=== PATIENT | female | born 1950 | race Two or more races ===

== ENCOUNTER 2023-09-26 08:43 | Outpatient (OUT) | payer MEDICARE, SELFPAY ==
--- NOTE | 2023-09-26 08:52 | MM_ITS ---
Patient Name: JEFERSON-------- KARLA MR#: [id number] : 1950 Exam Date: 09/26/2023 Ordering Doctor: DR JYOTSNA ABARCA RADIOLOGY REPORT PROCEDURE: MM TOMOSYNTHESIS SCREENING BI COMPARISON: MG MAMM SCREEN 3D CELINE CAD, 09/14/2021. MG MAMM SCREEN 3D ECLINE CAD, 09/25/2022. INDICATIONS: Screening Calculator Name NCI Breast Cancer Risk Assessment Tool 5 Year Breast Cancer Risk 1.30% Lifetime Breast Cancer Risk 3.20% Personal Breast Cancer No Personal Ovarian Cancer No Treatments None Family Cancers Mother with uterine/thyroid cancer at age 45; Grandfather-paternal with bone cancer at age ~90. LOCATION: [facility] BREAST COMPOSITION: Heterogeneously dense,which may obscure small masses. FINDINGS: DIAGNOSTIC CATEGORY 2--BENIGN FINDING. NO CHANGE FROM COMPARISON. RIGHT BREAST: No significant suspicious finding. Microclip markers, stable LEFT BREAST: No significant suspicious finding. RECOMMENDATIONS: ROUTINE MAMMOGRAM AND CLINICAL EVALUATION IN 12 MONTHS. PLEASE NOTE: A NORMAL MAMMOGRAM DOES NOT EXCLUDE THE POSSIBILITY OF BREAST CANCER. A CLINICALLY SUSPICIOUS PALPABLE LUMP SHOULD BE BIOPSIED. Dictated by: Jyotsna Chilel MD on 09/26/2023 at 10:09 Approved by: Jyotsna Chilel MD on 09/26/2023 at 10:13
== END 2023-09-26 08:44 | disposition home or self-care (01) ==
LOC: MAMMO 08:44
PROVIDERS: PCP Family Medicine; Visit Provider Family Medicine
DX: Z12.31 Encounter for screening mammogram for malignant neoplasm of breast (principal); Z80.8 Family history of malignant neoplasm of other organs or systems; Z80.9 Family history of malignant neoplasm, unspecified
CPT/HCPCS: 77063; 77067

== ENCOUNTER 2024-07-28 13:05 | Outpatient (OUT) | payer MEDICARE, SELFPAY | END 2024-07-28 13:06 | disposition home or self-care (01) | LOC: PST 13:05 | PROVIDERS: PCP Family Medicine; Visit Provider Surgery | DX: Z01.818 Encounter for other preprocedural examination (principal); Z86.010 Personal history of colon polyps ==

== ENCOUNTER 2024-08-06 08:50 | Day surgery (SDC) | payer MEDICARE, SELFPAY ==
--- NOTE | 2024-08-06 | OP_ITS ---
OPERATION DATE: 08/06/2024 PREOPERATIVE DIAGNOSIS: Personal history of colon polyps. POSTOPERATIVE DIAGNOSIS: Mild sigmoid diverticulosis. PROCEDURE: Colonoscopy to cecum. SURGEON: Shiv Loza M.D. ANESTHESIA: Monitored anesthesia care. ESTIMATED BLOOD LOSS: Zero. INDICATIONS AND CONSENT: Patient is a 74-year-old female with a remote history of colon polyps. Last colonoscopy in 2019 was normal. Indications, risks, benefits, alternatives of proceeding with surveillance colonoscopy were explained extensively to the patient, including the risks of bleeding, colon perforation or anesthetic complications. All of her questions were answered. Informed consent was obtained. PROCEDURE: Patient brought to the operating room, placed in the left lateral decubitus position. Monitored anesthesia care was provided. Rectal exam was performed which showed no masses or blood. The scope was inserted into the anal canal. Under direct visualization was advanced. It was advanced to the cecum where cecal markings were clearly identified. There was noted to be a good prep. Upon withdrawal of the scope, mucosal surfaces were carefully examined. There were no mass lesions or polyps. No inflammatory changes or ulcerations. There was mild sigmoid diverticulosis without inflammatory changes or scarring. The scope was retroflexed in the anal canal. There was no significant hemorrhoidal disease. Scope was then withdrawn. Patient tolerated procedure well, was sent to recovery room in good condition. CC: Lauri El D.O. FATOU
--- OUTSIDE RECORDS SUMMARY | 2024-08-06 09:07 | XMS_ITS | CCD ---
Author Organization [facility] [place] [facility] Team Providers Care Home Health Cna Name Role Phone Jyotsna Abarca Unavailable Unavailable Unavailable Unavailable Jyotsna Abarca Unavailable DO Jyotsna Abarca Primary Care Provider DO Jyotsna Abarca Attending Provider [phone] Jyotsna Abarca Unavailable TEVIN, DR GOYAL Primary Care Unavailable SAMSA ., JAMES Attending Unavailable SAMSA ., JAMES Consulting Unavailable SAMSA ., JAMES Admitting Unavailable GIRJUSTEN, DR GOYAL Primary Care Unavailable SAMSA ., JAMES Attending Unavailable SAMSA ., JAMES Consulting Unavailable SAMSA ., JAMES Admitting Unavailable GIRJUSTEN, DR GOYAL Primary Care Unavailable SAMSA ., JAMES Attending Unavailable SAMSA ., JAMES Consulting Unavailable SAMSA ., JAMES Admitting Unavailable ALON BETH Consulting Unavailable JESE RUSSELL Consulting Unavailable GIRJUSTEN, DR GOYAL Admitting Unavailable GIRVIN, DR GOYAL Attending Unavailable GIRVIN, DR GOYAL Consulting Unavailable GIRJUSTEN, DR GOYAL Primary Care Unavailable SAM, DR JYOTSNA Vidal Consulting Unavailable GIRJUSTEN, DR GOYAL Admitting Unavailable GIRJUSTEN, DR GOYAL Attending Unavailable GIRJUSTEN, DR GOYAL Consulting Unavailable GIRJUSTEN, DR GOYAL Primary Care Unavailable WEST, DR JYOTSNA Vidal Consulting Unavailable SAMSA ., JAMES Admitting Unavailable ZIJACKIE, DR SHAE Carreon Consulting Unavailable SAMSA ., JAMES Attending Unavailable TEVIN, DR GOYAL Primary Care Unavailable SAMSA ., JAMES Consulting Unavailable TEVIN, DR GOYAL Primary Care Unavailable TEVIN, DR GOYAL Admitting Unavailable GIRJUSTEN, DR GOYAL Attending Unavailable GIRJUSTEN, DR GOYAL Consulting Unavailable HOWIE CHAVEZ Consulting Unavailable DO Jyotsna Abarca Primary Care Provider DO Jyotsna Abarca Attending Provider Jyotsna Abarca DO Primary Care Provider DO Jyotsna Abarca Primary Care Provider DO Jyotsna Abarca Attending Provider [phone] DIANA BOTELLO Attending Unavailable MITA LUCIANO Attending Unavailable JYOTSNA ABARCA Primary Care Unavailable MITA LUCIANO Attending Unavailable MITA LUCIANO Referring Unavailable JYOTSNA ABARCA Primary Care Unavailable DO Jyotsna Abarca Primary Care Provider DO Jyotsna Abarca Attending Provider Jytosna Abarca Attending Unavailable Tevin, Jyotsna Admitting Unavailable Jyotsna Abarca Primary Care Unavailable Jyotsna Abarca Attending Unavailable Tevin, Jyotsna Admitting Unavailable Tevin, Jyotsna Primary Care Unavailable Jyotsna Abarca Attending Unavailable Tevin, Jyotsna Admitting Unavailable Tevin, Jyotsna Primary Care Unavailable Tevin, Jyotsna Attending Unavailable Tevin, Jyotsna Admitting Unavailable Tevin, Jyotsna Primary Care Unavailable Jyotsna Abarca Attending Unavailable Tevin, Jyotsna Admitting Unavailable Jyotsna Abarca Primary Care Unavailable Jyotsna Abarca Primary Care Physician [phone] Jyotsna Abarca Referring Unavailable Shiv LEAL Attending Unavailable Allergies Allergy Classification Reported Allergen(s) Allergy Type Date of Onset Reaction(s) Facility (4 sources) Acetaminophen / HYDROcodone; Translations: [Vicodin TABS] Drug Allergy 07-05-20 23 Other [facility] [place] DO Work Phone: (20 sources) Alendronate; Translations: [Fosamax] Drug Allergy rash, Eruption of skin (disorder) [facility] (2 sources) Ascorbic Acid / Ferrous fumarate; Translations: [Vitron-C] Drug Allergy Drowsiness, Exercise Intolerance, Unknown, Other [facility] 250 DO Work Phone: (4 sources) Atenolol; Translations: [atenolol] Drug Allergy 07-05-20 23 Shortness of breath, Other [facility] (5 sources) Cephalexin; Translations: [Keflex CAPS] Drug Allergy 07-05-20 23 Rash, Palpitations (finding) [facility] Other (20 sources) clopidogrel; Translations: [Plavix] Drug Allergy 07-05-20 23 shortness of breath, Rash, Palpitations (finding) [facility] Other (20 sources) desloratadine; Translations: [Clarinex] Drug Allergy 07-05-20 23 GI bleeding [employer] [facility] Other (20 sources) Naproxen; Translations: [naproxen] Drug Allergy 12-04-19 19 Shortness of breath, Nausea Only, Other [facility] (11 sources) Penicillins; Translations: [Penicillins] Allergy to drug (finding) 12-04-19 19 Shortness of breath, Difficulty Breathing [facility] (3 sources) rofecoxib; Translations: [Vioxx] Drug Allergy Shortness of breath, Chest Pain [facility] Repository (3 sources) Sulfamethoxazole; Translations: [sulfa] Drug Allergy 07-05-20 23 Rash [facility] 250 DO Work Phone: (19 sources) Acetaminophen / HYDROcodone; Translations: [Vicodin] Drug Allergy 09-29-20 13 Unknown [facility] Repository (20 sources) Amoxicillin Drug Allergy 11-27-19 24 shortness of breath [facility] (20 sources) atorvastatin; Translations: [atorvastatin] Drug Allergy 11-27-19 24 Muscle pain (finding) [facility] (18 sources) Cephalexin; Translations: [Keflex] Drug Allergy 10-06-20 13 Unknown [facility] Rep[facility] (20 sources) Clarithromycin; Translations: [clarithromycin] Drug Allergy 12-04-19 19 Unknown, Difficulty Breathing, SOB [facility] (20 sources) denosumab; Translations: [denosumab] Drug Allergy 11-27-19 24 rash, Eruption of skin (disorder) [facility] (17 sources) Erythromycin Drug Allergy Unknown [facility] Other (20 sources) fexofenadine; Translations: [fexofenadine] Drug Allergy Palpitations (finding) [facility] (12 sources) Loratadine Drug Allergy 11-27-19 24 Unknown, Unknown Reaction [facility] (20 sources) Penicillin G Drug Allergy 11-27-19 24 Unknown, Unknown Reaction [facility] (17 sources) Pseudoephedrine Drug Allergy Unknown [facility] Other (20 sources) PCE Drug allergy 11-27-19 24 Unknown, Unknown Reaction [facility] (17 sources) Sulf-10 Drug allergy Unknown [employer] [facility] Other (9 sources) Loratadine; Translations: [Claritin] Drug Allergy 10-06-20 13 Unknown [facility] Rep[facility] (8 sources) Acetaminophen Drug Allergy 12-04-19 19 Difficulty Breathing [facility] (8 sources) Alendronate Drug Allergy 12-04-19 19 Rash [facility] (9 sources) Cephalexin; Translations: [CEPHALEXIN] Drug Allergy 12-04-19 19 Palpitations [facility] (9 sources) clopidogrel; Translations: [CLOPIDOGREL] Drug Allergy 12-04-19 19 Palpitations, Palpitations, shortness of breath [facility] (9 sources) desloratadine; Translations: [DESLORATADINE] Drug Allergy 12-04-19 19 Unknown Reaction [facility] (8 sources) fexofenadine Drug Allergy 12-04-19 19 Palpitations [facility] (8 sources) HYDROcodone Drug Allergy 12-04-19 19 Difficulty Breathing [facility] (8 sources) Pseudoephedrine Drug Allergy 12-04-19 19 Palpitations [facility] (11 sources) rofecoxib; Translations: [ROFECOXIB] Drug Allergy 12-04-19 19 Shortness of breath, Dyspnea (finding) [facility] (8 sources) Sulfonamides (Antibiotic) Propensity to adverse reactions 12-04-19 19 Rash [facility] (8 sources) vitrum Allergy to substance 12-04-19 19 Unresponsive [facility] (1 source) Alendronate Drug Allergy 10-06-20 13 [facility] Rep[facility] (1 source) Atenolol Drug Allergy [facility] Rep[facility] (2 sources) Clarithromycin; Translations: [Biaxin] Drug Allergy 10-06-20 13 [facility] Rep[facility] (1 source) clopidogrel Drug Allergy [facility] Rep[facility] (1 source) desloratadine Drug Allergy 10-06-20 13 [facility] Rep[facility] (1 source) Latex Drug allergy (disorder) 10-06-20 13 [facility] Rep[facility] (1 source) Naproxen Drug Allergy 10-06-20 13 [facility] (1 source) Penicillins Drug allergy (disorder) 09-29-20 13 [facility] (1 source) rofecoxib Drug Allergy 10-06-20 13 [facility] (1 source) Sulfonamides (Antibiotic) Drug allergy (disorder) 10-06-20 13 [facility] Rep[facility] (2 sources) Alendronate; Translations: [ALENDRONATE] Drug Allergy 07-05-[address] [facility] (2 sources) Ascorbic Acid / Iron Carbonyl; Translations: [IRON,CARBONYL-VIT SHAY C] Drug Allergy 07-05-20 Unknown, Drowsiness [facility] Work Phone: (1 source) Penicillins Drug Intolerance 07-05-20 Shortness of breath [facility] Work Phone: (1 source) Acetaminophen / HYDROcodone; Translations: [HYDROCODONE-ACETA MINOPHEN] Drug Allergy 07-05-20 [facility] 3 Repository (1 source) Sulfamethoxazole; Translations: [SULFAMETHOXAZOLE] Drug Allergy 07-05-20 [facility] 3 Repository (1 source) SOY ISOFLA-BLK COHOSH-MAG BARK; Translations: [SOY ISOFLA-BLK COHOSH-MAG BARK] Propensity to adverse reactions to drug (disorder) 05-21-20 [facility] 3 Repository (3 sources) erythromycin base Allergy to substance 11-27-19 Unknown Reaction [facility] (2 sources) Black Cohosh Extract Drug Allergy 06-11-20 [facility] (2 sources) Soybean preparation Drug Allergy 06-11-20 [facility] (2 sources) magnolia bark Allergy to substance 06-11-20 [facility] (2 sources) Penicillin; Translations: [penicillin] Drug Allergy SOB [facility] (2 sources) Sulfonamides (Antibiotic); Translations: [sulfa drugs] Drug allergy Eruption of skin (disorder) [facility] (1 source) denosumab; Translations: [Prolia] Drug Allergy [facility] Repository Medications Current Medications Medication Drug Class(es) Dates Sig (Normalized) Sig (Original) ascorbic acid 1000 mg extended release oral tablet (2 sources) Vitamin C Start: 06-11-2024 take 1000 mg by mouth every twelve hours Ascorbic Acid (Vitamin C) Active 1000 MG PO Every 12 hours June 11, 2024 12:00am aspirin 81 mg chewable tablet (20 sources) Platelet Aggregation Inhibitor, Nonsteroidal Anti-inflammatory Drug Start: 06-11-2024 take 81 mg by mouth once daily Aspirin Active 81 MG PO Daily June 11, 2024 12:00am Start: 03-03-2021 take 1 tablet by rose marie th once daily aspirin 81 mg EC tablet Take 1 tablet (81 mg) by mouth once daily. As directed 0 03/03/2021 Active Start: 03-16-2020 take 1 tablet by rose marie th once daily aspirin 81 mg oral tablet 81 mg = 1 tab(s), Oral, Daily, Refills(s) 0, Blood Thinner Start Date: 03/16/20 Status: Ordered take 1 tablet by rose marie th every twenty-four hours Aspirin 81 MG 1 tablet Orally Once a day Not-Taking/PRN atenolol 25 mg oral tablet (20 sources) beta-Adrenergic Iker Start: 06-11-2024 take 25 mg by mouth twice daily Atenolol Active 25 MG PO Twice daily June 11, 2024 12:00am Start: 03-16-2020 take 1 tablet by rose marie th twice daily atenolol (Tenormin) 25 mg tablet Take 1 tablet (25 mg) by mouth 2 times a day. 0 08/15/2021 Active Biotin (4 sources) Start: 06-11-2024 take 1 ug by mouth o nce daily Biotin Active MCG PO Daily June 11, 2024 12:00am Biotin Active Black Cohosh Root Extract (9 sources) Start: 06-11-2024 take 40 mg by mouth once daily Black Cohosh Root Extract Active 40 MG PO Daily June 11, 2024 12:00am Black Cohosh 40 MG as directed Orally Not-Taking/PRN take 1 capsule by mouth once yoko ly BLACK COHOSH ORAL Take 1 capsule by mouth once daily. 40mg 0 Active Black Cohosh 40 MG as directed Orally Active take 1 capsule by mouth once yoko ly Black Cohosh 40 MG Oral Capsule TAKE 1 CAPSULE Daily Quantity: 0 Refills: 0 Ordered: 16-Nov-2022 DO Active calcitonin Nasal [place] (1 source) Start: 03-19-2020 calcitonin Diony al [place] = 1 spray(s), Nasal, Daily, Other (see comment) Start Date: 03/19/20 Status: Ordered Calcium Citrate (19 sources) Start: 03-19-2020 take 1 capsule by mouth twice daily Citracal + D 1 cap, Oral, BID, Prophylaxis Start Date: 03/19/20 Status: [facility] as needed Citracal + D 400 mg tab orally TID Not-Taking/PRN Citracal + D TAB S TAKE 2 TABLET Daily Quantity: 0 Refills: 0 Ordered: 16-Nov-2022 DO Active calcium citrate 1500 mg / cholecalciferol 250 unt oral tablet (2 sources) Vitamin D Start: 06-11-2024 take 1 tablet by mouth twice daily Calcium Citrate-Vitamin D3 (Citracal + D Maximum) 315 mg-6.25 mcg (250 unit) tablet Active 1 TAB PO Twice daily June 11, 2024 12:00am calcium phosphate trib/vit D3 (CITRACAL-D3 GUMMIES ORAL) (1 source) take 2 tablets by mouth once daily calcium phosphate trib/vit D3 (CITRACAL-D3 GUMMIES ORAL) Take 2 tablets by mouth once daily. 0 Active cholecalciferol 0.025 mg oral capsule (2 sources) Vitamin D cholecalciferol (Vitamin D3) 25 MCG (1000 UT) capsule Take by mouth. Take as directed 0 Active cyanocobalamin, vitamin B-12, (VITAMIN B-12 ORAL) (1 source) take 1 tablet by mouth once daily cyanocobalamin, vitamin B-12, (VITAMIN B-12 ORAL) Take 1 tablet by mouth once daily. 0 Active doxycycline hyclate 100 mg oral capsule (8 sources) Tetracycline- class Drug Start: 11-16-2022 take 1 capsule by mouth every twelve hours Doxycycline Hyclate 100 MG 1 capsule Orally Twice a day for 10 day(s) Nov, Active Start: 05-02-2022 take 1 capsule by mo [facility] every twelve hours Doxycycline Hyclate 100 MG 1 capsule Orally Twice a day for 7 days Apr, Active Fish Oils (18 sources) Start: 03-19-2020 take 1 capsule by mo uth once daily Fish Oil 1000 mg oral capsule 1,000 mg = 1 cap(s), Oral, Daily, Prophylaxis Start Date: 03/19/20 Status: Ordered take 1 capsule by [facility] twice daily as needed Fish Oil 600 MG 1 capsule Orally Twice a day Not-Taking/PRN take 1 capsule by mouth twice da buddy Fish Oil 600 MG 1 capsule Orally Twice a day Active Hair Skin and Nails (1 source) Start: 07-23-2024 take 1 tablet by mouth once daily Hair Skin and Nails 1 tab(s), Oral, Daily, Refill(s) 0 Start Date: 07/23/24 Status: Ordered 24 hr isosorbide mononitrate 30 mg extended release oral tablet (20 sources) Nitrate Vasodilator Start: 03-10-2014 take 30 mg by mouth once daily Isosorbide Mononitrate Active 30 MG PO Daily June 11, 2024 12:00am Miacalcin 200 UNIT/ACT (1 source) take 1 spray(s) nasal route once daily Miacalcin 200 UNIT/ACT INSTILL 1 SPRAY INTO ALTERNATING NOSTRILS ONCE A DAY Active nitroglycerin 0.4 mg sublingual tablet (20 sources) Nitrate Vasodilator Start: 03-16-2020 NitroStat 0.4 mg Tab 0.4 mg = 1 tab(s), SubLingual, q5min, PRN for chest pain, # 100 tab(s), Refills(s) 0 Start Date: 03/16/20 Status: Ordered Start: 12-22-2013 Nitrostat 0.4 MG 1 tablet under the tongue and allow to dissolve as needed Sublingual at onset of chest pain and q5 min x3 10 Dec, 2013 Active omega 3-gmb-yar-fish oil (Fish OiL) 1,000 mg (120 mg-180 mg) capsule (1 source) take 1 capsule by mouth twice daily omega 5-eox-uqo-fish oil (Fish OiL) 1,000 mg (120 mg-180 mg) capsule Take 1 capsule (1,000 mg) by mouth 2 times a day. 0 Active [place] 5-Vug-Pti-Fish Oil (Fish Oil) 360-1,200 mg capsule,delayed release(DR/EC) (2 sources) Start: 06-11-20 24 take 360-1200 mg by mouth once daily [place] 8-Rui-Cuq-Fish Oil (Fish Oil) 360-1,200 mg capsule,delayed release(DR/EC) Active 1 CAP PO Daily June 11, 2024 12:00am rosuvastatin calcium 20 mg oral tablet (20 sources) HMG-CoA Reductase Inhibitor Start: 06-11-20 take 20 mg by mouth once daily Rosuvastatin Active 20 MG PO Daily June 11, 2024 12:00am Start: 03-19-2020 take 1 tablet by rose marie th once daily rosuvastatin (Crestor) 20 mg tablet Take 1 tablet (20 mg) by mouth once daily. 0 09/05/2021 Active salmon calcitonin 200 unt/actuat nasal spray (20 sources) Calcitonin Start: 05-19-2024 End: 05-19-2024 take 1 spray(s) nasal route once daily Calcitonin (Pickerel) Active 1 SPRAY intranasal (ALT) Daily 3.7 30 May 19, 2024 9:10am USE 1 SPRAY IN ALTERNATING NOSTRILS ONCE A DAY Start: 09-08-2021 take 1 spray(s) nasa l route once daily calcitonin, salmon, (Miacalcin) 200 unit/actuation nasal spray Administer 1 spray into affected nostril(s) once daily. ALTERNATING NOSTRILS 0 09/08/2021 Active take 1 spray(s) nasa l route once daily Calcitonin (Pickerel) 200 UNIT/ACT USE 1 SPRAY IN ALTERNATING NOSTRILS ONCE A DAY Active Pickerel Oil-[place]-3 Fatty Acids (2 sources) Start: 06-11-2024 take 1 capsule by mouth once daily Pickerel Oil-[place]-3 Fatty Acids Active CAP PO Daily June 11, 2024 12:00am Vitamin B 12 250 MCG (15 sources) Start: 04-28-2014 Vitamin B 12 2 50 MCG 1 tablet Orally 5 days a week Apr, Active Start: 04-28-2014 take 1 tablet by mouth every w elem Vitamin B 12 250 MCG 1 tablet Orally 4 days per week Apr, Active vitamin b12 0.25 mg oral lozenge (6 sources) Vitamin B12 Start: 06-11-2024 End: 06-11-2024 Cyanocobalamin (Vitamin B-12 ) Active 500 MCG PO .COMPLEX June 11, 2024 3:18pm 500 mcg orally Sun, Sun and Sunday; Start: 04-28-2014 Vitamin B 12 2 50 MCG 1 tablet Orally 5 days a week Apr, Not-Taking/PRN Vitamin D-3 1000 UNIT (17 sources) Start: 04-28-2014 take 2 capsules by mouth once daily Vitamin D-3 1000 UNIT 2 capsules (2000 units) Orally qd Apr, Active Vitamin D3 2000 intl units (1 source) Start: 03-16-2020 Vitamin D3 200 0 intl units 2,000 International_Unit, Oral, Daily, Refills(s) 0, Prophylaxis Start Date: 03/16/20 Status: Ordered Completed/Discontinued Medications Medication Drug Class(es) Dates Sig (Normalized) Sig (Original) Fish Oil 1000 MG Oral Capsule Delayed Release (1 source) take 1 capsule by mouth twice daily Fish Oil 1000 MG Oral Capsule Delayed Release Take 1 capsule twice daily Quantity: 180 Refills: 0 Ordered: 16-Nov-2022 DO Active fluticasone propionate 0.05 mg/actuat metered dose nasal spray (9 sources) Corticosteroid Start: 05-02-2022 take 2 spray(s) nasal route once daily Fluticasone Propionate 50 MCG/ACT 2 sprays each nostril Nasally Once a day Apr, Not-Taking take 2 spray(s) nasal route once daily Flonase 50 MCG/ACT 2 sprays each nostril Nasally Once a day Not-Taking salmon oil (17 sources) take 1 capsule by mo [facility] twice daily as needed Pickerel Oil 200 MG 1 capsule Orally bid Not-Taking/PRN take 1 capsule by mouth twice da buddy Pickerel Oil 200 MG 1 capsule Orally bid Active Vitamin B-12 TABS (1 source) Vitamin B-12 TAB S TAKE 1 TABLET DAILY. Quantity: 0 Refills: 0 Ordered: 16-Nov-2022 DO Active Vitamin B12 500 mcg oral tablet (1 source) Start: 03-16-2020 take 1 tablet by mouth once daily Vitamin B12 500 mcg oral tablet 500 microgram = 1 tab(s), Oral, Daily, Refills(s) 0, Prophylaxis Start Date: 03/16/20 Status: Ordered Problems Active Problems Problem Classification Problem Date Documented Date Episodic/Chronic Administrative/socia l admission (1 source) Other specified counseling Episodic Cardiac dysrhythmias (1 source) Atrial fibrillation 03-23-2020 Chronic Chronic obstructive pulmonary disease and bronchiectasis (5 sources) Bronchiectasis, uncomplicated; Translations: [BRONCHIECTASIS UNCOMPLICATED] Onset: 3 Chronic Coronary atherosclerosis and other heart disease (20 sources) Disorder of coronary artery; Translations: [Coronary atherosclerosis of unspecified type of vessel, [place] or graft] Onset: 1 Resolved: 2 Chronic Deficiency and other anemia (2 sources) Anemia, unspecified; Translations: [ANEMIA UNSPECIFIED] Onset: 3 Episodic Diabetes mellitus without complication (9 sources) Hyperglycemia, unspecified; Translations: [Hyperglycemia] Onset: 1 Resolved: 2 Episodic Disorders of lipid metabolism (20 sources) Hyperlipidemia; Translations: [Other and unspecified hyperlipidemia] Onset: 1 Resolved: 2 Chronic Essential hypertension (20 sources) Hypertensive disorder; Translations: [Unspecified essential hypertension] Onset: 1 Resolved: 2 Chronic Fluid and electrolyte disorders (5 sources) Hypokalemia; Translations: [Hypokalemia] Onset: 4 06-11-2024 Episodic Nutritional deficiencies (20 sources) Vitamin D deficiency; Translations: [Vitamin D deficiency, unspecified] Onset: 1 Resolved: 4 Chronic Nutritional deficiencies (10 sources) Deficiency of other specified B group vitamins; Translations: [Cobalamin deficiency] Onset: 1 Resolved: 2 Episodic Osteoporosis (20 sources) Osteoporosis; Translations: [Age-related osteoporosis without current pathological fracture] Onset: 1 Resolved: 4 Chronic Other aftercare (5 sources) Other retirement (current) drug therapy; Translations: [OTH COPYHOLDER CURRENT DRUG THERAPY] Onset: 2 Resolved: 2 Episodic Other aftercare (1 source) 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 treater (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) use of aspirin; Translations: [COPYHOLDER CURRENT USE OF ASPIRIN] Onset: 3 Episodic Other and unspecified benign neoplasm (3 sources) History of polyp of colon; Translations: [Personal history of colonic polyps] Onset: 4 Episodic Other circulatory disease (3 sources) Other specified symptoms and signs involving the circulatory and respiratory systems; Translations: [Abnormal chest sounds] Episodic Other circulatory disease (1 source) Personal history of transient ischemic attack (TIA), and cerebral infarction without residual deficits; Translations: [PERS HX TIA AND CI NO RESID DEFICIT] Onset: 3 Episodic Other circulatory disease (2 sources) Abnormal chest sounds; Translations: [Other specified symptoms and signs involving the circulatory and respiratory systems] 06-11-2024 Episodic Other circulatory disease (1 source) H/O: atrial fibrillation 03-19-2020 Episodi c Other lower respiratory disease (18 sources) Solitary nodule of lung; Translations: [Solitary pulmonary nodule] 06-30-2024 Episodic Other lower respiratory disease (7 sources) Solitary pulmonary nodule; Translations: [Solitary pulmonary nodule] Onset: 2 Resolved: 2 Episodic Other lower respiratory disease (1 source) Other nonspecific abnormal finding of lung field; Translations: [OTH NONSPECIFIC ABN FIND LNG FIELD] Onset: 3 Episodic Other lower respiratory disease (1 source) Personal history of pneumonia (recurrent); Translations: [PERSONAL HX OF PNEUMONIA RECURRENT] Onset: 3 Episodic Other lower respiratory disease (1 source) Lung mass 03-19-2020 Episodic Other nutritional; endocrine; and metabolic disorders (3 sources) Abnormal weight loss Onset: 1 Resolved: 2 Episodic Other nutritional; endocrine; and metabolic disorders (2 sources) Abnormal weight gain Episodic Other nutritional; endocrine; and metabolic disorders (1 source) History of hypercholesterolemia 03-19-2020 Episodic Other screening for suspected conditions (not mental disorders or infectious disease) (13 sources) Standard chest X-ray abnormal; Translations: [Abnormal findings on diagnostic imaging of other specified body structures] Chronic Other upper respiratory disease (20 sources) Allergic rhinitis; Translations: [Allergic rhinitis, unspecified] 06-11-2024 Chronic Other upper respiratory disease (1 source) Allergic rhinitis, unspecified Onset: 1 Resolved: 1 Chronic Pneumonia (except that caused by tuberculosis or sexually transmitted disease) (10 sources) Pneumonia, unspecified organism; Translations: [Pneumonia due to Pseudomonas] Onset: 3 Episodic Pulmonary heart disease (10 sources) Secondary pulmonary hypertension; Translations: [Other chronic pulmonary heart diseases] Onset: 3 08-14-2023 Chronic Residual codes; unclassified (4 sources) Body mass index 20-24 - normal; Translations: [Body Mass Index between 19-24, adult] Onset: 3 08-14-2023 Episodic Residual codes; unclassified (2 sources) Never smoked any substance; Translations: [Other specified health status] Onset: 3 08-14-2023 Episodic Transient cerebral ischemia (20 sources) Transient cerebral ischemia; Translations: [Unspecified transient cerebral ischemia] Onset: 3 08-14-2023 Chronic Unclassified (1 source) CONTACT W/AND (SUSP) EXPOS COVID-19; Translations: [CONTACT W/AND (SUSP) EXPOS COVID-19] Onset: 3 Unclassified (3 sources) COUGH, UNSPECIFIED; Translations: [COUGH, UNSPECIFIED] Onset: 3 Past or Other Problems Problem Classification Problem Date Documented Da te Episodic/Chronic Genitourinary symptoms and ill-defined conditions (11 sources) Hematuria, unspecified; Translations: [Unspecified abnormal findings in urine] Onset: 10-25-2021 Resolved: 05-02-2022 Episodic Immunizations and screening for infectious disease (2 sources) Patient encounter status; Translations: [Other specified vaccination] Resolved: 03-02-2022 Episodic Other lower respiratory disease (4 sources) Dyspnea; Translations: [Shortness of breath] Onset: 07-05-2023 08-14-2023 Episodic Other lower respiratory disease (1 source) Shortness of breath; Translations: [Shortness of breath] Onset: 07-05-2023 Episodic Other lower respiratory disease (3 sources) Nodule of lung; Translations: [Solitary pulmonary nodule] Onset: 05-02-2022 Resolved: 06-30-2024 06-11-2024 Episodic Other screening for suspected conditions (not mental disorders or infectious disease) (5 sources) Encounter for screening mammogram for malignant neoplasm of breast; Translations: [ENC SCR MAMMO MALIG NEOPLASM BREAST] Onset: 09-25-2022 Episodic Otitis media and related conditions (1 source) Other specified disorders of Eustachian tube, left ear Onset: 05-02-2022 Resolved: 05-02-2022 Episodic Residual codes; unclassified (1 source) Family history of malignant neoplasm of other genital organs; Translations: [FAM HX MALIG NEOPLSM OTH GENIT ORGN] Onset: 09-28-2022 Episodic Residual codes; unclassified (1 source) Family history of malignant neoplasm of other organs or systems; Translations: [JIM RIOS NEOPLASM OT ORGN/SYS] Onset: 09-28-2022 Episodic Residual codes; unclassified (2 sources) Body mass index (BMI) 22.0-22.9, adult; Translations: [Body mass index (BMI) 22.0-22.9, adult] Onset: 07-05-2023 Episodic Residual codes; unclassified (2 sources) Other specified health status; Translations: [Other specified health status] Onset: 07-05-2023 Episodic Unclassified (2 sources) Never smoked tobacco; Translations: [Never a smoker] Unclassified (3 sources) Cough R05.9 Onset: 10-25-2021 Resolved: 10-25-2021 Unclassified (1 source) COUGH, UNSPECIFIED; Translations: [COUGH, UNSPECIFIED] Onset: 11-16-2022 Unclassified (1 source) Onset: 08-14-2023 08-14-2023 Results Test Name Value Interpretation Reference Range Facility Ambulatory Visit Summaryon 0 07-23-2024 Ambulatory Visit Summary Ambulatory Visit Summary MESERET ACOSTA :1950 Visit Date:07/23/2024 Ambulatory Visit Instructions Your Diagnosis Personal history of colonic polyps Your Care Team Attending Physician - Shiv LEAL MD Primary Care Physician - Jyotsna Abarca DO Referring Physician - Jyotsna Abarca DO This Is Your Medications List Contact prescribing physician if questions or concerns aspirin (aspirin 81 mg oral tablet) atenolol (atenolol 25 mg Tab) calcitonin (calcitonin Nasal [place]) calcium-vitamin D (Citracal + D) cholecalciferol (Vitamin D3 2000 intl units) cyanocobalamin (Vitamin B12 500 mcg oral tablet) isosorbide mononitrate (isosorbide mononitrate 30 mg ER Tab) multivitamin with minerals (Hair Skin and Nails) nitroglycerin (NitroStat 0.4 mg Tab) omega-3 polyunsaturated fatty acids (Fish Oil 1000 mg oral capsule) rosuvastatin (rosuvastatin 20 mg Tab) Procedures Performed Bronchoscopy (03/23/2020), Colonoscopy (04/23/2019), Bilateral tubal ligation, Biopsy of breast, Biopsy of lung, Cataract surgery, Colonoscopy. Discharge Vitals Heart Rate (Peripheral) 72 Respiratory Rate 16 Blood Pressure 138/76 Height 148.5 cm Height 58 in Weight 46 kg Weight 101.2 lb BMI 20.86 Medications What How Much When Instructions Unchanged aspirin (aspirin 81 mg oral tablet) 1 Tablets By Mouth Every day Contact prescribing physician if questions or concerns Unchanged atenolol (atenolol 25 mg Tab) 1 Tablets By Mouth 2 times a day Contact prescribing physician if questions or concerns Unchanged calcitonin (calcitonin Nasal [place]) 1 Sprays Nasal Inhalation Every day Contact prescribing physician if questions or concerns Unchanged calcium-vitamin D (Citracal + D) 1 cap By Mouth 2 times a day Contact prescribing physician if questions or concerns Unchanged cholecalciferol (Vitamin D3 2000 intl units) 2,000 International unit By Mouth Every day Contact prescribing physician if questions or concerns Unchanged cyanocobalamin (Vitamin B12 500 mcg oral tablet) 1 Tablets By Mouth Every day Contact prescribing physician if questions or concerns Unchanged isosorbide mononitrate (isosorbide mononitrate 30 mg ER Tab) 1 Tablets By Mouth Once a day (in the morning) Contact prescribing physician if questions or concerns Unchanged multivitamin with minerals (Hair Skin and Nails) 1 Tablets By Mouth Every day Contact prescribing physician if questions or concerns Unchanged nitroglycerin (NitroStat 0.4 mg Tab) 1 Tablets Sublingual Every 5 minutes as needed for for chest pain Contact prescribing physician if questions or concerns Unchanged omega-3 polyunsaturated fatty acids (Fish Oil 1000 mg oral capsule) 1 Capsules By Mouth Every day Contact prescribing physician if questions or concerns Unchanged rosuvastatin (rosuvastatin 20 mg Tab) 1 Tablets By Mouth Once a day (at bedtime) Contact prescribing physician if questions or concerns Allergies Radha (Palpitations) Biaxin (SOB) Fosamax (Rash) Keflex (Palpitations) Plavix (Palpitations) Prolia (Rash) Vicodin (chest pain, SOB) Vioxx (SOB - Shortness of breath) atorvastatin (Myalgia) naproxen (sob) penicillin (SOB) sulfa drugs (Rash) Problems Ongoing - Any problem that you are currently receiving treatment for. Allergic rhinitis Coronary arteriosclerosis History of colon polyps Hyperlipidemia Hypertensive disorder Osteoporosis Personal history of colonic polyps Secondary pulmonary hypertension Solitary nodule of lung Transient cerebral ischemia Vitamin B 12 deficiency Vitamin D deficiency Historical - Any problem that you are no longer receiving treatment for. Nodule of lung Osteoporosis Vitamin D deficiency Patient Survey You may receive a survey via text or e-mail asking about your office visit. Please share your experience with us by completing your survey. We appreciate your feedback and thank you for choosing us for your care. Normal [facility] Basic Metabolic Panelon 08 GFR/1.73 sq M.predicted MDRD (S/P/Bld) [Vol rate/Area] mL/min/{1.73_m2} Normal [facility] Comment on above: Performed By: #### B MP #### [place] [address] [place] Calcium [Mass/volume] in Ser um or PlasmaOrdered By: Jyotsna Abarca on 06-12-2024 Calcium [Mass/Vol] 9.5 mg/dL Normal 8.6-10.3 [facility] Comment on above: Result Comment: PERF ORMED BY: [place] [id number] PATHOLOGIST PNEUMATIC TESTER MARYANN NUNEZ M.D. Performed By: #### B MP #### [place] [address] [place] Carbon dioxide, total [Moles /volume] in Serum or PlasmaOrdered By: Jyotsna Abarca on 06-12-2024 CO2 [Moles/Vol] 26.3 mmol/L Normal 21.0-31.0 [facility] Comment on above: Performed By: #### B MP #### [place] [address] [place] Chloride [Moles/volume] in S augustus or PlasmaOrdered By: Jyotsna Abarca on 06-12-2024 Chloride [Moles/Vol] 106 mmol/L Normal 98-107 [facility] Comment on above: Performed By: #### B MP #### [place] [address] [place] Creatinine [Mass/volume] in Serum or PlasmaOrdered By: Jyotsna Abarca on 06-12-2024 Creatinine [Mass/Vol] 0.90 mg/dL Normal 0.60-1.20 [facility] Comment on above: Performed By: #### B MP #### [address] Glucose [Mass/volume] in Ser um or PlasmaOrdered By: Jyotsna Abarca on 06-12-2024 Glucose [Mass/Vol] 103 mg/dL High 70-100 [facility] Comment on above: ADA recommended refe rence rangeRandom Glucose Reference Range is dependent on time and content of last meal. Glucose of more than 200 mg/dL in a nonstressed, ambulatory subject supports the diagnosis of Diabetes Mellitus. Result Comment: [place] Glucose Reference Range is dependent on time and content of last meal. Glucose of more than 200 mg/dL in a nonstressed, ambulatory subject supports the diagnosis of Diabetes Mellitus. ADA recommended reference range Performed By: #### B MP #### [address] No Panel InformationOrdered By: Jyotsna Abarca on 06-12-2024 Estimated GFR (CKD-EPI) > 60.0 mL/Min [facility] Creatinine Clearance (Chem N/A [facility] Potassium [Moles/volume] in Serum or PlasmaOrdered By: Jyotsna Abarca on 06-12-2024 Potassium [Moles/Vol] 4.1 mmol/L Normal 3.5-5.1 [facility] Comment on above: Performed By: #### B MP #### [address] Serum or plasma anion gap de terminationOrdered By: Jyotsna Abarca on 06-12-2024 Anion gap [Moles/Vol] 10.8 mmol/L Normal 6.0-15.[address] [facility] Comment on above: Performed By: #### B MP #### [address] Sodium [Moles/volume] in Ser um or PlasmaOrdered By: Jyotsna Abarca on 06-12-2024 Sodium [Moles/Vol] 139 mmol/L Normal 136-145 [facility] Comment on above: Performed By: #### B MP #### [facility] [address] [place] [address] Urea nitrogen [Mass/volume] in Serum or PlasmaOrdered By: Jyotsna Abarca on 06-12-2024 Urea nitrogen [Mass/Vol] 16 mg/dL Normal 7-25 [facility] Comment on above: Performed By: #### B MP #### [place] [address] [place] A1C with Estimated Average G luon 05-23-2024 Glucose [Mass/Vol] 128 mg/dL Normal [facility] Comment on above: Result Comment: PERF ORMED BY: [place] [id number] PATHOLOGIST PNEUMATIC TESTER MARYANN NUNEZ M.D. Performed By: #### C UU, CBC, ADDONUAPLUS #### [address] Alanine aminotransferase [En zymatic activity/volume] in Serum or PlasmaOrdered By: Jyotsna Abarca on 05-23-2024 ALT [Catalytic activity/Vol] 14 U/L Normal 7-52 [facility] Comment on above: Performed By: #### C UU, CBC, ADDONUAPLUS #### [facility] [address] [place] [address] Albumin [Mass/volume] in Ser um or Plasma by Bromocresol green (BCG) dye binding methoOrdered By: Jyotsna Abarca on 05-23-2024 Albumin BCG dye [Mass/Vol] 4.3 g/dL 3.5-5.7 [facility] Alkaline phosphatase [Enzyma tic activity/volume] in Serum or PlasmaOrdered By: Jyotsna Abarca on 05-23-2024 ALP [Catalytic activity/Vol] 62 U/L Normal 34-104 [facility] Comment on above: Performed By: #### C UU, CBC, ADDONUAPLUS #### [facility] [address] [place] [address] [place] Aspartate aminotransferase [ Enzymatic activity/volume] in Serum or PlasmaOrdered By: Jyotsna Abarca on 05-23-2024 AST [Catalytic activity/Vol] 28 U/L Normal 13-39 [facility] Comment on above: Performed By: #### C UU, CBC, ADDONUAPLUS #### [address] Automated basophil %Ordered By: Jyotsna Abarca on 05-23-2024 Basophils/100 WBC (Bld) 2.8 % Normal . [facility] Comment on above: Performed By: #### C UU, CBC, ADDONUAPLUS #### [address] Automated basophil countOrde red By: Jyotsna Abarca on 05-23-2024 Basophils (Bld) [#/Vol] 0.2 10*3/uL Normal 0.0-0.2 [facility] Comment on above: Result Comment: PERF ORMED BY: [place] [id number] PATHOLOGIST PNEUMATIC TESTER MARYANN NUNEZ M.D. Performed By: #### C UU, CBC, ADDONUAPLUS #### [address] Automated blood monocyte cou ntOrdered By: Jyotsna Abarca on 05-23-2024 Monocytes (Bld) [#/Vol] 0.6 10*3/uL Normal 0.0-0.8 [facility] Comment on above: Performed By: #### C UU, CBC, ADDONUAPLUS #### [address] Automated eosinophil %Ordere d By: Jyotsna Abarca on 05-23-2024 Eosinophils/100 WBC (Bld) 4.0 % Normal . [facility] Comment on above: Performed By: #### C UU, CBC, ADDONUAPLUS #### [address] Automated eosinophil countOr dered By: Jyotsna Abarca on 05-23-2024 Eosinophils (Bld) [#/Vol] 0.3 10*3/uL Normal 0.0-0.45 [facility] Comment on above: Performed By: #### C UU, CBC, ADDONUAPLUS #### [facility] [address] Automated monocyte %Ordered By: Jyotsna Abarca on 05-23-2024 Monocytes/100 WBC (Bld) 9.3 % Normal . [facility] Comment on above: Performed By: #### C UU, CBC, ADDONUAPLUS #### [facility] [address] [place] [address] Automated neutrophil %Ordere d By: Jyotsna Abarca on 05-23-2024 Neutrophils/100 WBC (Bld) 52.1 % Normal . [facility] Comment on above: Performed By: #### C UU, CBC, ADDONUAPLUS #### [address] Bacteria [Presence] in Urine by AutomatedOrdered By: Jyotsna Abarca on 05-23-2024 Bacteria Auto Ql (U) None seen [HPF] None Seen [facility] Bilirubin Test strip Ql (U)O rdered By: Jyotsna Abarca on 05-23-2024 Bilirubin Ql (U) Negative Negative [facility] Bilirubin.total [Mass/volume ] in Serum or PlasmaOrdered By: Jyotsna Abarca on 05-23-2024 Bilirubin [Mass/Vol] 0.5 mg/dL Normal 0.3-1.0 [facility] Comment on above: Performed By: #### C UU, CBC, ADDONUAPLUS #### [facility] [address] [place] [address] [place] Calcium [Mass/volume] in Ser um or PlasmaOrdered By: Jyotsna Abarca on 05-23-2024 Calcium [Mass/Vol] 9.2 mg/dL Normal 8.6-10.3 [facility] Comment on above: Performed By: #### C UU, CBC, ADDONUAPLUS #### [address] Carbon dioxide, total [Moles /volume] in Serum or PlasmaOrdered By: Jyotsna Abarca on 05-23-2024 CO2 [Moles/Vol] 28.8 mmol/L Normal 21.0-31.0 [facility] Comment on above: Performed By: #### C UU, CBC, ADDONUAPLUS #### [facility] [address] [place] [address] [place] Chloride [Moles/volume] in S augustus or PlasmaOrdered By: Jyotsna Abarca on 05-23-2024 Chloride [Moles/Vol] 106 mmol/L Normal 98-107 [facility] Comment on above: Performed By: #### C UU, CBC, ADDONUAPLUS #### [facility] [address] [place] [address] [place] Cholesterol [Mass/volume] in Serum or PlasmaOrdered By: Jyotsna Abarca on 05-23-2024 Cholesterol [Mass/Vol] 148 mg/dL Normal 140-[address] [facility] Comment on above: Chol less than 200 m g/dl low riskChol 201-239 mg/dl borderline riskChol 240 mg/dl and greater high risk Result Comment: Chol less than 200 mg/dl low risk Chol 201-239 mg/dl borderline risk Chol 240 mg/dl and greater high risk Performed By: #### C UU, CBC, ADDONUAPLUS #### [facility] [address] Cholesterol in LDL Calc [Mas s/Vol]Ordered By: Jyotsna Abarca on 05-23-2024 Cholesterol in LDL [Mass/Vol] 79 mg/dL 0-100 [facility] Comment on above: LDL ATP III CLASSIFI CATIONLDL less than 100 mg/dL OptimalLDL 100-129 mg/dL Near or above optimalLDL 130-159 mg/dL Borderline highLDL 160-189 mg/dL HighLDL greater than 189 mg/dL Very high Cholesterol in VLDL Calc [Ma ss/Vol]Ordered By: Jyotsna Abarca on 05-23-2024 Cholesterol in VLDL [Mass/Vol] 9 mg/dL [facility] Color of Urine by AutoOrdere d By: Jyotsna Abarca on 05-23-2024 Color (U) Yellow Normal Yellow [facility] Comment on above: Order Comment: Name Collection Type:: Clean-Voided Midstream Performed By: #### C UU, CBC, ADDONUAPLUS #### [facility] [address] Complete Blood Count Auto Di ffon 05-23-2024 Mean Corpuscular HGB Conc 33.6 g/dL Normal 32.0-35.0 [facility] Comment on above: Performed By: #### C UU, CBC, ADDONUAPLUS #### [address] NRBC% 0.1 /100{WBC} Normal 0-0.5 [facility] Comment on above: Performed By: #### C UU, CBC, ADDONUAPLUS #### [address] Comprehensive Metabolic Pane enmanuel 05-23-2024 Albumin [Mass/Vol] 4.3 g/dL Normal 3.5-5.7 [facility] Comment on above: Performed By: #### C UU, CBC, ADDONUAPLUS #### [place] [address] [place] GFR/1.73 sq M.predicted MDRD (S/P/Bld) [Vol rate/Area] mL/min/{1.73_m2} Normal [facility] Comment on above: Performed By: #### C UU, CBC, ADDONUAPLUS #### [address] Creatinine [Mass/volume] in Serum or PlasmaOrdered By: Jyotsna Abarca on 05-23-2024 Creatinine [Mass/Vol] 0.80 mg/dL Normal 0.60-1.20 [facility] Comment on above: Performed By: #### C UU, CBC, ADDONUAPLUS #### [place] [address] [place] Dipstick and Microscopicon 0 05-23-2024 Bacteria,Urine None Seen Normal None Seen [facility] Comment on above: Order Comment: Name Collection Type:: Clean-Voided Midstream Performed By: #### C UU, CBC, ADDONUAPLUS #### [place] [address] [place] Bilirubin,Urine Negative Normal Negative [facility] Comment on above: Order Comment: Name Collection Type:: Clean-Voided Midstream Performed By: #### C UU, CBC, ADDONUAPLUS #### [address] Glucose Ql (U) Normal Normal Normal [facility] Comment on above: Order Comment: Name Collection Type:: Clean-Voided Midstream Performed By: #### C UU, CBC, ADDONUAPLUS #### [place] [address] [place] Hyaline Casts,Urine 0-8 Normal 0-8 [facility] Comment on above: Order Comment: Name Collection Type:: Clean-Voided Midstream Performed By: #### C UU, CBC, ADDONUAPLUS #### [address] Mucus,Urine 1+ Critically abnormal [facility] Comment on above: Order Comment: Name Collection Type:: Clean-Voided Midstream Result Comment: PERF ORMED BY: [place] [id number] PATHOLOGIST PNEUMATIC TESTER MARYANN NUNEZ M.D. Performed By: #### C UU, CBC, ADDONUAPLUS #### [address] Nitrite,Urine Negative Normal Negative [facility] Comment on above: Order Comment: Name Collection Type:: Clean-Voided Midstream Performed By: #### C UU, CBC, ADDONUAPLUS #### [place] [address] [place] Occult Blood,Urine Negative Normal Negative [facility] Comment on above: Order Comment: Name Collection Type:: Clean-Voided Midstream Performed By: #### C UU, CBC, ADDONUAPLUS #### [address] Protein,Urine Negative Normal Negative [facility] Comment on above: Order Comment: Name Collection Type:: Clean-Voided Midstream Performed By: #### C UU, CBC, ADDONUAPLUS #### [address] RBC,Urine 1-2 Normal 0-4 [facility] Comment on above: Order Comment: Name Collection Type:: Clean-Voided Midstream Performed By: #### C UU, CBC, ADDONUAPLUS #### [address] Specificy [place],Urine 1.024 Normal 1.001-1.030 [facility] Comment on above: Order Comment: Name Collection Type:: Clean-Voided Midstream Performed By: #### C UU, CBC, ADDONUAPLUS #### [address] Squamous Epithelial Cell,Urine 1-2 Normal 0-2 [facility] Comment on above: Order Comment: Name Collection Type:: Clean-Voided Midstream Performed By: #### C UU, CBC, ADDONUAPLUS #### [address] Urobilinogen,Urine Normal Normal Normal [facility] Comment on above: Order Comment: Name Collection Type:: Clean-Voided Midstream Performed By: #### C UU, CBC, ADDONUAPLUS #### [address] WBC,Urine 1-2 Normal 0-4 [facility] Comment on above: Order Comment: Name Collection Type:: Clean-Voided Midstream Performed By: #### C UU, CBC, ADDONUAPLUS #### [address] Epithelial cells.squamous [# /area] in Urine sediment by Automated countOrdered By: Jyotsna Abarca on 05-23-2024 Epithelial cells.squamous Auto (Urine sed) [#/Area] 1-2 [HPF] 0-2 [facility] Erythrocyte distribution wid th [Ratio] by Automated countOrdered By: Jyotsna Abacra on 05-23-2024 Erythrocyte distribution width (RBC) [Ratio] 13.2 % Normal 11.9-15.3 [facility] Comment on above: Performed By: #### C UU, CBC, ADDONUAPLUS #### [facility] [address] Erythrocytes [#/area] in Uri ne sediment by Automated countOrdered By: Jyotsna Abarca on 05-23-2024 RBC Auto (Urine sed) [#/Area] 1-2 [HPF] 0-4 [facility] Erythrocytes [#/volume] in B lood by Automated countOrdered By: Jyotsna Abarca on 05-23-2024 RBC (Bld) [#/Vol] 4.23 10*6/uL Normal 3.60-5.00 [facility] Comment on above: Performed By: #### C UU, CBC, ADDONUAPLUS #### [facility] [address] Folate [Mass/volume] in Seru m or PlasmaOrdered By: Jyotsna Abarca on 05-23-2024 Folate [Mass/Vol] 32.0 ng/mL >5.9 [facility] Comment on above: Folate reference ran ge: >5.9 ng/mlThe WHO technical consultation on folate and vitamin [id number] has determined that folate concentrations lessthan 4 ng/ml are considered deficient. Glucose [Mass/volume] in Ser um or PlasmaOrdered By: Jyotsna Abarca on 05-23-2024 Glucose [Mass/Vol] 91 mg/dL Normal 70-100 [facility] Comment on above: ADA recommended refe rence rangeRandom Glucose Reference Range is dependent on time and content of last meal. Glucose of more than 200 mg/dL in a nonstressed, ambulatory subject supports the diagnosis of Diabetes Mellitus. Result Comment: [place] Glucose Reference Range is dependent on time and content of last meal. Glucose of more than 200 mg/dL in a nonstressed, ambulatory subject supports the diagnosis of Diabetes Mellitus. ADA recommended reference range Performed By: #### C UU, CBC, ADDONUAPLUS #### [facility] [address] Glucose [Mass/volume] in Uri ne by Test stripOrdered By: Jyotsna Abarca on 05-23-2024 Glucose Test strip (U) [Mass/Vol] Normal mg/dL Normal [facility] Glucose mean value [Mass/vol ume] in Blood Estimated from glycated hemoglobinOrdered By: Jyotsna Abarca on 05-23-2024 Average glucose Estimated from glycated hemoglobin (Bld) [Mass/Vol] 128 mg/dL [facility] Hematocrit [Volume Fraction] of Blood by Automated countOrdered By: Jyotsna Abarca on 05-23-2024 Hematocrit (Bld) [Volume fraction] 37.0 % Normal 34.0-46.4 [facility] Comment on above: Performed By: #### C UU, CBC, ADDONUAPLUS #### [facility] [address] [place] [address] Hemoglobin A1c percentageOrd ered By: Jyotsna Abarca on 05-23-2024 HbA1c (Bld) [Mass fraction] 6.1 % High 4.3-5.6 [facility] Comment on above: Increased risk for d iabetes: 5.7 - 6.4diabetes: >6.4glycemic control for adults with diabetes: <7.0 Result Comment: Incr eased risk for diabetes: 5.7 - 6.4 diabetes: >6.4 glycemic control for adults with diabetes: <7.0 Performed By: #### C UU, CBC, ADDONUAPLUS #### [facility] [address] [place] [address] Hemoglobin Test strip Ql (U) Ordered By: Jyotsna Abarca on 05-23-2024 Hemoglobin Ql (U) Negative Negative [facility] Hemoglobin [Mass/volume] in BloodOrdered By: Jyotsna Abarca on 05-23-2024 Hemoglobin (Bld) [Mass/Vol] 12.4 g/dL Normal 11.8-15.4 [facility] Comment on above: Performed By: #### C UU, CBC, ADDONUAPLUS #### [facility] [address] [place] [address] [place] Hyaline casts [#/area] in Ur ine sediment by Automated countOrdered By: Jyotsna Abarca on 05-23-2024 Hyaline casts Auto (Urine sed) [#/Area] 0-8 [LPF] 0-8 [facility] Ketones [Presence] in Urine by Test stripOrdered By: Jyotsna Abarca on 05-23-2024 Ketones Ql (U) Negative Normal Negative [facility] Comment on above: Order Comment: Name Collection Type:: Clean-Voided Midstream Performed By: #### C UU, CBC, ADDONUAPLUS #### [facility] [address] Leukocyte esterase [Presence ] in Urine by Test stripOrdered By: Jyotsna Abarca on 05-23-2024 Leukocyte esterase Test strip Ql (U) 2+ High Negative [facility] Comment on above: Order Comment: Name Collection Type:: Clean-Voided Midstream Performed By: #### C UU, CBC, ADDONUAPLUS #### [facility] [address] Leukocytes [#/area] in Urine sediment by Automated countOrdered By: Jyotsna Abarca on 05-23-2024 WBC Auto (Urine sed) [#/Area] 1-2 [HPF] 0-4 [facility] Leukocytes [#/volume] correc michael for nucleated erythrocytes in Blood by Automated counOrdered By: Jyotsna Abarca on 05-23-2024 WBC corrected for nucl RBC Auto (Bld) [#/Vol] 6.6 10*3/uL 3.8-11.6 [facility] Leukocytes [#/volume] in Blo od by Automated countOrdered By: Jyotsna Abarca on 05-23-2024 WBC (Bld) [#/Vol] 6.6 10*3/uL Normal 3.8-11.6 [facility] Comment on above: Performed By: #### C UU, CBC, ADDONUAPLUS #### [facility] [address] [place] [address] [place] Lipid Panelon 05-23-2024 LDL Cholesterol,Calculated 79 mg/dL Normal 0-100 [facility] Comment on above: Result Comment: LDL ATP III CLASSIFICATION LDL less than 100 mg/dL Optimal LDL 100-129 mg/dL Near or above optimal LDL 130-159 mg/dL Borderline high LDL 160-189 mg/dL High LDL greater than 189 mg/dL Very high Performed By: #### C UU, CBC, ADDONUAPLUS #### [address] Triglyceride w/Reflex 49 mg/dL Normal 0-149 [facility] Comment on above: Result Comment: TRIG ATP III CLASSIFICATION TRIG less than 150 mg/dL Normal TRIG 150-199 mg/dL Borderline high TRIG 200-500 mg/dL High TRIG greater than 500 mg/dL Very high Standard traceable to the Center for Disease Conrtrol and Prevention (CDC) test method. Performed By: #### C UU, CBC, ADDONUAPLUS #### [address] VLDL CHOLESTEROL 9 mg/dL Normal [facility] Comment on above: Performed By: #### C UU, CBC, ADDONUAPLUS #### [address] Lymphocytes [#/volume] in Bl ood by Automated countOrdered By: Jyotsna Abarca on 05-23-2024 Lymphocytes (Bld) [#/Vol] 2.1 10*3/uL Normal 1.00-4.8 [facility] Comment on above: Performed By: #### C UU, CBC, ADDONUAPLUS #### [address] Lymphocytes/100 leukocytes i n Blood by Automated countOrdered By: Jyotsna Abarca on 05-23-2024 Lymphocytes/100 WBC (Bld) 31.8 % Normal . [facility] Comment on above: Performed By: #### C UU, CBC, ADDONUAPLUS #### [address] MCH [Entitic mass] by Automa michael countOrdered By: Jyotsna Abarca on 05-23-2024 MCH (RBC) [Entitic mass] 29.4 pg Normal 24.7-34.3 [facility] Comment on above: Performed By: #### C UU, CBC, ADDONUAPLUS #### [address] MCHC Auto (RBC) [Mass/Vol]Or dered By: Jyotsna Abarca on 05-23-2024 MCHC (RBC) [Mass/Vol] 33.6 g/dL 32.0-35.0 [facility] MCV [Entitic volume] by Auto mated countOrdered By: Jyotsna Abarca on 05-23-2024 MCV (RBC) [Entitic vol] 87.5 fL Normal 80-100 [facility] Comment on above: Performed By: #### C UU, CBC, ADDONUAPLUS #### [facility] [address] [place] [address] Mucus [Presence] in Urine by AutomatedOrdered By: Jyotsna Abarca on 05-23-2024 Mucus Auto Ql (U) 1+ [LPF] Abnormal [facility] Neutrophils [#/volume] in Bl ood by Automated countOrdered By: Jyotsna Abarca on 05-23-2024 Neutrophils (Bld) [#/Vol] 3.4 10*3/uL Normal 1.8-7.7 [facility] Comment on above: Performed By: #### C UU, CBC, ADDONUAPLUS #### [facility] [address] [place] [address] Nitrite Test strip Ql (U)Ord ered By: Jyotsna Abarca on 05-23-2024 Nitrite Ql (U) Negative Negative [facility] No Panel InformationOrdered By: Jyotsna Abarca on 05-23-2024 Estimated GFR (CKD-EPI) > 60.0 mL/Min [facility] Creatinine Clearance (Chem N/A [facility] Nucleated erythrocytes [Pres ence] in Blood by Automated countOrdered By: Jyotsna Abarca on 05-23-2024 Nucleated RBC Auto Ql (Bld) 0.1 /100{WBC} 0-0.5 [facility] Platelet mean volume [Entiti c volume] in Blood by Automated countOrdered By: Jyotsna Abarca on 05-23-2024 Platelet mean volume (Bld) [Entitic vol] 8.2 fL Normal 6.3-10.7 [facility] Comment on above: Performed By: #### C UU, CBC, ADDONUAPLUS #### [facility] [address] [place] [address] Platelets [#/volume] in Bloo d by Automated countOrdered By: Jyotsna Abarca on 05-23-2024 Platelets (Bld) [#/Vol] 208 10*3/uL Normal 150-450 [facility] Comment on above: Performed By: #### C UU, CBC, ADDONUAPLUS #### [address] Potassium [Moles/volume] in Serum or PlasmaOrdered By: Jyotsna Abarca on 05-23-2024 Potassium [Moles/Vol] 3.4 mmol/L Low 3.5-5.1 [facility] Comment on above: Performed By: #### C UU, CBC, ADDONUAPLUS #### [address] Protein Test strip (U) [Mass /Vol]Ordered By: Jyotsna Abarca on 05-23-2024 Protein (U) [Mass/Vol] Negative Negative [facility] Protein [Mass/volume] in Ser um or PlasmaOrdered By: Jyotsna Abarca on 05-23-2024 Protein [Mass/Vol] 6.9 g/dL Normal 6.4-8.9 [facility] Comment on above: Performed By: #### C UU, CBC, ADDONUAPLUS #### [address] Serum globulin measurement b y calculation (mass/volume)Ordered By: Jyotsna Abarca on 05-23-2024 Globulin (S) [Mass/Vol] 2.6 g/dL Normal [facility] Comment on above: Performed By: #### C UU, CBC, ADDONUAPLUS #### [address] Serum or plasma albumin/glob ulin mass ratioOrdered By: Jyotsna Abarca on 05-23-2024 Albumin/Globulin [Mass ratio] 1.7 {ratio} Normal [facility] Comment on above: Performed By: #### C UU, CBC, ADDONUAPLUS #### [address] Serum or plasma anion gap de terminationOrdered By: Jyotsna Abarca on 05-23-2024 Anion gap [Moles/Vol] 9.6 mmol/L Normal 6.0-15.0 [facility] Comment on above: Performed By: #### C UU, CBC, ADDONUAPLUS #### [address] Serum or plasma high density lipoprotein (HDL) cholesterol measurementOrdered By: Jyotsna Abarca on 05-23-2024 Cholesterol in HDL [Mass/Vol] 59 mg/dL Normal 23-92 [facility] Comment on above: HDL CHOL ATP-III CLA SSIFICATION Cardiovascular RiskHDL > or equal to 60 mg/dL LOWHDL < 40 mg/dL HIGH Result Comment: HDL CHOL ATP-III CLASSIFICATION Cardiovascular Risk HDL > or equal to 60 mg/dL LOW HDL < 40 mg/dL HIGH Performed By: #### C UU, CBC, ADDONUAPLUS #### [address] Serum or plasma total choles terol/high density lipoprotein (HDL) cholesterol mass ratOrdered By: Jyotsna Abarca on 05-23-2024 Cholesterol.total/Jessica sterol in HDL [Mass ratio] 2.5 {ratio} Normal <5.0 [facility] Comment on above: Performed By: #### C UU, CBC, ADDONUAPLUS #### [address] Sodium [Moles/volume] in Ser um or PlasmaOrdered By: Jyotsna Abarca on 05-23-2024 Sodium [Moles/Vol] 141 mmol/L Normal 136-145 [facility] Comment on above: Performed By: #### C UU, CBC, ADDONUAPLUS #### [address] Specific gravity Test strip (U) [Rel density]Ordered By: Jyotsna Abarca on 05-23-2024 Specific gravity (U) [Rel density] 1.024 1.001-1.030 [facility] Triglyceride [Mass/volume] i n Serum or PlasmaOrdered By: Jyotsna Abarca on 05-23-2024 Triglyceride [Mass/Vol] 49 mg/dL 0-149 [facility] Comment on above: TRIG ATP III CLASSIF ICATIONTRIG less than 150 mg/dL NormalTRIG 150-199 mg/dL Borderline highTRIG 200-500 mg/dL High TRIG greater than 500 mg/dL Very highStandard traceable to the Center for Disease Conrtrol and Prevention (CDC) test method. Urea nitrogen [Mass/volume] in Serum or PlasmaOrdered By: Jyotsna Abarca on 05-23-2024 Urea nitrogen [Mass/Vol] 16 mg/dL Normal 7-25 [facility] Comment on above: Performed By: #### C UU, CBC, ADDONUAPLUS #### [facility] [address] Urine Cultureon 05-23-2024 Bacteria identified Cx Nom (U) Urine Culture Results 100,000 colonies/ml Mixed Bacterial Skin Contaminants 2 Days PERFORMED BY: [place] [id number] PATHOLOGIST PNEUMATIC TESTER MARYANN NUNEZ M.D. Normal [facility] Comment on above: Performed By: #### C UU, CBC, ADDONUAPLUS #### [facility] [address] [place] [address] Urine appearanceOrdered By: Jyotsna Abarca on 05-23-2024 Appearance (U) Clear Normal Clear [facility] Comment on above: Order Comment: Name Collection Type:: Clean-Voided Midstream Performed By: #### C UU, CBC, ADDONUAPLUS #### [facility] [address] [place] [address] Urine culture routineOrdered By: Jyotsna Abarca on 05-23-2024 Bacteria identified Cx Nom (U) [facility] Urobilinogen Test strip (U) [Mass/Vol]Ordered By: Jyotsna Abarca on 05-23-2024 Urobilinogen (U) [Mass/Vol] Normal mg/dL Normal [facility] Vit. B12/Folate Profileon Folate 32.0 ng/mL Normal >5.9 [facility] Comment on above: Result Comment: Christina te reference range: >5.9 ng/ml The WHO technical consultation on folate and vitamin b12 deficiencies has determined that folate concentrations less than 4 ng/ml are considered deficient. Performed By: #### C UU, CBC, ADDONUAPLUS #### [address] Vitamin B12 ser/plasOrdered By: Jyotsna Abarca on 05-23-2024 Cobalamin (Vitamin B12) [Mass/Vol] 1229 pg/mL High 180-914 [facility] Comment on above: Performed By: #### C UU, CBC, ADDONUAPLUS #### [address] Vitamin D 25 Hydroxy Totalon 05-23-2024 Vitamin D 25 Hydroxy Total 66.7 ng/mL Normal 30-100 [facility] Comment on above: Result Comment: CHICO MIN D STATUS 25(OH)VITAMIN D RANGE (ng/mL) Deficient <20 Insufficient 20 to <30 Sufficient 30 to 100 Reference: Blaze Clements, Ragini ALEXIS, et al. Evaluation,treatment, and prevention of vitamin D deficiency; an Endocrine Society clinical practice guideline. JCEM. 2010; 96(7):1911-30. PERFORMED BY: [place] [id number] PATHOLOGIST PNEUMATIC TESTER MARYANN NUNEZ M.D. Performed By: #### C UU, CBC, ADDONUAPLUS #### [address] Vitamin D+Metabolites [Mass/ volume] in Serum or PlasmaOrdered By: Jyotsna Abarca on 05-23-2024 Vitamin D+Metabolites [Mass/Vol] 66.7 ng/mL 30-100 [facility] Comment on above: VITAMIN D STATUS 25( OH)VITAMIN D RANGE (ng/mL) Deficient <20 Insufficient 20 to <30Sufficient 30 to 100Reference: Blaze Clements, Ragini ALEXIS, et al. Evaluation,treatment, and prevention of vitamin D deficiency; an Endocrine Society clinical practice guideline. JCEM. 2010; 96(7):1911-30. pH of Urine by Test stripOrd ered By: Jyotsna Abarca on 05-23-2024 pH (U) 5.5 [pH] Normal 5.0-9.0 [facility] Comment on above: Order Comment: Name Collection Type:: Clean-Voided Midstream Performed By: #### C UU, CBC, ADDONUAPLUS #### [facility] [address] [place] [address] [place] Automated erythrocytes count in urine sediment (number/area)Ordered By: Jyotsna Abarca on 12-03-2023 RBC Auto (Urine sed) [#/Area] 3-4 [HPF] 0-4 [facility] Automated leukocytes count i n urine sediment (number/area)Ordered By: Jyotsna Abarca on 12-03-2023 WBC Auto (Urine sed) [#/Area] None seen [HPF] 0-4 [facility] Automated urine color determ inationOrdered By: Jyotsna Abarca on 12-03-2023 Color (U) Yellow Normal Yellow [facility] Comment on above: Order Comment: Reaso n for Exam Hematuria Name Collection Type:: Clean-Voided Midstream Performed By: #### C UU, CBC, ADDONUAPLUS #### [facility] [address] Bilirubin Test strip Ql (U)O rdered By: Jyotsna Abarca on 12-03-2023 Bilirubin Ql (U) Negative Negative [facility] Dipstick and Microscopicon 0 12-03-2023 Appearance (U) Clear Normal Clear [facility] Comment on above: Order Comment: Reaso n for Exam Hematuria Name Collection Type:: Clean-Voided Midstream Performed By: #### C UU, CBC, ADDONUAPLUS #### [facility] [address] [place] [id number] [place] Bacteria,Urine None Seen Normal None Seen [facility] Comment on above: Order Comment: Reaso n for Exam Hematuria Name Collection Type:: Clean-Voided Midstream Performed By: #### C UU, CBC, ADDONUAPLUS #### [facility] [address] [place] [address] [place] Bilirubin,Urine Negative Normal Negative [facility] Comment on above: Order Comment: Reaso n for Exam Hematuria Name Collection Type:: Clean-Voided Midstream Performed By: #### C UU, CBC, ADDONUAPLUS #### [address] Glucose Ql (U) Normal Normal Normal [facility] Comment on above: Order Comment: Reaso n for Exam Hematuria Name Collection Type:: Clean-Voided Midstream Performed By: #### C UU, CBC, ADDONUAPLUS #### [place] [address] [place] Hyaline Casts,Urine 0-8 Normal 0-8 [facility] Comment on above: Order Comment: Reaso n for Exam Hematuria Name Collection Type:: Clean-Voided Midstream Result Comment: PERF ORMED BY: [place] [id number] PATHOLOGIST PNEUMATIC TESTER MARYANN NUNEZ M.D. Performed By: #### C UU, CBC, ADDONUAPLUS #### [address] Ketones Ql (U) Negative Normal Negative [facility] Comment on above: Order Comment: Reaso n for Exam Hematuria Name Collection Type:: Clean-Voided Midstream Performed By: #### C UU, CBC, ADDONUAPLUS #### [place] [address] [place] Leukocyte esterase Test strip Ql (U) 1+ High Negative [facility] Comment on above: Order Comment: Reaso n for Exam Hematuria Name Collection Type:: Clean-Voided Midstream Performed By: #### C UU, CBC, ADDONUAPLUS #### [place] [address] [place] Nitrite,Urine Negative Normal Negative [facility] Comment on above: Order Comment: Reaso n for Exam Hematuria Name Collection Type:: Clean-Voided Midstream Performed By: #### C UU, CBC, ADDONUAPLUS #### [place] [address] [place] Occult Blood,Urine Negative Normal Negative [facility] Comment on above: Order Comment: Reaso n for Exam Hematuria Name Collection Type:: Clean-Voided Midstream Performed By: #### C UU, CBC, ADDONUAPLUS #### [facility] [address] [place] [address] Protein,Urine Negative Normal Negative [facility] Comment on above: Order Comment: Reaso n for Exam Hematuria Name Collection Type:: Clean-Voided Midstream Performed By: #### C UU, CBC, ADDONUAPLUS #### [place] [address] [place] RBC,Urine 3-4 Normal 0-4 [facility] Comment on above: Order Comment: Reaso n for Exam Hematuria Name Collection Type:: Clean-Voided Midstream Performed By: #### C UU, CBC, ADDONUAPLUS #### [address] Specificy [place],Urine 1.020 Normal 1.001-1.030 [facility] Comment on above: Order Comment: Reaso n for Exam Hematuria Name Collection Type:: Clean-Voided Midstream Performed By: #### C UU, CBC, ADDONUAPLUS #### [facility] [address] [place] [address] Squamous Epithelial Cell,Urine 0-1 Normal 0-2 [facility] Comment on above: Order Comment: Reaso n for Exam Hematuria Name Collection Type:: Clean-Voided Midstream Performed By: #### C UU, CBC, ADDONUAPLUS #### [address] Urobilinogen,Urine Normal Normal Normal [facility] Comment on above: Order Comment: Reaso n for Exam Hematuria Name Collection Type:: Clean-Voided Midstream Performed By: #### C UU, CBC, ADDONUAPLUS #### [place] [address] [place] WBC,Urine None Seen Normal 0-4 [facility] Comment on above: Order Comment: Reaso n for Exam Hematuria Name Collection Type:: Clean-Voided Midstream Performed By: #### C UU, CBC, ADDONUAPLUS #### [facility] [address] [place] [address] [place] Ketones Auto test strip (U) [Mass/Vol]Ordered By: Jyotsna Abarca on 12-03-2023 Ketones (U) [Mass/Vol] Negative Negative [facility] - UrinalysisOrder ed By: Jyotsna Abarca on 12-03-2023 Hyaline casts LM Ql (Urine sed) 0-8 [LPF] 0-8 [facility] Nitrite Test strip Ql (U)Ord ered By: Jyotsna Abarca on 12-03-2023 Nitrite Ql (U) Negative Negative [facility] Protein Auto test strip (U) [Mass/Vol]Ordered By: Jyotsna Abarca on 12-03-2023 Protein (U) [Mass/Vol] Negative Negative [facility] Specific gravity Auto test s trip (U) [Rel density]Ordered By: Jyotsna Abarca on 12-03-2023 Specific gravity (U) [Rel density] 1.020 1.001-1.030 [facility] Squamous epithelial cells de tection in urine sediment by light microscopyOrdered By: Jyotsna Abarca on 12-03-2023 Epithelial cells.squamous LM Ql (Urine sed) 0-1 [HPF] 0-2 [facility] Urine Cultureon 12-03-2023 Bacteria identified Cx Nom (U) Reason for Exam Hematuria Urine Reason for Exam: Hematuria : Urine ORGANISM: Strep agalactiae - (group b) (O:STRAGA) [place] Count 40,000 PERFORMED BY: [place] [id number] PATHOLOGIST PNEUMATIC TESTER MARYANN NUNEZ M.D. Normal [facility] Comment on above: Performed By: #### C UU, CBC, ADDONUAPLUS #### [facility] [address] [place] [address] Urine bacteria detection by automated methodOrdered By: Jyotsna Abarca on 12-03-2023 Bacteria Auto Ql (U) None seen None Seen [facility] Urine clarity by refractomet ry automatedOrdered By: Jyotsna Abarca on 12-03-2023 Clarity Refractometry automated (U) Clear Clear [facility] Urine glucose measurement by automated test strip (mass/volume)Ordered By: Jyotsna Abarca on 12-03-2023 Glucose Auto test strip (U) [Mass/Vol] Normal mg/dL Normal [facility] Urine hemoglobin detection b y automated test stripOrdered By: Jyotsna Abarca on 12-03-2023 Hemoglobin Auto test strip Ql (U) Negative Negative [facility] Urine leukocyte esterase det ection by automated test stripOrdered By: Jyotsna Abarca on 12-03-2023 Leukocyte esterase Auto test strip Ql (U) 1+ Negative [facility] Urine pH measurement by auto mated test stripOrdered By: Jyotsna Abarca on 12-03-2023 pH (U) 6.0 [pH] Normal 5.0-9.0 [facility] Comment on above: Order Comment: Reaso n for Exam Hematuria Name Collection Type:: Clean-Voided Midstream Performed By: #### C UU, CBC, ADDONUAPLUS #### [facility] [address] Urobilinogen Auto test strip (U) [Mass/Vol]Ordered By: Jyotsna Abarca on 12-03-2023 Urobilinogen (U) [Mass/Vol] Normal mg/dL Normal [facility] A1C with Estimated Average G luon 11-15-2023 Glucose [Mass/Vol] 123 mg/dL Normal [facility] Comment on above: Order Comment: FASTI NG. JKW Result Comment: PERF ORMED BY: [place] [id number] PATHOLOGIST PNEUMATIC TESTER MARYANN NUNEZ M.D. Performed By: #### C UU, CBC, ADDONUAPLUS #### [facility] [address] Alanine aminotransferase [En zymatic activity/volume] in Serum or PlasmaOrdered By: Jyotsna Abarca on 11-15-2023 ALT [Catalytic activity/Vol] 14 U/L Normal 7-52 [facility] Comment on above: Order Comment: FASTI NG. JKW Performed By: #### T SH3, ADDONUAPLUS, A1C WTH eA, LIPID, [id number], CBC, CMP, [id number], CUU #### [facility] [address] [place] [address] [place] Albumin [Mass/volume] in Ser um or Plasma by Bromocresol green (BCG) dye binding methoOrdered By: Jyotsna Abarca on 11-15-2023 Albumin BCG dye [Mass/Vol] 4.4 g/dL 3.5-5.7 [facility] Alkaline phosphatase [Enzyma tic activity/volume] in Serum or PlasmaOrdered By: Jyotsna Abarca on 11-15-2023 ALP [Catalytic activity/Vol] 60 U/L Normal 34-104 [facility] Comment on above: Order Comment: SONY ConcepcionKW Performed By: #### T SH3, ADDONUAPLUS, A1C WTH eA, LIPID, [id number], CBC, CMP, [id number], CUU #### [facility] [address] [place] [address] [place] Aspartate aminotransferase [ Enzymatic activity/volume] in Serum or PlasmaOrdered By: Jyotsna Abarca on 11-15-2023 AST [Catalytic activity/Vol] 26 U/L Normal 13-39 [facility] Comment on above: Order Comment: SONY ConcepcionKW Performed By: #### T SH3, ADDONUAPLUS, A1C WTH eA, LIPID, [id number], CBC, CMP, [id number], CUU #### [facility] [address] Automated basophil %Ordered By: Jyotsna Abarca on 11-15-2023 Basophils/100 WBC (Bld) 1.3 % Normal . [facility] Comment on above: Order Comment: FASTJefry [place]. JKW Performed By: #### T SH3, ADDONUAPLUS, A1C WTH eA, LIPID, [id number], CBC, CMP, [id number], CUU #### [facility] [address] [place] [address] [place] Automated basophil countOrde red By: Jyotsna Abarca on 11-15-2023 Basophils (Bld) [#/Vol] 0.1 10*3/uL Normal 0.0-0.2 [facility] Comment on above: Order Comment: FASTI NG. JKW Result Comment: PERF ORMED BY: [place] [id number] PATHOLOGIST PNEUMATIC TESTER MARYANN NUNEZ M.D. Performed By: #### T SH3, ADDONUAPLUS, A1C WTH eA, LIPID, [id number], CBC, CMP, [id number], CUU #### [address] Automated blood monocyte cou ntOrdered By: Jyotsna Abarca on 11-15-2023 Monocytes (Bld) [#/Vol] 0.6 10*3/uL Normal 0.0-0.8 [facility] Comment on above: Order Comment: FASTI NG. JKW Performed By: #### T SH3, ADDONUAPLUS, A1C WTH eA, LIPID, [id number], CBC, CMP, [id number], CUU #### [facility] [address] [place] [address] Automated eosinophil %Ordere d By: Jyotsna Abarca on 11-15-2023 Eosinophils/100 WBC (Bld) 3.5 % Normal . [facility] Comment on above: Order Comment: FASTI NG. JKW Performed By: #### T SH3, ADDONUAPLUS, A1C WTH eA, LIPID, [id number], CBC, CMP, [id number], CUU #### [facility] [address] [place] [address] Automated eosinophil countOr dered By: Jyotsna Abarca on 11-15-2023 Eosinophils (Bld) [#/Vol] 0.2 10*3/uL Normal 0.0-0.45 [facility] Comment on above: Order Comment: FASTI NG. JKW Performed By: #### T SH3, ADDONUAPLUS, A1C WTH eA, LIPID, [id number], CBC, CMP, [id number], CUU #### [address] Automated erythrocytes count in urine sediment (number/area)Ordered By: Jyotsna Abarca on 11-15-2023 RBC Auto (Urine sed) [#/Area] 5-9 [HPF] 0-4 [facility] Automated leukocytes count i n urine sediment (number/area)Ordered By: Jyotsna Abarca on 11-15-2023 WBC Auto (Urine sed) [#/Area] 0-1 [HPF] 0-4 [facility] Automated monocyte %Ordered By: Jyotsna Abarca on 11-15-2023 Monocytes/100 WBC (Bld) 8.6 % Normal . [facility] Comment on above: Order Comment: FASTI NG. JKW Performed By: #### T SH3, ADDONUAPLUS, A1C WTH eA, LIPID, [id number], CBC, CMP, [id number], CUU #### [facility] [address] Automated neutrophil %Ordere d By: Jyotsna Abarca on 11-15-2023 Neutrophils/100 WBC (Bld) 54.2 % Normal . [facility] Comment on above: Order Comment: FASTI NG. JKW Performed By: #### T SH3, ADDONUAPLUS, A1C WTH eA, LIPID, [id number], CBC, CMP, [id number], CUU #### [facility] [address] Automated urine color determ inationOrdered By: Jyotsna Abarca on 11-15-2023 Color (U) Yellow Normal Yellow [facility] Comment on above: Order Comment: FASTJefry HOLLING[place]ORTH. JKW Name Collection Type:: Clean-Voided Midstream Performed By: #### T SH3, ADDONUAPLUS, A1C WTH eA, LIPID, [id number], CBC, CMP, [id number], CUU #### [facility] [address] Bilirubin Test strip Ql (U)O rdered By: Jyotsna Abarca on 11-15-2023 Bilirubin Ql (U) Negative Negative [facility] Bilirubin.total [Mass/volume ] in Serum or PlasmaOrdered By: Jyotsna Abarca on 11-15-2023 Bilirubin [Mass/Vol] 0.5 mg/dL Normal 0.3-1.0 [facility] Comment on above: Order Comment: FASTI NG. JKW Performed By: #### T SH3, ADDONUAPLUS, A1C WTH eA, LIPID, [id number], CBC, CMP, [id number], CUU #### [facility] [address] [place] [address] [place] Calcium [Mass/volume] in Ser um or PlasmaOrdered By: Jyotsna Abarca on 11-15-2023 Calcium [Mass/Vol] 9.5 mg/dL Normal 8.6-10.3 [facility] Comment on above: Order Comment: FASTI NG. JKW Performed By: #### T SH3, ADDONUAPLUS, A1C WTH eA, LIPID, [id number], CBC, CMP, [id number], CUU #### [facility] [address] [place] [id number] [place] Carbon dioxide, total [Moles /volume] in Serum or PlasmaOrdered By: Jyotsna Abarca on 11-15-2023 CO2 [Moles/Vol] 27.5 mmol/L Normal 21.0-31.0 [facility] Comment on above: Order Comment: FASTI NG. JKW Performed By: #### T SH3, ADDONUAPLUS, A1C WTH eA, LIPID, [id number], CBC, CMP, [id number], CUU #### [facility] [address] [place] [address] [place] Chloride [Moles/volume] in S augustus or PlasmaOrdered By: Jyotsna Abarca on 11-15-2023 Chloride [Moles/Vol] 106 mmol/L Normal 98-107 [facility] Comment on above: Order Comment: FASTI NG. JKW Performed By: #### T SH3, ADDONUAPLUS, A1C WTH eA, LIPID, [id number], CBC, CMP, [id number], CUU #### [facility] [address] [place] [address] [place] Cholesterol [Mass/volume] in Serum or PlasmaOrdered By: Jyotsna Abarca on 11-15-2023 Cholesterol [Mass/Vol] 148 mg/dL Normal 140-[address] [facility] Comment on above: Chol less than 200 m g/dl low riskChol 201-239 mg/dl borderline riskChol 240 mg/dl and greater high risk Order Comment: SONY ConcepcionKW Result Comment: Chol less than 200 mg/dl low risk Chol 201-239 mg/dl borderline risk Chol 240 mg/dl and greater high risk Performed By: #### T SH3, ADDONUAPLUS, A1C WTH eA, LIPID, [id number], CBC, CMP, [id number], CUU #### [facility] [address] Cholesterol in LDL Calc [Mas s/Vol]Ordered By: Jyotsna Abarca on 11-15-2023 Cholesterol in LDL [Mass/Vol] 73 mg/dL 0-100 [facility] Comment on above: LDL ATP III CLASSIFI CATIONLDL less than 100 mg/dL OptimalLDL 100-129 mg/dL Near or above optimalLDL 130-159 mg/dL Borderline highLDL 160-189 mg/dL HighLDL greater than 189 mg/dL Very high Cholesterol in VLDL Calc [Ma ss/Vol]Ordered By: Jyotsna Abarca on 11-15-2023 Cholesterol in VLDL [Mass/Vol] 12 mg/dL [facility] Complete Blood Count Auto Di ffon 11-15-2023 Mean Corpuscular HGB Conc 33.8 g/dL Normal 32.0-35.0 [facility] Comment on above: Order Comment: SONY HOLLINGSWORTH. JKW Performed By: #### T SH3, ADDONUAPLUS, A1C WTH eA, LIPID, [id number], CBC, CMP, [id number], CUU #### [facility] [address] NRBC% 0.1 /100{WBC} Normal 0-0.5 [facility] Comment on above: Order Comment: SONY HOLLINGSWORTH. JKW Performed By: #### T SH3, ADDONUAPLUS, A1C WTH eA, LIPID, [id number], CBC, CMP, [id number], CUU #### [facility] [address] [place] [id number] [facility] Comprehensive Metabolic Pane enmanuel 11-15-2023 Albumin [Mass/Vol] 4.4 g/dL Normal 3.5-5.7 [facility] Comment on above: Order Comment: FASTI NG. JKW Performed By: #### T SH3, ADDONUAPLUS, A1C WTH eA, LIPID, [id number], CBC, CMP, [id number], CUU #### [facility] [address] GFR/1.73 sq M.predicted MDRD (S/P/Bld) [Vol rate/Area] mL/min/{1.73_m2} Normal [facility] Comment on above: Order Comment: FASTI NG. JKW Performed By: #### T SH3, ADDONUAPLUS, A1C WTH eA, LIPID, [id number], CBC, CMP, [id number], CUU #### [address] Creatinine [Mass/volume] in Serum or PlasmaOrdered By: Jyotsna Abarca on 11-15-2023 Creatinine [Mass/Vol] 0.82 mg/dL Normal 0.60-1.20 [facility] Comment on above: Order Comment: FASTI NG. JKW Performed By: #### T SH3, ADDONUAPLUS, A1C WTH eA, LIPID, [id number], CBC, CMP, [id number], CUU #### [place] [address] [place] Dipstick and Microscopicon 0 11-15-2023 Appearance (U) Clear Normal Clear [facility] Comment on above: Order Comment: FASTI NG. JKW Name Collection Type:: Clean-Voided Midstream Performed By: #### T SH3, ADDONUAPLUS, A1C WTH eA, LIPID, [id number], CBC, CMP, [id number], CUU #### [place] [address] [place] Bacteria,Urine None Seen Normal None Seen [facility] Comment on above: Order Comment: FASTI NG. JKW Name Collection Type:: Clean-Voided Midstream Performed By: #### T SH3, ADDONUAPLUS, A1C WTH eA, LIPID, [id number], CBC, CMP, [id number], CUU #### [address] Bilirubin,Urine Negative Normal Negative [facility] Comment on above: Order Comment: FASTJefry [place]TH. JKW Name Collection Type:: Clean-Voided Midstream Performed By: #### T SH3, ADDONUAPLUS, A1C WTH eA, LIPID, [id number], CBC, CMP, [id number], CUU #### [address] Glucose Ql (U) Normal Normal Normal [facility] Comment on above: Order Comment: FASTI EDEL. JKW Name Collection Type:: Clean-Voided Midstream Performed By: #### T SH3, ADDONUAPLUS, A1C WTH eA, LIPID, [id number], CBC, CMP, [id number], CUU #### [address] Hyaline Casts,Urine 0-8 Normal 0-8 [facility] Comment on above: Order Comment: FASTI EDEL. JKW Name Collection Type:: Clean-Voided Midstream Result Comment: PERF ORMED BY: [place] [id number] PATHOLOGIST PNEUMATIC TESTER MARYANN NUNEZ M.D. Performed By: #### T SH3, ADDONUAPLUS, A1C WTH eA, LIPID, [id number], CBC, CMP, [id number], CUU #### [address] Ketones Ql (U) Trace High Negative [facility] Comment on above: Order Comment: FASTI EDEL. JKW Name Collection Type:: Clean-Voided Midstream Performed By: #### T SH3, ADDONUAPLUS, A1C WTH eA, LIPID, [id number], CBC, CMP, [id number], CUU #### [address] Leukocyte esterase Test strip Ql (U) 1+ High Negative [facility] Comment on above: Order Comment: FASTI NG. JKW Name Collection Type:: Clean-Voided Midstream Performed By: #### T SH3, ADDONUAPLUS, A1C WTH eA, LIPID, [id number], CBC, CMP, [id number], CUU #### [address] Nitrite,Urine Negative Normal Negative [facility] Comment on above: Order Comment: FASTI NG. JKW Name Collection Type:: Clean-Voided Midstream Performed By: #### T SH3, ADDONUAPLUS, A1C WTH eA, LIPID, [id number], CBC, CMP, [id number], CUU #### [address] Occult Blood,Urine Negative Normal Negative [facility] Comment on above: Order Comment: FASTI NG. JKW Name Collection Type:: Clean-Voided Midstream Result Comment: PERF ORMED BY: [place] [id number] PATHOLOGIST PNEUMATIC TESTER MARYANN NUNEZ M.D. Performed By: #### T SH3, ADDONUAPLUS, A1C WTH eA, LIPID, [id number], CBC, CMP, [id number], CUU #### [address] Protein,Urine Negative Normal Negative [facility] Comment on above: Order Comment: FASTI NG. JKW Name Collection Type:: Clean-Voided Midstream Performed By: #### T SH3, ADDONUAPLUS, A1C WTH eA, LIPID, [id number], CBC, CMP, [id number], CUU #### [place] [address] [place] RBC,Urine 5-9 High 0-4 [facility] Comment on above: Order Comment: FASTI NG. JKW Name Collection Type:: Clean-Voided Midstream Performed By: #### T SH3, ADDONUAPLUS, A1C WTH eA, LIPID, [id number], CBC, CMP, [id number], CUU #### [address] Specificy [place],Urine 1.022 Normal 1.001-1.030 [facility] Comment on above: Order Comment: FASTI NG. JKW Name Collection Type:: Clean-Voided Midstream Performed By: #### T SH3, ADDONUAPLUS, A1C WTH eA, LIPID, [id number], CBC, CMP, [id number], CUU #### [address] Squamous Epithelial Cell,Urine None Seen Normal 0-2 [facility] Comment on above: Order Comment: FASTI NG. JKW Name Collection Type:: Clean-Voided Midstream Performed By: #### T SH3, ADDONUAPLUS, A1C WTH eA, LIPID, [id number], CBC, CMP, [id number], CUU #### [address] Urobilinogen,Urine Normal Normal Normal [facility] Comment on above: Order Comment: FASTI NG. JKW Name Collection Type:: Clean-Voided Midstream Performed By: #### T SH3, ADDONUAPLUS, A1C WTH eA, LIPID, [id number], CBC, CMP, [id number], CUU #### [address] WBC LM.HPF (Urine sed) [#/Area] 0 /[HPF] Normal 0-4 [facility] Comment on above: Order Comment: FASTI NG. JKW Name Collection Type:: Clean-Voided Midstream Performed By: #### T SH3, ADDONUAPLUS, A1C WTH eA, LIPID, [id number], CBC, CMP, [id number], CUU #### [address] Erythrocyte distribution wid th [Ratio] by Automated countOrdered By: Jyotsna Abarca on 11-15-2023 Erythrocyte distribution width (RBC) [Ratio] 12.8 % Normal 11.9-15.3 [facility] Comment on above: Order Comment: FASTI NG. JKW Performed By: #### T SH3, ADDONUAPLUS, A1C WTH eA, LIPID, [id number], CBC, CMP, [id number], CUU #### [facility] [address] Erythrocytes [#/volume] in B lood by Automated countOrdered By: Jyotsna Abarca on 11-15-2023 RBC (Bld) [#/Vol] 4.35 10*6/uL Normal 3.60-5.00 [facility] Comment on above: Order Comment: FASTI NG. JKW Performed By: #### T SH3, ADDONUAPLUS, A1C WTH eA, LIPID, [id number], CBC, CMP, [id number], CUU #### [address] Folate [Mass/volume] in Seru m or PlasmaOrdered By: Jyotsna Abarca on 11-15-2023 Folate [Mass/Vol] 30.0 ng/mL >5.9 [facility] Comment on above: Folate reference ran ge: >5.9 ng/mlThe WHO technical consultation on folate and vitamin [id number] has determined that folate concentrations lessthan 4 ng/ml are considered deficient. Glucose [Mass/volume] in Ser um or PlasmaOrdered By: Jyotsna Abarca on 11-15-2023 Glucose [Mass/Vol] 95 mg/dL Normal 70-100 [facility] Comment on above: ADA recommended refe rence rangeRandom Glucose Reference Range is dependent on time and content of last meal. Glucose of more than 200 mg/dL in a nonstressed, ambulatory subject supports the diagnosis of Diabetes Mellitus. Order Comment: FASTI NG. JKW Result Comment: [place] om Glucose Reference Range is dependent on time and content of last meal. Glucose of more than 200 mg/dL in a nonstressed, ambulatory subject supports the diagnosis of Diabetes Mellitus. ADA recommended reference range Performed By: #### T SH3, ADDONUAPLUS, A1C WTH eA, LIPID, [id number], CBC, CMP, [id number], CUU #### [facility] [address] Glucose mean value [Mass/vol ume] in Blood Estimated from glycated hemoglobinOrdered By: Jyotsna Abarca on 11-15-2023 Average glucose Estimated from glycated hemoglobin (Bld) [Mass/Vol] 123 mg/dL [facility] Hematocrit [Volume Fraction] of Blood by Automated countOrdered By: Jyotsna Abarca on 11-15-2023 Hematocrit (Bld) [Volume fraction] 38.3 % Normal 34.0-46.4 [facility] Comment on above: Order Comment: SONY LEWISW Performed By: #### T SH3, ADDONUAPLUS, A1C WTH eA, LIPID, [id number], CBC, CMP, [id number], CUU #### [address] Hemoglobin A1c percentageOrd ered By: Jyotsna Abarca on 11-15-2023 HbA1c (Bld) [Mass fraction] 5.9 % High 4.3-5.6 [facility] Comment on above: Increased risk for d iabetes: 5.7 - 6.4diabetes: >6.4glycemic control for adults with diabetes: <7.0 Order Comment: SONY LEWISW Result Comment: Incr eased risk for diabetes: 5.7 - 6.4 diabetes: >6.4 glycemic control for adults with diabetes: <7.0 Performed By: #### C UU, CBC, ADDONUAPLUS #### [facility] [address] [place] [address] Hemoglobin [Mass/volume] in BloodOrdered By: Jyotsna Abarca on 11-15-2023 Hemoglobin (Bld) [Mass/Vol] 12.9 g/dL Normal 11.8-15.4 [facility] Comment on above: Order Comment: SONY ConcepcionKW Performed By: #### T SH3, ADDONUAPLUS, A1C WTH eA, LIPID, [id number], CBC, CMP, [id number], CUU #### [address] Ketones Auto test strip (U) [Mass/Vol]Ordered By: Jyotsna Abarca on 11-15-2023 Ketones (U) [Mass/Vol] Trace Negative [facility] - UrinalysisOrder ed By: Jyotsna Abarca on 11-15-2023 Hyaline casts LM Ql (Urine sed) 0-8 [LPF] 0-8 [facility] Leukocytes [#/volume] correc michael for nucleated erythrocytes in Blood by Automated counOrdered By: Jyotsna Abarca on 11-15-2023 WBC corrected for nucl RBC Auto (Bld) [#/Vol] 7.0 10*3/uL 3.8-11.6 [facility] Leukocytes [#/volume] in Blo od by Automated countOrdered By: Jyotsna Abarca on 11-15-2023 WBC (Bld) [#/Vol] 7.0 10*3/uL Normal 3.8-11.6 [facility] Comment on above: Order Comment: SONY LEWISW Performed By: #### T SH3, ADDONUAPLUS, A1C WTH eA, LIPID, [id number], CBC, CMP, [id number], CUU #### [facility] [address] [place] [address] [place] Lipid Panelon 11-15-2023 LDL Cholesterol,Calculated 73 mg/dL Normal 0-100 [facility] Comment on above: Order Comment: SONY MASSEY Result Comment: LDL ATP III CLASSIFICATION LDL less than 100 mg/dL Optimal LDL 100-129 mg/dL Near or above optimal LDL 130-159 mg/dL Borderline high LDL 160-189 mg/dL High LDL greater than 189 mg/dL Very high Performed By: #### T SH3, ADDONUAPLUS, A1C WTH eA, LIPID, [id number], CBC, CMP, [id number], CUU #### [facility] [address] [place] [id number] [place] Triglyceride w/Reflex 62 mg/dL Normal 0-149 [facility] Comment on above: Order Comment: SONY MASSEY Result Comment: TRIG ATP III CLASSIFICATION TRIG less than 150 mg/dL Normal TRIG 150-199 mg/dL Borderline high TRIG 200-500 mg/dL High TRIG greater than 500 mg/dL Very high Standard traceable to the Center for Disease Conrtrol and Prevention (CDC) test method. Performed By: #### T SH3, ADDONUAPLUS, A1C WTH eA, LIPID, [id number], CBC, CMP, [id number], CUU #### [facility] [address] VLDL CHOLESTEROL 12 mg/dL Normal [facility] Comment on above: Order Comment: FASTI NG. JKW Performed By: #### T SH3, ADDONUAPLUS, A1C WTH eA, LIPID, [id number], CBC, CMP, [id number], CUU #### [facility] [address] Lymphocytes [#/volume] in Bl ood by Automated countOrdered By: Jyotsna Abarca on 11-15-2023 Lymphocytes (Bld) [#/Vol] 2.3 10*3/uL Normal 1.00-4.8 [facility] Comment on above: Order Comment: FASTI NG. JKW Performed By: #### T SH3, ADDONUAPLUS, A1C WTH eA, LIPID, [id number], CBC, CMP, [id number], CUU #### [facility] [address] [place] [address] [place] Lymphocytes/100 leukocytes i n Blood by Automated countOrdered By: Jyotsna Abarca on 11-15-2023 Lymphocytes/100 WBC (Bld) 32.4 % Normal . [facility] Comment on above: Order Comment: FASTI NG. JKW Performed By: #### T SH3, ADDONUAPLUS, A1C WTH eA, LIPID, [id number], CBC, CMP, [id number], CUU #### [facility] [address] [place] [id number] [place] MCH [Entitic mass] by Automa michael countOrdered By: Jyotsna Abarca on 11-15-2023 MCH (RBC) [Entitic mass] 29.7 pg Normal 24.7-34.3 [facility] Comment on above: Order Comment: FASTI NG. JKW Performed By: #### T SH3, ADDONUAPLUS, A1C WTH eA, LIPID, [id number], CBC, CMP, [id number], CUU #### [facility] [address] MCHC Auto (RBC) [Mass/Vol]Or dered By: Jyotsna Abarca on 11-15-2023 MCHC (RBC) [Mass/Vol] 33.8 g/dL 32.0-35.0 [facility] MCV [Entitic volume] by Auto mated countOrdered By: Jyotsna Abarca on 11-15-2023 MCV (RBC) [Entitic vol] 87.9 fL Normal 80-100 [facility] Comment on above: Order Comment: FASTI NG. JKW Performed By: #### T SH3, ADDONUAPLUS, A1C WTH eA, LIPID, [id number], CBC, CMP, [id number], CUU #### [facility] [address] [place] [address] Neutrophils [#/volume] in Bl ood by Automated countOrdered By: Jyotsna Abarca on 11-15-2023 Neutrophils (Bld) [#/Vol] 3.8 10*3/uL Normal 1.8-7.7 [facility] Comment on above: Order Comment: FASTI NG. JKW Performed By: #### T SH3, ADDONUAPLUS, A1C WTH eA, LIPID, [id number], CBC, CMP, [id number], CUU #### [facility] [address] [place] [address] Nitrite Test strip Ql (U)Ord ered By: Jyotsna Abarca on 11-15-2023 Nitrite Ql (U) Negative Negative [facility] No Panel InformationOrdered By: Jyotsna Abarca on 11-15-2023 Estimated GFR (CKD-EPI) > 60.0 mL/Min [facility] Creatinine Clearance (Chem N/A [facility] Nucleated erythrocytes [Pres ence] in Blood by Automated countOrdered By: Jyotsna Abarca on 11-15-2023 Nucleated RBC Auto Ql (Bld) 0.1 /100{WBC} 0-0.5 [facility] Platelet mean volume [Entiti c volume] in Blood by Automated countOrdered By: Jyotsna Abarca on 11-15-2023 Platelet mean volume (Bld) [Entitic vol] 8.8 fL Normal 6.3-10.7 [facility] Comment on above: Order Comment: SONY HOLLINGSWORTH. JKW Performed By: #### T SH3, ADDONUAPLUS, A1C WTH eA, LIPID, [id number], CBC, CMP, [id number], CUU #### [facility] [address] Platelets [#/volume] in Bloo d by Automated countOrdered By: Jyotsna Abarca on 11-15-2023 Platelets (Bld) [#/Vol] 205 10*3/uL Normal 150-450 [facility] Comment on above: Order Comment: FASTJefry [place]TH. JKW Performed By: #### T SH3, ADDONUAPLUS, A1C WTH eA, LIPID, [id number], CBC, CMP, [id number], CUU #### [facility] [address] [place] [id number] [facility] Potassium [Moles/volume] in Serum or PlasmaOrdered By: Jyotsna Abarca on 11-15-2023 Potassium [Moles/Vol] 3.9 mmol/L Normal 3.5-5.1 [facility] Comment on above: Order Comment: FASTJefry [place]TH. JKW Performed By: #### T SH3, ADDONUAPLUS, A1C WTH eA, LIPID, [id number], CBC, CMP, [id number], CUU #### [place] [id number] [facility] Protein Auto test strip (U) [Mass/Vol]Ordered By: Jyotsna Abarca on 11-15-2023 Protein (U) [Mass/Vol] Negative Negative [facility] Protein [Mass/volume] in Ser um or PlasmaOrdered By: Jyotsna Abarca on 11-15-2023 Protein [Mass/Vol] 6.9 g/dL Normal 6.4-8.9 [facility] Comment on above: Order Comment: FASTI EDEL. JKW Performed By: #### T SH3, ADDONUAPLUS, A1C WTH eA, LIPID, [id number], CBC, CMP, [id number], CUU #### [facility] [address] [place] [id number] [facility] Serum globulin measurement b y calculation (mass/volume)Ordered By: Jyotsna Abarca on 11-15-2023 Globulin (S) [Mass/Vol] 2.5 g/dL Normal [facility] Comment on above: Order Comment: SONY ConcepcionKW Performed By: #### T SH3, ADDONUAPLUS, A1C WTH eA, LIPID, [id number], CBC, CMP, [id number], CUU #### [facility] [address] [place] [id number] [facility] Serum or plasma albumin/glob ulin mass ratioOrdered By: Jyotsna Abarca on 11-15-2023 Albumin/Globulin [Mass ratio] 1.8 {ratio} Normal [facility] Comment on above: Order Comment: SONY ConcepcionKW Performed By: #### T SH3, ADDONUAPLUS, A1C WTH eA, LIPID, [id number], CBC, CMP, [id number], CUU #### [facility] [address] [place] [id number] [facility] Serum or plasma anion gap de terminationOrdered By: Jyotsna Abarca on 11-15-2023 Anion gap [Moles/Vol] 11.4 mmol/L Normal 6.0-15.[address] [facility] Comment on above: Order Comment: SONY LEWISW Performed By: #### T SH3, ADDONUAPLUS, A1C WTH eA, LIPID, [id number], CBC, CMP, [id number], CUU #### [facility] [address] [place] [id number] [facility] Serum or plasma high density lipoprotein (HDL) cholesterol measurementOrdered By: Jyotsna Abarca on 11-15-2023 Cholesterol in HDL [Mass/Vol] 63 mg/dL Normal 23-92 [facility] Comment on above: HDL CHOL ATP-III CLA SSIFICATION Cardiovascular RiskHDL > or equal to 60 mg/dL LOWHDL < 40 mg/dL HIGH Order Comment: SONY ConcepcionKW Result Comment: HDL CHOL ATP-III CLASSIFICATION Cardiovascular Risk HDL > or equal to 60 mg/dL LOW HDL < 40 mg/dL HIGH Performed By: #### T SH3, ADDONUAPLUS, A1C WTH eA, LIPID, [id number], CBC, CMP, [id number], CUU #### [facility] [address] Serum or plasma total choles terol/high density lipoprotein (HDL) cholesterol mass ratOrdered By: Jyotsna Abarca on 11-15-2023 Cholesterol.total/Jessica sterol in HDL [Mass ratio] 2.3 {ratio} Normal <5.0 [facility] Comment on above: Order Comment: FASTI EDEL. JKW Performed By: #### T SH3, ADDONUAPLUS, A1C WTH eA, LIPID, [id number], CBC, CMP, [id number], CUU #### [facility] [address] [place] [address] Sodium [Moles/volume] in Ser um or PlasmaOrdered By: Jyotsna Abarca on 11-15-2023 Sodium [Moles/Vol] 141 mmol/L Normal 136-145 [facility] Comment on above: Order Comment: FASTI NG. JKW Performed By: #### T SH3, ADDONUAPLUS, A1C WTH eA, LIPID, [id number], CBC, CMP, [id number], CUU #### [facility] [address] [place] [address] Specific gravity Auto test s trip (U) [Rel density]Ordered By: Jyotsna Abarca on 11-15-2023 Specific gravity (U) [Rel density] 1.022 1.001-1.030 [facility] Squamous epithelial cells de tection in urine sediment by light microscopyOrdered By: Jyotsna Abarca on 11-15-2023 Epithelial cells.squamous LM Ql (Urine sed) None seen [HPF] 0-2 [facility] Thyrotropin [Units/volume] i n Serum or PlasmaOrdered By: Jyotsna Abarca on 11-15-2023 TSH Qn 1.91 m[IU]/L Normal 0.45-5.33 [facility] Comment on above: Order Comment: FASTI EDEL. JKW Performed By: #### T SH3, ADDONUAPLUS, A1C WTH eA, LIPID, [id number], CBC, CMP, [id number], [id number] #### [facility] [address] Triglyceride [Mass/volume] i n Serum or PlasmaOrdered By: Jyotsna Abarca on 11-15-2023 Triglyceride [Mass/Vol] 62 mg/dL 0-149 [facility] Comment on above: TRIG ATP III CLASSIF ICATIONTRIG less than 150 mg/dL NormalTRIG 150-199 mg/dL Borderline highTRIG 200-500 mg/dL High TRIG greater than 500 mg/dL Very highStandard traceable to the Center for Disease Conrtrol and Prevention (CDC) test method. Urea nitrogen [Mass/volume] in Serum or PlasmaOrdered By: Jyotsna Abarca on 11-15-2023 Urea nitrogen [Mass/Vol] 14 mg/dL Normal 7-25 [facility] Comment on above: Order Comment: FASTI NG. JKW Performed By: #### T SH3, ADDONUAPLUS, A1C WTH eA, LIPID, [id number], CBC, CMP, [id number], CUU #### [facility] [address] [place] [address] Urine Cultureon 11-15-2023 Bacteria identified Cx Nom (U) FASTING. JKW ORGANISM: Strep agalactiae - (group b) (O:STRAGA) [place] Count 50,000 PERFORMED BY: [place] [id number] PATHOLOGIST PNEUMATIC TESTER MARYANN NUNEZ M.D. Normal [facility] Comment on above: Performed By: #### C UU, CBC, ADDONUAPLUS #### [address] Urine bacteria detection by automated methodOrdered By: Jyotsna Abarca on 11-15-2023 Bacteria Auto Ql (U) None seen None Seen [facility] Urine clarity by refractomet ry automatedOrdered By: Jyotsna Abarca on 11-15-2023 Clarity Refractometry automated (U) Clear Clear [facility] Urine culture routineOrdered By: Jyotsna Abarca on 11-15-2023 Bacteria identified Cx Nom (U) Strep agalactiae - (group b) [facility] Urine glucose measurement by automated test strip (mass/volume)Ordered By: Jyotsna Abarca on 11-15-2023 Glucose Auto test strip (U) [Mass/Vol] Normal mg/dL Normal [facility] Urine hemoglobin detection b y automated test stripOrdered By: Jyotsna Abarca on 11-15-2023 Hemoglobin Auto test strip Ql (U) Negative Negative [facility] Urine leukocyte esterase det ection by automated test stripOrdered By: Jyotsna Abarca on 11-15-2023 Leukocyte esterase Auto test strip Ql (U) 1+ Negative [facility] Urine pH measurement by auto mated test stripOrdered By: Jyotsna Abarca on 11-15-2023 pH (U) 5.5 [pH] Normal 5.0-9.0 [facility] Comment on above: Order Comment: SONY MASSEY Name Collection Type:: Clean-Voided Midstream Performed By: #### T SH3, ADDONUAPLUS, A1C WTH eA, LIPID, [id number], CBC, CMP, [id number], CUU #### [facility] [address] [place] [address] [place] Urobilinogen Auto test strip (U) [Mass/Vol]Ordered By: Jyotsna Abarca on 11-15-2023 Urobilinogen (U) [Mass/Vol] Normal mg/dL Normal [facility] Vit. B12/Folate Profileon Folate 30.0 ng/mL Normal >5.9 [facility] Comment on above: Order Comment: SONY MASSEY Result Comment: Christina te reference range: >5.9 ng/ml The WHO technical consultation on folate and vitamin b12 deficiencies has determined that folate concentrations less than 4 ng/ml are considered deficient. Performed By: #### T SH3, ADDONUAPLUS, A1C WTH eA, LIPID, [id number], CBC, CMP, [id number], CUU #### [facility] [address] Vitamin B12 ser/plasOrdered By: Jyotsna Abarca on 11-15-2023 Cobalamin (Vitamin B12) [Mass/Vol] 884 pg/mL Normal 180-914 [facility] Comment on above: Order Comment: SONY HOLLING[place]ORTH. JKW Performed By: #### T SH3, ADDONUAPLUS, A1C WTH eA, LIPID, [id number], CBC, CMP, [id number], CUU #### [facility] [address] Vitamin D 25 Hydroxy Totalon 11-15-2023 Vitamin D 25 Hydroxy Total 70.4 ng/mL Normal 30-100 [facility] Comment on above: Order Comment: SONY HOLLINGSWORTH. JKW Result Comment: CHICO MIN D STATUS 25(OH)VITAMIN D RANGE (ng/mL) Deficient <20 Insufficient 20 to <30 Sufficient 30 to 100 Reference: Blaze Clements, Ragini ALEXIS, et al. Evaluation,treatment, and prevention of vitamin D deficiency; an Endocrine Society clinical practice guideline. JCEM. 2010; 96(7):1911-. PERFORMED BY: [place] [id number] PATHOLOGIST PNEUMATIC TESTER MARYANN NUNEZ M.D. Performed By: #### C UU, CBC, ADDONUAPLUS #### [address] Vitamin D+Metabolites [Mass/ volume] in Serum or PlasmaOrdered By: Jyotsna Abarca on 11-15-2023 Vitamin D+Metabolites [Mass/Vol] 70.4 ng/mL 30-100 [facility] Comment on above: VITAMIN D STATUS 25( OH)VITAMIN D RANGE (ng/mL) Deficient <20 Insufficient 20 to <30Sufficient 30 to 100Reference: Blaze Clements, Ragini ALEXIS, et al. Evaluation,treatment, and prevention of vitamin D deficiency; an Endocrine Society clinical practice guideline. JCEM. 2010; 96(7):1911-30. ECG 12 Leadon 08-14-2023 Mild sinus bradycardia with sinus arrhythmia [facility] Work Phone: Automated basophil %Ordered By: Jyotsna Abarca on 06-25-2023 Basophils/100 WBC (Bld) 1.0 % Normal . [facility] Comment on above: Performed By: #### C UU, CBC, ADDONUAPLUS #### [address] Automated basophil countOrde red By: Jyotsna Abarca on 06-25-2023 Basophils (Bld) [#/Vol] 0.1 10*3/uL Normal 0.0-0.2 [facility] Comment on above: Result Comment: PERF ORMED BY: [place] [id number] PATHOLOGIST PNEUMATIC TESTER MARYANN NUNEZ M.D. Performed By: #### C UU, CBC, ADDONUAPLUS #### [address] Automated blood monocyte cou ntOrdered By: Jyotsna Abarca on 06-25-2023 Monocytes (Bld) [#/Vol] 0.6 10*3/uL Normal 0.0-0.8 [facility] Comment on above: Performed By: #### C UU, CBC, ADDONUAPLUS #### [address] Automated eosinophil %Ordere d By: Jyotsna Abarca on 06-25-2023 Eosinophils/100 WBC (Bld) 4.0 % Normal . [facility] Comment on above: Performed By: #### C UU, CBC, ADDONUAPLUS #### [address] Automated eosinophil countOr dered By: Jyotsna Abarca on 06-25-2023 Eosinophils (Bld) [#/Vol] 0.3 10*3/uL Normal 0.0-0.45 [facility] Comment on above: Performed By: #### C UU, CBC, ADDONUAPLUS #### [address] Automated erythrocytes count in urine sediment (number/area)Ordered By: Jyotsna Abarca on 06-25-2023 RBC Auto (Urine sed) [#/Area] 1-2 [HPF] 0-4 [facility] Automated leukocytes count i n urine sediment (number/area)Ordered By: Jyotsna Abarca on 06-25-2023 WBC Auto (Urine sed) [#/Area] None seen [HPF] 0-4 [facility] Automated monocyte %Ordered By: Jyotsna Abarca on 06-25-2023 Monocytes/100 WBC (Bld) 8.5 % Normal . [facility] Comment on above: Performed By: #### C UU, CBC, ADDONUAPLUS #### [facility] [address] Automated neutrophil %Ordere d By: Jyotsna Abarca on 06-25-2023 Neutrophils/100 WBC (Bld) 52.2 % Normal . [facility] Comment on above: Performed By: #### C UU, CBC, ADDONUAPLUS #### [address] Automated urine color determ inationOrdered By: Jyotsna Abarca on 06-25-2023 Color (U) Yellow Normal Yellow [facility] Comment on above: Order Comment: Name Collection Type:: Clean-Voided Midstream Performed By: #### C UU, CBC, ADDONUAPLUS #### [address] Bilirubin Test strip Ql (U)O rdered By: Jyotsna Abarca on 06-25-2023 Bilirubin Ql (U) Negative Negative [facility] Complete Blood Count Auto Di ffon 06-25-2023 Mean Corpuscular HGB Conc 33.5 g/dL Normal 32.0-35.0 [facility] Comment on above: Performed By: #### C UU, CBC, ADDONUAPLUS #### [facility] [address] NRBC% 0.1 /100{WBC} Normal 0-0.5 [facility] Comment on above: Performed By: #### C UU, CBC, ADDONUAPLUS #### [place] [address] [place] Dipstick and Microscopicon 0 06-25-2023 Appearance (U) Clear Normal Clear [facility] Comment on above: Order Comment: Name Collection Type:: Clean-Voided Midstream Performed By: #### C UU, CBC, ADDONUAPLUS #### [address] Bacteria,Urine None Seen Normal None Seen [facility] Comment on above: Order Comment: Name Collection Type:: Clean-Voided Midstream Performed By: #### C UU, CBC, ADDONUAPLUS #### [address] Bilirubin,Urine Negative Normal Negative [facility] Comment on above: Order Comment: Name Collection Type:: Clean-Voided Midstream Performed By: #### C UU, CBC, ADDONUAPLUS #### [address] Glucose Ql (U) Normal Normal Normal [facility] Comment on above: Order Comment: Name Collection Type:: Clean-Voided Midstream Performed By: #### C UU, CBC, ADDONUAPLUS #### [address] Hyaline Casts,Urine 0-8 Normal 0-8 [facility] Comment on above: Order Comment: Name Collection Type:: Clean-Voided Midstream Result Comment: PERF ORMED BY: [place] [id number] PATHOLOGIST PNEUMATIC TESTER MARYANN NUNEZ M.D. Performed By: #### C UU, CBC, ADDONUAPLUS #### [address] Ketones Ql (U) Negative Normal Negative [facility] Comment on above: Order Comment: Name Collection Type:: Clean-Voided Midstream Performed By: #### C UU, CBC, ADDONUAPLUS #### [address] Leukocyte esterase Test strip Ql (U) 1+ High Negative [facility] Comment on above: Order Comment: Name Collection Type:: Clean-Voided Midstream Performed By: #### C UU, CBC, ADDONUAPLUS #### [place] [address] [place] Nitrite,Urine Negative Normal Negative [facility] Comment on above: Order Comment: Name Collection Type:: Clean-Voided Midstream Performed By: #### C UU, CBC, ADDONUAPLUS #### [address] Occult Blood,Urine Negative Normal Negative [facility] Comment on above: Order Comment: Name Collection Type:: Clean-Voided Midstream Result Comment: PERF ORMED BY: [place] [id number] PATHOLOGIST PNEUMATIC TESTER MARYANN NUNEZ M.D. Performed By: #### C UU, CBC, ADDONUAPLUS #### [address] Protein,Urine Negative Normal Negative [facility] Comment on above: Order Comment: Name Collection Type:: Clean-Voided Midstream Performed By: #### C UU, CBC, ADDONUAPLUS #### [address] RBC,Urine 1-2 Normal 0-4 [facility] Comment on above: Order Comment: Name Collection Type:: Clean-Voided Midstream Performed By: #### C UU, CBC, ADDONUAPLUS #### [address] Specificy [place],Urine 1.019 Normal 1.001-1.030 [facility] Comment on above: Order Comment: Name Collection Type:: Clean-Voided Midstream Performed By: #### C UU, CBC, ADDONUAPLUS #### [address] Squamous Epithelial Cell,Urine 0-1 Normal 0-2 [facility] Comment on above: Order Comment: Name Collection Type:: Clean-Voided Midstream Performed By: #### C UU, CBC, ADDONUAPLUS #### [address] Urobilinogen,Urine Normal Normal Normal [facility] Comment on above: Order Comment: Name Collection Type:: Clean-Voided Midstream Performed By: #### C UU, CBC, ADDONUAPLUS #### [address] WBC,Urine None Seen Normal 0-4 [facility] Comment on above: Order Comment: Name Collection Type:: Clean-Voided Midstream Performed By: #### C UU, CBC, ADDONUAPLUS #### [address] Erythrocyte distribution wid th [Ratio] by Automated countOrdered By: Jyotsna Abarca on 06-25-2023 Erythrocyte distribution width (RBC) [Ratio] 13.6 % Normal 11.9-15.3 [facility] Comment on above: Performed By: #### C UU, CBC, ADDONUAPLUS #### [address] Erythrocytes [#/volume] in B lood by Automated countOrdered By: Jyotsna Abarca on 06-25-2023 RBC (Bld) [#/Vol] 4.37 10*6/uL Normal 3.60-5.00 [facility] Comment on above: Performed By: #### C UU, CBC, ADDONUAPLUS #### [address] Hematocrit [Volume Fraction] of Blood by Automated countOrdered By: Jyotsna Abarca on 06-25-2023 Hematocrit (Bld) [Volume fraction] 37.7 % Normal 34.0-46.4 [facility] Comment on above: Performed By: #### C UU, CBC, ADDONUAPLUS #### [address] Hemoglobin [Mass/volume] in BloodOrdered By: Jyotsna Abarca on 06-25-2023 Hemoglobin (Bld) [Mass/Vol] 12.6 g/dL Normal 11.8-15.4 [facility] Comment on above: Performed By: #### C UU, CBC, ADDONUAPLUS #### [facility] [address] [place] [address] Ketones Auto test strip (U) [Mass/Vol]Ordered By: Jyotsna Abarca on 06-25-2023 Ketones (U) [Mass/Vol] Negative Negative [facility] - UrinalysisOrder ed By: Jyotsna Abarca on 06-25-2023 Hyaline casts LM Ql (Urine sed) 0-8 [LPF] 0-8 [facility] Leukocytes [#/volume] correc michael for nucleated erythrocytes in Blood by Automated counOrdered By: Jyotsna Abarca on 06-25-2023 WBC corrected for nucl RBC Auto (Bld) [#/Vol] 7.3 10*3/uL 3.8-11.6 [facility] Leukocytes [#/volume] in Blo od by Automated countOrdered By: Jyotsna Abarca on 06-25-2023 WBC (Bld) [#/Vol] 7.3 10*3/uL Normal 3.8-11.6 [facility] Comment on above: Performed By: #### C UU, CBC, ADDONUAPLUS #### [facility] [address] [place] [address] Lymphocytes [#/volume] in Bl ood by Automated countOrdered By: Jyotsna Abarca on 06-25-2023 Lymphocytes (Bld) [#/Vol] 2.5 10*3/uL Normal 1.00-4.8 [facility] Comment on above: Performed By: #### C UU, CBC, ADDONUAPLUS #### [facility] [address] [place] [address] [place] Lymphocytes/100 leukocytes i n Blood by Automated countOrdered By: Jyotsna Abarca on 06-25-2023 Lymphocytes/100 WBC (Bld) 34.3 % Normal . [facility] Comment on above: Performed By: #### C UU, CBC, ADDONUAPLUS #### [facility] [address] [place] [address] [place] MCH [Entitic mass] by Automa michael countOrdered By: Jyotsna Abarca on 06-25-2023 MCH (RBC) [Entitic mass] 28.9 pg Normal 24.7-34.3 [facility] Comment on above: Performed By: #### C UU, CBC, ADDONUAPLUS #### [facility] [address] [place] [address] MCHC Auto (RBC) [Mass/Vol]Or dered By: Jyotsna Abarca on 06-25-2023 MCHC (RBC) [Mass/Vol] 33.5 g/dL 32.0-35.0 [facility] MCV [Entitic volume] by Auto mated countOrdered By: Jyotsna Abarca on 06-25-2023 MCV (RBC) [Entitic vol] 86.3 fL Normal 80-100 [facility] Comment on above: Performed By: #### C UU, CBC, ADDONUAPLUS #### [facility] [address] [place] [address] Neutrophils [#/volume] in Bl ood by Automated countOrdered By: Jyotsna Abarca on 06-25-2023 Neutrophils (Bld) [#/Vol] 3.8 10*3/uL Normal 1.8-7.7 [facility] Comment on above: Performed By: #### C UU, CBC, ADDONUAPLUS #### [facility] [address] [place] [address] Nitrite Test strip Ql (U)Ord ered By: Jyotsna Abarca on 06-25-2023 Nitrite Ql (U) Negative Negative [facility] Nucleated erythrocytes [Pres ence] in Blood by Automated countOrdered By: Jyotsna Abarca on 06-25-2023 Nucleated RBC Auto Ql (Bld) 0.1 /100{WBC} 0-0.5 [facility] Platelet mean volume [Entiti c volume] in Blood by Automated countOrdered By: Jyotsna Abarca on 06-25-2023 Platelet mean volume (Bld) [Entitic vol] 8.2 fL Normal 6.3-10.7 [facility] Comment on above: Performed By: #### C UU, CBC, ADDONUAPLUS #### [facility] [address] [place] [address] Platelets [#/volume] in Bloo d by Automated countOrdered By: Jyotsna Abarca on 06-25-2023 Platelets (Bld) [#/Vol] 202 10*3/uL Normal 150-450 [facility] Comment on above: Performed By: #### C UU, CBC, ADDONUAPLUS #### [facility] [address] [place] [address] Protein Auto test strip (U) [Mass/Vol]Ordered By: Jyotsna Abarca on 06-25-2023 Protein (U) [Mass/Vol] Negative Negative [facility] Specific gravity Auto test s trip (U) [Rel density]Ordered By: Jyotsna Abarca on 06-25-2023 Specific gravity (U) [Rel density] 1.019 1.001-1.030 [facility] Squamous epithelial cells de tection in urine sediment by light microscopyOrdered By: Jyotsna Abarca on 06-25-2023 Epithelial cells.squamous LM Ql (Urine sed) 0-1 [HPF] 0-2 [facility] Urine Cultureon 06-25-2023 Bacteria identified Cx Nom (U) ORGANISM: Strep agalactiae - (group b) (O:STRAGA) [place] Count 50,000 PERFORMED BY: [place] [id number] PATHOLOGIST PNEUMATIC TESTER MARYANN NUNEZ M.D. Normal [facility] Comment on above: Performed By: #### C UU, CBC, ADDONUAPLUS #### [facility] [address] [place] [address] Urine bacteria detection by automated methodOrdered By: Jyotsna Abarca on 06-25-2023 Bacteria Auto Ql (U) None seen None Seen [facility] Urine clarity by refractomet ry automatedOrdered By: Jyotsna Abarca on 06-25-2023 Clarity Refractometry automated (U) Clear Clear [facility] Urine glucose measurement by automated test strip (mass/volume)Ordered By: Jyotsna Abarca on 06-25-2023 Glucose Auto test strip (U) [Mass/Vol] Normal mg/dL Normal [facility] Urine hemoglobin detection b y automated test stripOrdered By: Jyotsna Abarca on 06-25-2023 Hemoglobin Auto test strip Ql (U) Negative Negative [facility] Urine leukocyte esterase det ection by automated test stripOrdered By: Jyotsna Abarca on 06-25-2023 Leukocyte esterase Auto test strip Ql (U) 1+ Negative [facility] Urine pH measurement by auto mated test stripOrdered By: Jyotsna Abarca on 06-25-2023 pH (U) 5.5 [pH] Normal 5.0-9.0 [facility] Comment on above: Order Comment: Name Collection Type:: Clean-Voided Midstream Performed By: #### C UU, CBC, ADDONUAPLUS #### [facility] [address] Urobilinogen Auto test strip (U) [Mass/Vol]Ordered By: Jyotsna Abarca on 06-25-2023 Urobilinogen (U) [Mass/Vol] Normal mg/dL Normal [facility] Alanine aminotransferase [En zymatic activity/volume] in Serum or PlasmaOrdered By: Jyotsna Abarca on 05-09-2023 ALT [Catalytic activity/Vol] 12 U/L 7-52 [facility] Albumin [Mass/volume] in Ser um or Plasma by Bromocresol green (BCG) dye binding methoOrdered By: Jyotsna Abarca on 05-09-2023 Albumin BCG dye [Mass/Vol] 4.4 g/dL 3.5-5.7 [facility] Alkaline phosphatase [Enzyma tic activity/volume] in Serum or PlasmaOrdered By: Jyotsna Abarca on 05-09-2023 ALP [Catalytic activity/Vol] 70 U/L 34-104 [facility] Aspartate aminotransferase [ Enzymatic activity/volume] in Serum or PlasmaOrdered By: Jyotsna Abarca on 05-09-2023 AST [Catalytic activity/Vol] 25 U/L 13-39 [facility] Automated erythrocytes count in urine sediment (number/area)Ordered By: Jyotsna Abarca on 05-09-2023 RBC Auto (Urine sed) [#/Area] 3-4 [HPF] 0-4 [facility] Automated leukocytes count i n urine sediment (number/area)Ordered By: Jyotsna Abarca on 05-09-2023 WBC Auto (Urine sed) [#/Area] 0-1 [HPF] 0-4 [facility] Basophils Auto (Bld) [#/Vol] Ordered By: Jyotsna Abarca on 05-09-2023 Basophils (Bld) [#/Vol] 0.1 10*3/uL 0.0-0.2 [facility] Basophils/100 WBC Auto (Bld) Ordered By: Jyotsna Abarca on 05-09-2023 Basophils/100 WBC (Bld) 1.2 % . [facility] Bilirubin Test strip Ql (U)O rdered By: Jyotsna Abarca on 05-09-2023 Bilirubin Ql (U) Negative Negative [facility] Bilirubin.total [Mass/volume ] in Serum or PlasmaOrdered By: Jyotsna Abarca on 05-09-2023 Bilirubin [Mass/Vol] 0.5 mg/dL 0.3-1.0 [facility] Calcium [Mass/volume] in Ser um or PlasmaOrdered By: Jyotsna Abarca on 05-09-2023 Calcium [Mass/Vol] 9.2 mg/dL 8.6-10.3 [facility] Carbon dioxide, total [Moles /volume] in Serum or PlasmaOrdered By: Jyotsna Abarca on 05-09-2023 CO2 [Moles/Vol] 28.5 mmol/L 21.0-31.0 [facility] Chloride [Moles/volume] in S augustus or PlasmaOrdered By: Jyotsna Abarca on 05-09-2023 Chloride [Moles/Vol] 106 mmol/L 98-107 [facility] Cholesterol [Mass/volume] in Serum or PlasmaOrdered By: Jyotsna Abarca on 05-09-2023 Cholesterol [Mass/Vol] 138 mg/dL 140-[address] [facility] Comment on above: Chol less than 200 m g/dl low riskChol 201-239 mg/dl borderline riskChol 240 mg/dl and greater high risk Cholesterol in LDL Calc [Mas s/Vol]Ordered By: Jyotsna Abarca on 05-09-2023 Cholesterol in LDL [Mass/Vol] 70 mg/dL 0-100 [facility] Comment on above: LDL ATP III CLASSIFI CATIONLDL less than 100 mg/dL OptimalLDL 100-129 mg/dL Near or above optimalLDL 130-159 mg/dL Borderline highLDL 160-189 mg/dL HighLDL greater than 189 mg/dL Very high Cholesterol in VLDL Calc [Ma ss/Vol]Ordered By: Jyotsna Abarca on 05-09-2023 Cholesterol in VLDL [Mass/Vol] 14 mg/dL [facility] Color Auto (U)Ordered By: Shaw Abarca on 05-09-2023 Color (U) Yellow Yellow [facility] Creatinine [Mass/volume] in Serum or PlasmaOrdered By: Jyotsna Abarca on 05-09-2023 Creatinine [Mass/Vol] 0.87 mg/dL 0.60-1.20 [facility] Eosinophils Auto (Bld) [#/Vo l]Ordered By: Jyotsna Aabrca on 05-09-2023 Eosinophils (Bld) [#/Vol] 0.3 10*3/uL 0.0-0.45 [facility] Eosinophils/100 WBC Auto (Bl d)Ordered By: Jyotsna Abarca on 05-09-2023 Eosinophils/100 WBC (Bld) 4.8 % . [facility] Erythrocyte distribution wid th Auto (RBC) [Ratio]Ordered By: Jyotsna Abarca on 05-09-2023 Erythrocyte distribution width (RBC) [Ratio] 13.1 % 11.9-15.3 [facility] Folate [Mass/volume] in Seru m or PlasmaOrdered By: Jyotsna Abarca on 05-09-2023 Folate [Mass/Vol] 27.0 ng/mL >5.9 [facility] Comment on above: Folate reference ran ge: >5.9 ng/mlThe WHO technical consultation on folate and vitamin [id number] has determined that folate concentrations lessthan 4 ng/ml are considered deficient. Globulin Calc (S) [Mass/Vol] Ordered By: Jyotsna Abarca on 05-09-2023 Globulin (S) [Mass/Vol] 2.2 g/dL [facility] Glucose [Mass/volume] in Ser um or PlasmaOrdered By: Jyotsna Abarca on 05-09-2023 Glucose [Mass/Vol] 86 mg/dL 70-100 [facility] Comment on above: ADA recommended refe rence rangeRandom Glucose Reference Range is dependent on time and content of last meal. Glucose of more than 200 mg/dL in a nonstressed, ambulatory subject supports the diagnosis of Diabetes Mellitus. Glucose mean value [Mass/vol ume] in Blood Estimated from glycated hemoglobinOrdered By: Jyotsna Abarca on 05-09-2023 Average glucose Estimated from glycated hemoglobin (Bld) [Mass/Vol] 126 mg/dL [facility] Hematocrit Auto (Bld) [Volum e fraction]Ordered By: Jyotsna Abarca on 05-09-2023 Hematocrit (Bld) [Volume fraction] 37.2 % 34.0-46.4 [facility] Hemoglobin A1c percentageOrd ered By: Jyotsna Abarca on 05-09-2023 HbA1c (Bld) [Mass fraction] 6.0 % 4.3-5.6 [facility] Comment on above: Increased risk for d iabetes: 5.7 - 6.4diabetes: >6.4glycemic control for adults with diabetes: <7.0 Hemoglobin [Mass/volume] in BloodOrdered By: Jyotsna Abarca on 05-09-2023 Hemoglobin (Bld) [Mass/Vol] 12.6 g/dL 11.8-15.4 [facility] Ketones Auto test strip (U) [Mass/Vol]Ordered By: Jyotsna Abarca on 05-09-2023 Ketones (U) [Mass/Vol] Negative Negative [facility] Laboratory - UrinalysisOrder ed By: Jyotsna Abarca on 05-09-2023 Hyaline casts LM Ql (Urine sed) 0-8 [LPF] 0-8 [facility] Leukocytes [#/volume] correc michael for nucleated erythrocytes in Blood by Automated counOrdered By: Jyotsna Abarca on 05-09-2023 WBC corrected for nucl RBC Auto (Bld) [#/Vol] 6.3 10*3/uL 3.8-11.6 [facility] Lymphocytes Auto (Bld) [#/Vo l]Ordered By: Jyotsna Abarca on 05-09-2023 Lymphocytes (Bld) [#/Vol] 2.1 10*3/uL 1.00-4.8 [facility] Lymphocytes/100 WBC Auto (Bl d)Ordered By: Jyotsna Abarca on 05-09-2023 Lymphocytes/100 WBC (Bld) 33.6 % . [facility] MCH Auto (RBC) [Entitic mass ]Ordered By: Jyotsna Abarca on 05-09-2023 MCH (RBC) [Entitic mass] 29.2 pg 24.7-34.3 [facility] MCHC Auto (RBC) [Mass/Vol]Or dered By: Jyotsna Abarca on 05-09-2023 MCHC (RBC) [Mass/Vol] 33.9 g/dL 32.0-35.0 [facility] MCV Auto (RBC) [Entitic vol] Ordered By: Jyotsna Abarca on 05-09-2023 MCV (RBC) [Entitic vol] 86.1 fL 80-100 [facility] Monocytes Auto (Bld) [#/Vol] Ordered By: Jyotsna Abarca on 05-09-2023 Monocytes (Bld) [#/Vol] 0.6 10*3/uL 0.0-0.8 [facility] Monocytes/100 WBC Auto (Bld) Ordered By: Jyotsna Abarca on 05-09-2023 Monocytes/100 WBC (Bld) 9.4 % . [facility] Neutrophils Auto (Bld) [#/Vo l]Ordered By: Jyotsna Abarca on 05-09-2023 Neutrophils (Bld) [#/Vol] 3.2 10*3/uL 1.8-7.7 [facility] Neutrophils/100 WBC Auto (Bl d)Ordered By: Jyotsna Abarca on 05-09-2023 Neutrophils/100 WBC (Bld) 51.0 % . [facility] Nitrite Test strip Ql (U)Ord ered By: Jyotsna Abarca on 05-09-2023 Nitrite Ql (U) Negative Negative [facility] No Panel InformationOrdered By: Jyotsna Abarca on 05-09-2023 Estimated GFR (CKD-EPI) > 60.0 mL/Min [facility] Creatinine Clearance (Chem N/A [facility] Nucleated erythrocytes [Pres ence] in Blood by Automated countOrdered By: Jyotsna Abarca on 05-09-2023 Nucleated RBC Auto Ql (Bld) 0.0 /100{WBC} 0-0.5 [facility] Platelet mean volume Auto (B ld) [Entitic vol]Ordered By: Jyotsna Abarca on 05-09-2023 Platelet mean volume (Bld) [Entitic vol] 8.2 fL 6.3-10.7 [facility] Platelets Auto (Bld) [#/Vol] Ordered By: Jyotsna Abarca on 05-09-2023 Platelets (Bld) [#/Vol] 185 10*3/uL 150-450 [facility] Potassium [Moles/volume] in Serum or PlasmaOrdered By: Jyotsna Abarca on 05-09-2023 Potassium [Moles/Vol] 3.9 mmol/L 3.5-5.1 [facility] Protein Auto test strip (U) [Mass/Vol]Ordered By: Jyotsna Abarca on 05-09-2023 Protein (U) [Mass/Vol] Negative Negative [facility] Protein [Mass/volume] in Ser um or PlasmaOrdered By: Jyotsna Abarca on 05-09-2023 Protein [Mass/Vol] 6.6 g/dL 6.4-8.9 [facility] RBC Auto (Bld) [#/Vol]Ordere d By: Jyotsna Abarca on 05-09-2023 RBC (Bld) [#/Vol] 4.32 10*6/uL 3.60-5.00 [facility] Serum or plasma albumin/glob ulin mass ratioOrdered By: Jyotsna Abarca on 05-09-2023 Albumin/Globulin [Mass ratio] 2.0 {ratio} [facility] Serum or plasma anion gap de terminationOrdered By: Jyotsna Abarca on 05-09-2023 Anion gap [Moles/Vol] 11.4 mmol/L 6.0-15.[address] [facility] Serum or plasma high density lipoprotein (HDL) cholesterol measurementOrdered By: Jyotsna Abarca on 05-09-2023 Cholesterol in HDL [Mass/Vol] 54 mg/dL 23-92 [facility] Comment on above: HDL CHOL ATP-III CLA SSIFICATION Cardiovascular RiskHDL > or equal to 60 mg/dL LOWHDL < 40 mg/dL HIGH Serum or plasma total choles terol/high density lipoprotein (HDL) cholesterol mass ratOrdered By: Jyotsna Abarca on 05-09-2023 Cholesterol.total/Jessica sterol in HDL [Mass ratio] 2.6 {ratio} <5.0 [facility] Sodium [Moles/volume] in Ser um or PlasmaOrdered By: Jyotsna Abarca on 05-09-2023 Sodium [Moles/Vol] 142 mmol/L 136-145 [facility] Specific gravity Auto test s trip (U) [Rel density]Ordered By: Jyotsna Abarca on 05-09-2023 Specific gravity (U) [Rel density] 1.020 1.001-1.030 [facility] Squamous epithelial cells de tection in urine sediment by light microscopyOrdered By: Jyotsna Abarca on 05-09-2023 Epithelial cells.squamous LM Ql (Urine sed) 3-4 [HPF] 0-2 [facility] Triglyceride [Mass/volume] i n Serum or PlasmaOrdered By: Jyotsna Abarca on 05-09-2023 Triglyceride [Mass/Vol] 70 mg/dL 0-149 [facility] Comment on above: TRIG ATP III CLASSIF ICATIONTRIG less than 150 mg/dL NormalTRIG 150-199 mg/dL Borderline highTRIG 200-500 mg/dL High TRIG greater than 500 mg/dL Very highStandard traceable to the Center for Disease Conrtrol and Prevention (CDC) test method. Urea nitrogen [Mass/volume] in Serum or PlasmaOrdered By: Jyotsna Abarca on 05-09-2023 Urea nitrogen [Mass/Vol] 14 mg/dL 7-25 [facility] Urine bacteria detection by automated methodOrdered By: Jyotsna Abarca on 05-09-2023 Bacteria Auto Ql (U) None seen None Seen [facility] Urine clarity by refractomet ry automatedOrdered By: Jyotsna Abarca on 05-09-2023 Clarity Refractometry automated (U) Clear Clear [facility] Urine culture routineOrdered By: Jyotsna Abarca on 05-09-2023 Bacteria identified Cx Nom (U) Strep. agalactiae Grp B [facility] Urine glucose measurement by automated test strip (mass/volume)Ordered By: Jyotsna Abarca on 05-09-2023 Glucose Auto test strip (U) [Mass/Vol] Normal mg/dL Normal [facility] Urine hemoglobin detection b y automated test stripOrdered By: Jyotsna Abarca on 05-09-2023 Hemoglobin Auto test strip Ql (U) Negative Negative [facility] Urine leukocyte esterase det ection by automated test stripOrdered By: Jyotsna Abarca on 05-09-2023 Leukocyte esterase Auto test strip Ql (U) 2+ Negative [facility] Urobilinogen Auto test strip (U) [Mass/Vol]Ordered By: Jyotsna Abarca on 05-09-2023 Urobilinogen (U) [Mass/Vol] Normal mg/dL Normal [facility] Vitamin B12 ser/plasOrdered By: Jyotsna Abarca on 05-09-2023 Cobalamin (Vitamin B12) [Mass/Vol] 543 pg/mL 180-914 [facility] Vitamin D+Metabolites [Mass/ volume] in Serum or PlasmaOrdered By: Jyotsna Abarca on 05-09-2023 Vitamin D+Metabolites [Mass/Vol] 53.9 ng/mL 30-100 [facility] Comment on above: VITAMIN D STATUS 25( [place])VITAMIN D RANGE (ng/mL) Deficient <20 Insufficient 20 to <30Sufficient 30 to 100Reference: Delfino MF,Blaze NC, Ragini ALEXIS, et al. Evaluation,treatment, and prevention of vitamin D deficiency; an Endocrine Society clinical practice guideline. JCEM. 2010; 96(7):1911-30. WBC Auto (Bld) [#/Vol]Ordere d By: Jyotsna Abarca on 05-09-2023 WBC (Bld) [#/Vol] 6.3 10*3/uL 3.8-11.6 [facility] pH Auto test strip (U)Ordere d By: Jyotsna Abarca on 05-09-2023 pH (U) 6.5 [pH] 5.0-9.0 [facility] ACID FAST SMEAR AND CXon Acid Fast Culture Negative Normal [facility] Comment on above: Result Comment: No a grace fast bacilli isolated after 6 weeks. Performed By: #### C VDTBH #### [facility] [address] [address] [address] Kamari Bianchi Acid Fast Smear Negative Normal [facility] Comment on above: Performed By: #### C VDTBH #### [facility] [address] [address] [address] Kamari Bianchi AFB Specimen Processing Concentration Normal [facility] Comment on above: Performed By: #### C VDTBH #### [facility] [address] [address] [address] CHEST WO CONon 04-04-2023 CT CHEST WO CON EXAMINATION: CT CHES T WO CON HISTORY: Pneumonia due to Pseudomonas , follow-up COMPARISON: CT chest 12/28/2022 TECHNIQUE: Axial, Coronal, and Sagittal images were created without the administration of IV contrast material. Dose reduction techniques were achieved by using automated exposure control and/or adjustment of mA and/or kV according to patient size and/or use of iterative reconstruction technique. FINDINGS: LUNGS: Stable appearance of a few small nodules scattered within the right lung and peripheral nodular airspace disease within the posterior lateral right lung base/costophrenic angles. Grossly stable fibrotic changes and bronchiectasis within lingula and lateral left lower lobe adjacent the diaphragm. Stable appearance of a few tiny nodules scattered within the left lung, largest within left lower lobe superior segment, 6 mm. Calcified granuloma within left upper lobe. PLEURA: No mass, effusion, or pneumothorax. VASCULATURE: No abnormality. EMEKA: No mass or adenopathy. MEDIASTINUM: No mass or adenopathy. CARDIAC: Atherosclerotic coronary artery disease. AORTA: No aneurysm or dissection. CHEST WALL: No mass or axillary adenopathy. BONES: Stable, slight anterior wedging of T12 vertebral body, likely remote mild compression fracture. LIMITED ABDOMEN: No suspicious findings. Limited images of the upper abdomen. OTHER: Negative. IMPRESSION: 1. Stable chronic changes within the lungs. No acute infiltrates or appreciable change. Electronically authenticated by: SHAE CHAVEZ Date: 2023-04-04 12:22 Normal [facility] FUNGAL CULTUREon 03-22-2023 Fungus (Mycology) Culture Final report Normal [facility] Comment on above: Performed By: #### C XFUN #### [facility] [address] [address] [address] Kamari Bianchi Fungus Stain Final report Normal [facility] Comment on above: Performed By: #### C XFUN #### [facility] [address] [address] [address] Kamari Bianchi Result 1 Comment Normal [facility] Comment on above: Result Comment: SAHARA/ Calcofluor preparation: no fungus observed. Performed By: #### C XFUN #### [facility] [address] [place] [address] Dr. Kamari Bianchi Result Comment: No y east or mold isolated after 4 weeks. CULTURE OTHERon 02-22-2023 CULTURE OTHER Isolate 1 Pseudomonas aeruginosa Heavy growth of ORGANISM 1 Pseudomonas aeruginosa ANTIBIOTIC M.I.C RX STATUS Piperacillin/Tazobact am <=4 S F Ceftazidime <=1 S F Imipenem <=0.25 S F Amikacin <=2 S F Gentamicin <=1 S F Tobramycin <=1 S F Ciprofloxacin <=0.25 S F Levofloxacin <=0.12 S F Normal [facility] Comment on above: Performed By: #### O THCX #### [facility] [address] [place] [address] Dr. Kamari Bianchi CYTOLOGYon 02-20-2023 SENT TO REF LAB 02/21/23 Normal [facility] Comment on above: Performed By: #### C YTO #### [facility] [address] [place] [address] Dr. Kamari JAMIL STAINon 02-20-2023 DIPHTHEROIDS Normal [facility] Comment on above: Performed By: #### G STAIN #### [facility] [address] [place] [address] Dr. Kamari Bianchi EPITHELIALS Normal [facility] Comment on above: Performed By: #### G STAIN #### [facility] [address] [place] [address] Dr. Kamari Bianchi FUNGAL ELEMENTS Normal [facility] Comment on above: Performed By: #### G STAIN #### [facility] [address] [place] [address] Dr. Kamari JAMIL NEG BACILLI MODERATE Normal [facility] Comment on above: Performed By: #### G STAIN #### [facility] [address] [place] [address] Dr. Kamari JAMIL NEG DIPPLOCOCCI Normal [facility] Comment on above: Performed By: #### G STAIN #### [facility] [address] [place] [address] Dr. Yilan Bianchi GRAM POS BACILLI Normal [facility] Comment on above: Performed By: #### G STAIN #### [facility] [address] [place] [address] Dr. Kamari Bianchi GRAM POSITIVE COCCI FEW Normal [facility] Comment on above: Performed By: #### G STAIN #### [facility] [address] [place] [address] Dr. Kamari Bianchi GRAM STAIN SOURCE Lt Upper Lung Lavage Normal [facility] Comment on above: Performed By: #### G STAIN #### [facility] [address] [place] [address] Dr. Kamari Bianchi GS_DIPTH Normal [facility] Comment on above: Performed By: #### G STAIN #### [facility] [address] [place] [address] Dr. Kamari Bianchi WBC MANY Normal [facility] Comment on above: Performed By: #### G STAIN #### [facility] [address] [place] [address] Dr. Kamari Bianchi Cov[facility]-19 PCR ([facility]on SARS-CoV-2 (COVID-19) RNA ELIZABETH+probe Ql (Unsp spec) Not detected Normal NOT DETECTED [facility] Comment on above: Result Comment: This test is not yet approved or cleared by the [place] FDA. When there are no FDA-approved or cleared tests available, and other criteria are met, FDA can make tests available under an emergency access mechanism called an Emergency Use Authorization (EUA). The EUA for this test is supported by the [place] of Health and Human Service's (HHS's) declaration that circumstances exist to justify the emergency use of in vitro diagnostics for the detection and/or diagnosis of the virus that causes COVID-19. This EUA will remain in effect (meaning this test can be used) for the duration of the COVID-19 declaration justifying emergency of IVDs, unless it is terminated or revoked by FDA (after which the test may no longer be used). When diagnostic testing is negative, the possibility of a false negative should be considered in the context of a patient's recent exposures and the presence of clinical signs and symptoms consistent with SARS-CoV-2. Performed By: #### C VDTBH #### [facility] [address] [address] [address] Kamari Bianchi CBC AUTO DIFFon 02-08-2023 BASO # 0.1 103/ul Normal 0.0-0.1 [facility] Comment on above: Performed By: #### C BC #### [facility] [address] [address] [address] Kamari Bianchi Basophils/100 WBC (Bld) 1.2 % Normal 0.2-2.0 [facility] Comment on above: Performed By: #### C BC #### [facility] [address] [place] [address] Dr. Kamari Bianchi EO # 0.3 103/ul Normal 0.0-0.7 [facility] Comment on above: Performed By: #### C BC #### [facility] [address] [place] [address] Dr. Kamari Bianchi Eosinophils/100 WBC (Bld) 3.6 % Normal 0.9-7.0 [facility] Comment on above: Performed By: #### C BC #### [facility] [address] [place] [address] Dr. Kamari Bianchi Erythrocyte distribution width (RBC) [Ratio] 12.3 % Normal 11.0-15.0 [facility] Comment on above: Performed By: #### C BC #### [facility] [address] [place] [address] Dr. Kamari Bianchi Hematocrit (Bld) [Volume fraction] 37.6 % Normal 36.0-48.0 [facility] Comment on above: Performed By: #### C BC #### [facility] [address] [place] [address] Dr. Kamari Bianchi Hemoglobin (Bld) [Mass/Vol] 12.7 g/dL Normal 12.0-16.0 [facility] Comment on above: Performed By: #### C BC #### [facility] [address] [place] [address] Dr. Kamari Bianchi IG # 0.01 10e3/ul Normal 0.00-0.03 [facility] Comment on above: Performed By: #### C BC #### [facility] [address] [place] [address] Dr. Kamari Bianchi IG % 0.1 % Normal 0.0-0.5 [facility] Comment on above: Performed By: #### C BC #### [facility] [address] [place] [address] Dr. Kamari Bianchi LYMPH # 2.8 103/ul Normal 1.2-3.8 [facility] Comment on above: Performed By: #### C BC #### [facility] [address] [place] [address] Dr. Kamari Bianchi Lymphocytes/100 WBC (Bld) 32.8 % Normal 20.5-60.0 [facility] Comment on above: Performed By: #### C BC #### [facility] [address] [place] [address] Dr. Kamari Bianchi MANUAL DIFF REQ NO Normal [facility] Comment on above: Performed By: #### C BC #### [facility] [address] [place] [address] Dr. Kamari Bianchi MCH (RBC) [Entitic mass] 28.9 pg Normal 26.7-34.0 [facility] Comment on above: Performed By: #### C BC #### [facility] [address] [place] [address] Dr. Kamari Bianchi MCHC (RBC) [Mass/Vol] 33.8 g/dL Normal 29.9-35.2 [facility] Comment on above: Performed By: #### C BC #### [facility] [address] [place] [address] Dr. Kamari Bianchi MCV (RBC) [Entitic vol] 85.5 fL Normal 81.0-99.0 [facility] Comment on above: Performed By: #### C BC #### [facility] [address] [place] [address] Dr. Kamari Bianchi MONO # 0.7 103/ul Normal 0.3-0.8 [facility] Comment on above: Performed By: #### C BC #### [facility] [address] [place] [address] Dr. Kamari Bianchi Monocytes/100 WBC (Bld) 8.2 % Normal 1.7-12.0 [facility] Comment on above: Performed By: #### C BC #### [facility] [address] [address] [address] Kamari Bianchi NEUT # 4.6 103/ul Normal 1.4-6.5 [facility] Comment on above: Performed By: #### C BC #### [facility] [address] [place] [address] Dr. Kamari Bianchi Neutrophils/100 WBC (Bld) 54.1 % Normal 43.0-75.0 [facility] Comment on above: Performed By: #### C BC #### [facility] [address] [place] [address] Dr. Kamari Bianchi Platelet mean volume (Bld) [Entitic vol] 9.6 fL Normal 9.5-13.5 [facility] Comment on above: Performed By: #### C BC #### [facility] [address] [place] [address] Dr. Kamari Bianchi PLT 230 103/ul Normal 150-450 [facility] Comment on above: Performed By: #### C BC #### [facility] [address] [place] [address] Dr. Kamari Bianchi RBC 4.40 106/ul Normal 4.20-5.40 [facility] Comment on above: Performed By: #### C BC #### [facility] [address] [place] [address] Dr. Kamari Bianchi WBC 8.4 103/ul Normal 4.0-11.0 [facility] Comment on above: Performed By: #### C BC #### [facility] [address] [place] [address] chest wo daisha 12-28-2022 CT chest wo [facility] Other CT chest wo [facility] Other CT chest wo con [address] No rt [employer] Other CT chest [place] [address] [address] [facility] Other CT chest wo con CT Scan Report [facility] Other CT chest wo con Signed [employer] Other CT chest wo con Patient: Meseret Acosta MR#: [id number] [facility] Other CT chest wo con [address] chest wo con : 1950 Acct:[id number] [facility] Other CT chest wo con Age/Sex: 72 / F ADM Date: 12/28/[address] chest wo con Loc: [facility] Room: Type : [facility] Other CT chest wo con Attending Dr: Jyotsna Abarca DO [facility] Other CT chest wo con Copies to: Jyotsna Abarca, [facility] Other CT chest wo con Ordering Provider: Jyotsna Abarca, [facility] Other CT chest wo con Date of Service: 12/28/[address] chest wo con CT/CT chest wo con: R93.[address] chest wo con CT CHEST WITHOUT IV CONTRAST: [facility] Other CT chest wo con CLINICAL HISTORY: Follow-up pulmonary nodule [facility] Other CT chest wo con COMPARISON: CT chest 12/04/[address] chest wo con TECHNIQUE: Spiral images were obtained through the chest without IV contrast. This CT exam was [facility] Other CT chest wo con performed using one or more following dose reduction techniques: Automated exposure control, [facility] Other CT chest wo con adjustment of the mA and/or kV according to patient size, or use of iterative reconstruction [facility] Other CT chest wo con technique. [employer] Other CT chest wo con FINDINGS: [employer] [facility] [employer] Other CT chest wo con Mediastinum:Right-si d ed aortic arch is noted. No aneurysm. Summary trunk appears nondilated. No [facility] Other CT chest wo con pericardial effusion . No lymphadenopathy. The esophagus is grossly unremarkable. [facility] Other CT chest wo con Lungs:Mild lung scarring with interstitial changes involving the lung bases and bronchiectasis [employer] Other CT chest wo con tion, pneumothorax o r pleural effusion. Calcified granuloma left upper lobe. Scattered tree-in-bud [employer] Other CT chest wo con nodularity. No sinister-appearing nodule seen on today's study. [facility] Other CT chest wo con Abd:No acute findings. [facility] Other CT chest wo con Soft tissues/Bones: Visualized soft tissues demonstrate no acute findings. Osseous structures [employer] Other CT chest wo con demonstrate degenerative change. [facility] Other CT chest wo con CT/CT chest wo con [facility] Other CT chest wo con IMPRESSION: [employer] Other CT chest wo con lingula. No honeycombing is identified. No sinister-appearing nodule is seen on today's study. [facility] Other CT chest wo con Impression dictated by: Jose Rafael Kelsey Jr., D.ORaleigh12/28/2022 12:[address] [facility] [address] chest wo con Dictation Location: [address] [employer] Other CT chest wo con Transcribed By: PWS 12/28/[address] [address] chest wo con Dictated By: Jose Rafael Kelsey Jr, DO 12/28/[address] [place] [address] [address] chest wo con Signed By: [facility] [employer] Other CT chest wo con 12/28/22 4721 [employer] Other XR CHEST 2 Von 12-05-2022 XR CHEST 2 V EXAM: XR CHEST 2 V HISTORY: Pneumonia . Follow-up study. COMPARISON: 11/16/2022 TECHNIQUE: Upright PA and lateral chest x-ray FINDINGS: A significant interstitial infiltrate is again seen in the left mid to lower lung. The left upper and the right lung remain clear. There is no evidence of an effusion or pneumothorax. The heart is not enlarged and the vasculature is not distended. A right-sided aortic arch is again noted. The osseous structures are unchanged. IMPRESSION: There is an interstitial infiltrate in the left mid and lower lung. There is no evidence of an effusion or overt cardiac decompensation, and the overall appearance of the chest is unchanged. Electronically authenticated by: HOWIE CHAVEZ Date: 2022-12-05 13:05 Normal [facility] Tobacco Screening.on 023 Adult depression screening assessment No [facility] 250 DO Work Phone: Fall risk assessment a) No falls within the last year [facility] 250 DO Work Phone: Tobacco use status [facility] b) No M [facility] [employer] 250 DO Work Phone: XR CHEST 2 Von 11-16-2022 XR CHEST 2 V EXAMINATION: XR CHES T 2 V HISTORY: Cough COMPARISON: 12/17/2020 TECHNIQUE: PA and lateral FINDINGS: LUNGS: The right lung is clear. Mild to moderate infiltrate left mid to lower lung zone VASCULATURE: No increased pulmonary vasculature. PLEURA: No pneumothorax, effusion, or pleural thickening. CARDIAC: No cardiomegaly or cardiac silhouette abnormality. MEDIASTINUM: Soft tissue prominence in the right paratracheal stripe consistent with a right aortic arch on CT exam BONES: No fracture or visible bone lesion. OTHER: None. IMPRESSION: Left parenchymal infiltrates, consider pneumonia Electronically authenticated by: JYOTSNA VARGAS Date: 2022-11-16 11:58 Normal [facility] Albumin [Mass/volume] in Ser um or PlasmaOrdered By: Jyotsna Abarca on 11-07-2022 Albumin [Mass/Vol] 4.1 g/dL 3.2-5.5 [facility] Basophils Auto (Bld) [#/Vol] Ordered By: Jyotsna Abarca on 11-07-2022 Basophils (Bld) [#/Vol] 0.1 10*3/uL 0.0-0.2 [facility] Basophils/100 WBC Auto (Bld) Ordered By: Jyotsna Abarca on 11-07-2022 Basophils/100 WBC (Bld) 1.2 % . [facility] Cholesterol [Mass/volume] in Serum or PlasmaOrdered By: Jyotsna Abarca on 11-07-2022 Cholesterol [Mass/Vol] 154 mg/dL 140-[address] [facility] Comment on above: Chol less than 200 m g/dl low riskChol 201-239 mg/dl borderline riskChol 240 mg/dl and greater high risk Cholesterol in LDL Calc [Mas s/Vol]Ordered By: Jyotsna Abarca on 11-07-2022 Cholesterol in LDL [Mass/Vol] 82 mg/dL 0-100 [facility] Comment on above: LDL ATP III CLASSIFI CATIONLDL less than 100 mg/dL OptimalLDL 100-129 mg/dL Near or above optimalLDL 130-159 mg/dL Borderline highLDL 160-189 mg/dL HighLDL greater than 189 mg/dL Very high Cholesterol in VLDL Calc [Ma ss/Vol]Ordered By: Jyotsna Abarca on 11-07-2022 Cholesterol in VLDL [Mass/Vol] 11 mg/dL [facility] Creatinine and Glomerular fi ltration rate.predicted panel (S/P/Bld)Ordered By: Jyotsna Abarca on 11-07-2022 Creatinine [Mass/Vol] 0.85 mg/dL 0.44-1.03 [facility] Eosinophils Auto (Bld) [#/Vo l]Ordered By: Jyotsna Abarca on 11-07-2022 Eosinophils (Bld) [#/Vol] 0.3 10*3/uL 0.0-0.45 [facility] Eosinophils/100 WBC Auto (Bl d)Ordered By: Jyotsna Abarca on 11-07-2022 Eosinophils/100 WBC (Bld) 3.6 % . [facility] Erythrocyte distribution wid th Auto (RBC) [Ratio]Ordered By: Jyotsna Abarca on 11-07-2022 Erythrocyte distribution width (RBC) [Ratio] 12.9 % 11.9-15.3 [facility] Estimated glomerular filtrat ion rate (GFR) non- AmericanOrdered By: Jyotsna Abarca on 11-07-2022 GFR/1.73 sq M.predicted among non-blacks MDRD (S/P/Bld) [Vol rate/Area] > 60 mL/Min [facility] Folate [Mass/volume] in Seru m or PlasmaOrdered By: Jyotsna Abarca on 11-07-2022 Folate [Mass/Vol] 18.8 ng/mL >5.9 [facility] Comment on above: Folate reference ran ge: >5.9 ng/mlThe WHO technical consultation on folate and vitamin [id number] has determined that folate concentrations lessthan 4 ng/ml are considered deficient. Globulin Calc (S) [Mass/Vol] Ordered By: Jyotsna Abarca on 11-07-2022 Globulin (S) [Mass/Vol] 3.2 g/dL [facility] Glucose mean value [Mass/vol ume] in Blood Estimated from glycated hemoglobinOrdered By: Jyotsna Abarca on 11-07-2022 Average glucose Estimated from glycated hemoglobin (Bld) [Mass/Vol] 128 mg/dL [facility] Hematocrit Auto (Bld) [Volum e fraction]Ordered By: Jyotsna Abarca on 11-07-2022 Hematocrit (Bld) [Volume fraction] 40.2 % 34.0-46.4 [facility] Hemoglobin A1c percentageOrd ered By: Jyotsna Abarca on 11-07-2022 HbA1c (Bld) [Mass fraction] 6.1 % 4.3-5.6 [facility] Comment on above: Increased risk for d iabetes: 5.7 - 6.4diabetes: >6.4glycemic control for adults with diabetes: <7.0 Hemoglobin [Mass/volume] in BloodOrdered By: Jyotsna Abarca on 11-07-2022 Hemoglobin (Bld) [Mass/Vol] 13.5 g/dL 11.8-15.4 [facility] Laboratory - Chemistry and C hemistry - challengeOrdered By: Jyotsna Abarca on 11-07-2022 Cobalamin (Vitamin B12) [Mass/Vol] 865 pg/mL 180-914 [facility] Leukocytes [#/volume] correc michael for nucleated erythrocytes in Blood by Automated counOrdered By: Jyotsna Abarac on 11-07-2022 WBC corrected for nucl RBC Auto (Bld) [#/Vol] 7.6 10*3/uL 3.8-11.6 [facility] Lymphocytes Auto (Bld) [#/Vo l]Ordered By: Jyotsna Abarca on 11-07-2022 Lymphocytes (Bld) [#/Vol] 2.1 10*3/uL 1.00-4.8 [facility] Lymphocytes/100 WBC Auto (Bl d)Ordered By: Jyotsna Abarca on 11-07-2022 Lymphocytes/100 WBC (Bld) 28.2 % . [facility] MCH Auto (RBC) [Entitic mass ]Ordered By: Jyotsna Abarca on 11-07-2022 MCH (RBC) [Entitic mass] 29.3 pg 24.7-34.3 [facility] MCHC Auto (RBC) [Mass/Vol]Or dered By: Jyotsna Abarca on 11-07-2022 MCHC (RBC) [Mass/Vol] 33.5 g/dL 32.0-35.0 [facility] MCV Auto (RBC) [Entitic vol] Ordered By: Jyotsna Abarca on 11-07-2022 MCV (RBC) [Entitic vol] 87.6 fL 80-100 [facility] Monocytes Auto (Bld) [#/Vol] Ordered By: Jyotsna Abarca on 11-07-2022 Monocytes (Bld) [#/Vol] 0.7 10*3/uL 0.0-0.8 [facility] Monocytes/100 WBC Auto (Bld) Ordered By: Jyotsna Abarca on 11-07-2022 Monocytes/100 WBC (Bld) 8.8 % . [facility] Neutrophils Auto (Bld) [#/Vo l]Ordered By: Jyotsna Abarca on 11-07-2022 Neutrophils (Bld) [#/Vol] 4.4 10*3/uL 1.8-7.7 [facility] Neutrophils/100 WBC Auto (Bl d)Ordered By: Jyotsna Abarca on 11-07-2022 Neutrophils/100 WBC (Bld) 58.2 % . [facility] No Panel InformationOrdered By: Jyotsna Abarca on 11-07-2022 25-Hydroxy Vitamin D Total 72.0 ng/mL 30-100 [facility] Comment on above: VITAMIN D STATUS 25( [place])VITAMIN D RANGE (ng/mL) Deficient <20 Insufficient 20 to <30Sufficient 30 to 100Reference: Delfino MF,Blaze NC, Ragini ALEXIS, et al. Evaluation,treatment, and prevention of vitamin D deficiency; an Endocrine Society clinical practice guideline. JCEM. 2010; 96(7):1911-30. Estimated GFR () > 60 mL/Min [facility] Comment on above: GFR estimated refere nce range: According to KDOQI guidelines, <60 ml/min/1.73m2 is sufficient to diagnose a patient with chronic kidney disease. Pharmacy Creatinine Clearance (Chem N/A [facility] Nucleated erythrocytes [Pres ence] in Blood by Automated countOrdered By: Jyotsna Abarca on 11-07-2022 Nucleated RBC Auto Ql (Bld) 0.2 /100{WBC} 0-0.5 [facility] Platelet mean volume Auto (B ld) [Entitic vol]Ordered By: Jyotsna Abarca on 11-07-2022 Platelet mean volume (Bld) [Entitic vol] 8.0 fL 6.3-10.7 [facility] Platelets Auto (Bld) [#/Vol] Ordered By: Jyotsna Abarca on 11-07-2022 Platelets (Bld) [#/Vol] 243 10*3/uL 150-450 [facility] Protein [Mass/volume] in Ser um or PlasmaOrdered By: Jyotsna Abarca on 11-07-2022 Protein [Mass/Vol] 7.3 g/dL 6.1-7.9 [facility] RBC Auto (Bld) [#/Vol]Ordere d By: Jyotsna Abarca on 11-07-2022 RBC (Bld) [#/Vol] 4.60 10*6/uL 3.60-5.00 [facility] Serum or plasma alanine shya otransferase measurement without P-5'-P (enzymatic activiOrdered By: Jyotsna Abarca on 11-07-2022 ALT No additional P-5'-P [Catalytic activity/Vol] 14 U/L 10-60 [facility] Serum or plasma albumin/glob ulin mass ratioOrdered By: Jyotsna Abarca on 11-07-2022 Albumin/Globulin [Mass ratio] 1.3 {ratio} [facility] Serum or plasma alkaline fawad sphatase measurement (enzymatic activity/volume)Ordered By: Jyotsna Abarca on 11-07-2022 ALP [Catalytic activity/Vol] 74 U/L 32-92 [facility] Serum or plasma anion gap de terminationOrdered By: Jyotsna Abarca on 11-07-2022 Anion gap [Moles/Vol] 10.5 mmol/L 6.0-15.[address] [facility] Serum or plasma aspartate am inotransferase measurement (enzymatic activity/volume)Ordered By: Jyotsna Abarca on 11-07-2022 AST [Catalytic activity/Vol] 26 U/L 10-42 [facility] Serum or plasma calcium ela urement (mass/volume)Ordered By: Jyotsna Abarca on 11-07-2022 Calcium [Mass/Vol] 9.7 mg/dL 8.2-10.2 [facility] Serum or plasma chloride heidi surement (moles/volume)Ordered By: Jyotsna Abarca on 11-07-2022 Chloride [Moles/Vol] 105 mmol/L 95-114 [facility] Serum or plasma glucose ela urement (mass/volume)Ordered By: Jyotsna Abarca on 11-07-2022 Glucose [Mass/Vol] 98 mg/dL 70-100 [facility] Comment on above: ADA recommended refe rence rangeRandom Glucose Reference Range is dependent on time and content of last meal. Glucose of more than 200 mg/dL in a nonstressed, ambulatory subject supports the diagnosis of Diabetes Mellitus. Serum or plasma high density lipoprotein (HDL) cholesterol measurementOrdered By: Jyotsna Abarca on 11-07-2022 Cholesterol in HDL [Mass/Vol] 61 mg/dL 35-85 [facility] Comment on above: HDL CHOL ATP-III CLA SSIFICATION Cardiovascular RiskHDL > or equal to 60 mg/dL LOWHDL < 40 mg/dL HIGH Serum or plasma potassium me asurement (moles/volume)Ordered By: Jyotsna Abarca on 11-07-2022 Potassium [Moles/Vol] 3.6 mmol/L 3.5-5.1 [facility] Serum or plasma sodium measu rement (moles/volume)Ordered By: Jyotsna Abarca on 11-07-2022 Sodium [Moles/Vol] 140 mmol/L 136-146 [facility] Serum or plasma total biliru bin measurement (mass/volume)Ordered By: Jyotsna Abarca on 11-07-2022 Bilirubin [Mass/Vol] 0.5 mg/dL 0.3-1.2 [facility] Serum or plasma total carbon dioxide measurement (moles/volume)Ordered By: Jyotsna Abarca on 11-07-2022 CO2 [Moles/Vol] 28.1 mmol/L 22.0-30.0 [facility] Serum or plasma total choles terol/high density lipoprotein (HDL) cholesterol mass ratOrdered By: Jyotsna Abarca on 11-07-2022 Cholesterol.total/Jessica sterol in HDL [Mass ratio] 2.5 {ratio} <5.0 [facility] Serum or plasma urea nitroge n measurement (mass/volume)Ordered By: Jyotsna Abarca on 11-07-2022 Urea nitrogen [Mass/Vol] 12 mg/dL 9-23 [facility] TSH DL <= 0.005 mIU/L QnOrde red By: Jyotsna Abarca on 11-07-2022 TSH Qn 2.70 m[IU]/L 0.45-5.33 [facility] Triglyceride [Mass/volume] i n Serum or PlasmaOrdered By: Jyotsna Abarca on 11-07-2022 Triglyceride [Mass/Vol] 55 mg/dL 35-149 [facility] Comment on above: TRIG ATP III CLASSIF ICATIONTRIG less than 150 mg/dL NormalTRIG 150-199 mg/dL Borderline highTRIG 200-500 mg/dL High TRIG greater than 500 mg/dL Very highStandard traceable to the Center for Disease Conrtrol and Prevention (CDC) test method. WBC Auto (Bld) [#/Vol]Ordere d By: Jyotsna Abarca on 11-07-2022 WBC (Bld) [#/Vol] 7.6 10*3/uL 3.8-11.6 [facility] MG MAMM SCREEN 3D CELINE CADon 09-25-2022 MG MAMM SCREEN 3D CELINE CAD Patient: MESERET ACOSTA Exam Date: 09/25/2022 : 1950 Gender:F Ordering : DR JYOTSNA ABARCA Admission #: [id number] Family : Order #: [id number] CLICK HERE TO VIEW EXAM RADIOLOGY REPORT PROCEDURE: MAMMOGRAM SCREENING 3D BILATERAL CAD COMPARISON: MG MAMM SCREEN CELINE W CAD, 09/13/2020. MG MAMM SCREEN 3D CELINE CAD, 09/14/2021. INDICATIONS: Screening mammography Calculator Name NCI Breast Cancer Risk Assessment Tool 5 Year Breast Cancer Risk 1.40% Lifetime Breast Cancer Risk 3.40% Personal Breast Cancer No Personal Ovarian Cancer No Treatments None Family Cancers Mother with uterine/thyroid cancer at age 45; Grandfather-paternal with bone cancer at age 90. LOCATION: [facility] BREAST COMPOSITION: Heterogeneously dense,which may obscure small masses. FINDINGS: DIAGNOSTIC CATEGORY 1--NEGATIVE. NO CHANGE FROM COMPARISON ASSESSMENT. RIGHT BREAST: No significant suspicious finding. Two micro clip markers mid outer breast, stable LEFT BREAST: No significant suspicious finding. RECOMMENDATIONS: ROUTINE MAMMOGRAM AND CLINICAL EVALUATION IN 12 MONTHS. PLEASE NOTE: A NORMAL MAMMOGRAM DOES NOT EXCLUDE THE POSSIBILITY OF BREAST CANCER. A CLINICALLY SUSPICIOUS PALPABLE LUMP SHOULD BE BIOPSIED. Dictated by: Jyotsna Vargas MD on 09/25/2022 at 15:31 Approved by: Jyotsna Vargas MD on 09/25/2022 at 15:33 Normal [facility] Office Visit (Cardiology)on 03-02-2022 Follow-up visit Diagnoses/Problems Assessed Coronary artery disease without angina pectoris (414.00) (I25.10) HTN (hypertension) (401.9) (I10) Hyperlipidemia (272.4) (E78.5) Never a smoker Secondary pulmonary hypertension (416.8) Shortness of breath (786.05) (R06.02) TIA (transient ischemic attack) (435.9) (G45.9) Body mass index (BMI) of 22.0 to 22.9 in adult (V85.1) (Z68.22) Orders Coronary artery disease without angina pectoris Renew: Isosorbide Mononitrate ER 30 MG Oral Tablet Extended Release 24 Hour; TAKE 1 TABLET BY MOUTH EVERY DAY Renew: SM Aspirin Adult Low Strength 81 MG Oral Tablet Delayed Release; TAKE 1 TABLET BY MOUTH EVERY DAY DIRECTED HTN (hypertension), Secondary pulmonary hypertension Renew: Atenolol 25 MG Oral Tablet; TAKE 1 TABLET BY MOUTH TWO TIMES A DAY Hyperlipidemia Renew: Rosuvastatin Calcium 20 MG Oral Tablet; TAKE 1 TABLET BY MOUTH EVERY DAY SocHx: Never a smoker Tobacco Use Screening; Status:Complete; Done: 02Mar2022 Patient Instructions By signing my name below, I, Asmita Godoy LPN,Aly, attest that this documentation has been prepared under the direction and in the presence of Dr. Mita Luciano MD. Please bring all medicines, vitamins, and herbal supplements with you when you come to the office. Prescriptions will not be filled unless you are compliant with your follow up appointments or have a follow up appointment scheduled as per instruction of your physician. Refills should be requested at the time of your visit. Follow up in [ 9] months Chief Complaint MESERET ACOSTA is being seen for an annual follow-up of. History of Present Illness Patient is here for follow-up continue management for history of coronary artery disease documented on cardiac catheterization with disease of small diagonal branch treated medically, hypertension and hyperlipidemia. Since last time I saw her she reports has been feeling well. She denies complaint of chest pain, palpitation, lightheadedness, dizziness or syncope. Her recent laboratory data noted and reviewed with her. ASSESSMENT: 1. Coronary artery disease affecting small branch of the diagonal. Medical treatment was recommended based on previous evaluation. She denies any angina 2. Remote history of palpitation and premature ventricular contractions completely resolved. 3. Mild secondary pulmonary hypertension. 4. Hypertension, controlled. 5. Hyperlipidemia, controlled 6. Remote history of transient ischemic attack with no recurrence. RECOMMENDATION: 1. The patient will remain on current therapy. 2. Reviewed with her her recent lab 3. We will see her back in 9 months Surgical History Problems History of Cataract surgery History of Colonoscopy 12Nov2012 Dr Radu Beltran History of Lung biopsy left side History of Tubal ligation Past Medical History Problems History of Encounter for immunization (V03.89) (Z23) Resolved Date: 02 Mar 2022 Current Meds Medication NameInstruction Atenolol 25 MG Oral TabletTAKE 1 TABLET BY MOUTH TWO TIMES A DAY Calcitonin (Pickerel) 200 UNIT/ACT Nasal SolutionINSTILL 1 SPRAY INTO ALTERNATING NOSTRILS ONCE A DAY Isosorbide Mononitrate ER 30 MG Oral Tablet Extended Release 24 HourTAKE 1 TABLET BY MOUTH EVERY DAY Nitroglycerin 0.4 [address] Tablet SublingualPL[address] 1 TABLET UNDER THE TONGUE EVERY 5 MINUTES FOR UP TO 3 DOSES NEEDED FOR CHEST PAIN.CALL 911 IF PAIN PERSISTS. 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; Nausea; Recorded By: Rani Sage; 03/02/2022 3:17:42 PM naproxen Adverse Reaction; Shortness of breath; Fatigue; Nausea; Recorded By: Rani Sage; 03/02/2022 3:17:42 PM Penicillins Adverse Reaction; Shortness of breath;; Recorded By: Rani Sage; 03/02/2022 3:17:42 PM Vicodin TABS Adverse Reaction; Chest Pain; Shortness of breath;; Recorded By: Rani Sage; 03/02/2022 3:17:42 PM Vioxx Adverse Reaction; Chest Pain; Shortness of breath;; Recorded By: Rani Sage; 03/02/2022 3:17:42 PM Clarinex Adverse Reaction; Nose bleed; Recorded By: Rani Sage; 03/02/2022 3:17:42 PM Fosamax Allergy; Rash; Recorded By: Rani Sage; 03/02/2022 3:17:42 PM Keflex CAPS Adverse Reaction; Irregular HR; Recorded By: Rani Sage; 03/02/2022 3:17:42 PM Plavix Adverse Reaction; Fatigue; Tachycardia; Recorded By: Rani Sage; 03/02/2022 3:17:42 PM sulfa Rash; Recorded By: Rani Sage; 03/02/2022 3:17:42 PM Vitron-C Adverse Reaction; Could not wake up; Drowsiness; Exercise Intolerance; Unknown; Recorded By: Rani Sage; 03/02/2022 3:17:42 PM Social History Problems Caffeine use (V49.89) (Z78.9) 1.5 cups coffee daily, tea-occasionally Never a smoker No alcohol use No illicit drug use Review of Sy (more content not included)... Normal [employer] Tobacco Screening.on 022 Adult depression screening assessment No [facility] 250 DO Work Phone: Fall risk assessment a) No falls within the last year [facility] [employer] 250 DO Work Phone: Tobacco use status [facility] b) No [facility] [employer] 250 DO Work Phone: Vital Signs Date Time Vital Sign Value Performing Clinician Facility 07-23-2024 13:25-0400 Blood Pressure Location Shiv LE[facility] 07-23-2024 13:25-0400 Diastolic blood pressure 76 mm[Hg] Shiv LE[facility] 07-23-2024 13:25-0400 Heart rate 72 /min Shiv LE[facility] 07-23-2024 13:25-0400 Respiratory rate 16 /min Shiv LE[facility] 07-23-2024 13:25-0400 Systolic blood pressure 138 mm[Hg] Shiv LE[facility] 06-11-2024 14:28-0400 Body height 148.59 cm DO Jyotsna Abarca Work Phone: [facility] 06-11-2024 14:28-0400 Body mass index (BMI) [Ratio] 20.9 kg/m2 DO Jyotsna Abarca Work Phone: [facility] 06-11-2024 14:28-0400 Body temperature 97.1 [degF] DO Jyotsna Abarca Work Phone: [facility] 06-11-2024 14:28-0400 Body weight 46.26 kg DO Jyotsna Abarca Work Phone: [facility] 06-11-2024 14:28-0400 Diastolic blood pressure 86 mm[Hg] DO Jyotsna Abarca Work Phone: [facility] 06-11-2024 14:28-0400 Heart rate 66 /min DO Jyotsna Abarca Work Phone: [facility] 06-11-2024 14:28-0400 Respiratory rate 16 /min DO Jyotsna Abarca Work Phone: [facility] 06-11-2024 14:28-0400 SaO2% (BldA) [Mass fraction] 94 % DO Jyotsna Abarca Work Phone: [facility] 06-11-2024 14:28-0400 Systolic blood pressure 138 mm[Hg] DO Jyotsna Abarca Work Phone: [facility] 11-27-2023 09:10-0500 Body height 148.59 cm Jyotsna Mckayjusten Other [employer] [facility] Other 11-27-2023 09:10-0500 Body mass index (BMI) [Ratio] 21.88 kg/m2 Jyotsna Abarca Other [employer] [facility] Other 11-27-2023 09:10-0500 Body temperature 97.6 [degF] Jyotsna Abarca Other [employer] Other 11-27-2023 09:10-0500 Body weight 48.31 kg Jyotsna Abarca Other [employer] Other 11-27-2023 09:10-0500 Diastolic blood pressure 88 mm[Hg] Jyotsna Abarca Other [employer] Other 11-27-2023 09:10-0500 Respiratory rate 18 /min Jyotsna Abarca Other [employer] Other 11-27-2023 09:10-0500 SaO2% (BldA) [Mass fraction] 97 % Jyotsna Abarca Other [employer] Other 11-27-2023 09:10-0500 Systolic blood pressure 134 mm[Hg] Jyotsna Abarca Other [employer] Other 08-14-2023 14:19-0400 Body height 144.8 cm Mita Luciano MD Work Phone: [facility] 08-14-2023 14:19-0400 Body mass index (BMI) [Ratio] 22.42 kg/m2 Mita Luciano MD Work Phone: [facility] 08-14-2023 14:19-0400 Body weight 46.99 kg Mita Luciano MD Work Phone: [facility] 08-14-2023 14:19-0400 Diastolic blood pressure 82 mm[Hg] Mita Luciano MD Work Phone: [facility] 08-14-2023 14:19-0400 Heart rate 57 /min Mita Luciano MD Work Phone: [facility] 08-14-2023 14:19-0400 Systolic blood pressure 136 mm[Hg] Mita Luciano MD Work Phone: [facility] 05-17-2023 09:10-0400 Body height 148.59 cm Jyotsna Abarca Other [employer] Other 05-17-2023 09:10-0400 Body mass index (BMI) [Ratio] 21.16 kg/m2 Jyotsna Abarca Other [employer] Other 05-17-2023 09:10-0400 Body temperature 97.9 [degF] Jyotsna Abarca Other [employer] Other 05-17-2023 09:10-0400 Body weight 46.72 kg Jyotsna Abarca Other [employer] Other 05-17-2023 09:10-0400 Diastolic blood pressure 70 mm[Hg] Jyotsna Abarca Other [employer] Other 05-17-2023 09:10-0400 Respiratory rate 16 /min Jyotsna Abarca Other [employer] Other 05-17-2023 09:10-0400 SaO2% (BldA) [Mass fraction] 97 % Jyotsna Abarca Other [employer] Other 05-17-2023 09:10-0400 Systolic blood pressure 122 mm[Hg] Jyotsna Abarca Other [employer] Other 11-16-2022 16:01-0500 Body height 144.78 cm Jyotsna Abarca Work Phone: [employer] 250 DO Work Phone: 11-16-2022 16:01-0500 Body mass index (BMI) [Ratio] 22.07 kg/m2 Jyotsna Abarca Work Phone: [employer] 250 DO Work Phone: 11-16-2022 16:01-0500 Body surface area Derived from formula 1.35 m2 Jyotsna Abarca Work Phone: [facility] 250 DO Work Phone: 11-16-2022 16:01-0500 Body weight 46.27 kg Jyotsna Abarca Work Phone: [facility] 250 DO Work Phone: 11-16-2022 16:01-0500 Diastolic blood pressure 66 mm[Hg] Jyotsna Abarca Work Phone: [facility] 250 DO Work Phone: 11-16-2022 16:01-0500 Heart rate 60 /min Jyotsna Abarca Work Phone: [facility] [employer] 250 DO Work Phone: 11-16-2022 16:01-0500 Systolic blood pressure 136 mm[Hg] Jyotsna Abarca Work Phone: [facility] [employer] 250 DO Work Phone: 11-16-2022 10:10-0500 Body height 148.59 cm Jyotsna Abarca Other [employer] Other 11-16-2022 10:10-0500 Body mass index (BMI) [Ratio] 20.95 kg/m2 Jyotsna Abarca Other [employer] Other 11-16-2022 10:10-0500 Body temperature 97.5 [degF] Jyotsna Abarca Other [employer] Other 11-16-2022 10:10-0500 Body weight 46.27 kg Jyotsna Abarca Other [employer] Other 11-16-2022 10:10-0500 Diastolic blood pressure 80 mm[Hg] Jyotsna Abarca Other [employer] Other 11-16-2022 10:10-0500 Respiratory rate 16 /min Jyotsna Abarca Other [employer] Other 11-16-2022 10:10-0500 SaO2% (BldA) [Mass fraction] 96 % Jyotsna Abarca Other [employer] Other 11-16-2022 10:10-0500 Systolic blood pressure 138 mm[Hg] Jyotsna Abarca Other [employer] Other 05-02-2022 10:10-0400 Body height 148.59 cm Jyotsna Abarca Other [employer] Other 05-02-2022 10:10-0400 Body mass index (BMI) [Ratio] 21.9 kg/m2 Jyotsna Abarca Other [employer] Other 05-02-2022 10:10-0400 Body temperature 97.7 [degF] Jyotsna Abarca Other [employer] Other 05-02-2022 10:10-0400 Body weight 48.35 kg Jyotsna Abarca Other [employer] Other 05-02-2022 10:10-0400 Diastolic blood pressure 70 mm[Hg] Jyotsna Abarca Other [employer] Other 05-02-2022 10:10-0400 Respiratory rate 16 /min Jyotsna Abarca Other [employer] Other 05-02-2022 10:10-0400 SaO2% (BldA) [Mass fraction] 98 % Jyotsna Abarca Other [employer] Other 05-02-2022 10:10-0400 Systolic blood pressure 110 mm[Hg] Jyotsna Abarca Other [facility] Other 03-02-2022 15:33-0400 Diastolic blood pressure 77 mm[Hg] Jyotsna Abarca [facility] 250 DO Work Phone: 03-02-2022 15:33-0400 Systolic blood pressure 122 mm[Hg] Jyotsna Abarca [facility] 250 DO Work Phone: 03-02-2022 15:25-0400 Diastolic blood pressure 80 mm[Hg] Jyotsna Abarca [facility] 250 DO Work Phone: 03-02-2022 15:25-0400 Systolic blood pressure 142 mm[Hg] Jyotsna Abarca [facility] 250 DO Work Phone: 03-02-2022 15:20-0400 Body height 144.78 cm Jyotsna Abarca [facility] 250 DO Work Phone: 03-02-2022 15:20-0400 Body mass index (BMI) [Ratio] 22.72 kg/m2 Jyotsna Abarca [facility] 250 DO Work Phone: 03-02-2022 15:20-0400 Body surface area Derived from formula 1.37 m2 Jyotsna Abarca [facility] 250 DO Work Phone: 03-02-2022 15:20-0400 Body weight 47.63 kg Jyotsna Abarca [facility] [facility] 250 DO Work Phone: 03-02-2022 15:20-0400 Diastolic blood pressure 79 mm[Hg] Jyotsna Abarca [facility] 250 DO Work Phone: 03-02-2022 15:20-0400 Heart rate 58 /min Jyotsna Abarca [facility] 250 DO Work Phone: 03-02-2022 15:20-0400 Systolic blood pressure 149 mm[Hg] Jyotsna Abarca [facility] 250 DO Work Phone: 10-25-2021 10:10-0500 Body height 148.59 cm Jyotsna Abarca Other [place] [employer] Other 10-25-2021 10:10-0500 Body mass index (BMI) [Ratio] 21.98 kg/m2 Jyotsna Abarca Other [facility] Other 10-25-2021 10:10-0500 Body temperature 97.1 [degF] Jyotsna Abarca Other [employer] Other 10-25-2021 10:10-0500 Body weight 48.54 kg Jyotsna Abarca Other [employer] Other 10-25-2021 10:10-0500 Diastolic blood pressure 78 mm[Hg] Jyotsna Abarca Other [employer] Other 10-25-2021 10:10-0500 Respiratory rate 16 /min Jyotsna Abarca Other [employer] Other 10-25-2021 10:10-0500 SaO2% (BldA) [Mass fraction] 99 % Jyotsna Abarca Other [employer] Other 10-25-2021 10:10-0500 Systolic blood pressure 120 mm[Hg] Jyotsna Abarca Other [employer] Other Encounters Encounter Date Encounter Type Care Provider Facility Start: 07-23-2024 End: 07-23-2024 ambulatory Jyotsna Abarca Facility:[facility] Start: 07-23-2024 End: 07-23-2024 Patient encounter procedure Shiv LEAL [facility] [place] Start: 06-27-2024 ambulatory Jyotsna Abarca Facility:[facility] Start: 06-24-2024 ambulatory Jyotsna Abarca Facility:[facility] Start: 06-12-2024 End: 06-12-2024 Patient encounter procedure DO Jyotsna Abarca Work Phone: [facility] Start: 06-12-2024 End: 06-12-2024 ambulatory DO Jyotsna Abarca Work Phone: [facility] Work Phone: Start: 06-11-2024 End: 06-11-2024 ambulatory DO Jyotsna Abarca Work Phone: [facility] Work Phone: Start: 06-11-2024 End: 06-11-2024 Patient encounter procedure DO Jyotsna Abarca Work Phone: [facility] [place] Work Phone: Start: 05-23-2024 End: 05-23-2024 Patient encounter procedure DO Jyotsna Abarca Work Phone: [facility] Start: 05-23-2024 End: 05-23-2024 ambulatory DO Jyotsna Abarca Work Phone: [facility] Work Phone: Start: 05-21-2024 End: 05-21-2024 ambulatory [facility] Start: 05-19-2024 Non-patient / Non-visit DO Dhruv Abarca Work Phone: [facility] [place] Work Phone: Start: 02-04-2024 End: 02-04-2024 ambulatory DIANA BOTELLO Not Available Start: 12-03-2023 Telephone encounter Jyotsna Abarca [facility] Start: 12-03-2023 End: 12-03-2023 Patient encounter procedure DO Jyotsna Abarca Work Phone: [facility] Start: 12-03-2023 End: 12-03-2023 ambulatory DO Jyotsna Abarca Work Phone: [facility] Work Phone: Start: 11-27-2023 End: 11-27-2023 ambulatory Jyotsna Abarca Other [employer] Other Start: 11-27-2023 Office outpatient vi sit 25 minutes Jyotsna Abarca [facility] [place] Start: 11-27-2023 End: 11-27-2023 Patient encounter procedure DO Jyotsna Abarca Work Phone: [facility] Work Phone: Start: 11-15-2023 End: 11-15-2023 Patient encounter procedure DO Jyotsna Abarca Work Phone: [facility] Start: 11-15-2023 End: 11-15-2023 ambulatory DO Jyotsna Abarca Work Phone: [facility] Work Phone: Start: 08-14-2023 End: 08-14-2023 Office outpatient visit 15 minutes Mita Luciano MD Work Phone: [facility] Comment on above: Coronary artery dise ase involving [place] coronary artery of [place] heart without angina pectoris (Primary Dx); Primary hypertension; Hyperlipidemia, unspecified hyperlipidemia type; Other secondary pulmonary hypertension (CMS/HCC); BMI 22.0-22.9, adult; TIA (transient ischemic attack); Shortness of breath; Never smoked any substance Start: 08-14-2023 End: 08-14-2023 [facility] Start: 07-26-2023 End: 07-26-2023 ambulatory Jyotsna Abarca Other [facility] Other Start: 07-26-2023 Telephone encounter Jyotsna Abarca [facility] [place] Start: 06-28-2023 End: 06-28-2023 ambulatory Jyotsna Abarca Other [employer] Other Start: 06-28-2023 Telephone encounter Jyotsna Abarca [facility] Start: 06-25-2023 End: 06-25-2023 Patient encounter procedure DO Jyotsna Abarca Work Phone: [facility] Start: 06-25-2023 End: 06-25-2023 ambulatory DO Jyotsna Abarca Work Phone: [facility] Work Phone: Start: 05-17-2023 End: 05-17-2023 ambulatory Jyotsna Abarca Other [employer] Other Start: 05-17-2023 Office outpatient vi sit 25 minutes Jyotsna Abarca [facility] Start: 05-09-2023 End: 05-09-2023 ambulatory DO Jyotsna Abarca Work Phone: [facility] Work Phone: Start: 05-09-2023 End: 05-09-2023 Patient encounter procedure DO Jyotsna Abarca Work Phone: [facility] Start: 05-07-2023 End: 05-07-2023 ambulatory Jyotsna Abarca Other [employer] Other Start: 05-07-2023 Telephone encounter Jyotsna Tevin [facility] Start: 04-04-2023 End: 04-05-2023 ambulatory JAMESLATONIA SCHULER . Facility: Start: 02-25-2023 Encounter for preprocedural laboratory examination JAMES SCHULER . [facility] Start: 02-22-2023 End: 02-22-2023 ambulatory Jyotsna Abarca Other [employer] Other Start: 02-22-2023 Telephone encounter Jyotsna Abarca [facility] Start: 02-21-2023 End: 02-21-2023 ambulatory Jyotsna Abarca Other [employer] Other Start: 02-21-2023 Telephone encounter Jyotsna Abarca [facility] Start: 02-20-2023 End: 02-20-[address] JYOTSNA ABARCA Facility:[facility] Start: 02-17-2023 End: 02-18-[address] JYOTSNA ABARCA Facility:[facility] Start: 02-17-2023 End: 02-18-2023 Encounter for preprocedural laboratory examination DR JYOTSNA ABARCA Facility:[facility] Start: 02-16-2023 Encounter for preprocedural cardiovascular examination JAMES SCHULER . [facility] Start: 02-16-2023 Encounter for preprocedural laboratory examination JAMES SCHULER . [facility] Start: 02-08-2023 End: 02-09-[address] JYOTSNA ABARCA Facility:[facility] Start: 02-08-2023 End: 02-09-2023 Encounter for preprocedural cardiovascular examination DR JYOTSNA ABARCA Facility:[facility] Start: 12-29-2022 End: 12-29-2022 ambulatory Jyotsna Abarca Other [employer] Other Start: 12-29-2022 Telephone encounter Jyotsna Abarca [facility] Start: 12-05-2022 End: 12-06-[address] JYOTSNA ABARCA [facility] Other Start: 12-05-2022 Telephone encounter Jyotsna Abarca [facility] Start: 11-16-2022 Office outpatient vi sit 25 minutes Jyotsna Abarca [facility] Start: 11-16-2022 Telephone encounter Jyotsna Abarca [facility] Start: 11-16-2022 End: 11-17-[address] JYOTSNA ABARCA [facility] Other Start: 11-07-2022 End: 11-07-2022 ambulatory DO Jyotsna Abarca Work Phone: [facility] Work Phone: Start: 11-07-2022 End: 11-07-2022 Patient encounter procedure DO Jyotsna Abarca Work Phone: [facility] Start: 09-25-2022 End: 09-26-[address] JYOTSNA ABARCA Facility: Start: 08-31-2022 End: 08-31-2022 ambulatory Jyotsna Abarca Other [employer] Other Start: 08-31-2022 Telephone encounter Jyotsna Abarca [facility] Start: 08-22-2022 End: 08-22-2022 ambulatory Jyotsna Abarca Other [employer] Other Start: 08-22-2022 Telephone encounter Jyotsna Abarca [facility] [place] Start: 08-15-2022 End: 08-15-2022 ambulatory Jyotsna Abarca Other [employer] Other Start: 08-15-2022 Telephone encounter Jyotsna Abarca [facility] [place] Start: 05-02-2022 End: 05-02-2022 ambulatory Jyotsna Abarca Other [employer] Other Start: 05-02-2022 Office outpatient vi sit 25 minutes Jyotsna Abarca [facility] [place] Start: 03-02-2022 Office outpatient vi sit 25 minutes Jyotsna Abarca [facility] 250 DO Work Phone: Start: 10-25-2021 End: 10-25-2021 ambulatory Jyotsna Abarca Other [employer] Other Start: 10-25-2021 Office outpatient vi sit 25 minutes Jyotsna Abarca [facility] [place] Procedures Date Procedure Procedure Detail Performing Clinician Start: 05-23-2024 Urine culture DO Jyotsna Abarca Work Phone: Start: 11-15-2023 Urine culture DO Jyotsna Abarca Work Phone: Start: 08-14-2023 ECG 12-LEAD MOURHAF TR EVA Start: 08-14-2023 Ecg routine ecg w/le ast 12 lds w/i&r Mita Luciano MD Work Phone: Start: 05-09-2023 Urine culture DO Jyotsna Abarca Work Phone: Start: 03-23-2020 Bronchoscopy Shiv NI LL Start: 04-23-2019 Colonoscopy Shiv NI LL Bilateral tubal ligation Jose E hael NILL Biopsy of breast Shiv NIL L Biopsy of lung Jyotsna Coffman n Comment on above: left side; Biopsy of lung Shiv NILL Comment on above: Outside Source Comme nt: Comment on above: left side; Cataract surgery Jyotsna reynolds Cataract surgery Shiv NIL L Colonoscopy Jyotsna Abarca Comment on above: Radu moraes; Colonoscopy Shiv NILL Ligation of fallopian tube D jeremiah Abarca Plan of Treatment Date Care Activity Detail Author Start: 05-23-2024 Bacteria identified in Urine by Culture [facility] Start: 05-21-2024 End: 05-21-2024 Patient encounter procedure 05/21/2024 1:30 PM EDT Office Visit [facility] [address] [address] Mita Luciano MD [address] [facility] [address] [place] [address] [facility] Start: 12-03-2023 Bacteria identified in Urine by Culture [facility] Start: 11-15-2023 Bacteria identified in Urine by Culture Urine Culture [facility] Start: 11-15-2023 [facility] Start: 08-14-2023 FUV, Provider: Mita Luciano, Status: Pen, Time: 1:50 PM FUV, Provider: Mita Luciano, Status: Pen, Time: 1:50 PM [facility] 250 DO Work Phone: Start: 07-13-2023 Influenza vaccination Influenza Vaccine (#1) [facility] Start: 06-25-2023 Bacteria identified in Urine by Culture [facility] Start: 05-09-2023 Bacteria identified in Urine by Culture [facility] Start: 11-16-2022 FUV, Provider: Mita Luciano, Status: Pen, Time: 3:30 PM FUV, Provider: Mita Luciano, Status: Pen, Time: 3:30 PM [facility] 250 DO Work Phone: Start: 10-30-2022 COVID-19 Vaccine (5 - Moderna series) COVID-19 Vaccine (5 - Moderna series) [facility] Start: 10-11-2017 Zoster Vaccines (2 of 3) Zoster Vaccines (2 of 3) [facility] Start: 1989 Screening for malignant neoplasm of breast Mammogram [facility] Start: 1971 DTaP/Tdap/Td Vaccines (1 - Tdap) DTaP/Tdap/Td Vaccines (1 - Tdap) [facility] Start: 1967 Diabetes mellitus screening Diabetes Screening [facility] Start: 1967 Hepatitis C screening Hepatitis C Screening [facility] Start: 1955 Pneumococcal Vaccine: 65+ Years (1 - PCV) Pneumococcal Vaccine: 65+ Years (1 - PCV) [facility] Start: 1949 Lipid panel Lipid Panel [facility] Start: 1949 Medicare Annual Wellness Visit Medicare Annual Wellness Visit (AWV) [facility] Start: 1949 Screening for malignant neoplasm of colon [facility] Start: 1949 Screening for osteoporosis Bone Density Scan [facility] Bacteria identified in Urine by Culture [facility] Comprehensive metabo lic 2000 panel - Serum or Plasma [facility] Immunizations Immunization Date Immunization Notes Care Provider Elida jean baptiste 09-04-2022 Pfizer COVID-19 Vac Bivalent 30 MCG/0.3ML Intramuscular Suspension Jyotsna Abarca Work Phone: [facility] 250 DO Work Phone: 02-20-2022 Moderna COVID-19 Vaccine 100 MCG/0.5ML Intramuscular Suspension Jyotsna Abarca [facility] Comment on above: Series: 09-27-2021 COVID-19 Vaccine Moderna - Documentation Purposes Only Jyotsna Abarca Other [facility] 02-01-2021 COVID-19 Vaccine Moderna - Documentation Purposes Only Jyotsna Abarca Other [facility] 01-03-2021 COVID-19 Vaccine Moderna - Documentation Purposes Only Jyotsna Abarca Other [facility] 08-16-2017 zoster vaccine, live Jyotsna crowell Other [facility] Other Payers Date Payer Category Payer Medicare HUMANA MEDICARE HUMANA GOLD CHOICE [id number] 2022-Present [address] [address] [place] [address] [id number] 1960 Medicare [id number] 1949 Unknown [id number] 1949 Unknown [id number] 1949 Unknown [id number] 1949 Unknown [id number] 1949 Unknown [id number] 1949 Unknown [id number] 1949 Unknown [id number] 1949 Unknown [id number] 9 1949 Unknown [id number] 4 1949 Unknown [id number] 4 1949 Unknown [id number] Medicare Medicare [id number] Self-pay Self Pay [id number] Unknown Social History Date Type Detail Facility Start: 08-14-2023 No alcohol use No alcohol use [facility] Other Comment on above: 1.5 cups coffee rosalind y, tea-occasionally; Start: 08-14-2023 Sex Assigned At [facility] Other Start: 1950 Sex Assigned At Female [facility] Start: 08-14-2023 End: 07-23-2024 Tobacco smoking status NHIS Never smoked tobacco [facility] Work Phone: Start: 08-14-2023 Tobacco use and exposure Smokeless tobacco non-user [facility] Work Phone: Start: 08-14-2023 Alcohol intake Lifetime non-d barrera (finding) [facility] Work Phone: Start: 1950 [facility] Start: 08-04-2023 End: 08-14-2023 Exposure to SARS-CoV-2 (event) Not sure [facility] Tobacco smoking status Never [facility] Functional Status Date Assessment Result Facility 07-23-2024 Functional Status N/A [facility] Clinical Notes 10-25-2021 to 07-23-2024 Note Date & Type Note Facility 07-23-2024 Note General Surgery Offi ce/Clinic Note Chief Complaint consultation for colonoscopy HPI Staff 74 devin old female presents on consultation from Dr. Abarca for surveillance colonoscopy. Denies abdominal or rectal pain. No rectal bleeding or change in bowel habits. Denies nausea or vomiting. No unexplained weight loss. Last colonoscopy completed 04/2019- normal. Patient with remote history of colon polyps. No known family history of colon cancer. History of Present Illness 74 yo female with h/o CAD, htn, hyperlipidemia, TIA, pulmonary htn, osteoporosis, referred for surveillance colonoscopy due to personal h/o colon polyps; patient denies change in bms or blood in stools, no abd complaints; last colonoscopy 2018 wnl; abd operations significant for tubal ligation; on baby asa daily, no NSAID use; no tobacco use; no tobacco use; no fmhx of GI malignancy or iBD. Review of Systems PHQ Score Initial Depression Screen Score: 0 SCORE ROS - Provider Constitutional: no fever, no sweats, no weight loss. Eyes: no glasses, no blurred vision, no visual loss. ENMT: no dentures, no hoarseness, no swallowing difficulties, no hearing loss, no ear infection(s), no nose bleeds. Cardiovascular: normal blood pressure, no chest pain, regular heartbeat, no heart murmur. Respiratory: no shortness of breath, no cough, no asthma, no wheezing. Gastrointestinal: no nausea, no vomiting, no diarrhea, no constipation, no blood in stool, no change in bowel habits, no abdominal pain, no hepatitis. Genitourinary: no kidney stones, no urine infection, no dysuria. Musculoskeletal: no pain, no weakness. Skin: no changing moles, no rash, no skin lumps. Neurologic: no seizures, no epilepsy, no headache. Psychiatric: no emotional or psychiatric problem. Heme/Lymph: no bleeding problems, no anemia, no blood clots, no transfusions. Allergy/Immunologic: no swollen lymph nodes/glands, no IV drug abuse. Other: Additional ROS info: Except as noted in the above Review of Systems and in the History of Present Illness, all other systems have been reviewed and are negative or noncontributory. Physical Exam Vitals & Measurements HR: 72(Peripheral) RR: 16 BP: 138/76 HT: 58 in HT: 148.5 cm WT: 46 kg WT: 101.2 lb BMI: 20.86 HEENT: normal conjunctiva, sclera clear, no scleral icterus, EOM intact, PERRLA, oral mucosa moist without lesions. Neck: trachea midline, no mass, symmetric, no thyromegaly or nodules, no adenopathy Respiratory: lungs CTA, respirations non labored. Cardiovascular: regular rate and rhythm, no murmur, no pedal edema or varicosities. Gastrointestinal: soft, non distended, no tenderness, no masses, no palpable hernias, diastasis recti no, no hepatosplenomegaly; normal bs Lymphatic: no cervical adenopathy, no supraclavicular adenopathy. Musculoskeletal: normal gait, digits and nails without infection, nodes, cyanosis, clubbing. Skin: no rashes, no lesions, no ulcers, no subcutaneous nodules, induration. Psychiatric/Neuro: oriented to time, place, person, judgement normal, affect appropriate for age, insight intact, no focal deficits. Tests: review of old records completed , Discussed surgical options, risks, and possible complications with patient. Assessment/Plan 1. Personal history of colonic polyps (Z86.010: Personal history of colonic polyps) plan colonoscopy under anesthesia, informed consent obtained. Follow-up No qualifying data available Problem List/Past Medical History Ongoing Allergic rhinitis Coronary arteriosclerosis History of colon polyps Hyperlipidemia Hypertensive disorder Osteoporosis Personal history of colonic polyps Secondary pulmonary hypertension Solitary nodule of lung Transient cerebral ischemia Vitamin B 12 deficiency Vitamin D deficiency Historical Nodule of lung Osteoporosis Vitamin D deficiency Procedure/Surgical History Bronchoscopy (03/23/2020), Colonoscopy (04/23/2019), Bilateral tubal ligation, Biopsy of breast, Biopsy of lung, Cataract surgery, Colonoscopy. Medications aspirin 81 mg oral tablet, 81 mg= 1 tab(s), Oral, Daily atenolol 25 mg Tab, 25 mg= 1 tab(s), Oral, BID calcitonin Nasal [place], 1 spray(s), Nasal, Daily Citracal + D, 1 cap, Oral, BID Fish Oil 1000 mg oral capsule, 1000 mg= 1 cap(s), Oral, Daily Hair Skin and Nails, 1 tab(s), Oral, Daily isosorbide mononitrate 30 mg ER Tab, 30 mg= 1 tab(s), Oral, qAM NitroStat 0.4 mg Tab, 0.4 mg= 1 tab(s), SubLingual, q5min, PRN rosuvastatin 20 mg Tab, 20 mg= 1 tab(s), Oral, Once a day (at bedtime) Vitamin B12 500 mcg oral tablet, 500 mcg= 1 tab(s), Oral, Daily Vitamin D3 2000 intl units, 2000 International_Unit, Oral, Daily Allergies Radha (Palpitations) Biaxin (SOB) Fosamax (Rash) Keflex (Palpitations) Plavix (Palpitations) Prolia (Rash) Vicodin (chest pain, SOB) Vioxx (SOB - Shortness of breath) atorvastatin (Myalgia) naproxen (sob) penicillin (SOB) sulfa drugs (Rash) Social History Alc (more content not included)... [facility] Comment on above: Result Comment: Elec tronically Signed By: ELVIS HERNÁNDEZ, Shiv Valle.jered\Date and Time Signed: 07/23/24 13:50 EDT 06-11-2024 Evaluation note Authored June 11, 2024 4:00 pm The above note written by __ _Valdemar Fraser____ acting as human recorder, note dictated by _Tevin .I performed the above HPI, ROS, and Examination. I formulated and dictated the treatment plan and was present for entire encounter. Jyotsna Abarca D.O. [facility] Work Phone: [phone]) 699-116601-16-2024 Evaluation note* Encounter Date Diagnosis Assessment Notes Treatment Notes Treatment Clinical Notes Nov, Hypertension (ICD-10 - I10) Blood pressure is controlled. Continue with above medications as directed. Nov, Hyperglycemia (ICD-10 - R73.9) Discussed blood sugar results with patient today. Glucose is 95. HgA1C is 5.9. She admits she has continued to watch her intake of carbs and sugars to include cinnamon rolls. She is to continue with what she is doing as it is working well. Nov, Hyperlipidemia (ICD-10 - E78.5) Discussed cholesterol results with patient today. Total is 148. HDL is 63. LDL is 73. Triglycerides are 62. VLDL is 12. Continue with above medication daily as directed. Nov, Vitamin B 12 deficiency (ICD-10 - E53.8) Her B12 level is 884. Folate is 30.0. Will continue to monitor. Nov, Vitamin D deficiency (ICD-10 - E55.9) Her Vitamin D level is 70.4. Continue with supplementation as directed. Nov, CAD (coronary artery disease) (ICD-10 - I25.10) Nov, Nocturia (ICD-10 - R35.1) Nov, Osteoporosis (ICD-10 - M81.0) Continue with above medication as directed Nov, Other retirement (current) drug therapy (ICD-10 - Z79.899) Nov, Hematuria (ICD-10 - R31.9) She has never seen blood in her urine. We discussed that her urine did have some blood in it when checked. I did recommend that we check her urine again, if there is still blood present in the urine then we should refer her to a urologist for evaluation. She is to be well hydrated for a couple of days prior to giving the urine sample. She can call for the results. Her urine culture grew strep agalactiae group B which is something that can just be normal, she has had this before. She denies any signs or symptoms of a urine infection and is comfortable not being treated for this. I will order a urine culture to be done again in 1-2 weeks. Nov, Weight gain (ICD-10 - R63.5) She has gained 3.5 pounds since last seen. Her TSH is normal at 1.91. Nov, Lung nodule (ICD-10 - R91.1) She will return to see Dr. Schuler in January (2023). Nov, Other We discussed th at she will be due for a colonoscopy in April (2023). If she has not heard from the dust collector office by the time we see her in six months (May 2024) then we will refer her. She is comfortable with this plan. She used a battery operated water pick and when she started to floss she laid it against the skin of her mouth and noticed that her face started to itch and it turned red. The skin started to peel like paper around her nose and the corners of her mouth. She took Benadryl for two days and the itching stopped and it began to heal. She applied Neosporin to the area to help with the flaking and it helped. She has continued to use the water pick but cut a glove and applied the finger portion around the pick so that the gloved area touches her skin. She voices that her scalp has been sore and it has been so sore to touch. She voices that it is sore even when the water from the faucet touches her head. She saw a drafting supervisor in the past and would like to see one again. I will provide her with a phone number and she can call and set this up herself. [facility] Other 10-03-2023 History of Present illness Narrative* Mita Luciano MD - 08/14/2023 1:50 PM EDT Monserrat Acosta is a 73 y.o. female. Chief Complaint: Follow-up (9m w/ekg) HPI Patient is here for follow-up and management for coronary allergies affecting small branches, hypertension, hyperlipidemia and secondary pulmonary hypertension with remote history of TIA. Since last time I saw her she denies any cardiac complaint of chest pain, palpitation, lightheadedness, dizziness or syncope. She remains active. Today EKG showed normal sinus rhythm. Her recent laboratory data noted and reviewed with her. ASSESSMENT: 1. Coronary artery disease affecting small branch of the diagonal. Medical treatment was recommended based on previous evaluation. She denies any angina functional class I 2. Remote history of palpitation and premature ventricular contractions completely resolved. She denies any recurrence 3. Mild secondary pulmonary hypertension. 4. Hypertension, controlled. 5. Hyperlipidemia, controlled on recent lab 6. Remote history of transient ischemic attack with no recurrence. RECOMMENDATION: 1. The patient will remain on current therapy. 2. I reviewed with her her recent lab 3. We will see her back in 9 months Review of Systems Cardiovascular: Positive for palpitations. All other systems reviewed and are negative. Objective Constitutional: Appearance: Healthy appearance. Not in distress. Neck: Vascular: No carotid bruit or JVR. JVD normal. Pulmonary: Effort: Pulmonary effort is normal. Breath sounds: Normal breath sounds. No wheezing. No rhonchi. No rales. Chest: Chest wall: Not tender to palpatation. Cardiovascular: PMI at left midclavicular line. Normal rate. Regular rhythm. Normal S1. Normal S2. Murmurs: There is no murmur. No gallop. No click. No rub. Pulses: Intact distal pulses. Edema: Peripheral edema absent. Abdominal: General: Bowel sounds are normal. Palpations: Abdomen is soft. Tenderness: There is no abdominal tenderness. Musculoskeletal: Normal range of motion. General: No tenderness. Skin: General: Skin is warm and dry. Neurological: General: No focal deficit present. Mental Status: Alert and oriented to person, place and time. Lab Review: not applicable Assessment/Plan There were no encounter diagnoses. EKG done in office 1. Coronary artery disease involving [place] coronary artery of [place] heart without angina pectoris 2. Primary hypertension 3. Hyperlipidemia, unspecified hyperlipidemia type 4. Other secondary pulmonary hypertension (CMS/HCC) 5. BMI 22.0-22.9, adult 6. TIA (transient ischemic attack) 7. Shortness of breath 8. Never smoked any substance 1. Coronary artery disease involving [place] coronary artery of [place] heart without angina pectoris 2. Primary hypertension 3. Hyperlipidemia, unspecified hyperlipidemia type 4. Other secondary pulmonary hypertension (CMS/HCC) 5. BMI 22.0-22.9, adult 6. TIA (transient ischemic attack) 7. Shortness of breath 8. Never smoked any substance documented in this [facility] Work Phone: 1(542) 417-102810-03-2023 Instructions* Patient Instructions* Jose Antonio Hu MA - 08/14/2023 1:50 PM EDT Please bring all medicines, vitamins, and herbal supplements with you when you come to the office. Prescriptions will not be filled unless you are compliant with your follow up appointments or have a follow up appointment scheduled as per instruction of your physician. Refills should be requested at the time of your visit. [facility] Work Phone: [phone]) 257-381407-06-2023 Evaluation note* Encounter Date Diagnosis Assessment Notes Treatment Notes Treatment Clinical Notes May, Hypertension (ICD-10 - I10) Blood pressure is controlled. Continue with above medications daily as directed. May, Hyperglycemia (ICD-10 - R73.9) Discussed blood sugar results with patient today. Glucose is 86. HgA1C is 6.0. She voices that she spent one month on and off in [place] and her diet was different then it is when she is home. She did try to watch her diet where she could. She has been back home for awhile now. She is back to watching her diet again. I did recommend she continue to watch her intake of carbs and sugars. Stay active. May, Hyperlipidemia (ICD-10 - E78.5) Discussed cholesterol results with patient today. Total is 138. HDL is 54. LDL is 70. Triglycerides are 70. VLDL is 14. I would like her to continue with above medications daily as directed. May, Vitamin B 12 deficiency (ICD-10 - E53.8) Her Vitamin B12 is 543. Folate is 27.0. Increase B12 to five days a week. May, Vitamin D deficiency (ICD-10 - E55.9) Her Vitamin D is 53.9. Continue with Vitamin D as directed. May, Weight gain (ICD-10 - R63.5) May, CAD (coronary artery disease) (ICD-10 - I25.10) Continue with above medication as needed May, Nocturia (ICD-10 - R35.1) May, Osteoporosis (ICD-10 - M81.0) Continue with above medication as directed. May, Abnormal urinalysis (ICD-10 - R82.90) We discussed that her urine showed group B strep agalactiae. Her urine culture does not look infected. She denies burning with urination or symptoms of infection. She is in agreement to not treating this. In one month we will repeat a urinalysis to re-evaluate this. She did see light pink color in her urine two times since last seen. May, Lung nodule (ICD-10 - R91.1) Continue to follow with Dr. Schuler for evaluation. May, Other buttermaker (current) drug therapy (ICD-10 - Z79.899) May, Low hemoglobin (ICD-10 - D64.9) I did advise her that her hemoglobin has gone down to 12.6. In one month I would like to repeat a CBC to be sure her hemoglobin has not gone down any further. She voices that she has noticed twice that there was some light pink color in her urine. She has had that happen in the past and was given a card to ruthie down how often this happened but at the time it only happened once and never again. She does not eat much meat, she will eat cheese, fish, chicken, cottage cheese. May, Hematuria (ICD-10 - R31.9) Because she has seen some light colored pink color in her urine two times we will repeat a urinalysis in one month. She did have group B strep agalactiae in her urine but we both agreed not to treat this, she did not have symptoms of a urine infection. May, Other She voices that her hands are sore but she had been helping her with some yaniv, her hands did not hurt prior to this. If this continues she should let me know and a work up would be considered. [facility] Other 04-12-2023 Evaluation note* Encounter Date Diagnosis Assessment Notes Treatment Notes Treatment Clinical Notes Feb, DNR (do not resuscitate) discussion (ICD-10 - Z71.89) We did discuss the DNR order today, she chooses DNR [facility] which was discussed today, I did review everything that the DNR-CC covers with her today. She verbalizes that this is what she wants. I did recommend that her erisa attorney have a copy of this order and her local hospital/ER. She has discussed this with her children, I did recommend that she designate someone as a health care power of erisa attorney and provide copies of this order to them. After this discussion I did sign the order for her. Feb, Other 11:26 AM - 11:3 3 AM [facility] Other 02-16-2023 Noteinvolving the lingula which has progressed since 2019. No honeycombing is identified. No consolidaNorth [facility] Other 02-16-2023 NoteInterval progression of the patient's basilar interstitial changes with bronchiectasis involving [facility] Other 01-24-2023 Evaluation note* Encounter Date Diagnosis Assessment Notes Treatment Notes Treatment Clinical Notes Nov, Abnormal chest xray (ICD-10 - R93.89) Nov, Lung nodule (ICD-10 - R91.1) Nov, Cough (ICD-10 - R05.9) [facility] Other 01-05-2023 Evaluation note* Encounter Date Diagnosis Assessment Notes Treatment Notes Treatment Clinical Notes Nov, Pneumonia (ICD-10 - J18.9) [facility] Other 01-05-2023 Evaluation note* Encounter Date Diagnosis Assessment Notes Treatment Notes Treatment Clinical Notes Nov, Hypertension (ICD-10 - I10) Blood pressure is controlled. Continue with above medications. Nov, Cough (ICD-10 - R05.9) She voices that she has a cough at the end of the day when she settles down. She feels pressure in her chest that starts the cough. She did bring up green phlegm one time. She voices that she can hear herself rattle. I did recommend that she be treated with an antibiotic that will treat any bacterial infection she may be fighting. Her recently had pneumonia. She clears her throat during the day but otherwise has not had any problems during the day. During the holiday she had one day where she felt achy and tired so she went to her room and put her electric blanket on and took Ibuprofen and sweated it out and the next day felt better. Guidance is given on how to take the medication. Eat yogurt daily while on ATB to prevent GI upset. I do recommend that she have a chest x-ray done to rule out abnormalities, an order is provided. She can call for results. She needs to take four deep breaths while she is watching TV to help keep things open. Nov, Hyperglycemia (ICD-10 - R73.9) Discussed blood sugar results with patient today. Glucose is 98. HgA1C is 6.1. Continue to monitor intake of carbs and sugars. Stay active. She is still in the pre-diabetic zone. She admits she was not good for [place] and ate cookies. Nov, Hyperlipidemia (ICD-10 - E78.5) Discussed cholesterol results with patient today. Total is 154. HDL is 61. LDL is 82. Triglycerides are 55. VLDL is 11. Readings are at goal. Continue with above medication daily. Watch intake of carbs and sugars. Stay active. Nov, Vitamin B 12 deficiency (ICD-10 - E53.8) Her Vitamin B12 level is 865. Folate is 18.8. Nov, Vitamin D deficiency (ICD-10 - E55.9) Her Vitamin D level is excellent at 72.0. Nov, CAD (coronary artery disease) (ICD-10 - I25.10) Continue to have above medication on hand incase needed. Nov, Nocturia (ICD-10 - R35.1) Nov, Other buttermaker (current) drug therapy (ICD-10 - Z79.899) Nov, Weight loss (ICD-10 - R63.4) Her TSH is 2.70 which is normal. She has lost 4.6 pounds since last seen but she voices that she is comfortable at this weight. She does not have trouble going up the stairs and will not zaragoza and puff . She does not want to get too skinny but feels this is a good weight for her. She will continue to monitor. Nov, Chest congestion (ICD-10 - R09.89) Nov, Other We discussed th at when her colonoscopy was done in 2018 Dr. Beltran said that it could be considered to be redone in 5 years (2023). We can discuss this next year. [facility] Other 10-20-2022 Evaluation note* Encounter Date Diagnosis Assessment Notes Treatment Notes Treatment Clinical Notes Aug, Hyperlipidemia (ICD-10 - E78.5) [facility] Other 10-11-2022 Evaluation note* Encounter Date Diagnosis Assessment Notes Treatment Notes Treatment Clinical Notes Aug, Encounter for screening mammogram for breast cancer (ICD-10 - Z12.31) [facility] Other 06-21-2022 Evaluation note* Encounter Date Diagnosis Assessment Notes Treatment Notes Treatment Clinical Notes Apr, Hypertension (ICD-10 - I10) Blood pressure is controlled. Continue with above medication as directed. Apr, Hyperglycemia (ICD-10 - R73.9) Discussed blood sugar results with patient today. Glucose is 97. HgA1C is 6.1 which is at the higher end of normal. I did recommend that she continue with her walking and watch her intake of carbs and sugars. Apr, Hyperlipidemia (ICD-10 - E78.5) Discussed cholesterol results with patient today. Total is 159. HDL is 67. LDL is 83. Triglycerides are 47. Readings are at goal. Continue with above medication daily as directed. Apr, Vitamin B 12 deficiency (ICD-10 - E53.8) Her B12 is 627. Folate is 19.8. Continue with B12 as directed. Apr, Vitamin D deficiency (ICD-10 - E55.9) Her Vitamin D level is 59.5. Continue with Vitamin D as directed. Apr, Hematuria (ICD-10 - R31.9) She voices that she does recall being told she had blood in her urine before. She has seen pinkish color on her panty liner in the past (when Dr. eHrnandez was alive) she voices that she also mentioned this to Dr. Botello and was checked and everything looked good and was told to keep an eye on this. A work up was not done for the hematuria. I am going to treat her for the Strep B that was noted on the urine culture and then have her get a repeat urinalysis done, if blood is still noted then we will discuss referring her to a urologist for evaluation. Apr, Eustachian tube dysfunction, left (ICD-10 - H69.82) Her left ear appears to have fluid behind it which could be causing her to not hear well. There is what appears to be a scar noted. She voices that growing up she had a lot of trouble with her ear, and she was treated with PCN when younger when she was able to take it. The left ear is dull. I did recommend that she use Fluticasone nasal spray to help decrease inflammation and open the eustachian tube. I do not want her to irritate her nostrils and not be able to use her Miacalcin nasal spray, but she could cautiously try the Fluticasone to see if she can get this to open up. Guidance is given on how to use the medication. If the Fluticasone irritates her nose then she should stop using it. Apr, Abnormal urinalysis (ICD-10 - R82.90) I did explain to her that her urine culture showed strep agalactiae group B. This is something that can just be in the genital tract. She is a good water drinker. I would like to treat her with Doxycycline twice a day for one week. She is to use caution when in the sun due to sun sensitivity. She will burn easily. She should drink plenty of water and three to four days after she has finished the antibiotic she is to repeat a urinalysis to be sure this bacteria is gone and the blood is gone. She can call for results. Apr, CAD (coronary artery disease) (ICD-10 - I25.10) Continue with above medication daily as directed. Apr, Lung nodule (ICD-10 - R91.1) She will see Dr. Schuler at the beginning of the year (2022) she voices that if everything looks good the next time around then she won't have to see him for at least a year. Apr, Osteoporosis (ICD-10 - M81.0) She will be due for a repeat DEXA scan in January of 2023. Refer to discussion of 10-25-2021. She voices that she has returned to walking. She is using her Miacalcin nasal spray. Apr, Nocturia (ICD-10 - R35.1) Apr, Other retirement (current) drug therapy (ICD-10 - Z79.899) Apr, Weight loss (ICD-10 - R63.4) Apr, Other If she has chitra rgy symptoms or visits her children who have pets then she will use Benadryl. [facility] Other 12-14-2021 Evaluation note* Encounter Date Diagnosis Assessment Notes Treatment Notes Treatment Clinical Notes Oct, Hyperlipidemia (ICD-10 - E78.5) Discussed cholesterol results with patient today. Total is 152. HDL is 54. LDL is 87. Triglycerides are 57. Readings are at goal. She is to continue with above medications as directed. Oct, Osteoporosis (ICD-10 - M81.0) She had a DEXA scan done in January (2020) ordered by Dr. Botello. She is using Miacalcin but voices that if she is not sure she got the spray in her nose she will use it twice. She had a rash with Fosamax and did not want to take Prolia because of similar side effects of Fosamax. She does not want to try any other medication and wants to continue with the Miacalcin nasal spray. She does not want to see an weather strip mechanic for evaluation to discuss other medications. I did independently review the DEXA scan results today. She continues to exercise but is not walking due to the cold weather. Oct, Hypertension (ICD-10 - I10) Blood pressure is controlled. Continue with above medications daily as directed. Oct, Hyperglycemia (ICD-10 - R73.9) Discussed blood sugar results with patient today. Glucose is 100. HgA1C is at the higher end of normal at 5.9. She is encouraged to continue watching her intake of carbs and sugars. She voices that she has been eating alot of fresh vegetables and greens. Stay active. Oct, Vitamin B 12 deficiency (ICD-10 - E53.8) Her Vitamin B12 is 691. Folate is 19.3. Continue with B12 supplement as scheduled. Oct, Vitamin D deficiency (ICD-10 - E55.9) Her Vitamin D level is 66.3. Continue with Vitamin D supplement as directed. Oct, CAD (coronary artery disease) (ICD-10 - I25.10) Oct, Nocturia (ICD-10 - R35.1) Oct, Allergic rhinitis (ICD-10 - J30.9) Oct, Weight loss (ICD-10 - R63.4) Her TSH is normal at 2.12. She has lost 4.5 pounds since last seen. 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 She was not wearing a mask and admits she heard alot of rattling in her chest but it has improved. She has a CT scan coming up in Dec (2021) and will see Dr. Schuler after that. She feels better at this time. [facility] Other Evaluation + Plan note No data available for this section [facility] Nathalie Evaluation noteNo InformationNort theDrop Other Evaluation noteNo assessment information available [facility] Work Phone: Evaluation note* Diagnosis Coronary artery disease involving [place] coronary artery of [place] heart without angina pectoris- Primary Primary hypertension Unspecified essential hypertension Hyperlipidemia, unspecified hyperlipidemia type Other secondary pulmonary hypertension (CMS/HCC) BMI 22.0-22.9, adult TIA (transient ischemic attack) Unspecified transient cerebral ischemia Shortness of breath Never smoked any substance documented in this encounter [facility] Work Phone: Evaluation note* Diagnosis Onset Date Resolution Status Abnormal lung sounds acute CAD (coronary artery disease) acute Hyperglycemia acute Hyperlipidemia acute Hypertension acute Hypokalemia acute Lung nodule acute Osteoporosis acute Vitamin B12 deficiency acute Vitamin D deficiency acute [facility] Work Phone: History general Narrative - Reported* Type Description Date Medical History hyperlipidemia Medical History Hypertension Medical History Hypertension [401.9] Medical History Hyperlipidemia [272.4 V58.69 = A TL lab] Medical History Palpitations, paroxysmal [785.1] Medical History Seasonal allergies [477.9] Medical History Family medical history of [place] [V1 7.3] Medical History Family medical history of CVA [V 17.1] Medical History Family medical history of uterin e cancer [V16.49] Medical History Family medical history of Diabet es [V18] Medical History Family medical history of Thyroi d [V18.1] Medical History Echocardiogram [facility] 2009 Medical History 2012 Colonoscopy, po lyp removed, needs repeat in 2017 Medical History TIA / Dr. Baltazar 2013 Medical History 01-21-2021 DEXA needs repeat in Surgical History tubal ligation Surgical History EGD (Dr. Beltran) 06-22-05 Surgical History Perforated TM patch, left - Dr. Kennedy 2009 Surgical History Catherizatoin - prolapsed valv e Surgical History cataract surgery both eyes 10/13 Surgical History mammogram 08/[address] Devin Gardner needs repeat in fall Surgical History Jj, Dr. Beltran Hospitalization History estimates she wa s hospitalized 4 times for chest pain [facility] Other history general Narrative - Reported* Type Description Date Medical History hyperlipidemia Medical History Hypertension Medical History Hypertension [401.9] Medical History Hyperlipidemia [272.4 V58.69 = A TL lab] Medical History Palpitations, paroxysmal [785.1] Medical History Seasonal allergies [477.9] Medical History Family medical history of [place] [V1 7.3] Medical History Family medical history of CVA [V 17.1] Medical History Family medical history of uterin e cancer [V16.49] Medical History Family medical history of Diabet es [V18] Medical History Family medical history of Thyroi d [V18.1] Medical History Echocardiogram [facility] 2009 Medical History 2012 Colonoscopy, po lyp removed, needs repeat in 2017 Medical History TIA / Dr. Baltazar 2013 Surgical History tubal ligation Surgical History EGD (Dr. Beltran) 06-22-05 Surgical History Perforated TM patch, left - Dr. Kennedy 2009 Surgical History Catherizatoin - prolapsed valv e Surgical History cataract surgery both eyes 10/13 Surgical History mammogram 08/2017 Surgical History Jj, Dr. Beltran needs repeat in fall Surgical History Jj, Dr. Beltran 9 Hospitalization History estimates she wa s hospitalized 4 times for chest pain [facility] Other Hisdckp general Narrative - Reported* Type Description Date Medical History hyperlipidemia Medical History Hypertension Medical History Hypertension [401.9] Medical History Hyperlipidemia [272.4 V58.69 = A TL lab] Medical History Palpitations, paroxysmal [785.1] Medical History Seasonal allergies [477.9] Medical History Family medical history of [place] [V1 7.3] Medical History Family medical history of CVA [V 17.1] Medical History Family medical history of uterin e cancer [V16.49] Medical History Family medical history of Diabet es [V18] Medical History Family medical history of Thyroi d [V18.1] Medical History Echocardiogram [facility] 2009 Medical History 2012 Colonoscopy, po lyp removed, needs repeat in 2017 Medical History TIA / Dr. Baltazar 2013 Medical History 01-21-2021 DEXA needs repeat in Surgical History tubal ligation Surgical History EGD (Dr. Beltran) 06-22-05 Surgical History Perforated TM patch, left - Dr. Kennedy 2009 Surgical History Catherizatoin - prolapsed valv e Surgical History cataract surgery both eyes 10/13 015 Surgical History mammogram 08/2017 Surgical History Colonoscopy, Dr. Beltran needs repeat in fall Surgical History Colonoscopy, Dr. Loni garcía / consider repeat in 5 years [id number] Hospitalization History estimates she wa s hospitalized 4 times for chest pain [facility] Other History of Present illness Narrative* Patient is here for follow-up continue management for history of coronary artery disease documentedon cardiac catheterization with disease of small diagonal branch treated medically, hypertension and hyperlipidemia. Since last time I saw her she reports has been feeling well. She denies complaint of chest pain, palpitation, lightheadedness, dizziness or syncope. Her recent laboratory data noted and reviewed with her. * ASSESSMENT: * 1. Coronary artery disease affecting small branch of the diagonal. Medical treatment was recommended based on previous evaluation. She denies any angina * 2. Remote history of palpitation and premature ventricular contractions completely resolved. * 3. Mild secondary pulmonary hypertension. * 4. Hypertension, controlled. * 5. Hyperlipidemia, controlled * 6. Remote history of transient ischemic attack with no recurrence. * RECOMMENDATION: * 1. The patient will remain on current therapy. * 2. Reviewed with her her recent lab * 3. We will see her back in 9 months -[facility] 250 DO Work Phone: History of Present illness Narrative* Patient is here for follow-up continue management for coronary artery disease affecting small diagonal branch with prior history of intermittent angina, hypertension, hyperlipidemia. Since last time I saw her she reports no change in cardiac status or symptoms. She reports she had been diagnosed with walking pneumonia and treated for that recently. She denies lightheadedness, dizziness or syncope. Recent laboratory data noted and reviewed with her. Overall she appears to be stable and functional class I. * ASSESSMENT: * 1. Coronary artery disease affecting small branch of the diagonal. Medical treatment was recommended based on previous evaluation. She denies any angina functional class I * 2. Remote history of palpitation and premature ventricular contractions completely resolved. She denies any recurrence * 3. Mild secondary pulmonary hypertension. * 4. Hypertension, controlled. * 5. Hyperlipidemia, controlled on recent lab * 6. Remote history of transient ischemic attack with no recurrence. 7. Recent treatment for walking pneumonia * RECOMMENDATION: * 1. The patient will remain on current therapy. * 2. I reviewed with her her recent lab * 3. We will see her back in 9 months with an EKG * 4. We renewed her medication -[facility] 250 DO Work Phone: Hospital Discharge instructions No data available for this section [facility] Nathalie Progress note No data available for this section [facility] Control4 Chief Complaint MESERET ACOSTA is being seen for an annual follow-up of.MESERET ACOSTA is being seen for a 9 month follow-up of. Family History No Family History Records FoundUnknown Family Member Name Dates Details Family history of myocardial infarction: Mother, Brother(V17.3, Z82.49) Status:Active Family history of malignant neoplasm: Sister, Brother(V16.9, Z80.9) Status:Active Family history of arterioscl erotic cardiovascular disease: Mother, Sister, Brother(V17.49, Z82.49) Status:Active Unknown Family Member Name Dates Details Family history of myocardial infarction: Mother, Brother(V17.3, Z82.49) Status:Active Family history of malignant neoplasm: Sister, Brother(V16.9, Z80.9) Status:Active Family history of arterioscl erotic cardiovascular disease: Mother, Sister, Brother(V17.49, Z82.49) Status:Active Family history of hepatic ci rrhosis: Sister(V18.59, Z83.79) Status:Active Relationship Condition Age at Onset Recorded Date/T david aunt Unknown Myocardial infarction Unknown brother History of stroke Unknown father Unknown Family history of emphysema Unknown grandparent Acute cerebrovascular accident (CVA) Unkn own Unknown grandparent Unknown Malignant neoplasm of bone Unknown mother Unknown Summary Purpose Advance Directives No Advanced Directives Records Found Advance Directive Response Recorded Date/ Time Advance Directives No July 7:57am Advance Directive Response Recorded Date/ Time Advance Directives No July 8:57am Chief Complaint and Reason for Visit Chief Complaint R73.9 E78.5 E53.8 E5 5.9 Z79.899 R63.4 Chief Complaint r73.9 e78.5 e53.8e55 .9 z79.899 r35.1 Chief Complaint r73.9 e78.5 e53.8e55 .9 z79.899 r35.1 D64.9 R82.90 R31.9 Chief Complaint R73.09 E78.5 E53.8 E 55.9 R63.5 Z79.899 Chief Complaint R73.09 E78.5 E53.8 E 55.9 R63.5 Z79.899 Review Labs R31.9 Chief Complaint Amb Documentation R73.9 E78.5 E53.8 E55.9 Z79.899 R35.1 Chief Complaint Amb Documentation R73.9 E78.5 E53.8 E55.9 Z79.899 R35.1 review labs Reason for Visit Abnormal lung sounds CAD (coronary artery disease) Hyperglycemia Hyperlipidemia Hypertension Hypokalemia Lung nodule Osteoporosis Vitamin B12 deficiency Vitamin D deficiency Chief Complaint Amb Documentation R73.9 E78.5 E53.8 E55.9 Z79.899 R35.1 review labs E87.6 Reason for Visit Abnormal lung sounds CAD (coronary artery disease) Hyperglycemia Hyperlipidemia Hypertension Hypokalemia Lung nodule Osteoporosis Vitamin B12 deficiency Vitamin D deficiency Reason for Referral Specialty Diagnoses / Procedures Referred By Grace t Referred To Contact Diagnoses Coronary artery disease involving [place] coronary artery of [place] heart without angina pectoris Primary hypertension Procedures ECG 12 Lead Mita Luciano MD [address] [facility] [address] [place] [address] Referral ID Status Reason Start Date Expiration Date V isits Requested Visits Authorized [id number] Pending Review 08/14/2023 02/10/2024 1 1 Specialty Diagnoses / Procedures Referred By Contac t Referred To Contact Cardiology Diagnoses Coronary artery disease involving [place] coronary artery of [place] heart without angina pectoris Primary hypertension Hyperlipidemia, unspecified hyperlipidemia type Procedures Follow Up In Cardiology Mita Luciano MD [address] [facility] [address], [address] [address] Referral ID Status Reason Start Date Expiration Date V isits Requested Visits Authorized [id number] Authorized 08/14/2023 02/10/2024 1 1 Additional Source Comments INFORMATION SOURCE (unrecogn ized section and content) DATE CREATED AUTHOR 03/04/2022 [employer] DATE CREATED AUTHOR AUTHOR'S ORGANIZ ATION 04/20/2023 [facility] DATE CREATED AUTHOR AUTHOR'S ORGANIZ ATION 02/04/2024 [facility] EPIC DATE CREATED AUTHOR AUTHOR'S ORGANIZ ATION 05/27/2024 [facility] DATE CREATED AUTHOR AUTHOR'S ORGANIZ ATION 06/15/2024 [facility] DATE CREATED AUTHOR AUTHOR'S ORGANIZ ATION 07/25/2024 [facility] REASON FOR VISIT (unrecogniz ed section and content) Reason Comments Follow-up 9m w/ekg Specialty Diagnoses / Procedures Referred By Contac t Referred To Contact Diagnoses Coronary artery disease involving [place] coronary artery of [place] heart without angina pectoris Primary hypertension Procedures ECG 12 Lead Mita Luciano MD [address] [facility] [address], [address] [address] Referral ID Status Reason Start Date Expiration Date V isits Requested Visits Authorized [id number] Pending Review 08/14/2023 02/10/2024 1 1 Care Teams (unrecognized sec tion and content) Team Status: Active Member Role Status Dates Jyotsna Abarca DO Primary Care Provider Active Team Status: Active Member Role Status Dianna Abarca DO Primary Care Provider Active S tart: May 19, 2024 Valdemar Fraser LPN Attending Provider Active St art: May 19, 2024 Team Status: Inactive Member Role Status Dianna Jyotsna Abarca DO Primary Care Provide r, Attending Provider Active Start: May 23, 2024 End: May 23, 2024 Team Status: Inactive Member Role Status Dianna Abarca DO Primary Care Provider, Attending Pro vider Active Home [facility] Relationship Specialty Start Date End Date Jyotsna Abarca DO [address] [place] [id number] PCP - General 11/12/19 Team Status: Inactive Member Role Status Dianna Abarca DO Primary Care Provide r, Attending Provider Active Start: November 15, 2023 End: November 15, 2023 Team Status: Inactive Member Role Status Dianna Abarca DO Attending Provider Active Star t: November 27, 2023 End: November 27, 2023 Team Status: Inactive Member Role Status Dianna Abarca DO Primary Care Provide r, Attending Provider Active Start: December 03, 2023 End: December 03, 2023 Team Status: Inactive Member Role Status Dianna Mckayjusten DO Primary Care Provide r, Attending Provider Active Start: June 11, 2024 End: June 11, 2024 Team Status: Inactive Member Role Status Dianna Mckayjusten DO Primary Care Provide r, Attending Provider Active Start: June 12, 2024 End: June 12, 2024 Goals (unrecognized section and content) Goals may be documented in a n alternate section FOR RECORDS PERTAINING TO PATIENTS WHO ARE OR HAVE BEEN ENROLLED IN A CHEMICAL DEPENDENCY/SUBSTANCEABUSE PROGRAM, SOME INFORMATION MAY BE OMITTED. This clinical summary was aggregated from multiple sources. Caution should be exercised in using it in the provision of clinical care. This summary normalizes information from multiple sources, and as a consequence, information in this document may materially change the coding, format and clinical context of patient data. In addition, data may be omitted in some cases. CLINICAL DECISIONS SHOULD BE BASED ON THE PRIMARY CLINICAL RECORDS. [employer] [facility]. provides no warranty or guarantee of the accuracy or completeness of information in this document.
[2024-08-06 09:15] VITALS: BP 158/75; PULSE 58; TEMP 36.1; O2SAT 98; BMI 21.4
[2024-08-06] MEDS: LACTATED RINGER'S SOLUTION 1,000 ML 50 ML IV (09:47)
[2024-08-06 11:03] VITALS: BP 118/54; PULSE 74; TEMP 36.1
[2024-08-06 11:18] VITALS: BP 114/57; PULSE 74; O2SAT 95
[2024-08-06 11:33] VITALS: BP 154/70; PULSE 67; TEMP 36.1; O2SAT 96
== END 2024-08-06 11:33 | disposition home or self-care (01) ==
PROVIDERS: PCP Family Medicine; Visit Provider Surgery
PROC: (CPT 45378; principal; 2024-08-06 10:25)
DX: K57.30 Diverticulosis of large intestine without perforation or abscess without bleeding (principal); Z86.010 Personal history of colon polyps; I25.10 Atherosclerotic heart disease of native coronary artery without angina pectoris; E78.5 Hyperlipidemia, unspecified; Z86.73 Personal history of transient ischemic attack (TIA), and cerebral infarction without residual deficits; I27.20 Pulmonary hypertension, unspecified; M81.0 Age-related osteoporosis without current pathological fracture; Z79.02 Long term (current) use of antithrombotics/antiplatelets; Z98.51 Tubal ligation status; Z87.01 Personal history of pneumonia (recurrent); I05.0 Rheumatic mitral stenosis
CPT/HCPCS: 45378; J2371; J2704

== ENCOUNTER 2024-09-29 09:53 | Outpatient (OUT) | payer MEDICARE, SELFPAY ==
--- NOTE | 2024-09-29 09:55 | MM_ITS ---
Patient Name: JEFERSON ACOSTA MR#: [id number] : 1950 Exam Date: 09/29/2024 Ordering Doctor: DR DIANA BOTELLO RADIOLOGY REPORT PROCEDURE: MM TOMOSYNTHESIS SCREENING BI COMPARISON: MM TOMOSYNTHESIS SCREENING BI, 09/26/2023. MG MAMM SCREEN 3D CELINE CAD, 09/25/2022. MG MAMM SCREEN 3D CELINE CAD, 09/14/2021. MG MAMM CELINE SCRN W CAD DIG, 08/21/2013. INDICATIONS: Screening Calculator Name NCI Breast Cancer Risk Assessment Tool 5 Year Breast Cancer Risk 1.30% Lifetime Breast Cancer Risk 2.90% Personal Breast Cancer No Personal Ovarian Cancer No Treatments None Family Cancers Mother with uterine/thyroid cancer at age 45; Grandfather-paternal with bone cancer at age ~90. LOCATION: [facility] BREAST COMPOSITION: The breasts are heterogeneously dense,which may obscure small masses. FINDINGS: DIAGNOSTIC CATEGORY 2--BENIGN FINDING: RIGHT BREAST: No significant suspicious finding. Stable biopsy marker clips. No significant change has occurred. LEFT BREAST: No significant suspicious finding. No significant change has occurred. RECOMMENDATIONS: ROUTINE MAMMOGRAM AND CLINICAL EVALUATION IN 12 MONTHS. PLEASE NOTE: A NORMAL MAMMOGRAM DOES NOT EXCLUDE THE POSSIBILITY OF BREAST CANCER. A CLINICALLY SUSPICIOUS PALPABLE LUMP SHOULD BE BIOPSIED. Dictated by: Ronald Ardon M.D. on 09/29/2024 at 14:15 Approved by: Ronald Ardon M.D. on 09/29/2024 at 14:17
--- OUTSIDE RECORDS SUMMARY | 2024-09-29 10:11 | XMS_ITS | CCD ---
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 Name Role Phone Jyotsna Abarca Unavailable Unavailable Unavailable Unavailable Jyotsna Abarca Unavailable DO Jyotsna Abarca Primary Care Provider [phone] DO Jyotsna Abarca Attending Provider [phone] Jyotsna Abarca Unavailable TEVIN, DR GOYAL Primary Care Unavailable SAMSA ., JAMES Attending Unavailable SAMSA ., JAMES Consulting Unavailable SAMSA ., JAMES Admitting Unavailable TEVIN, DR GOYAL Primary Care Unavailable [...] Consulting Unavailable SAMSA ., JAMES Admitting Unavailable KATHY, DR SHAE Carreon Consulting Unavailable SAMSA ., JAMES Attending Unavailable TEVIN, DR GOYAL Primary Care Unavailable SAMSA ., JAMES Consulting Unavailable TEVIN, DR GOYAL Primary Care Unavailable TEVIN, DR GOYAL Admitting Unavailable GIRJUSTEN, DR GOYAL Attending Unavailable GIRJUSTEN, DR GOYAL Consulting Unavailable HOWIE CHAVEZ Consulting Unavailable DO Jyotsna Abarca Primary Care Provider DO Jyotsna Abarca Attending Provider [phone] Jyotsna Abarca DO Primary Care Provider DO Jyotsna Abarca Primary Care Provider DO Jyotsna Abarca Attending Provider DIANA BOTELLO Attending Unavailable MITA LUCIANO Attending Unavailable JYOTSNA ABARCA Primary Care Unavailable MITA LUCIANO Attending Unavailable MITA LUCIANO Referring Unavailable JYOTSNA ABARCA Primary Care Unavailable DO Jyotsna Abarca Primary Care Provider [phone] DO Jyotsna Abarca Attending Provider [phone] Jyotsna Abarca Attending Unavailable Tevin, Jyotsna Admitting Unavailable Tevin, Jyotsna Primary Care Unavailable Jyotsna Abarca Attending Unavailable Tevin, Jyotsna Admitting Unavailable Tevin, Jyotsna Primary Care Unavailable Tevin, Jyotsna Attending Unavailable Tevin, Jyotsna Admitting Unavailable Tevin, Jyotsna Primary Care Unavailable Tevin, Jyotsna Attending Unavailable Tevin, Jyotsna Admitting Unavailable Tevin, Jyotsna Primary Care Unavailable Tevin, Jyotsna Attending Unavailable Tevin, Jyotsna Admitting Unavailable Jyotsna Abarca Primary Care Unavailable Jyotsna Abarca Primary Care Physician Shiv LEAL Attending Unavailable Jyotsna Abarca Referring Unavailable Shiv LEAL Attending Unavailable Allergies Allergy Classification Reported Allergen(s) Allergy Type Date of Onset Reaction(s) Facility (4 sources) Acetaminophen / HYDROcodone; Translations: [Vicodin TABS] Drug Allergy 07-05-20 23 Other [facility] Work Phone: (20 sources) Alendronate; Translations: [Fosamax] Drug Allergy rash, Eruption of skin (disorder) [facility] (2 sources) Ascorbic Acid / Ferrous fumarate; Translations: [Vitron-C] Drug Allergy Drowsiness, Exercise Intolerance, Unknown, Other [facility] 250 DO Work Phone: (4 sources) Atenolol; Translations: [atenolol] Drug Allergy 07-05-20 23 Shortness of breath, Other [facility] (5 sources) Cephalexin; Translations: [Keflex CAPS] Drug Allergy 07-05-20 Rash, Palpitations (finding) [employer] Other (20 sources) clopidogrel; Translations: [Plavix] Drug Allergy 07-05-20 23 shortness of breath, Rash, Palpitations (finding) [facility] [employer] Other (20 sources) desloratadine; Translations: [Clarinex] Drug Allergy 07-05-20 23 GI bleeding [facility] [employer] Other (20 sources) Naproxen; Translations: [naproxen] Drug Allergy 12-04-19 19 Shortness of breath, Nausea Only, Other [facility] (11 sources) Penicillins; Translations: [Penicillins] Allergy to drug (finding) 12-04-19 19 Shortness of breath, Difficulty Breathing [facility] (3 sources) rofecoxib; Translations: [Vioxx] Drug Allergy Shortness of breath, Chest Pain [facility] Repository (3 sources) Sulfamethoxazole; Translations: [sulfa] Drug Allergy 07-05-20 23 Rash [facility] 250 DO Work Phone: (19 sources) Acetaminophen / HYDROcodone; Translations: [Vicodin] Drug Allergy 09-29-20 13 Unknown [facility] Repository (20 sources) Amoxicillin Drug Allergy 11-27-19 24 shortness of breath [facility] (20 sources) atorvastatin; Translations: [atorvastatin] Drug Allergy 11-27-19 24 Muscle pain (finding) [facility] (18 sources) Cephalexin; Translations: [Keflex] Drug Allergy 10-06-[address] [facility] Repository (20 sources) Clarithromycin; Translations: [clarithromycin] Drug Allergy 12-04-19 19 Unknown, Difficulty Breathing, SOB [facility] (20 sources) denosumab; Translations: [denosumab] Drug Allergy 11-27-19 24 rash, Eruption of skin (disorder) [facility] (17 sources) Erythromycin Drug Allergy Unknown [facility] [employer] Other (20 sources) fexofenadine; Translations: [fexofenadine] Drug Allergy Palpitations (finding) [facility] (12 sources) Loratadine Drug Allergy 11-27-19 24 Unknown, Unknown Reaction [facility] (20 sources) Penicillin G Drug Allergy 11-27-19 24 Unknown, Unknown Reaction [facility] (17 sources) Pseudoephedrine Drug Allergy Unknown [facility] [employer] Other (20 sources) PCE Drug allergy 11-27-19 24 Unknown, Unknown Reaction [facility] (17 sources) Sulf-10 Drug allergy Unknown [facility] [employer] Other (9 sources) Loratadine; Translations: [Claritin] Drug Allergy 10-06-20 13 Unknown [facility] Repository (8 sources) Acetaminophen Drug Allergy 12-04-19 19 Difficulty Breathing [facility] (8 sources) Alendronate Drug Allergy 12-04-19 19 Rash [facility] (9 sources) Cephalexin; Translations: [CEPHALEXIN] Drug Allergy 12-04-19 19 Palpitations [facility] (9 sources) clopidogrel; Translations: [CLOPIDOGREL] Drug Allergy 12-04-19 19 Palpitations, Palpitations, shortness of breath [facility] (9 sources) desloratadine; Translations: [DESLORATADINE] Drug Allergy 12-04-19 19 Unknown Reaction [facility] (8 sources) fexofenadine Drug Allergy 12-04-19 19 Palpitations [facility] (8 sources) HYDROcodone Drug Allergy 12-04-19 19 Difficulty Breathing [facility] (8 sources) Pseudoephedrine Drug Allergy 12-04-19 19 Palpitations [facility] (11 sources) rofecoxib; Translations: [ROFECOXIB] Drug Allergy 12-04-19 Shortness of breath, Dyspnea (finding) [facility] (8 sources) Sulfonamides (Antibiotic) Propensity to adverse reactions 12-04-19 19 Rash [facility] (8 sources) vitrum Allergy to substance 12-04-19 Unresponsive [facility] (1 source) Alendronate Drug Allergy 10-06-20 13 [facility] Repository (1 source) Atenolol Drug Allergy [facility] (2 sources) Clarithromycin; Translations: [Biaxin] Drug Allergy 10-06-20 13 [facility] (1 source) clopidogrel Drug Allergy [facility] (1 source) desloratadine Drug Allergy 10-06-20 13 [facility] (1 source) Latex Drug allergy (disorder) 10-06-20 13 [facility] (1 source) Naproxen Drug Allergy 10-06-20 13 [facility] (1 source) Penicillins Drug allergy (disorder) 09-29-20 13 [facility] (1 source) rofecoxib Drug Allergy 10-06-20 13 [facility] (1 source) Sulfonamides (Antibiotic) Drug allergy (disorder) 10-06-20 13 [facility] (2 sources) Alendronate; Translations: [ALENDRONATE] Drug Allergy 07-05-20 23 [facility] (2 sources) Ascorbic Acid / Iron Carbonyl; Translations: [IRON,CARBONYL-VIT SHAY C] Drug Allergy 07-05-20 23 Unknown, Drowsiness [facility] Work Phone: (1 source) Penicillins Drug Intolerance 07-05-20 Shortness of breath [facility] Work Phone: (1 source) Acetaminophen / HYDROcodone; Translations: [HYDROCODONE-ACETA MINOPHEN] Drug Allergy 07-05-20 [facility] 3 Repository (1 source) Sulfamethoxazole; Translations: [SULFAMETHOXAZOLE] Drug Allergy 07-05-20 [facility] 3 Repository (1 source) SOY ISOFLA-BLK COHOSH-MAG BARK; Translations: [SOY ISOFLA-BLK COHOSH-MAG BARK] Propensity to adverse reactions to drug (disorder) 05-21-20 [facility] 3 Repository (3 sources) erythromycin base Allergy to substance 11-27-19 Unknown Reaction [facility] (2 sources) Black Cohosh Extract Drug Allergy 06-11-20 [facility] (2 sources) Soybean preparation Drug Allergy 06-11-20 [facility] (2 sources) magnolia bark Allergy to substance 06-11-20 [facility] (2 sources) Penicillin; Translations: [penicillin] Drug Allergy SOB [facility] (2 sources) Sulfonamides (Antibiotic); Translations: [sulfa drugs] Drug allergy Eruption of skin (disorder) [facility] (1 source) denosumab; Translations: [Prolia] Drug Allergy [facility] Repository Medications Current Medications Medication Drug Class(es) [...] 0 Ordered: 16-Nov-2022 DO Active calcitonin Nasal Peshtigo (1 source) Start: 03-19-2020 calcitonin Diony al Peshtigo = 1 spray(s), Nasal, Daily, Other (see comment) Start Date: 03/19/20 Status: Ordered Calcium Citrate (19 sources) Start: 03-19-2020 take 1 capsule by mouth twice daily Citracal + D 1 cap, Oral, BID, Prophylaxis Start Date: 03/19/20 Status: Ordered take 1 tablet by [facility] three times daily as needed Citracal [...] Active Start: 05-02-2022 take 1 capsule by [facility] every twelve hours Doxycycline Hyclate 100 MG 1 capsule Orally Twice a day for 7 days Apr, Active Fish Oils (18 sources) Start: 03-19-2020 take 1 capsule by mo uth once daily Fish Oil 1000 mg oral capsule 1,000 mg = 1 cap(s), Oral, Daily, Prophylaxis Start Date: 03/19/20 Status: Ordered take 1 capsule by mo uth twice daily as needed Fish Oil 600 [...] min x3 10 Dec, 2013 Active omega 4-ehs-aur-fish oil (Fish OiL) 1,000 mg (120 mg-180 mg) capsule (1 source) take 1 capsule by mouth twice daily omega 6-kjz-cev-fish oil (Fish OiL) 1,000 mg (120 mg-180 mg) capsule Take 1 capsule (1,000 mg) by mouth 2 times a day. 0 Active Bouse 8-Lwz-Pis-Fish Oil (Fish Oil) 360-1,200 mg capsule,delayed release(DR/EC) (2 sources) Start: 06-11-20 24 take 360-1200 mg by mouth once daily Bouse 9-Fsm-Zif-Fish Oil (Fish Oil) 360-1,200 mg capsule,delayed release(DR/EC) [...] 1 spray(s) nasal route once daily Calcitonin ([place]) Active 1 SPRAY intranasal (ALT) Daily 3.7 30 May 19, 2024 9:10am USE 1 SPRAY IN ALTERNATING NOSTRILS ONCE A DAY Start: 09-08-2021 take 1 spray(s) nasa l route once daily calcitonin, salmon, (Miacalcin) 200 unit/actuation nasal spray Administer 1 spray into affected nostril(s) once daily. ALTERNATING NOSTRILS 0 09/08/2021 Active take 1 spray(s) nasa l route once daily Calcitonin ([place]) 200 UNIT/ACT USE 1 SPRAY IN ALTERNATING NOSTRILS ONCE A DAY Active [place] Oil-Bouse-3 Fatty Acids (2 sources) Start: 06-11-2024 take 1 capsule by mouth once daily [place] Oil-Bouse-3 Fatty Acids Active CAP PO Daily June 11, 2024 12:00am Vitamin B 12 250 MCG (15 sources) Start: 04-28-2014 Vitamin B 12 2 50 MCG 1 tablet Orally 5 days a week Apr, Active Start: 04-28-2014 take 1 tablet by mouth every w [place] Vitamin B 12 250 MCG 1 tablet [...] (17 sources) take 1 capsule by mo ut twice daily as needed [place] Oil 200 MG 1 capsule Orally bid Not-Taking/PRN take 1 capsule by mouth twice da buddy [place] Oil 200 MG 1 capsule Orally bid [...] [Coronary atherosclerosis of unspecified type of vessel, [place] or graft] Onset: 1 Resolved: 2 Chronic [...] 4 Chronic Other aftercare (5 sources) Other halfway (current) drug therapy; Translations: [OTH MEDICAL TRANSPORT SPECIALIST CURRENT DRUG THERAPY] Onset: 2 Resolved: 2 Episodic Other aftercare (1 source) director long term care (current) use of aspirin; Translations: [PENITENTIARY CURRENT USE OF ASPIRIN] Onset: 3 Episodic [...] of other genital organs; Translations: [FAM HX BLANCA NEOPLSM OTH GENIT ORGN] Onset: 09-28-2022 Episodic Residual codes; unclassified (1 source) Family history of malignant neoplasm of other organs or systems; Translations: [FAM HX BLANCA NEOPLASM OTH ORGN/SYS] Onset: 09-28-2022 Episodic Residual codes; unclassified [...] Test Name Value Interpretation Reference Range Facility Reminderson 08-13-2024 Reminders Reminders From: Evie Conte LPN To: N - Clinical; Sent: 08/13/2024 08:06:46 EDT Show up: 07/06/2034 07:00:00 EDT Subject: colonoscopy recall Due Date/Time: 08/06/2034 07:00:00 EDT Reminder/Recall Patient due for screening colonoscopy 08/06/2034. Normal [facility] Ambulatory Visit Summaryon 0 07-23-2024 Ambulatory Visit Summary Ambulatory Visit Summary MESERET ACOSTA :1950 Visit Date:07/23/2024 Ambulatory Visit Instructions Your Diagnosis Personal history of colonic polyps Your Care Team Attending Physician - ELVIS HERNÁNDEZ, Shiv Carreon Primary Care Physician - Jyotsna Abarca DO Referring Physician - Jyotsna Abarca DO This Is Your Medications List Contact prescribing physician if questions or concerns aspirin (aspirin 81 mg oral tablet) atenolol (atenolol 25 mg Tab) calcitonin (calcitonin Nasal [place]igo) calcium-vitamin D (Citracal + D) cholecalciferol (Vitamin [...] questions or concerns Unchanged calcitonin (calcitonin Nasal Pes[place]igo) 1 Sprays Nasal Inhalation Every day Contact [...] for choosing us for your care. Normal [facility] Basic Metabolic Panelon GFR/1.73 sq M.predicted MDRD (S/P/Bld) [Vol rate/Area] mL/min/{1.73_m2} Normal [facility] Comment on above: Performed By: #### B MP #### [address] Calcium [Mass/volume] in Ser um or PlasmaOrdered By: Jyotsna Abarca on 06-12-2024 Calcium [Mass/Vol] 9.5 mg/dL Normal 8.6-10.3 [facility] Comment on above: Result Comment: PERF ORMED BY: [place] [address] PATHOLOGIST MARKETING AREA MANAGER MARYANN NUNEZ M.D. Performed By: #### B MP #### [facility] [address] [place] [address] Carbon dioxide, total [Moles /volume] in Serum or PlasmaOrdered By: Jyotsna Abarca on 06-12-2024 CO2 [Moles/Vol] 26.3 mmol/L Normal 21.0-31.0 [facility] Comment on above: Performed By: #### B MP #### [facility] [address] Chloride [Moles/volume] in S augustus or PlasmaOrdered By: Jyotsna Abarca on 06-12-2024 Chloride [Moles/Vol] 106 mmol/L Normal 98-107 [facility] Comment on above: Performed By: #### B MP #### [facility] [address] Creatinine [Mass/volume] in Serum or PlasmaOrdered By: Jyotsna Abarca on 06-12-2024 Creatinine [Mass/Vol] 0.90 mg/dL Normal 0.60-1.20 [facility] Comment on above: Performed By: #### B MP #### [address] Glucose [Mass/volume] in Ser um or PlasmaOrdered By: Jyotsna Abarca on 06-12-2024 Glucose [Mass/Vol] 103 mg/dL High 70-100 [facility] Comment on above: ADA recommended refe rence rangeRandom Glucose Reference Range is dependent on time and content of last meal. Glucose of more than 200 mg/dL in a nonstressed, ambulatory subject supports the diagnosis of Diabetes Mellitus. Result Comment: [place] om Glucose Reference Range is dependent on time and content of last meal. Glucose of more than 200 mg/dL in a nonstressed, ambulatory subject supports the diagnosis of Diabetes Mellitus. ADA recommended reference range Performed By: #### B MP #### [address] No Panel InformationOrdered By: Jyotsna Abarca on 06-12-2024 Estimated GFR (CKD-EPI) > 60.0 mL/Min [facility] Creatinine Clearance (Chem N/A [facility] Potassium [Moles/volume] in Serum or PlasmaOrdered By: Jyotsna Abarca on 06-12-2024 Potassium [Moles/Vol] 4.1 mmol/L Normal 3.5-5.1 [facility] Comment on above: Performed By: #### B MP #### [address] Serum or plasma anion gap de terminationOrdered By: Jyotsna Abarca on 06-12-2024 Anion gap [Moles/Vol] 10.8 mmol/L Normal 6.0-15.0 [facility] Comment on above: Performed By: #### B MP #### [address] Sodium [Moles/volume] in Ser um or PlasmaOrdered By: Jyotsna Abarca on 06-12-2024 Sodium [Moles/Vol] 139 mmol/L Normal 136-145 [facility] Comment on above: Performed By: #### B MP #### [address] Urea nitrogen [Mass/volume] in Serum or PlasmaOrdered By: Jyotsna Abarca on 06-12-2024 Urea nitrogen [Mass/Vol] 16 mg/dL Normal 7-25 [facility] Comment on above: Performed By: #### B MP #### [address] A1C with Estimated Average G luon 05-23-2024 Glucose [Mass/Vol] 128 mg/dL Normal [facility] Comment on above: Result Comment: PERF ORMED BY: [place] [address] PATHOLOGIST MARKETING AREA MANAGER MARYANN NUNEZ M.D. Performed By: #### C UU, CBC, ADDONUAPLUS #### [place] [address] [place] Alanine aminotransferase [En zymatic activity/volume] in Serum or PlasmaOrdered By: Jyotsna Abarca on 05-23-2024 ALT [Catalytic activity/Vol] 14 U/L Normal 7-52 [facility] Comment on above: Performed By: #### C UU, CBC, ADDONUAPLUS #### [place] [address] [place] Albumin [Mass/volume] in Ser um or Plasma by Bromocresol green (BCG) dye binding methoOrdered By: Jyotsna Abarca on 05-23-2024 Albumin BCG dye [Mass/Vol] 4.3 g/dL 3.5-5.7 [facility] Alkaline phosphatase [Enzyma tic activity/volume] in Serum or PlasmaOrdered By: Jyotsna Abarca on 05-23-2024 ALP [Catalytic activity/Vol] 62 U/L Normal 34-104 [facility] Comment on above: Performed By: #### C UU, CBC, ADDONUAPLUS #### [facility] [address] [place] [address] Aspartate aminotransferase [ Enzymatic activity/volume] in Serum or PlasmaOrdered By: Jyotsna Abarca on 05-23-2024 AST [Catalytic activity/Vol] 28 U/L Normal 13-39 [facility] Comment on above: Performed By: #### C UU, CBC, ADDONUAPLUS #### [address] Automated basophil %Ordered By: Jyotsna Abarca on 05-23-2024 Basophils/100 WBC (Bld) 2.8 % Normal . [facility] Comment on above: Performed By: #### C UU, CBC, ADDONUAPLUS #### [address] Automated basophil countOrde red By: Jyotsna Abarca on 05-23-2024 Basophils (Bld) [#/Vol] 0.2 10*3/uL Normal 0.0-0.2 [facility] Comment on above: Result Comment: PERF ORMED BY: [place] [address] PATHOLOGIST MARKETING AREA MANAGER MARYANN NUNEZ M.D. Performed By: #### C UU, CBC, ADDONUAPLUS #### [address] Automated blood monocyte cou ntOrdered By: Jyotsna Abarca on 05-23-2024 Monocytes (Bld) [#/Vol] 0.6 10*3/uL Normal 0.0-0.8 [facility] Comment on above: Performed By: #### C UU, CBC, ADDONUAPLUS #### [facility] [address] [place] [address] Automated eosinophil %Ordere d By: Jyotsna Abarca on 05-23-2024 Eosinophils/100 WBC (Bld) 4.0 % Normal . [facility] Comment on above: Performed By: #### C UU, CBC, ADDONUAPLUS #### [facility] [address] Automated eosinophil countOr dered By: Jyotsna Abarca on 05-23-2024 Eosinophils (Bld) [#/Vol] 0.3 10*3/uL Normal 0.0-0.45 [facility] Comment on above: Performed By: #### C UU, CBC, ADDONUAPLUS #### [address] Automated monocyte %Ordered By: Jyotsna Abarca on 05-23-2024 Monocytes/100 WBC (Bld) 9.3 % Normal . [facility] Comment on above: Performed By: #### C UU, CBC, ADDONUAPLUS #### [address] Automated neutrophil %Ordere d By: Jyotsna Abarca on 05-23-2024 Neutrophils/100 WBC (Bld) 52.1 % Normal . [facility] Comment on above: Performed By: #### C UU, CBC, ADDONUAPLUS #### [address] Bacteria [Presence] in Urine by AutomatedOrdered By: Jyotsna Abarca on 05-23-2024 Bacteria Auto Ql (U) None seen [HPF] None Seen [facility] Bilirubin Test strip Ql (U)O rdered By: Jyotsna Abarca on 05-23-2024 Bilirubin Ql (U) Negative Negative [facility] Bilirubin.total [Mass/volume ] in Serum or PlasmaOrdered By: Jyotsna Abarca on 05-23-2024 Bilirubin [Mass/Vol] 0.5 mg/dL Normal 0.3-1.0 [facility] Comment on above: Performed By: #### C UU, CBC, ADDONUAPLUS #### [place] [address] [place] Calcium [Mass/volume] in Ser um or PlasmaOrdered By: Jyotsna Abarca on 05-23-2024 Calcium [Mass/Vol] 9.2 mg/dL Normal 8.6-10.3 [facility] Comment on above: Performed By: #### C UU, CBC, ADDONUAPLUS #### [facility] [address] [place] [address] [place] Carbon dioxide, total [Moles /volume] in Serum or PlasmaOrdered By: Jyotsna Abarca on 05-23-2024 CO2 [Moles/Vol] 28.8 mmol/L Normal 21.0-31.0 [facility] Comment on above: Performed By: #### C UU, CBC, ADDONUAPLUS #### [facility] [address] [place] [address] [place] Chloride [Moles/volume] in S augustus or PlasmaOrdered By: Jyotsna Abarca on 05-23-2024 Chloride [Moles/Vol] 106 mmol/L Normal 98-107 [facility] Comment on above: Performed By: #### C UU, CBC, ADDONUAPLUS #### [facility] [address] [place] [address] [place] Cholesterol [Mass/volume] in Serum or PlasmaOrdered By: Jyotsna Abarca on 05-23-2024 Cholesterol [Mass/Vol] 148 mg/dL Normal 140-200 [facility] Comment on above: Chol less than 200 m g/dl low riskChol 201-239 mg/dl borderline riskChol 240 mg/dl and greater high risk Result Comment: Chol less than 200 mg/dl low risk Chol 201-239 mg/dl borderline risk Chol 240 mg/dl and greater high risk Performed By: #### C UU, CBC, ADDONUAPLUS #### [facility] [address] [place] [address] [place] Cholesterol in LDL Calc [Mas s/Vol]Ordered By: Jyotsna Abarca on 05-23-2024 Cholesterol in LDL [Mass/Vol] 79 mg/dL 0-100 [facility] Comment on above: LDL ATP III CLASSIFI CATIONLDL less than 100 mg/dL OptimalLDL 100-129 mg/dL Near or above optimalLDL 130-159 mg/dL Borderline highLDL 160-189 mg/dL HighLDL greater than 189 mg/dL Very high Cholesterol in VLDL Calc [Ma ss/Vol]Ordered By: Jyotsna Abarca on 05-23-2024 Cholesterol in VLDL [Mass/Vol] 9 mg/dL [facility] Color of Urine by AutoOrdere d By: Jyotsna Abarca on 05-23-2024 Color (U) Yellow Normal Yellow [facility] Comment on above: Order Comment: Name Collection Type:: Clean-Voided Midstream Performed By: #### C UU, CBC, ADDONUAPLUS #### [address] Complete Blood Count Auto Di ffon 05-23-2024 Mean Corpuscular HGB Conc 33.6 g/dL Normal 32.0-35.0 [facility] Comment on above: Performed By: #### C UU, CBC, ADDONUAPLUS #### [address] NRBC% 0.1 /100{WBC} Normal 0-0.5 [facility] Comment on above: Performed By: #### C UU, CBC, ADDONUAPLUS #### [facility] [address] [place] [address] Comprehensive Metabolic Pane enmanuel 05-23-2024 Albumin [Mass/Vol] 4.3 g/dL Normal 3.5-5.7 [facility] Comment on above: Performed By: #### C UU, CBC, ADDONUAPLUS #### [facility] [address] [place] [address] GFR/1.73 sq M.predicted MDRD (S/P/Bld) [Vol rate/Area] mL/min/{1.73_m2} Normal [facility] Comment on above: Performed By: #### C UU, CBC, ADDONUAPLUS #### [facility] [address] [place] [address] Creatinine [Mass/volume] in Serum or PlasmaOrdered By: Jyotsna Abarca on 05-23-2024 Creatinine [Mass/Vol] 0.80 mg/dL Normal 0.60-1.20 [facility] Comment on above: Performed By: #### C UU, CBC, ADDONUAPLUS #### [address] Dipstick and Microscopicon 0 05-23-2024 Bacteria,Urine None Seen Normal None Seen [facility] Comment on above: Order Comment: Name Collection Type:: Clean-Voided Midstream Performed By: #### C UU, CBC, ADDONUAPLUS #### [address] Bilirubin,Urine Negative Normal Negative [facility] Comment on above: Order Comment: Name Collection Type:: Clean-Voided Midstream Performed By: #### C UU, CBC, ADDONUAPLUS #### [address] Glucose Ql (U) Normal Normal Normal [facility] Comment on above: Order Comment: Name Collection Type:: Clean-Voided Midstream Performed By: #### C UU, CBC, ADDONUAPLUS #### [place] [address] [place] Hyaline Casts,Urine 0-8 Normal 0-8 [facility] Comment on above: Order Comment: Name Collection Type:: Clean-Voided Midstream Performed By: #### C UU, CBC, ADDONUAPLUS #### [address] Mucus,Urine 1+ Critically abnormal [facility] Comment on above: Order Comment: Name Collection Type:: Clean-Voided Midstream Result Comment: PERF ORMED BY: [place] [address] PATHOLOGIST [employer]ETING [employer] MANAGER MARYANN NUNEZ M.D. Performed By: #### C UU, CBC, ADDONUAPLUS #### [address] Nitrite,Urine Negative Normal Negative [facility] Comment on above: Order Comment: Name Collection Type:: Clean-Voided Midstream Performed By: #### C UU, CBC, ADDONUAPLUS #### [address] Occult Blood,Urine Negative Normal Negative [facility] Comment on above: Order Comment: Name Collection Type:: Clean-Voided Midstream Performed By: #### C UU, CBC, ADDONUAPLUS #### [address] Protein,Urine Negative Normal Negative [facility] Comment on above: Order Comment: Name Collection Type:: Clean-Voided Midstream Performed By: #### C UU, CBC, ADDONUAPLUS #### [address] RBC,Urine 1-2 Normal 0-4 [facility] Comment on above: Order Comment: Name Collection Type:: Clean-Voided Midstream Performed By: #### C UU, CBC, ADDONUAPLUS #### [address] Specificy [place],Urine 1.024 Normal 1.001-1.030 [facility] Comment on above: Order Comment: Name Collection Type:: Clean-Voided Midstream Performed By: #### C UU, CBC, ADDONUAPLUS #### [address] Squamous Epithelial Cell,Urine 1-2 Normal 0-2 [facility] Comment on above: Order Comment: Name Collection Type:: Clean-Voided Midstream Performed By: #### C UU, CBC, ADDONUAPLUS #### [address] Urobilinogen,Urine Normal Normal Normal [facility] Comment on above: Order Comment: Name Collection Type:: Clean-Voided Midstream Performed By: #### C UU, CBC, ADDONUAPLUS #### [address] WBC,Urine 1-2 Normal 0-4 [facility] Comment on above: Order Comment: Name Collection Type:: Clean-Voided Midstream Performed By: #### C UU, CBC, ADDONUAPLUS #### [facility] [address] Epithelial cells.squamous [# /area] in Urine sediment by Automated countOrdered By: Jyotsna Abarca on 05-23-2024 Epithelial cells.squamous Auto (Urine sed) [#/Area] 1-2 [HPF] 0-2 [facility] Erythrocyte distribution wid th [Ratio] by Automated countOrdered By: Jyotsna Abarca on 05-23-2024 Erythrocyte distribution width (RBC) [Ratio] 13.2 % Normal 11.9-15.3 [facility] Comment on above: Performed By: #### C UU, CBC, ADDONUAPLUS #### [facility] [address] Erythrocytes [#/area] in Uri ne sediment by Automated countOrdered By: Jyotsna Abarca on 05-23-2024 RBC Auto (Urine sed) [#/Area] 1-2 [HPF] 0-4 [facility] Erythrocytes [#/volume] in B lood by Automated countOrdered By: Jyotsna Abarca on 05-23-2024 RBC (Bld) [#/Vol] 4.23 10*6/uL Normal 3.60-5.00 [facility] Comment on above: Performed By: #### C UU, CBC, ADDONUAPLUS #### [facility] [address] Folate [Mass/volume] in Seru m or PlasmaOrdered By: Jyotsna Abarca on 05-23-2024 Folate [Mass/Vol] 32.0 ng/mL >5.9 [facility] Comment on above: Folate reference ran ge: >5.9 ng/mlThe WHO technical consultation on folate and vitamin [id number] has determined that folate concentrations lessthan 4 ng/ml are considered deficient. Glucose [Mass/volume] in Ser um or PlasmaOrdered By: Jyotsna Abarca on 05-23-2024 Glucose [Mass/Vol] 91 mg/dL Normal 70-100 [facility] Comment on above: ADA recommended refe rence rangeRandom Glucose Reference Range is dependent on time and content of last meal. Glucose of more than 200 mg/dL in a nonstressed, ambulatory subject supports the diagnosis of Diabetes Mellitus. Result Comment: [place] Glucose Reference Range is dependent on time and content of last meal. Glucose of more than 200 mg/dL in a nonstressed, ambulatory subject supports the diagnosis of Diabetes Mellitus. ADA recommended reference range Performed By: #### C UU, CBC, ADDONUAPLUS #### [address] Glucose [Mass/volume] in Uri ne by Test stripOrdered By: Jyotsna Abarca on 05-23-2024 Glucose Test strip (U) [Mass/Vol] Normal mg/dL Normal [facility] Glucose mean value [Mass/vol ume] in Blood Estimated from glycated hemoglobinOrdered By: Jyotsna Abarca on 05-23-2024 Average glucose Estimated from glycated hemoglobin (Bld) [Mass/Vol] 128 mg/dL [facility] Hematocrit [Volume Fraction] of Blood by Automated countOrdered By: Jyotsna Abarca on 05-23-2024 Hematocrit (Bld) [Volume fraction] 37.0 % Normal 34.0-46.4 [facility] Comment on above: Performed By: #### C UU, CBC, ADDONUAPLUS #### [address] Hemoglobin A1c percentageOrd ered By: Jyotsna Abarca on 05-23-2024 HbA1c (Bld) [Mass fraction] 6.1 % High 4.3-5.6 [facility] Comment on above: Increased risk for d iabetes: 5.7 - 6.4diabetes: >6.4glycemic control for adults with diabetes: <7.0 Result Comment: Incr eased risk for diabetes: 5.7 - 6.4 diabetes: >6.4 glycemic control for adults with diabetes: <7.0 Performed By: #### C UU, CBC, ADDONUAPLUS #### [address] Hemoglobin Test strip Ql (U) Ordered By: Jyotsna Abarca on 05-23-2024 Hemoglobin Ql (U) Negative Negative [facility] Hemoglobin [Mass/volume] in BloodOrdered By: Jyotsna Abarca on 05-23-2024 Hemoglobin (Bld) [Mass/Vol] 12.4 g/dL Normal 11.8-15.4 [facility] Comment on above: Performed By: #### C UU, CBC, ADDONUAPLUS #### [facility] [address] [place] [address] [place] Hyaline casts [#/area] in Ur ine sediment by Automated countOrdered By: Jyotsna Abarca on 05-23-2024 Hyaline casts Auto (Urine sed) [#/Area] 0-8 [LPF] 0-8 [facility] Ketones [Presence] in Urine by Test stripOrdered By: Jyotsna Abarca on 05-23-2024 Ketones Ql (U) Negative Normal Negative [facility] Comment on above: Order Comment: Name Collection Type:: Clean-Voided Midstream Performed By: #### C UU, CBC, ADDONUAPLUS #### [facility] [address] [place] [address] [place] Leukocyte esterase [Presence ] in Urine by Test stripOrdered By: Jyotsna Abarca on 05-23-2024 Leukocyte esterase Test strip Ql (U) 2+ High Negative [facility] Comment on above: Order Comment: Name Collection Type:: Clean-Voided Midstream Performed By: #### C UU, CBC, ADDONUAPLUS #### [facility] [address] [place] [address] [place] Leukocytes [#/area] in Urine sediment by Automated countOrdered By: Jyotsna Abarca on 05-23-2024 WBC Auto (Urine sed) [#/Area] 1-2 [HPF] 0-4 [facility] Leukocytes [#/volume] correc michael for nucleated erythrocytes in Blood by Automated counOrdered By: Jyotsna Abarca on 05-23-2024 WBC corrected for nucl RBC Auto (Bld) [#/Vol] 6.6 10*3/uL 3.8-11.6 [facility] Leukocytes [#/volume] in Blo od by Automated countOrdered By: Jyotsna Abarca on 05-23-2024 WBC (Bld) [#/Vol] 6.6 10*3/uL Normal 3.8-11.6 [facility] Comment on above: Performed By: #### C UU, CBC, ADDONUAPLUS #### [facility] [address] Lipid Panelon 05-23-2024 LDL Cholesterol,Calculated 79 mg/dL Normal 0-100 [facility] Comment on above: Result Comment: LDL ATP III CLASSIFICATION LDL less than 100 mg/dL Optimal LDL 100-129 mg/dL Near or above optimal LDL 130-159 mg/dL Borderline high LDL 160-189 mg/dL High LDL greater than 189 mg/dL Very high Performed By: #### C UU, CBC, ADDONUAPLUS #### [address] Triglyceride w/Reflex 49 mg/dL Normal 0-149 [facility] Comment on above: Result Comment: TRIG ATP III CLASSIFICATION TRIG less than 150 mg/dL Normal TRIG 150-199 mg/dL Borderline high TRIG 200-500 mg/dL High TRIG greater than 500 mg/dL Very high Standard traceable to the Center for Disease Conrtrol and Prevention (CDC) test method. Performed By: #### C UU, CBC, ADDONUAPLUS #### [address] VLDL CHOLESTEROL 9 mg/dL Normal [facility] Comment on above: Performed By: #### C UU, CBC, ADDONUAPLUS #### [address] Lymphocytes [#/volume] in Bl ood by Automated countOrdered By: Jyotsna Abarca on 05-23-2024 Lymphocytes (Bld) [#/Vol] 2.1 10*3/uL Normal 1.00-4.8 [facility] Comment on above: Performed By: #### C UU, CBC, ADDONUAPLUS #### [place] [address] [place] Lymphocytes/100 leukocytes i n Blood by Automated countOrdered By: Jyotsna Abarca on 05-23-2024 Lymphocytes/100 WBC (Bld) 31.8 % Normal . [facility] Comment on above: Performed By: #### C UU, CBC, ADDONUAPLUS #### [address] MCH [Entitic mass] by Automa michael countOrdered By: Jyotsna Abarca on 05-23-2024 MCH (RBC) [Entitic mass] 29.4 pg Normal 24.7-34.3 [facility] Comment on above: Performed By: #### C UU, CBC, ADDONUAPLUS #### [facility] [address] [place] [address] MCHC Auto (RBC) [Mass/Vol]Or dered By: Jyotsna Abarca on 05-23-2024 MCHC (RBC) [Mass/Vol] 33.6 g/dL 32.0-35.0 [facility] MCV [Entitic volume] by Auto mated countOrdered By: Jyotsna Abarca on 05-23-2024 MCV (RBC) [Entitic vol] 87.5 fL Normal 80-100 [facility] Comment on above: Performed By: #### C UU, CBC, ADDONUAPLUS #### [address] Mucus [Presence] in Urine by AutomatedOrdered By: Jyotsna Abarca on 05-23-2024 Mucus Auto Ql (U) 1+ [LPF] Abnormal [facility] Neutrophils [#/volume] in Bl ood by Automated countOrdered By: Jyotsna Abarca on 05-23-2024 Neutrophils (Bld) [#/Vol] 3.4 10*3/uL Normal 1.8-7.7 [facility] Comment on above: Performed By: #### C UU, CBC, ADDONUAPLUS #### [address] Nitrite Test strip Ql (U)Ord ered By: Jyotsna Abarca on 05-23-2024 Nitrite Ql (U) Negative Negative [facility] No Panel InformationOrdered By: Jyotsna Abarca on 05-23-2024 Estimated GFR (CKD-EPI) > 60.0 mL/Min [facility] Creatinine Clearance (Chem N/A [facility] Nucleated erythrocytes [Pres ence] in Blood by Automated countOrdered By: Jyotsna Abarca on 05-23-2024 Nucleated RBC Auto Ql (Bld) 0.1 /100{WBC} 0-0.5 [facility] Platelet mean volume [Entiti c volume] in Blood by Automated countOrdered By: Jyotsna Abarca on 05-23-2024 Platelet mean volume (Bld) [Entitic vol] 8.2 fL Normal 6.3-10.7 [facility] Comment on above: Performed By: #### C UU, CBC, ADDONUAPLUS #### [facility] [address] Platelets [#/volume] in Bloo d by Automated countOrdered By: Jyotsna Abarca on 05-23-2024 Platelets (Bld) [#/Vol] 208 10*3/uL Normal 150-450 [facility] Comment on above: Performed By: #### C UU, CBC, ADDONUAPLUS #### [facility] [address] [place] [address] Potassium [Moles/volume] in Serum or PlasmaOrdered By: Jyotsna Abarca on 05-23-2024 Potassium [Moles/Vol] 3.4 mmol/L Low 3.5-5.1 [facility] Comment on above: Performed By: #### C UU, CBC, ADDONUAPLUS #### [address] Protein Test strip (U) [Mass /Vol]Ordered By: Jyotsna Abarca on 05-23-2024 Protein (U) [Mass/Vol] Negative Negative [facility] Protein [Mass/volume] in Ser um or PlasmaOrdered By: Jyotsna Abarca on 05-23-2024 Protein [Mass/Vol] 6.9 g/dL Normal 6.4-8.9 [facility] Comment on above: Performed By: #### C UU, CBC, ADDONUAPLUS #### [address] Serum globulin measurement b y calculation (mass/volume)Ordered By: Jyotsna Abarca on 05-23-2024 Globulin (S) [Mass/Vol] 2.6 g/dL Normal [facility] Comment on above: Performed By: #### C UU, CBC, ADDONUAPLUS #### [facility] [address] [place] [address] Serum or plasma albumin/glob ulin mass ratioOrdered By: Jyotsna Abarca on 05-23-2024 Albumin/Globulin [Mass ratio] 1.7 {ratio} Normal [facility] Comment on above: Performed By: #### C UU, CBC, ADDONUAPLUS #### [facility] [address] [place] [address] Serum or plasma anion gap de terminationOrdered By: Jyotsna Abarca on 05-23-2024 Anion gap [Moles/Vol] 9.6 mmol/L Normal 6.0-15.0 [facility] Comment on above: Performed By: #### C UU, CBC, ADDONUAPLUS #### [facility] [address] [place] [address] Serum or plasma high density lipoprotein (HDL) cholesterol measurementOrdered By: Jyotsna Abarca on 05-23-2024 Cholesterol in HDL [Mass/Vol] 59 mg/dL Normal 23-92 [facility] Comment on above: HDL CHOL ATP-III CLA SSIFICATION Cardiovascular RiskHDL > or equal to 60 mg/dL LOWHDL < 40 mg/dL HIGH Result Comment: HDL CHOL ATP-III CLASSIFICATION Cardiovascular Risk HDL > or equal to 60 mg/dL LOW HDL < 40 mg/dL HIGH Performed By: #### C UU, CBC, ADDONUAPLUS #### [facility] [address] [place] [address] Serum or plasma total choles terol/high density lipoprotein (HDL) cholesterol mass ratOrdered By: Jyotsna Abarca on 05-23-2024 Cholesterol.total/Jessica sterol in HDL [Mass ratio] 2.5 {ratio} Normal <5.0 [facility] Comment on above: Performed By: #### C UU, CBC, ADDONUAPLUS #### [facility] [address] [place] [address] Sodium [Moles/volume] in Ser um or PlasmaOrdered By: Jyotsna Abarca on 05-23-2024 Sodium [Moles/Vol] 141 mmol/L Normal 136-145 [facility] Comment on above: Performed By: #### C UU, CBC, ADDONUAPLUS #### [facility] [address] [place] [address] Specific gravity Test strip (U) [Rel density]Ordered By: Jyotsna Abarca on 05-23-2024 Specific gravity (U) [Rel density] 1.024 1.001-1.030 [facility] Triglyceride [Mass/volume] i n Serum or PlasmaOrdered By: Jyotsna Abarca on 05-23-2024 Triglyceride [Mass/Vol] 49 mg/dL 0-149 [facility] Comment on above: TRIG ATP III CLASSIF ICATIONTRIG less than 150 mg/dL NormalTRIG 150-199 mg/dL Borderline highTRIG 200-500 mg/dL High TRIG greater than 500 mg/dL Very highStandard traceable to the Center for Disease Conrtrol and Prevention (CDC) test method. Urea nitrogen [Mass/volume] in Serum or PlasmaOrdered By: Jyotsna Abarca on 05-23-2024 Urea nitrogen [Mass/Vol] 16 mg/dL Normal 7-25 [facility] Comment on above: Performed By: #### C UU, CBC, ADDONUAPLUS #### [facility] [address] [place] [address] Urine Cultureon 05-23-2024 Bacteria identified Cx Nom (U) Urine Culture Results 100,000 colonies/ml Mixed Bacterial Skin Contaminants 2 Days PERFORMED BY: [place] [address] PATHOLOGIST MARKETING [employer] MANAGER MARYANN NUNEZ M.D. Normal [facility] Comment on above: Performed By: #### C UU, CBC, ADDONUAPLUS #### [facility] [address] [place] [address] Urine appearanceOrdered By: Jyotsna Abarca on 05-23-2024 Appearance (U) Clear Normal Clear [facility] Comment on above: Order Comment: Name Collection Type:: Clean-Voided Midstream Performed By: #### C UU, CBC, ADDONUAPLUS #### [facility] [address] [place] [address] Urine culture routineOrdered By: Jyotsna Abarca on 05-23-2024 Bacteria identified Cx Nom (U) [facility] Urobilinogen Test strip (U) [Mass/Vol]Ordered By: Jyotsna Abarca on 05-23-2024 Urobilinogen (U) [Mass/Vol] Normal mg/dL Normal [facility] Vit. B12/Folate Profileon Folate 32.0 ng/mL Normal >5.9 [facility] Comment on above: Result Comment: Christina te reference range: >5.9 ng/ml The WHO technical consultation on folate and vitamin b12 deficiencies has determined that folate concentrations less than 4 ng/ml are considered deficient. Performed By: #### C UU, CBC, ADDONUAPLUS #### [facility] [address] Vitamin B12 ser/plasOrdered By: Jyotsna Abarca on 05-23-2024 Cobalamin (Vitamin B12) [Mass/Vol] 1229 pg/mL High 180-914 [facility] Comment on above: Performed By: #### C UU, CBC, ADDONUAPLUS #### [facility] [address] [place] [address] Vitamin D 25 Hydroxy Totalon 05-23-2024 Vitamin D 25 Hydroxy Total 66.7 ng/mL Normal 30-100 [facility] Comment on above: Result Comment: [place] MIN D STATUS 25(OH)VITAMIN D RANGE (ng/mL) Deficient <20 Insufficient 20 to <30 Sufficient 30 to 100 Reference: Delfino MF,Blaze NC, Ragini ALEXIS, et al. Evaluation,treatment, and prevention of vitamin D deficiency; an Endocrine Society clinical practice guideline. JCEM. 2010; 96(7):1911-30. PERFORMED BY: [place] [address] PATHOLOGIST MARKETING AREA MANAGER MARYANN NUNEZ M.D. Performed By: #### C UU, CBC, ADDONUAPLUS #### [facility] [address] [place] [address] Vitamin D+Metabolites [Mass/ volume] in Serum or PlasmaOrdered By: Jyotsna Abarca on 05-23-2024 Vitamin D+Metabolites [Mass/Vol] 66.7 ng/mL 30-100 [facility] Comment on above: VITAMIN D STATUS 25( OH)VITAMIN D RANGE (ng/mL) Deficient <20 Insufficient 20 to <30Sufficient 30 to 100Reference: Delfino MF,Blaze NC, Ragini ALEXIS, et al. Evaluation,treatment, and prevention of vitamin D deficiency; an Endocrine Society clinical practice guideline. JCEM. 2010; 96(7):1911-30. pH of Urine by Test stripOrd ered By: Jyotsna Abarca on 05-23-2024 pH (U) 5.5 [pH] Normal 5.0-9.0 [facility] Comment on above: Order Comment: Name Collection Type:: Clean-Voided Midstream Performed By: #### C UU, CBC, ADDONUAPLUS #### [facility] [address] Automated erythrocytes count in urine sediment (number/area)Ordered By: Jyotsna Abarca on 12-03-2023 RBC Auto (Urine sed) [#/Area] 3-4 [HPF] 0-4 [facility] Automated leukocytes count i n urine sediment (number/area)Ordered By: Jyotsna Abarca on 12-03-2023 WBC Auto (Urine sed) [#/Area] None seen [HPF] 0-4 [facility] Automated urine color determ inationOrdered By: Jyotsna Abarca on 12-03-2023 Color (U) Yellow Normal Yellow [facility] Comment on above: Order Comment: Reaso n for Exam Hematuria Name Collection Type:: Clean-Voided Midstream Performed By: #### C UU, CBC, ADDONUAPLUS #### [facility] [address] [place] [id number] [place] Bilirubin Test strip Ql (U)O rdered By: Jyotsna Abarca on 12-03-2023 Bilirubin Ql (U) Negative Negative [facility] Dipstick and Microscopicon 0 12-03-2023 Appearance (U) Clear Normal Clear [facility] Comment on above: Order Comment: Reaso n for Exam Hematuria Name Collection Type:: Clean-Voided Midstream Performed By: #### C UU, CBC, ADDONUAPLUS #### [address] Bacteria,Urine None Seen Normal None Seen [facility] Comment on above: Order Comment: Reaso n for Exam Hematuria Name Collection Type:: Clean-Voided Midstream Performed By: #### C UU, CBC, ADDONUAPLUS #### [address] Bilirubin,Urine Negative Normal Negative [facility] Comment on above: Order Comment: Reaso n for Exam Hematuria Name Collection Type:: Clean-Voided Midstream Performed By: #### C UU, CBC, ADDONUAPLUS #### [address] Glucose Ql (U) Normal Normal Normal [facility] Comment on above: Order Comment: Reaso n for Exam Hematuria Name Collection Type:: Clean-Voided Midstream Performed By: #### C UU, CBC, ADDONUAPLUS #### [address] Hyaline Casts,Urine 0-8 Normal 0-8 [facility] Comment on above: Order Comment: Reaso n for Exam Hematuria Name Collection Type:: Clean-Voided Midstream Result Comment: PERF ORMED BY: [place] [address] PATHOLOGIST [employer]ING [employer] MANAGER MARYANN NUNEZ M.D. Performed By: #### C UU, CBC, ADDONUAPLUS #### [address] Ketones Ql (U) Negative Normal Negative [facility] Comment on above: Order Comment: Reaso n for Exam Hematuria Name Collection Type:: Clean-Voided Midstream Performed By: #### C UU, CBC, ADDONUAPLUS #### [address] Leukocyte esterase Test strip Ql (U) 1+ High Negative [facility] Comment on above: Order Comment: Reaso n for Exam Hematuria Name Collection Type:: Clean-Voided Midstream Performed By: #### C UU, CBC, ADDONUAPLUS #### [facility] [address] [place] [address] [place] Nitrite,Urine Negative Normal Negative [facility] Comment on above: Order Comment: Reaso n for Exam Hematuria Name Collection Type:: Clean-Voided Midstream Performed By: #### C UU, CBC, ADDONUAPLUS #### [place] [address] [place] Occult Blood,Urine Negative Normal Negative [facility] Comment on above: Order Comment: Reaso n for Exam Hematuria Name Collection Type:: Clean-Voided Midstream Performed By: #### C UU, CBC, ADDONUAPLUS #### [place] [address] [place] Protein,Urine Negative Normal Negative [facility] Comment on above: Order Comment: Reaso n for Exam Hematuria Name Collection Type:: Clean-Voided Midstream Performed By: #### C UU, CBC, ADDONUAPLUS #### [address] RBC,Urine 3-4 Normal 0-4 [facility] Comment on above: Order Comment: Reaso n for Exam Hematuria Name Collection Type:: Clean-Voided Midstream Performed By: #### C UU, CBC, ADDONUAPLUS #### [place] [address] [place] Specificy [place],Urine 1.020 Normal 1.001-1.030 [facility] Comment on above: Order Comment: Reaso n for Exam Hematuria Name Collection Type:: Clean-Voided Midstream Performed By: #### C UU, CBC, ADDONUAPLUS #### [place] [address] [place] Squamous Epithelial Cell,Urine 0-1 Normal 0-2 [facility] Comment on above: Order Comment: Reaso n for Exam Hematuria Name Collection Type:: Clean-Voided Midstream Performed By: #### C UU, CBC, ADDONUAPLUS #### [address] [place] [address] [place] Urobilinogen,Urine Normal Normal Normal [facility] Comment on above: Order Comment: Reaso n for Exam Hematuria Name Collection Type:: Clean-Voided Midstream Performed By: #### C UU, CBC, ADDONUAPLUS #### [facility] [address] WBC,Urine None Seen Normal 0-4 [facility] Comment on above: Order Comment: Reaso n for Exam Hematuria Name Collection Type:: Clean-Voided Midstream Performed By: #### C UU, CBC, ADDONUAPLUS #### [facility] [facility] [address] Ketones Auto test strip (U) [Mass/Vol]Ordered By: Jyotsna Abarca on 12-03-2023 Ketones (U) [Mass/Vol] Negative Negative [facility] - UrinalysisOrder ed By: Jyotsna Abarca on 12-03-2023 Hyaline casts LM Ql (Urine sed) 0-8 [LPF] 0-8 [facility] Nitrite Test strip Ql (U)Ord ered By: Jyotsna Abarca on 12-03-2023 Nitrite Ql (U) Negative Negative [facility] Protein Auto test strip (U) [Mass/Vol]Ordered By: Jyotsna Abarca on 12-03-2023 Protein (U) [Mass/Vol] Negative Negative [facility] Specific gravity Auto test s trip (U) [Rel density]Ordered By: Jyotsna Abarca on 12-03-2023 Specific gravity (U) [Rel density] 1.020 1.001-1.030 [facility] Squamous epithelial cells de tection in urine sediment by light microscopyOrdered By: Jyotsna Abarca on 12-03-2023 Epithelial cells.squamous LM Ql (Urine sed) 0-1 [HPF] 0-2 [facility] Urine Cultureon 12-03-2023 Bacteria identified Cx Nom (U) Reason for Exam Hematuria Urine Reason for Exam: Hematuria : Urine ORGANISM: Strep agalactiae - (group b) (O:STRAGA) Angie Count 40,000 PERFORMED BY: [place] [phone] PATHOLOGIST MARKETING AREA MANAGER MARYANN NUNEZ M.D. Normal [facility] Comment on above: Performed By: #### C UU, CBC, ADDONUAPLUS #### [facility] [address] [place], [place] [id number] [facility] Urine bacteria detection by automated methodOrdered By: Jyotsna Abarca on 12-03-2023 Bacteria Auto Ql (U) None seen None Seen [facility] Urine clarity by refractomet ry automatedOrdered By: Jyotsna Abarca on 12-03-2023 Clarity Refractometry automated (U) Clear Clear [facility] Urine glucose measurement by automated test strip (mass/volume)Ordered By: Jyotsna Abarca on 12-03-2023 Glucose Auto test strip (U) [Mass/Vol] Normal mg/dL Normal [facility] Urine hemoglobin detection b y automated test stripOrdered By: Jyotsna Abarca on 12-03-2023 Hemoglobin Auto test strip Ql (U) Negative Negative [facility] Urine leukocyte esterase det ection by automated test stripOrdered By: Jyotsna Abarca on 12-03-2023 Leukocyte esterase Auto test strip Ql (U) 1+ Negative [facility] Urine pH measurement by auto mated test stripOrdered By: Jyotsna Abarca on 12-03-2023 pH (U) 6.0 [pH] Normal 5.0-9.0 [facility] Comment on above: Order Comment: Reaso n for Exam Hematuria Name Collection Type:: Clean-Voided Midstream Performed By: #### C UU, CBC, ADDONUAPLUS #### [facility] [address] [place] [address] Urobilinogen Auto test strip (U) [Mass/Vol]Ordered By: Jyotsna Abarca on 12-03-2023 Urobilinogen (U) [Mass/Vol] Normal mg/dL Normal [facility] A1C with Estimated Average G luon 11-15-2023 Glucose [Mass/Vol] 123 mg/dL Normal [facility] Comment on above: Order Comment: FASTI EDEL. JKW Result Comment: PERF ORMED BY: [place] [address] PATHOLOGIST MARKETING ARE[employer] MANAGER MARYANN NUNEZ M.D. Performed By: #### C UU, CBC, ADDONUAPLUS #### [facility] [address] [place] [address] [place] Alanine aminotransferase [En zymatic activity/volume] in Serum or PlasmaOrdered By: Jyotsna Abarca on 11-15-2023 ALT [Catalytic activity/Vol] 14 U/L Normal 7-52 [facility] Comment on above: Order Comment: SONY BENITO JKW Performed By: #### T SH3, ADDONUAPLUS, A1C WTH eA, LIPID, [id number], CBC, CMP, [id number], CUU #### [facility] [address] [place] [address] [place] Albumin [Mass/volume] in Ser um or Plasma by Bromocresol green (BCG) dye binding methoOrdered By: Jyotsna Abarca on 11-15-2023 Albumin BCG dye [Mass/Vol] 4.4 g/dL 3.5-5.7 [facility] Alkaline phosphatase [Enzyma tic activity/volume] in Serum or PlasmaOrdered By: Jyotsna Abarca on 11-15-2023 ALP [Catalytic activity/Vol] 60 U/L Normal 34-104 [facility] Comment on above: Order Comment: SONY HOLLINGSWORTH. JameyKW Performed By: #### T SH3, ADDONUAPLUS, A1C WTH eA, LIPID, [id number], CBC, CMP, [id number], CUU #### [facility] [address] [place] [id number] [place] Aspartate aminotransferase [ Enzymatic activity/volume] in Serum or PlasmaOrdered By: Jyotsna Abarca on 11-15-2023 AST [Catalytic activity/Vol] 26 U/L Normal 13-39 [facility] Comment on above: Order Comment: SONY BENITO JKW Performed By: #### T SH3, ADDONUAPLUS, A1C WTH eA, LIPID, [id number], CBC, CMP, [id number], CUU #### [facility] [address] [place] [id number] [place] Automated basophil %Ordered By: Jyotsna Abarca on 11-15-2023 Basophils/100 WBC (Bld) 1.3 % Normal . [facility] Comment on above: Order Comment: FASTI NG. JKW Performed By: #### T SH3, ADDONUAPLUS, A1C WTH eA, LIPID, [id number], CBC, CMP, [id number], CUU #### [address] Automated basophil countOrde red By: Jyotsna Abarca on 11-15-2023 Basophils (Bld) [#/Vol] 0.1 10*3/uL Normal 0.0-0.2 [facility] Comment on above: Order Comment: FASTI NG. JKW Result Comment: PERF ORMED BY: [place] [address] PATHOLOGIST MARKETING ARE[employer] MANAGER MARYANN NUNEZ M.D. Performed By: #### T SH3, ADDONUAPLUS, A1C WTH eA, LIPID, [id number], CBC, CMP, [id number], CUU #### [address] Automated blood monocyte cou ntOrdered By: Jyotsna Abarca on 11-15-2023 Monocytes (Bld) [#/Vol] 0.6 10*3/uL Normal 0.0-0.8 [facility] Comment on above: Order Comment: FASTI NG. JKW Performed By: #### T SH3, ADDONUAPLUS, A1C WTH eA, LIPID, [id number], CBC, CMP, [id number], CUU #### [address] Automated eosinophil %Ordere d By: Jyotsna Abarca on 11-15-2023 Eosinophils/100 WBC (Bld) 3.5 % Normal . [facility] Comment on above: Order Comment: FASTI NG. JKW Performed By: #### T SH3, ADDONUAPLUS, A1C WTH eA, LIPID, [id number], CBC, CMP, [id number], CUU #### [address] Automated eosinophil countOr dered By: Jyotsna Abarca on 11-15-2023 Eosinophils (Bld) [#/Vol] 0.2 10*3/uL Normal 0.0-0.45 [facility] Comment on above: Order Comment: FASTI NG. JKW Performed By: #### T SH3, ADDONUAPLUS, A1C WTH eA, LIPID, [id number], CBC, CMP, [id number], CUU #### [facility] [address] Automated erythrocytes count in urine sediment (number/area)Ordered By: Jyotnsa Abarca on 11-15-2023 RBC Auto (Urine sed) [#/Area] 5-9 [HPF] 0-4 [facility] Automated leukocytes count i n urine sediment (number/area)Ordered By: Jyotsna Abarca on 11-15-2023 WBC Auto (Urine sed) [#/Area] 0-1 [HPF] 0-4 [facility] Automated monocyte %Ordered By: Jyotsna Abarca on 11-15-2023 Monocytes/100 WBC (Bld) 8.6 % Normal . [facility] Comment on above: Order Comment: FASTI NG. JKW Performed By: #### T SH3, ADDONUAPLUS, A1C WTH eA, LIPID, [id number], CBC, CMP, [id number], CUU #### [facility] [address] [place] [id number] [place] Automated neutrophil %Ordere d By: Jyotsna Abarca on 11-15-2023 Neutrophils/100 WBC (Bld) 54.2 % Normal . [facility] Comment on above: Order Comment: FASTI NG. JKW Performed By: #### T SH3, ADDONUAPLUS, A1C WTH eA, LIPID, [id number], CBC, CMP, [id number], CUU #### [facility] [address] [place] [id number] [place] Automated urine color determ inationOrdered By: Jyotsna Abarca on 11-15-2023 Color (U) Yellow Normal Yellow [facility] Comment on above: Order Comment: FASTI NG. JKW Name Collection Type:: Clean-Voided Midstream Performed By: #### T SH3, ADDONUAPLUS, A1C WTH eA, LIPID, [id number], CBC, CMP, [id number], CUU #### [facility] [address] [place] [phone] [place] Bilirubin Test strip Ql (U)O rdered By: Jyotsna Abarca on 11-15-2023 Bilirubin Ql (U) Negative Negative [facility] Bilirubin.total [Mass/volume ] in Serum or PlasmaOrdered By: Jyotsna Abarca on 11-15-2023 Bilirubin [Mass/Vol] 0.5 mg/dL Normal 0.3-1.0 [facility] Comment on above: Order Comment: FASTI NG. JKW Performed By: #### T SH3, ADDONUAPLUS, A1C WTH eA, LIPID, [id number], CBC, CMP, [id number], CUU #### [facility] [address] [place] [address] [place] Calcium [Mass/volume] in Ser um or PlasmaOrdered By: Jyotsna Abarca on 11-15-2023 Calcium [Mass/Vol] 9.5 mg/dL Normal 8.6-10.3 [facility] Comment on above: Order Comment: FASTI NG. JKW Performed By: #### T SH3, ADDONUAPLUS, A1C WTH eA, LIPID, [id number], CBC, CMP, [id number], CUU #### [facility] [address] [place] [id number] [place] Carbon dioxide, total [Moles /volume] in Serum or PlasmaOrdered By: Jyotsna Abarca on 11-15-2023 CO2 [Moles/Vol] 27.5 mmol/L Normal 21.0-31.0 [facility] Comment on above: Order Comment: FASTI NG. JKW Performed By: #### T SH3, ADDONUAPLUS, A1C WTH eA, LIPID, [id number], CBC, CMP, [id number], CUU #### [facility] [address] [place] [id number] [place] Chloride [Moles/volume] in S augustus or PlasmaOrdered By: Jyotsna Abarca on 11-15-2023 Chloride [Moles/Vol] 106 mmol/L Normal 98-107 [facility] Comment on above: Order Comment: FASTJefry HOLLINGSWORTH. JKW Performed By: #### T SH3, ADDONUAPLUS, A1C WTH eA, LIPID, [id number], CBC, CMP, [id number], CUU #### [facility] [address] [place] [address] [place] Cholesterol [Mass/volume] in Serum or PlasmaOrdered By: Jyotsna Abarca on 11-15-2023 Cholesterol [Mass/Vol] 148 mg/dL Normal 140-200 [facility] Comment on above: Chol less than 200 m g/dl low riskChol 201-239 mg/dl borderline riskChol 240 mg/dl and greater high risk Order Comment: SONY HOLLINGSWORTH. JKW Result Comment: Chol less than 200 mg/dl low risk Chol 201-239 mg/dl borderline risk Chol 240 mg/dl and greater high risk Performed By: #### T SH3, ADDONUAPLUS, A1C WTH eA, LIPID, [id number], CBC, CMP, [id number], CUU #### [facility] [address] [place] [address] [place] Cholesterol in LDL Calc [Mas s/Vol]Ordered By: Jyotsna Abarca on 11-15-2023 Cholesterol in LDL [Mass/Vol] 73 mg/dL 0-100 [facility] Comment on above: LDL ATP III CLASSIFI CATIONLDL less than 100 mg/dL OptimalLDL 100-129 mg/dL Near or above optimalLDL 130-159 mg/dL Borderline highLDL 160-189 mg/dL HighLDL greater than 189 mg/dL Very high Cholesterol in VLDL Calc [Ma ss/Vol]Ordered By: Jyotsna Abarca on 11-15-2023 Cholesterol in VLDL [Mass/Vol] 12 mg/dL [facility] Complete Blood Count Auto Di ffon 11-15-2023 Mean Corpuscular HGB Conc 33.8 g/dL Normal 32.0-35.0 [facility] Comment on above: Order Comment: SONY HOLLINGSWORTH. JKW Performed By: #### T SH3, ADDONUAPLUS, A1C WTH eA, LIPID, [id number], CBC, CMP, [id number], CUU #### [facility] [address] NRBC% 0.1 /100{WBC} Normal 0-0.5 [facility] Comment on above: Order Comment: FASTI NG. JKW Performed By: #### T SH3, ADDONUAPLUS, A1C WTH eA, LIPID, [id number], CBC, CMP, [id number], CUU #### [address] Comprehensive Metabolic Pane enmanuel 11-15-2023 Albumin [Mass/Vol] 4.4 g/dL Normal 3.5-5.7 [facility] Comment on above: Order Comment: FASTI NG. JKW Performed By: #### T SH3, ADDONUAPLUS, A1C WTH eA, LIPID, [id number], CBC, CMP, [id number], CUU #### [address] GFR/1.73 sq M.predicted MDRD (S/P/Bld) [Vol rate/Area] mL/min/{1.73_m2} Normal [facility] Comment on above: Order Comment: FASTI NG. JKW Performed By: #### T SH3, ADDONUAPLUS, A1C WTH eA, LIPID, [id number], CBC, CMP, [id number], CUU #### [place] [id number] [facility] Creatinine [Mass/volume] in Serum or PlasmaOrdered By: Jyotsna Abarca on 11-15-2023 Creatinine [Mass/Vol] 0.82 mg/dL Normal 0.60-1.20 [facility] Comment on above: Order Comment: FASTI NG. JKW Performed By: #### T SH3, ADDONUAPLUS, A1C WTH eA, LIPID, [id number], CBC, CMP, [id number], CUU #### [place] [address] [place] Dipstick and Microscopicon 0 11-15-2023 Appearance (U) Clear Normal Clear [facility] Comment on above: Order Comment: FASTI NG. JKW Name Collection Type:: Clean-Voided Midstream Performed By: #### T SH3, ADDONUAPLUS, A1C WTH eA, LIPID, [id number], CBC, CMP, [id number], CUU #### [address] Bacteria,Urine None Seen Normal None Seen [facility] Comment on above: Order Comment: FASTI NG. JKW Name Collection Type:: Clean-Voided Midstream Performed By: #### T SH3, ADDONUAPLUS, A1C WTH eA, LIPID, [id number], CBC, CMP, [id number], CUU #### [address] Bilirubin,Urine Negative Normal Negative [facility] Comment on above: Order Comment: FASTI NG. JKW Name Collection Type:: Clean-Voided Midstream Performed By: #### T SH3, ADDONUAPLUS, A1C WTH eA, LIPID, [id number], CBC, CMP, [id number], CUU #### [address] Glucose Ql (U) Normal Normal Normal [facility] Comment on above: Order Comment: FASTI NG. JKW Name Collection Type:: Clean-Voided Midstream Performed By: #### T SH3, ADDONUAPLUS, A1C WTH eA, LIPID, [id number], CBC, CMP, [id number], CUU #### [address] Hyaline Casts,Urine 0-8 Normal 0-8 [facility] Comment on above: Order Comment: FASTI NG. JKW Name Collection Type:: Clean-Voided Midstream Result Comment: PERF ORMED BY: [place] [address] PATHOLOGIST MARKETING ARE[employer] MANAGER MARYANN NUNEZ M.D. Performed By: #### T SH3, ADDONUAPLUS, A1C WTH eA, LIPID, [id number], CBC, CMP, [id number], CUU #### [address] Ketones Ql (U) Trace High Negative [facility] Comment on above: Order Comment: FASTI NG. JKW Name Collection Type:: Clean-Voided Midstream Performed By: #### T SH3, ADDONUAPLUS, A1C WTH eA, LIPID, [id number], CBC, CMP, [id number], CUU #### [address] Leukocyte esterase Test strip Ql (U) 1+ High Negative [facility] Comment on above: Order Comment: FASTI NG. JKW Name Collection Type:: Clean-Voided Midstream Performed By: #### T SH3, ADDONUAPLUS, A1C WTH eA, LIPID, [id number], CBC, CMP, [id number], CUU #### [place] [address] [place] Nitrite,Urine Negative Normal Negative [facility] Comment on above: Order Comment: FASTI NG. JKW Name Collection Type:: Clean-Voided Midstream Performed By: #### T SH3, ADDONUAPLUS, A1C WTH eA, LIPID, [id number], CBC, CMP, [id number], CUU #### [address] Occult Blood,Urine Negative Normal Negative [facility] Comment on above: Order Comment: FASTI NG. JKW Name Collection Type:: Clean-Voided Midstream Result Comment: PERF ORMED BY: [place] [address] PATHOLOGIST MARKETING AREA MANAGER MARYANN NUNEZ M.D. Performed By: #### T SH3, ADDONUAPLUS, A1C WTH eA, LIPID, [id number], CBC, CMP, [id number], CUU #### [address] Protein,Urine Negative Normal Negative [facility] Comment on above: Order Comment: FASTI NG. JKW Name Collection Type:: Clean-Voided Midstream Performed By: #### T SH3, ADDONUAPLUS, A1C WTH eA, LIPID, [id number], CBC, CMP, [id number], CUU #### [address] RBC,Urine 5-9 High 0-4 [facility] Comment on above: Order Comment: FASTI NG. JKW Name Collection Type:: Clean-Voided Midstream Performed By: #### T SH3, ADDONUAPLUS, A1C WTH eA, LIPID, [id number], CBC, CMP, [id number], CUU #### [address] Specificy [place],Urine 1.022 Normal 1.001-1.030 [facility] Comment on above: Order Comment: FASTI NG. JKW Name Collection Type:: Clean-Voided Midstream Performed By: #### T SH3, ADDONUAPLUS, A1C WTH eA, LIPID, [id number], CBC, CMP, [id number], CUU #### [address] Squamous Epithelial Cell,Urine None Seen Normal 0-2 [facility] Comment on above: Order Comment: FASTI NG. JKW Name Collection Type:: Clean-Voided Midstream Performed By: #### T SH3, ADDONUAPLUS, A1C WTH eA, LIPID, [id number], CBC, CMP, [id number], CUU #### [address] Urobilinogen,Urine Normal Normal Normal [facility] Comment on above: Order Comment: FASTI NG. JKW Name Collection Type:: Clean-Voided Midstream Performed By: #### T SH3, ADDONUAPLUS, A1C WTH eA, LIPID, [id number], CBC, CMP, [id number], CUU #### [address] WBC LM.HPF (Urine sed) [#/Area] 0 /[HPF] Normal 0-4 [facility] Comment on above: Order Comment: FASTI NG. JKW Name Collection Type:: Clean-Voided Midstream Performed By: #### T SH3, ADDONUAPLUS, A1C WTH eA, LIPID, [id number], CBC, CMP, [id number], CUU #### [facility] [address] [place] [address] Erythrocyte distribution wid th [Ratio] by Automated countOrdered By: Jyotsna Abarca on 11-15-2023 Erythrocyte distribution width (RBC) [Ratio] 12.8 % Normal 11.9-15.3 [facility] Comment on above: Order Comment: FASTI NG. JKW Performed By: #### T SH3, ADDONUAPLUS, A1C WTH eA, LIPID, [id number], CBC, CMP, [id number], CUU #### [facility] [address] [place] [address] Erythrocytes [#/volume] in B lood by Automated countOrdered By: Jyotsna Abarca on 11-15-2023 RBC (Bld) [#/Vol] 4.35 10*6/uL Normal 3.60-5.00 [facility] Comment on above: Order Comment: FASTI NG. JKW Performed By: #### T SH3, ADDONUAPLUS, A1C WTH eA, LIPID, [id number], CBC, CMP, [id number], CUU #### [address] Folate [Mass/volume] in Seru m or PlasmaOrdered By: Jyotsna Abarca on 11-15-2023 Folate [Mass/Vol] 30.0 ng/mL >5.9 [facility] Comment on above: Folate reference ran ge: >5.9 ng/mlThe WHO technical consultation on folate and vitamin [id number] has determined that folate concentrations lessthan 4 ng/ml are considered deficient. Glucose [Mass/volume] in Ser um or PlasmaOrdered By: Jyotsna Abarca on 11-15-2023 Glucose [Mass/Vol] 95 mg/dL Normal 70-100 [facility] Comment on above: ADA recommended refe rence rangeRandom Glucose Reference Range is dependent on time and content of last meal. Glucose of more than 200 mg/dL in a nonstressed, ambulatory subject supports the diagnosis of Diabetes Mellitus. Order Comment: FASTI NG. JKW Result Comment: [place] Glucose Reference Range is dependent on time and content of last meal. Glucose of more than 200 mg/dL in a nonstressed, ambulatory subject supports the diagnosis of Diabetes Mellitus. ADA recommended reference range Performed By: #### T SH3, ADDONUAPLUS, A1C WTH eA, LIPID, [id number], CBC, CMP, [id number], CUU #### [facility] [address] Glucose mean value [Mass/vol ume] in Blood Estimated from glycated hemoglobinOrdered By: Jyotsna Abarca on 11-15-2023 Average glucose Estimated from glycated hemoglobin (Bld) [Mass/Vol] 123 mg/dL [facility] Hematocrit [Volume Fraction] of Blood by Automated countOrdered By: Jyotsna Abarca on 11-15-2023 Hematocrit (Bld) [Volume fraction] 38.3 % Normal 34.0-46.4 [facility] Comment on above: Order Comment: FASTI NG. JKW Performed By: #### T SH3, ADDONUAPLUS, A1C WTH eA, LIPID, [id number], CBC, CMP, [id number], CUU #### [place] [address] [place] Hemoglobin A1c percentageOrd ered By: Jyotsna Abarca on 11-15-2023 HbA1c (Bld) [Mass fraction] 5.9 % High 4.3-5.6 [facility] Comment on above: Increased risk for d iabetes: 5.7 - 6.4diabetes: >6.4glycemic control for adults with diabetes: <7.0 Order Comment: FASTI NG. JKW Result Comment: Incr eased risk for diabetes: 5.7 - 6.4 diabetes: >6.4 glycemic control for adults with diabetes: <7.0 Performed By: #### C UU, CBC, ADDONUAPLUS #### [place] [id number] [place] Hemoglobin [Mass/volume] in BloodOrdered By: Jyotsna Abarca on 11-15-2023 Hemoglobin (Bld) [Mass/Vol] 12.9 g/dL Normal 11.8-15.4 [facility] Comment on above: Order Comment: SONY LEWISW Performed By: #### T SH3, ADDONUAPLUS, A1C WTH eA, LIPID, [id number], CBC, CMP, [id number], CUU #### [facility] [address] Ketones Auto test strip (U) [Mass/Vol]Ordered By: Jyotsna Abarca on 11-15-2023 Ketones (U) [Mass/Vol] Trace Negative [facility] - UrinalysisOrder ed By: Jyotsna Abarca on 11-15-2023 Hyaline casts LM Ql (Urine sed) 0-8 [LPF] 0-8 [facility] Leukocytes [#/volume] correc michael for nucleated erythrocytes in Blood by Automated counOrdered By: Jyotsna Abarca on 11-15-2023 WBC corrected for nucl RBC Auto (Bld) [#/Vol] 7.0 10*3/uL 3.8-11.6 [facility] Leukocytes [#/volume] in Blo od by Automated countOrdered By: Jyotsna Abarca on 11-15-2023 WBC (Bld) [#/Vol] 7.0 10*3/uL Normal 3.8-11.6 [facility] Comment on above: Order Comment: SONY LEWISW Performed By: #### T SH3, ADDONUAPLUS, A1C WTH eA, LIPID, [id number], CBC, CMP, [id number], CUU #### [facility] [address] Lipid Panelon 11-15-2023 LDL Cholesterol,Calculated 73 mg/dL Normal 0-100 [facility] Comment on above: Order Comment: SONY LEWISW Result Comment: LDL ATP III CLASSIFICATION LDL less than 100 mg/dL Optimal LDL 100-129 mg/dL Near or above optimal LDL 130-159 mg/dL Borderline high LDL 160-189 mg/dL High LDL greater than 189 mg/dL Very high Performed By: #### T SH3, ADDONUAPLUS, A1C WTH eA, LIPID, [id number], CBC, CMP, [id number], CUU #### [facility] [address] Triglyceride w/Reflex 62 mg/dL Normal 0-149 [facility] Comment on above: Order Comment: FASTI NG. JKW Result Comment: TRIG ATP III CLASSIFICATION TRIG less than 150 mg/dL Normal TRIG 150-199 mg/dL Borderline high TRIG 200-500 mg/dL High TRIG greater than 500 mg/dL Very high Standard traceable to the Center for Disease Conrtrol and Prevention (CDC) test method. Performed By: #### T SH3, ADDONUAPLUS, A1C WTH eA, LIPID, [id number], CBC, CMP, [id number], CUU #### [address] VLDL CHOLESTEROL 12 mg/dL Normal [facility] Comment on above: Order Comment: FASTI NG. JKW Performed By: #### T SH3, ADDONUAPLUS, A1C WTH eA, LIPID, [id number], CBC, CMP, [id number], CUU #### [address] Lymphocytes [#/volume] in Bl ood by Automated countOrdered By: Jyotsna Abarca on 11-15-2023 Lymphocytes (Bld) [#/Vol] 2.3 10*3/uL Normal 1.00-4.8 [facility] Comment on above: Order Comment: FASTI NG. JKW Performed By: #### T SH3, ADDONUAPLUS, A1C WTH eA, LIPID, [id number], CBC, CMP, [id number], CUU #### [facility] [address] [place] [address] Lymphocytes/100 leukocytes i n Blood by Automated countOrdered By: Jyotsna Abarca on 11-15-2023 Lymphocytes/100 WBC (Bld) 32.4 % Normal . [facility] Comment on above: Order Comment: FASTI NG. JKW Performed By: #### T SH3, ADDONUAPLUS, A1C WTH eA, LIPID, [id number], CBC, CMP, [id number], CUU #### [facility] [address] MCH [Entitic mass] by Automa michael countOrdered By: Jyotsna Abarca on 11-15-2023 MCH (RBC) [Entitic mass] 29.7 pg Normal 24.7-34.3 [facility] Comment on above: Order Comment: FASTJefry ConcepcionKW Performed By: #### T SH3, ADDONUAPLUS, A1C WTH eA, LIPID, [id number], CBC, CMP, [id number], CUU #### [facility] [address] MCHC Auto (RBC) [Mass/Vol]Or dered By: Jyotsna Abarca on 11-15-2023 MCHC (RBC) [Mass/Vol] 33.8 g/dL 32.0-35.[address] [facility] MCV [Entitic volume] by Auto mated countOrdered By: Jyotsna Abarca on 11-15-2023 MCV (RBC) [Entitic vol] 87.9 fL Normal 80-100 [facility] Comment on above: Order Comment: SONY ConcepcionKW Performed By: #### T SH3, ADDONUAPLUS, A1C WTH eA, LIPID, [id number], CBC, CMP, [id number], CUU #### [address] Neutrophils [#/volume] in Bl ood by Automated countOrdered By: Jyotsna Abarca on 11-15-2023 Neutrophils (Bld) [#/Vol] 3.8 10*3/uL Normal 1.8-7.7 [facility] Comment on above: Order Comment: FASTJefry BENITO JKW Performed By: #### T SH3, ADDONUAPLUS, A1C WTH eA, LIPID, [id number], CBC, CMP, [id number], CUU #### [facility] [address] Nitrite Test strip Ql (U)Ord ered By: Jyotsna Abarca on 11-15-2023 Nitrite Ql (U) Negative Negative [facility] No Panel InformationOrdered By: Jyotsna Abarca on 11-15-2023 Estimated GFR (CKD-EPI) > 60.0 mL/Min [facility] Creatinine Clearance (Chem N/A [facility] Nucleated erythrocytes [Pres ence] in Blood by Automated countOrdered By: Jyotsna Abarca on 11-15-2023 Nucleated RBC Auto Ql (Bld) 0.1 /100{WBC} 0-0.5 [facility] Platelet mean volume [Entiti c volume] in Blood by Automated countOrdered By: Jyotsna Abarca on 11-15-2023 Platelet mean volume (Bld) [Entitic vol] 8.8 fL Normal 6.3-10.7 [facility] Comment on above: Order Comment: SONY HOLLINGSWORTH. JKW Performed By: #### T SH3, ADDONUAPLUS, A1C WTH eA, LIPID, [id number], CBC, CMP, [id number], CUU #### [facility] [address] Platelets [#/volume] in Bloo d by Automated countOrdered By: Jyotsna Abarca on 11-15-2023 Platelets (Bld) [#/Vol] 205 10*3/uL Normal 150-450 [facility] Comment on above: Order Comment: FASTI NG. JKW Performed By: #### T SH3, ADDONUAPLUS, A1C WTH eA, LIPID, [id number], CBC, CMP, [id number], CUU #### [facility] [address] [place] [address] [place] Potassium [Moles/volume] in Serum or PlasmaOrdered By: Jyotsna Abarca on 11-15-2023 Potassium [Moles/Vol] 3.9 mmol/L Normal 3.5-5.1 [facility] Comment on above: Order Comment: FASTI NG. JKW Performed By: #### T SH3, ADDONUAPLUS, A1C WTH eA, LIPID, [id number], CBC, CMP, [id number], CUU #### [facility] [address] [place] [id number] [facility] Protein Auto test strip (U) [Mass/Vol]Ordered By: Jyotsna Abarca on 11-15-2023 Protein (U) [Mass/Vol] Negative Negative [facility] Protein [Mass/volume] in Ser um or PlasmaOrdered By: Jyotsna Abarca on 11-15-2023 Protein [Mass/Vol] 6.9 g/dL Normal 6.4-8.9 [facility] Comment on above: Order Comment: FASTI NG. JKW Performed By: #### T SH3, ADDONUAPLUS, A1C WTH eA, LIPID, [id number], CBC, CMP, [id number], CUU #### [facility] [address] Serum globulin measurement b y calculation (mass/volume)Ordered By: Jyotsna Abarca on 11-15-2023 Globulin (S) [Mass/Vol] 2.5 g/dL Normal [facility] Comment on above: Order Comment: FASTI NG. JKW Performed By: #### T SH3, ADDONUAPLUS, A1C WTH eA, LIPID, [id number], CBC, CMP, [id number], CUU #### [facility] [address] Serum or plasma albumin/glob ulin mass ratioOrdered By: Jyotsna Abarca on 11-15-2023 Albumin/Globulin [Mass ratio] 1.8 {ratio} Normal [facility] Comment on above: Order Comment: FASTI NG. JKW Performed By: #### T SH3, ADDONUAPLUS, A1C WTH eA, LIPID, [id number], CBC, CMP, [id number], CUU #### [facility] [address] Serum or plasma anion gap de terminationOrdered By: Jyotsna Abarca on 11-15-2023 Anion gap [Moles/Vol] 11.4 mmol/L Normal 6.0-15.0 [facility] Comment on above: Order Comment: FASTI NG. JKW Performed By: #### T SH3, ADDONUAPLUS, A1C WTH eA, LIPID, [id number], CBC, CMP, [id number], CUU #### [facility] [address] Serum or plasma high density lipoprotein (HDL) cholesterol measurementOrdered By: Jyotsna Abarca on 11-15-2023 Cholesterol in HDL [Mass/Vol] 63 mg/dL Normal 23-92 [facility] Comment on above: HDL CHOL ATP-III CLA SSIFICATION Cardiovascular RiskHDL > or equal to 60 mg/dL LOWHDL < 40 mg/dL HIGH Order Comment: FASTI NG. JKW Result Comment: HDL CHOL ATP-III CLASSIFICATION Cardiovascular Risk HDL > or equal to 60 mg/dL LOW HDL < 40 mg/dL HIGH Performed By: #### T SH3, ADDONUAPLUS, A1C WTH eA, LIPID, [id number], CBC, CMP, [id number], CUU #### [address] Serum or plasma total choles terol/high density lipoprotein (HDL) cholesterol mass ratOrdered By: Jyotsna Abarca on 11-15-2023 Cholesterol.total/Jessica sterol in HDL [Mass ratio] 2.3 {ratio} Normal <5.0 [facility] Comment on above: Order Comment: FASTI NG. JKW Performed By: #### T SH3, ADDONUAPLUS, A1C WTH eA, LIPID, [id number], CBC, CMP, [id number], CUU #### [address] Sodium [Moles/volume] in Ser um or PlasmaOrdered By: Jyotsna Abarca on 11-15-2023 Sodium [Moles/Vol] 141 mmol/L Normal 136-145 [facility] Comment on above: Order Comment: FASTI NG. JKW Performed By: #### T SH3, ADDONUAPLUS, A1C WTH eA, LIPID, [id number], CBC, CMP, [id number], CUU #### [facility] [address] [place] [address] Specific gravity Auto test s trip (U) [Rel density]Ordered By: Jyotsna Abarca on 11-15-2023 Specific gravity (U) [Rel density] 1.022 1.001-1.030 [facility] Squamous epithelial cells de tection in urine sediment by light microscopyOrdered By: Jyotsna Abarca on 11-15-2023 Epithelial cells.squamous LM Ql (Urine sed) None seen [HPF] 0-2 [facility] Thyrotropin [Units/volume] i n Serum or PlasmaOrdered By: Jyotsna Abarca on 11-15-2023 TSH Qn 1.91 m[IU]/L Normal 0.45-5.33 [facility] Comment on above: Order Comment: FASTI NG. JKW Performed By: #### T SH3, ADDONUAPLUS, A1C WTH eA, LIPID, [id number], CBC, CMP, [id number], CUU #### [facility] [address] Triglyceride [Mass/volume] i n Serum or PlasmaOrdered By: Jyotsna Abarca on 11-15-2023 Triglyceride [Mass/Vol] 62 mg/dL 0-149 [facility] Comment on above: TRIG ATP III CLASSIF ICATIONTRIG less than 150 mg/dL NormalTRIG 150-199 mg/dL Borderline highTRIG 200-500 mg/dL High TRIG greater than 500 mg/dL Very highStandard traceable to the Center for Disease Conrtrol and Prevention (CDC) test method. Urea nitrogen [Mass/volume] in Serum or PlasmaOrdered By: Jyotsna Abarca on 11-15-2023 Urea nitrogen [Mass/Vol] 14 mg/dL Normal 7-25 [facility] Comment on above: Order Comment: FASTI NG. JKW Performed By: #### T SH3, ADDONUAPLUS, A1C WTH eA, LIPID, [id number], CBC, CMP, [id number], CUU #### [facility] [address] Urine Cultureon 11-15-2023 Bacteria identified Cx Nom (U) FASTING. JKW ORGANISM: Strep agalactiae - (group b) (O:STRAGA) Angie Count 50,000 PERFORMED BY: [place] [address] PATHOLOGIST MARKETING ARE[employer] MANAGER MARYANN NUNEZ M.D. Normal [facility] Comment on above: Performed By: #### C UU, CBC, ADDONUAPLUS #### [facility] [address] [place] [address] [place] Urine bacteria detection by automated methodOrdered By: Jyotsna Abarca on 11-15-2023 Bacteria Auto Ql (U) None seen None Seen [facility] Urine clarity by refractomet ry automatedOrdered By: Jyotsna Abarca on 11-15-2023 Clarity Refractometry automated (U) Clear Clear [facility] Urine culture routineOrdered By: Jyotsna Abarca on 11-15-2023 Bacteria identified Cx Nom (U) Strep agalactiae - (group b) [facility] Urine glucose measurement by automated test strip (mass/volume)Ordered By: Jyotsna Abarca on 11-15-2023 Glucose Auto test strip (U) [Mass/Vol] Normal mg/dL Normal [facility] Urine hemoglobin detection b y automated test stripOrdered By: Jyotsna Abarca on 11-15-2023 Hemoglobin Auto test strip Ql (U) Negative Negative [facility] Urine leukocyte esterase det ection by automated test stripOrdered By: Jyotsna Abarca on 11-15-2023 Leukocyte esterase Auto test strip Ql (U) 1+ Negative [facility] Urine pH measurement by auto mated test stripOrdered By: Jyotsna Abarca on 11-15-2023 pH (U) 5.5 [pH] Normal 5.0-9.0 [facility] Comment on above: Order Comment: SONY MASSEY Name Collection Type:: Clean-Voided Midstream Performed By: #### T SH3, ADDONUAPLUS, A1C WTH eA, LIPID, [id number], CBC, CMP, [id number], CUU #### [facility] [address] [place] [id number] [place] Urobilinogen Auto test strip (U) [Mass/Vol]Ordered By: Jyotsna Abarca on 11-15-2023 Urobilinogen (U) [Mass/Vol] Normal mg/dL Normal [facility] Vit. B12/Folate Profileon Folate 30.0 ng/mL Normal >5.9 [facility] Comment on above: Order Comment: FASTI NG. JKW Result Comment: Christina te reference range: >5.9 ng/ml The WHO technical consultation on folate and vitamin b12 deficiencies has determined that folate concentrations less than 4 ng/ml are considered deficient. Performed By: #### T SH3, ADDONUAPLUS, A1C WTH eA, LIPID, [id number], CBC, CMP, [id number], CUU #### [facility] [address] Vitamin B12 ser/plasOrdered By: Jyotsna Abarca on 11-15-2023 Cobalamin (Vitamin B12) [Mass/Vol] 884 pg/mL Normal 180-914 [facility] Comment on above: Order Comment: SONY HOLLINGSWORTH. JKW Performed By: #### T SH3, ADDONUAPLUS, A1C WTH eA, LIPID, [id number], CBC, CMP, [id number], CUU #### [facility] [address] [place] [id number] [place] Vitamin D 25 Hydroxy Totalon 11-15-2023 Vitamin D 25 Hydroxy Total 70.4 ng/mL Normal 30-100 [facility] Comment on above: Order Comment: SONY HOLLINGSWORTH. JKW Result Comment: CHICO MIN D STATUS 25(OH)VITAMIN D RANGE (ng/mL) Deficient <20 Insufficient 20 to <30 Sufficient 30 to 100 Reference: Delfino MF,Blaze NC, Ragini ALEXIS, et al. Evaluation,treatment, and prevention of vitamin D deficiency; an Endocrine Society clinical practice guideline. JCEM. 2010; 96(7):1911-30. PERFORMED BY: [place] [address] PATHOLOGIST MARKETING ARE[employer] MANAGER MARYANN NUNEZ M.D. Performed By: #### C UU, CBC, ADDONUAPLUS #### [facility] [address] [place] [address] [place] Vitamin D+Metabolites [Mass/ volume] in Serum or PlasmaOrdered By: Jyotsna Abarca on 11-15-2023 Vitamin D+Metabolites [Mass/Vol] 70.4 ng/mL 30-100 [facility] Comment on above: VITAMIN D STATUS 25( OH)VITAMIN D RANGE (ng/mL) Deficient <20 Insufficient 20 to <30Sufficient 30 to 100Reference: Delfino MF,Blaze NC, Ragini ALEXIS, et al. Evaluation,treatment, and prevention of vitamin D deficiency; an Endocrine Society clinical practice guideline. JCEM. 2010; 96(7):1911-30. ECG 12 Leadon 08-14-2023 Mild sinus bradycardia with sinus arrhythmia [facility] Work Phone: Automated basophil %Ordered By: Jyotsna Abarca on 06-25-2023 Basophils/100 WBC (Bld) 1.0 % Normal . [facility] Comment on above: Performed By: #### C UU, CBC, ADDONUAPLUS #### [address] Automated basophil countOrde red By: Jyotsna Abarca on 06-25-2023 Basophils (Bld) [#/Vol] 0.1 10*3/uL Normal 0.0-0.2 [facility] Comment on above: Result Comment: PERF ORMED BY: [place] [address] PATHOLOGIST MARKETING ARE[employer] MANAGER MARYANN NUNEZ M.D. Performed By: #### C UU, CBC, ADDONUAPLUS #### [address] Automated blood monocyte cou ntOrdered By: Jyotsna Abarca on 06-25-2023 Monocytes (Bld) [#/Vol] 0.6 10*3/uL Normal 0.0-0.8 [facility] Comment on above: Performed By: #### C UU, CBC, ADDONUAPLUS #### [address] Automated eosinophil %Ordere d By: Jyotsna Abarca on 06-25-2023 Eosinophils/100 WBC (Bld) 4.0 % Normal . [facility] Comment on above: Performed By: #### C UU, CBC, ADDONUAPLUS #### [facility] [address] [place] [address] Automated eosinophil countOr dered By: Jyotsna Abarca on 06-25-2023 Eosinophils (Bld) [#/Vol] 0.3 10*3/uL Normal 0.0-0.45 [facility] Comment on above: Performed By: #### C UU, CBC, ADDONUAPLUS #### [facility] [address] Automated erythrocytes count in urine sediment (number/area)Ordered By: Jyotsna Abarca on 06-25-2023 RBC Auto (Urine sed) [#/Area] 1-2 [HPF] 0-4 [facility] Automated leukocytes count i n urine sediment (number/area)Ordered By: Jyotsna Abarca on 06-25-2023 WBC Auto (Urine sed) [#/Area] None seen [HPF] 0-4 [facility] Automated monocyte %Ordered By: Jyotsna Abarca on 06-25-2023 Monocytes/100 WBC (Bld) 8.5 % Normal . [facility] Comment on above: Performed By: #### C UU, CBC, ADDONUAPLUS #### [address] Automated neutrophil %Ordere d By: Jyotsna Abarca on 06-25-2023 Neutrophils/100 WBC (Bld) 52.2 % Normal . [facility] Comment on above: Performed By: #### C UU, CBC, ADDONUAPLUS #### [facility] [address] [place] [address] Automated urine color determ inationOrdered By: Jyotsna Abarca on 06-25-2023 Color (U) Yellow Normal Yellow [facility] Comment on above: Order Comment: Name Collection Type:: Clean-Voided Midstream Performed By: #### C UU, CBC, ADDONUAPLUS #### [facility] [address] [place] [address] Bilirubin Test strip Ql (U)O rdered By: Jyotsna Abarac on 06-25-2023 Bilirubin Ql (U) Negative Negative [facility] Complete Blood Count Auto Di ffon 06-25-2023 Mean Corpuscular HGB Conc 33.5 g/dL Normal 32.0-35.0 [facility] Comment on above: Performed By: #### C UU, CBC, ADDONUAPLUS #### [address] NRBC% 0.1 /100{WBC} Normal 0-0.5 [facility] Comment on above: Performed By: #### C UU, CBC, ADDONUAPLUS #### [address] Dipstick and Microscopicon 0 06-25-2023 Appearance (U) Clear Normal Clear [facility] Comment on above: Order Comment: Name Collection Type:: Clean-Voided Midstream Performed By: #### C UU, CBC, ADDONUAPLUS #### [address] Bacteria,Urine None Seen Normal None Seen [facility] Comment on above: Order Comment: Name Collection Type:: Clean-Voided Midstream Performed By: #### C UU, CBC, ADDONUAPLUS #### [address] Bilirubin,Urine Negative Normal Negative [facility] Comment on above: Order Comment: Name Collection Type:: Clean-Voided Midstream Performed By: #### C UU, CBC, ADDONUAPLUS #### [address] Glucose Ql (U) Normal Normal Normal [facility] Comment on above: Order Comment: Name Collection Type:: Clean-Voided Midstream Performed By: #### C UU, CBC, ADDONUAPLUS #### [address] Hyaline Casts,Urine 0-8 Normal 0-8 [facility] Comment on above: Order Comment: Name Collection Type:: Clean-Voided Midstream Result Comment: PERF ORMED BY: [place] [address] PATHOLOGIST MARKETING [employer] MANAGER MARYANN NUNEZ M.D. Performed By: #### C UU, CBC, ADDONUAPLUS #### [place] [address] [place] Ketones Ql (U) Negative Normal Negative [facility] Comment on above: Order Comment: Name Collection Type:: Clean-Voided Midstream Performed By: #### C UU, CBC, ADDONUAPLUS #### [address] Leukocyte esterase Test strip Ql (U) 1+ High Negative [facility] Comment on above: Order Comment: Name Collection Type:: Clean-Voided Midstream Performed By: #### C UU, CBC, ADDONUAPLUS #### [place] [address] [place] Nitrite,Urine Negative Normal Negative [facility] Comment on above: Order Comment: Name Collection Type:: Clean-Voided Midstream Performed By: #### C UU, CBC, ADDONUAPLUS #### [place] [address] [place] Occult Blood,Urine Negative Normal Negative [facility] Comment on above: Order Comment: Name Collection Type:: Clean-Voided Midstream Result Comment: PERF ORMED BY: [place] [address] PATHOLOGIST MARKETING ARE[employer] MANAGER MARYANN NUNEZ M.D. Performed By: #### C UU, CBC, ADDONUAPLUS #### [place] [address] [place] Protein,Urine Negative Normal Negative [facility] Comment on above: Order Comment: Name Collection Type:: Clean-Voided Midstream Performed By: #### C UU, CBC, ADDONUAPLUS #### [place] [address] [place] RBC,Urine 1-2 Normal 0-4 [facility] Comment on above: Order Comment: Name Collection Type:: Clean-Voided Midstream Performed By: #### C UU, CBC, ADDONUAPLUS #### [place] [address] [place] Specificy [place],Urine 1.019 Normal 1.001-1.030 [facility] Comment on above: Order Comment: Name Collection Type:: Clean-Voided Midstream Performed By: #### C UU, CBC, ADDONUAPLUS #### [address] Squamous Epithelial Cell,Urine 0-1 Normal 0-2 [facility] Comment on above: Order Comment: Name Collection Type:: Clean-Voided Midstream Performed By: #### C UU, CBC, ADDONUAPLUS #### [address] Urobilinogen,Urine Normal Normal Normal [facility] Comment on above: Order Comment: Name Collection Type:: Clean-Voided Midstream Performed By: #### C UU, CBC, ADDONUAPLUS #### [address] WBC,Urine None Seen Normal 0-4 [facility] Comment on above: Order Comment: Name Collection Type:: Clean-Voided Midstream Performed By: #### C UU, CBC, ADDONUAPLUS #### [address] Erythrocyte distribution wid th [Ratio] by Automated countOrdered By: Jyotsna Abarca on 06-25-2023 Erythrocyte distribution width (RBC) [Ratio] 13.6 % Normal 11.9-15.3 [facility] Comment on above: Performed By: #### C UU, CBC, ADDONUAPLUS #### [address] Erythrocytes [#/volume] in B lood by Automated countOrdered By: Jyotsna Abarca on 06-25-2023 RBC (Bld) [#/Vol] 4.37 10*6/uL Normal 3.60-5.00 [facility] Comment on above: Performed By: #### C UU, CBC, ADDONUAPLUS #### [address] Hematocrit [Volume Fraction] of Blood by Automated countOrdered By: Jyotsna Abarca on 06-25-2023 Hematocrit (Bld) [Volume fraction] 37.7 % Normal 34.0-46.4 [facility] Comment on above: Performed By: #### C UU, CBC, ADDONUAPLUS #### [facility] [address] [place] [address] Hemoglobin [Mass/volume] in BloodOrdered By: Jyotsna Abarca on 06-25-2023 Hemoglobin (Bld) [Mass/Vol] 12.6 g/dL Normal 11.8-15.4 [facility] Comment on above: Performed By: #### C UU, CBC, ADDONUAPLUS #### [address] Ketones Auto test strip (U) [Mass/Vol]Ordered By: Jyotsna Abarca on 06-25-2023 Ketones (U) [Mass/Vol] Negative Negative [facility] - UrinalysisOrder ed By: Jyotsna Abarca on 06-25-2023 Hyaline casts LM Ql (Urine sed) 0-8 [LPF] 0-8 [facility] Leukocytes [#/volume] correc michael for nucleated erythrocytes in Blood by Automated counOrdered By: Jyotsna Abarca on 06-25-2023 WBC corrected for nucl RBC Auto (Bld) [#/Vol] 7.3 10*3/uL 3.8-11.6 [facility] Leukocytes [#/volume] in Blo od by Automated countOrdered By: Jyotsna Abarca on 06-25-2023 WBC (Bld) [#/Vol] 7.3 10*3/uL Normal 3.8-11.6 [facility] Comment on above: Performed By: #### C UU, CBC, ADDONUAPLUS #### [facility] [address] [place] [address] [place] Lymphocytes [#/volume] in Bl ood by Automated countOrdered By: Jyotsna Abarca on 06-25-2023 Lymphocytes (Bld) [#/Vol] 2.5 10*3/uL Normal 1.00-4.8 [facility] Comment on above: Performed By: #### C UU, CBC, ADDONUAPLUS #### [facility] [address] [place] [address] Lymphocytes/100 leukocytes i n Blood by Automated countOrdered By: Jyotsna Abarca on 06-25-2023 Lymphocytes/100 WBC (Bld) 34.3 % Normal . [facility] Comment on above: Performed By: #### C UU, CBC, ADDONUAPLUS #### [address] MCH [Entitic mass] by Automa michael countOrdered By: Jyotsna Abarca on 06-25-2023 MCH (RBC) [Entitic mass] 28.9 pg Normal 24.7-34.3 [facility] Comment on above: Performed By: #### C UU, CBC, ADDONUAPLUS #### [address] MCHC Auto (RBC) [Mass/Vol]Or dered By: Jyotsna Abarca on 06-25-2023 MCHC (RBC) [Mass/Vol] 33.5 g/dL 32.0-35.0 [facility] MCV [Entitic volume] by Auto mated countOrdered By: Jyotsna Abarca on 06-25-2023 MCV (RBC) [Entitic vol] 86.3 fL Normal 80-100 [facility] Comment on above: Performed By: #### C UU, CBC, ADDONUAPLUS #### [address] Neutrophils [#/volume] in Bl ood by Automated countOrdered By: Jyotsna Abarca on 06-25-2023 Neutrophils (Bld) [#/Vol] 3.8 10*3/uL Normal 1.8-7.7 [facility] Comment on above: Performed By: #### C UU, CBC, ADDONUAPLUS #### [address] Nitrite Test strip Ql (U)Ord ered By: Jyotsna Abarca on 06-25-2023 Nitrite Ql (U) Negative Negative [facility] Nucleated erythrocytes [Pres ence] in Blood by Automated countOrdered By: Jyotsna Abarca on 06-25-2023 Nucleated RBC Auto Ql (Bld) 0.1 /100{WBC} 0-0.5 [facility] Platelet mean volume [Entiti c volume] in Blood by Automated countOrdered By: Jyotsna Abarca on 06-25-2023 Platelet mean volume (Bld) [Entitic vol] 8.2 fL Normal 6.3-10.7 [facility] Comment on above: Performed By: #### C UU, CBC, ADDONUAPLUS #### [facility] [address] [place] [address] Platelets [#/volume] in Bloo d by Automated countOrdered By: Jyotsna Abarca on 06-25-2023 Platelets (Bld) [#/Vol] 202 10*3/uL Normal 150-450 [facility] Comment on above: Performed By: #### C UU, CBC, ADDONUAPLUS #### [address] Protein Auto test strip (U) [Mass/Vol]Ordered By: Jyotsna Abarca on 06-25-2023 Protein (U) [Mass/Vol] Negative Negative [facility] Specific gravity Auto test s trip (U) [Rel density]Ordered By: Jyotsna Abarca on 06-25-2023 Specific gravity (U) [Rel density] 1.019 1.001-1.030 [facility] Squamous epithelial cells de tection in urine sediment by light microscopyOrdered By: Jyotsna Abarca on 06-25-2023 Epithelial cells.squamous LM Ql (Urine sed) 0-1 [HPF] 0-2 [facility] Urine Cultureon 06-25-2023 Bacteria identified Cx Nom (U) ORGANISM: Strep agalactiae - (group b) (O:STRAGA) Angie Count 50,000 PERFORMED BY: [place] [address] PATHOLOGIST MARK[employer]ING [employer] MANAGER MARYANN NUNEZ M.D. Normal [facility] Comment on above: Performed By: #### C UU, CBC, ADDONUAPLUS #### [address] Urine bacteria detection by automated methodOrdered By: Jyotsna Abarca on 06-25-2023 Bacteria Auto Ql (U) None seen None Seen [facility] Urine clarity by refractomet ry automatedOrdered By: Jyotsna Abarca on 06-25-2023 Clarity Refractometry automated (U) Clear Clear [facility] Urine glucose measurement by automated test strip (mass/volume)Ordered By: Jyotsna Abarca on 06-25-2023 Glucose Auto test strip (U) [Mass/Vol] Normal mg/dL Normal [facility] Urine hemoglobin detection b y automated test stripOrdered By: Jyotsna Abarca on 06-25-2023 Hemoglobin Auto test strip Ql (U) Negative Negative [facility] Urine leukocyte esterase det ection by automated test stripOrdered By: Jyotsna Abarca on 06-25-2023 Leukocyte esterase Auto test strip Ql (U) 1+ Negative [facility] Urine pH measurement by auto mated test stripOrdered By: Jyotsna Abarca on 06-25-2023 pH (U) 5.5 [pH] Normal 5.0-9.0 [facility] Comment on above: Order Comment: Name Collection Type:: Clean-Voided Midstream Performed By: #### C UU, CBC, ADDONUAPLUS #### [facility] [address] [place] [address] Urobilinogen Auto test strip (U) [Mass/Vol]Ordered By: Jyotsna Abarca on 06-25-2023 Urobilinogen (U) [Mass/Vol] Normal mg/dL Normal [facility] Alanine aminotransferase [En zymatic activity/volume] in Serum or PlasmaOrdered By: Jyotsna Abarca on 05-09-2023 ALT [Catalytic activity/Vol] 12 U/L 7-52 [facility] Albumin [Mass/volume] in Ser um or Plasma by Bromocresol green (BCG) dye binding methoOrdered By: Jyotsna Abarca on 05-09-2023 Albumin BCG dye [Mass/Vol] 4.4 g/dL 3.5-5.7 [facility] Alkaline phosphatase [Enzyma tic activity/volume] in Serum or PlasmaOrdered By: Jyotsna Abarca on 05-09-2023 ALP [Catalytic activity/Vol] 70 U/L 34-104 [facility] Aspartate aminotransferase [ Enzymatic activity/volume] in Serum or PlasmaOrdered By: Jyotsna Abarca on 05-09-2023 AST [Catalytic activity/Vol] 25 U/L 13-39 [facility] Automated erythrocytes count in urine sediment (number/area)Ordered By: Jyotsna Abarca on 05-09-2023 RBC Auto (Urine sed) [#/Area] 3-4 [HPF] 0-4 [facility] Automated leukocytes count i n urine sediment (number/area)Ordered By: Jyotsna Abarca on 05-09-2023 WBC Auto (Urine sed) [#/Area] 0-1 [HPF] 0-4 [facility] Basophils Auto (Bld) [#/Vol] Ordered By: Jyotsna Abarca on 05-09-2023 Basophils (Bld) [#/Vol] 0.1 10*3/uL 0.0-0.2 [facility] Basophils/100 WBC Auto (Bld) Ordered By: Jyotsna Abarca on 05-09-2023 Basophils/100 WBC (Bld) 1.2 % . [facility] Bilirubin Test strip Ql (U)O rdered By: Jyotsna Abarca on 05-09-2023 Bilirubin Ql (U) Negative Negative [facility] Bilirubin.total [Mass/volume ] in Serum or PlasmaOrdered By: Jyotsna Abarca on 05-09-2023 Bilirubin [Mass/Vol] 0.5 mg/dL 0.3-1.0 [facility] Calcium [Mass/volume] in Ser um or PlasmaOrdered By: Jyotsna Abarca on 05-09-2023 Calcium [Mass/Vol] 9.2 mg/dL 8.6-10.3 [facility] Carbon dioxide, total [Moles /volume] in Serum or PlasmaOrdered By: Jyotsna Abarca on 05-09-2023 CO2 [Moles/Vol] 28.5 mmol/L 21.0-31.0 [facility] Chloride [Moles/volume] in S augustus or PlasmaOrdered By: Jyotsna Abarca on 05-09-2023 Chloride [Moles/Vol] 106 mmol/L 98-107 [facility] Cholesterol [Mass/volume] in Serum or PlasmaOrdered By: Jyotsna Abarca on 05-09-2023 Cholesterol [Mass/Vol] 138 mg/dL 140-200 [facility] Comment on above: Chol less than 200 m g/dl low riskChol 201-239 mg/dl borderline riskChol 240 mg/dl and greater high risk Cholesterol in LDL Calc [Mas s/Vol]Ordered By: Jyotsna Abarca on 05-09-2023 Cholesterol in LDL [Mass/Vol] 70 mg/dL 0-100 [facility] Comment on above: LDL ATP III CLASSIFI CATIONLDL less than 100 mg/dL OptimalLDL 100-129 mg/dL Near or above optimalLDL 130-159 mg/dL Borderline highLDL 160-189 mg/dL HighLDL greater than 189 mg/dL Very high Cholesterol in VLDL Calc [Ma ss/Vol]Ordered By: Jyotsna Abarca on 05-09-2023 Cholesterol in VLDL [Mass/Vol] 14 mg/dL [facility] Color Auto (U)Ordered By: Shaw Abarca on 05-09-2023 Color (U) Yellow Yellow [facility] Creatinine [Mass/volume] in Serum or PlasmaOrdered By: Jyotsna Abarca on 05-09-2023 Creatinine [Mass/Vol] 0.87 mg/dL 0.60-1.20 [facility] Eosinophils Auto (Bld) [#/Vo l]Ordered By: Jyotsna Abarca on 05-09-2023 Eosinophils (Bld) [#/Vol] 0.3 10*3/uL 0.0-0.45 [facility] Eosinophils/100 WBC Auto (Bl d)Ordered By: Jyotsna Abarca on 05-09-2023 Eosinophils/100 WBC (Bld) 4.8 % . [facility] Erythrocyte distribution wid th Auto (RBC) [Ratio]Ordered By: Jyotsna Abarca on 05-09-2023 Erythrocyte distribution width (RBC) [Ratio] 13.1 % 11.9-15.3 [facility] Folate [Mass/volume] in Seru m or PlasmaOrdered By: Jyotsna Abarca on 05-09-2023 Folate [Mass/Vol] 27.0 ng/mL >5.9 [facility] Comment on above: Folate reference ran ge: >5.9 ng/mlThe WHO technical consultation on folate and vitamin [id number] has determined that folate concentrations lessthan 4 ng/ml are considered deficient. Globulin Calc (S) [Mass/Vol] Ordered By: Jyotsna Abarca on 05-09-2023 Globulin (S) [Mass/Vol] 2.2 g/dL [facility] Glucose [Mass/volume] in Ser um or PlasmaOrdered By: Jyotsna Abarca on 05-09-2023 Glucose [Mass/Vol] 86 mg/dL 70-100 [facility] Comment on above: ADA recommended refe rence rangeRandom Glucose Reference Range is dependent on time and content of last meal. Glucose of more than 200 mg/dL in a nonstressed, ambulatory subject supports the diagnosis of Diabetes Mellitus. Glucose mean value [Mass/vol ume] in Blood Estimated from glycated hemoglobinOrdered By: Jyotsna Abarca on 05-09-2023 Average glucose Estimated from glycated hemoglobin (Bld) [Mass/Vol] 126 mg/dL [facility] Hematocrit Auto (Bld) [Volum e fraction]Ordered By: Jyotsna Abarca on 05-09-2023 Hematocrit (Bld) [Volume fraction] 37.2 % 34.0-46.4 [facility] Hemoglobin A1c percentageOrd ered By: Jyotsna Abarca on 05-09-2023 HbA1c (Bld) [Mass fraction] 6.0 % 4.3-5.6 [facility] Comment on above: Increased risk for d iabetes: 5.7 - 6.4diabetes: >6.4glycemic control for adults with diabetes: <7.0 Hemoglobin [Mass/volume] in BloodOrdered By: Jyotsna Abarca on 05-09-2023 Hemoglobin (Bld) [Mass/Vol] 12.6 g/dL 11.8-15.4 [facility] Ketones Auto test strip (U) [Mass/Vol]Ordered By: Jyotsna Abarca on 05-09-2023 Ketones (U) [Mass/Vol] Negative Negative [facility] - UrinalysisOrder ed By: Jyotsna Abarca on 05-09-2023 Hyaline casts LM Ql (Urine sed) 0-8 [LPF] 0-8 [facility] Leukocytes [#/volume] correc michael for nucleated erythrocytes in Blood by Automated counOrdered By: Jyotsna Abarca on 05-09-2023 WBC corrected for nucl RBC Auto (Bld) [#/Vol] 6.3 10*3/uL 3.8-11.6 [facility] Lymphocytes Auto (Bld) [#/Vo l]Ordered By: Jyotsna Abarca on 05-09-2023 Lymphocytes (Bld) [#/Vol] 2.1 10*3/uL 1.00-4.8 [facility] Lymphocytes/100 WBC Auto (Bl d)Ordered By: Jyotsna Abarca on 05-09-2023 Lymphocytes/100 WBC (Bld) 33.6 % . [facility] MCH Auto (RBC) [Entitic mass ]Ordered By: Jyotsna Abarca on 05-09-2023 MCH (RBC) [Entitic mass] 29.2 pg 24.7-34.3 [facility] MCHC Auto (RBC) [Mass/Vol]Or dered By: Jyotsna Abarca on 05-09-2023 MCHC (RBC) [Mass/Vol] 33.9 g/dL 32.0-35.[address] [facility] MCV Auto (RBC) [Entitic vol] Ordered By: Jyotsna Abarca on 05-09-2023 MCV (RBC) [Entitic vol] 86.1 fL 80-100 [facility] Monocytes Auto (Bld) [#/Vol] Ordered By: Jyotsna Abarca on 05-09-2023 Monocytes (Bld) [#/Vol] 0.6 10*3/uL 0.0-0.8 [facility] Monocytes/100 WBC Auto (Bld) Ordered By: Jyotsna Abarca on 05-09-2023 Monocytes/100 WBC (Bld) 9.4 % . [facility] Neutrophils Auto (Bld) [#/Vo l]Ordered By: Jyotsna Abarca on 05-09-2023 Neutrophils (Bld) [#/Vol] 3.2 10*3/uL 1.8-7.7 [facility] Neutrophils/100 WBC Auto (Bl d)Ordered By: Jyotsna Abarca on 05-09-2023 Neutrophils/100 WBC (Bld) 51.0 % . [facility] Nitrite Test strip Ql (U)Ord ered By: Jyotsna Abarca on 05-09-2023 Nitrite Ql (U) Negative Negative [facility] No Panel InformationOrdered By: Jyotsna Abarca on 05-09-2023 Estimated GFR (CKD-EPI) > 60.0 mL/Min [facility] Creatinine Clearance (Chem N/A [facility] Nucleated erythrocytes [Pres ence] in Blood by Automated countOrdered By: Jyotsna Abarca on 05-09-2023 Nucleated RBC Auto Ql (Bld) 0.0 /100{WBC} 0-0.5 [facility] Platelet mean volume Auto (B ld) [Entitic vol]Ordered By: Jyotsna Abarca on 05-09-2023 Platelet mean volume (Bld) [Entitic vol] 8.2 fL 6.3-10.7 [facility] Platelets Auto (Bld) [#/Vol] Ordered By: Jyotsna Abarca on 05-09-2023 Platelets (Bld) [#/Vol] 185 10*3/uL 150-450 [facility] Potassium [Moles/volume] in Serum or PlasmaOrdered By: Jyotsna Abarca on 05-09-2023 Potassium [Moles/Vol] 3.9 mmol/L 3.5-5.1 [facility] Protein Auto test strip (U) [Mass/Vol]Ordered By: Jyotsna Abarca on 05-09-2023 Protein (U) [Mass/Vol] Negative Negative [facility] Protein [Mass/volume] in Ser um or PlasmaOrdered By: Jyotsna Abarca on 05-09-2023 Protein [Mass/Vol] 6.6 g/dL 6.4-8.9 [facility] RBC Auto (Bld) [#/Vol]Ordere d By: Jyotsna Abarca on 05-09-2023 RBC (Bld) [#/Vol] 4.32 10*6/uL 3.60-5.00 [facility] Serum or plasma albumin/glob ulin mass ratioOrdered By: Jyotsna Abarca on 05-09-2023 Albumin/Globulin [Mass ratio] 2.0 {ratio} [facility] Serum or plasma anion gap de terminationOrdered By: Jyotsna Abarca on 05-09-2023 Anion gap [Moles/Vol] 11.4 mmol/L 6.0-15.0 [facility] Serum or plasma high density lipoprotein (HDL) cholesterol measurementOrdered By: Jyotsna Abarca on 05-09-2023 Cholesterol in HDL [Mass/Vol] 54 mg/dL 23-92 [facility] Comment on above: HDL CHOL ATP-III CLA SSIFICATION Cardiovascular RiskHDL > or equal to 60 mg/dL LOWHDL < 40 mg/dL HIGH Serum or plasma total choles terol/high density lipoprotein (HDL) cholesterol mass ratOrdered By: Jyotsna Abarca on 05-09-2023 Cholesterol.total/Jessica sterol in HDL [Mass ratio] 2.6 {ratio} <5.0 [facility] Sodium [Moles/volume] in Ser um or PlasmaOrdered By: Jyotsna Abarca on 05-09-2023 Sodium [Moles/Vol] 142 mmol/L 136-145 [facility] Specific gravity Auto test s trip (U) [Rel density]Ordered By: Jyotsna Abarca on 05-09-2023 Specific gravity (U) [Rel density] 1.020 1.001-1.030 [facility] Squamous epithelial cells de tection in urine sediment by light microscopyOrdered By: Jyotsna Abarca on 05-09-2023 Epithelial cells.squamous LM Ql (Urine sed) 3-4 [HPF] 0-2 [facility] Triglyceride [Mass/volume] i n Serum or PlasmaOrdered By: Jyotsna Abarca on 05-09-2023 Triglyceride [Mass/Vol] 70 mg/dL 0-149 [facility] Comment on above: TRIG ATP III CLASSIF ICATIONTRIG less than 150 mg/dL NormalTRIG 150-199 mg/dL Borderline highTRIG 200-500 mg/dL High TRIG greater than 500 mg/dL Very highStandard traceable to the Center for Disease Conrtrol and Prevention (CDC) test method. Urea nitrogen [Mass/volume] in Serum or PlasmaOrdered By: Jyotsna Abarca on 05-09-2023 Urea nitrogen [Mass/Vol] 14 mg/dL 7-25 [facility] Urine bacteria detection by automated methodOrdered By: Jyotsna Abarca on 05-09-2023 Bacteria Auto Ql (U) None seen None Seen [facility] Urine clarity by refractomet ry automatedOrdered By: Jyotsna Abarca on 05-09-2023 Clarity Refractometry automated (U) Clear Clear [facility] Urine culture routineOrdered By: Jyotsna Abarca on 05-09-2023 Bacteria identified Cx Nom (U) Strep. agalactiae Grp B [facility] Urine glucose measurement by automated test strip (mass/volume)Ordered By: Jyotsna Abarca on 05-09-2023 Glucose Auto test strip (U) [Mass/Vol] Normal mg/dL Normal [facility] Urine hemoglobin detection b y automated test stripOrdered By: Jyotsna Abarca on 05-09-2023 Hemoglobin Auto test strip Ql (U) Negative Negative [facility] Urine leukocyte esterase det ection by automated test stripOrdered By: Jyotsna Abarca on 05-09-2023 Leukocyte esterase Auto test strip Ql (U) 2+ Negative [facility] Urobilinogen Auto test strip (U) [Mass/Vol]Ordered By: Jyotsna Abarca on 05-09-2023 Urobilinogen (U) [Mass/Vol] Normal mg/dL Normal [facility] Vitamin B12 ser/plasOrdered By: Jyotsna Abarca on 05-09-2023 Cobalamin (Vitamin B12) [Mass/Vol] 543 pg/mL 180-914 [facility] Vitamin D+Metabolites [Mass/ volume] in Serum or PlasmaOrdered By: Jyotsna Abarca on 05-09-2023 Vitamin D+Metabolites [Mass/Vol] 53.9 ng/mL 30-100 [facility] Comment on above: VITAMIN D STATUS 25( [place])VITAMIN D RANGE (ng/mL) Deficient <20 Insufficient 20 to <30Sufficient 30 to 100Reference: Delfino MF,Blaze NC, Ragini ALEXIS, et al. Evaluation,treatment, and prevention of vitamin D deficiency; an Endocrine Society clinical practice guideline. JCEM. 2010; 96(7):1911-30. WBC Auto (Bld) [#/Vol]Ordere d By: Jyotsna Abarca on 05-09-2023 WBC (Bld) [#/Vol] 6.3 10*3/uL 3.8-11.6 [facility] pH Auto test strip (U)Ordere d By: Jyotsna Abarca on 05-09-2023 pH (U) 6.5 [pH] 5.0-9.0 [facility] ACID FAST SMEAR AND CXon Acid Fast Culture Negative Normal [facility] Comment on above: Result Comment: No a grace fast bacilli isolated after 6 weeks. Performed By: #### C VDTBH #### [facility] [address], [place] [address] Dr. Kamari Bianchi Acid Fast Smear Negative Normal [facility] Comment on above: Performed By: #### C VDTBH #### [facility] [address], [place] [address] Dr. Kamari Bianchi AFB Specimen Processing Concentration Normal [facility] Comment on above: Performed By: #### C VDTBH #### [facility] [address], [place] [address] CHEST WO CONon [...] by: SHAE CHAVEZ Date: 2023-04-04 12:[address] [facility] FUNGAL CULTUREon 03-22-2023 Fungus (Mycology) Culture Final report Normal [facility] Comment on above: Performed By: #### C XFUN #### [facility] [address] [place] [address] Dr. Kamari Bianchi Fungus Stain Final report Normal [facility] Comment on above: Performed By: #### C XFUN #### [facility] [address] [place] [address] Dr. Kamari Bianchi Result [address] [facility] Comment on above: Result Comment: SAHARA/ Calcofluor preparation: no fungus observed. Performed By: #### C XFUN #### [facility] [address] [place] [address] Dr. Kamari Bianchi Result Comment: No y [...] S F Levofloxacin <=0.[address] [facility] Comment on above: Performed By: #### O THCX #### [facility] [address] [place] [address] Dr. Kamari Bianchi CYTOLOGYon 02-20-2023 SENT TO REF LAB 02/21/23 [facility] Comment on above: Performed By: #### C YTO #### [facility] [address] [place] [address] Dr. Kamari Bianchi GRAM STAINon 02-20-2023 DIPHTHEROIDS Normal [facility] Comment on above: Performed By: #### G STAIN #### [facility] [address] [place] [address] Dr. Kamari Bianchi EPITHELIALS [facility] Comment on above: Performed By: #### G STAIN #### [facility] [address] [place] [address] Dr. Kamari Bianchi FUNGAL ELEMENTS [facility] Comment on above: Performed By: #### G STAIN #### [facility] [address] [address] [address] Kamari Bianchi GRAM NEG BACILLI MODERATE Normal [facility] Comment on above: Performed By: #### G STAIN #### [facility] [address] [place] [address] Dr. Kamari Bianchi GRAM NEG DIPPLOCOCCI Normal [facility] Comment on above: Performed By: #### G STAIN #### [facility] [address] [address] [address] Kamari Bianchi GRAM POS BACILLI Normal [facility] Comment on above: Performed By: #### G STAIN #### [facility] [address] [place] [address] Dr. Kamari Bianchi GRAM POSITIVE COCCI FEW Normal [facility] Comment on above: Performed By: #### G STAIN #### [facility] [address] [place] [address] Dr. Kamari Bianchi GRAM STAIN SOURCE Lt Upper Lung Lavage Normal [facility] Comment on above: Performed By: #### G STAIN #### [facility] [address] [place] [address] Dr. Kamari Bianchi GS_DIPTH Normal [facility] Comment on above: Performed By: #### G STAIN #### [facility] [address] [place] [address] Dr. Kamari Bianchi WBC MANY Normal [facility] Comment on above: Performed By: #### G STAIN #### [facility] [address] [place] [address] Dr. Kamari Bianchi Covid-19 PCR (CVDTBH)on SARS-CoV-2 (COVID-19) RNA ELIZABETH+probe Ql (Unsp spec) Not detected Normal NOT DETECTED [facility] Comment on above: Result Comment: This test is not yet approved or cleared by the [place] FDA. When there are no FDA-approved or cleared tests available, and other criteria are met, FDA can make tests available under an emergency access mechanism called an Emergency Use Authorization (EUA). The EUA for this test is supported by the Range Examiner of Health and Human Service's (HHS's) declaration [...] SARS-CoV-2. Performed By: #### C VDTBH #### [facility] [address] [place] [address] Dr. Kamari Bianchi CBC AUTO DIFFon 02-08-2023 BASO # 0.1 103/ul Normal 0.0-0.1 [facility] Comment on above: Performed By: #### C BC #### [facility] [address] [place] [address] Dr. Kamari Bianchi Basophils/100 WBC (Bld) 1.2 % Normal 0.2-2.0 [facility] Comment on above: Performed By: #### C BC #### [facility] [address] [place] [address] Dr. Kamari Bianchi EO # 0.3 103/ul Normal 0.0-0.7 [facility] Comment on above: Performed By: #### C BC #### [facility] [address] [place] [address] Dr. Kamari Bianchi Eosinophils/100 WBC (Bld) 3.6 % Normal 0.9-7.0 [facility] Comment on above: Performed By: #### C BC #### [facility] [address] [place] [address] Dr. Kamari Bianchi Erythrocyte distribution width (RBC) [Ratio] 12.3 % Normal 11.0-15.0 [facility] Comment on above: Performed By: #### C BC #### [facility] [address] [place] [address] Dr. Kamari Bianchi Hematocrit (Bld) [Volume fraction] 37.6 % Normal 36.0-48.0 [facility] Comment on above: Performed By: #### C BC #### [facility] [address] [place] [address] Dr. Kamari Bianchi Hemoglobin (Bld) [Mass/Vol] 12.7 g/dL Normal 12.0-16.0 [facility] Comment on above: Performed By: #### C BC #### [facility] [address] [place] [address] Dr. Kamari Bianchi IG # 0.01 10e3/ul Normal 0.00-0.03 [facility] Comment on above: Performed By: #### C BC #### [facility] [address] [place] [address] Dr. Kamari Bianchi IG % 0.1 % Normal 0.0-0.5 [facility] Comment on above: Performed By: #### C BC #### [facility] [address] [place] [address] Dr. Kamari Bianchi LYMPH # 2.8 103/ul Normal 1.2-3.8 [facility] Comment on above: Performed By: #### C BC #### [facility] [address] [place] [address] Dr. Kamari Bianchi Lymphocytes/100 WBC (Bld) 32.8 % Normal 20.5-60.0 [facility] Comment on above: Performed By: #### C BC #### [facility] [address] [place] [address] Dr. Kamari Bianchi MANUAL DIFF REQ NO Normal [facility] Comment on above: Performed By: #### C BC #### [facility] [address] [place] [address] Dr. Kamari Bianchi MCH (RBC) [Entitic mass] 28.9 pg Normal 26.7-34.0 [facility] Comment on above: Performed By: #### C BC #### [facility] [address] [place] [address] Dr. Kamari Bianchi MCHC (RBC) [Mass/Vol] 33.8 g/dL Normal 29.9-35.2 [facility] Comment on above: Performed By: #### C BC #### [facility] [address] [address] [address] Kamari Bianchi MCV (RBC) [Entitic vol] 85.5 fL Normal 81.0-99.0 [facility] Comment on above: Performed By: #### C BC #### [facility] [address] [address] [address] Kamari Bianchi MONO # 0.7 103/ul Normal 0.3-0.8 [facility] Comment on above: Performed By: #### C BC #### [facility] [address] [place] [address] Dr. Kamari Bianchi Monocytes/100 WBC (Bld) 8.2 % Normal 1.7-12.0 [facility] Comment on above: Performed By: #### C BC #### [facility] [address] [place] [address] Dr. Kamari Bianchi NEUT # 4.6 103/ul Normal 1.4-6.5 [facility] Comment on above: Performed By: #### C BC #### [facility] [address] [place] [address] Dr. Kamari Bianchi Neutrophils/100 WBC (Bld) 54.1 % Normal 43.0-75.0 [facility] Comment on above: Performed By: #### C BC #### [facility] [address] [place] [address] Dr. Kamari Bianchi Platelet mean volume (Bld) [Entitic vol] 9.6 fL Normal 9.5-13.5 [facility] Comment on above: Performed By: #### C BC #### [facility] [address] [place] [address] Dr. Kamari Bianchi PLT 230 103/ul Normal 150-450 [facility] Comment on above: Performed By: #### C BC #### [facility] [address] [address] [address] Kamari Bianchi RBC 4.40 106/ul Normal 4.20-5.40 [facility] Comment on above: Performed By: #### C BC #### [facility] [address], [place] [address] Dr. Kamari Bianchi WBC 8.4 103/ul Normal 4.0-11.0 [facility] Comment on above: Performed By: #### C BC #### [facility] [address] chest wo conon 12-28-2022 CT chest wo con [facility] [employer] Other CT chest wo con [facility] [employer] Other CT chest wo con [address] [facility] [employer] Other CT chest wo con [address] [employer] Other CT chest wo con CT Scan Report [employer] Other CT chest wo con Signed [employer] Other CT chest wo con Patient: Meseret Acosta MR#: [id number] [employer] Other CT chest wo con [address] [employer] [address] chest wo con : 1950 Acct:[id number] [employer] Other CT chest wo con Age/Sex: 72 / F ADM Date: 12/28/[address] [employer] [address] [facility] [employer] Other CT chest wo con Attending Dr: Jyotsna Abarca DO [employer] Other CT chest wo con Copies to: Jyotsna Abarca, [employer] Other CT chest wo con Ordering Provider: Jyotsna Abarca, [employer] Other CT chest wo con Date of Service: 12/28/[address] [employer] [address] chest wo con CT/CT chest wo con: R93.[address] [employer] [address] chest wo con CT CHEST WITHOUT IV CONTRAST: [employer] Other CT chest wo con CLINICAL HISTORY: Follow-up pulmonary nodule [employer] Other CT chest wo con COMPARISON: CT chest 12/04/[address] [employer] [address] chest wo con TECHNIQUE: Spiral images were obtained through the chest without IV contrast. This CT exam was [employer] Other CT chest wo con performed using one or more following dose reduction techniques: Automated exposure control, [employer] Other CT chest wo con adjustment of the mA and/or kV according to patient size, or use of iterative reconstruction [employer] Other CT chest wo con technique. [employer] Other CT chest wo con FINDINGS: [employer] Other CT chest wo con Mediastinum:Right-si d ed aortic arch is noted. No aneurysm. Summary trunk appears nondilated. No [employer] Other CT chest wo con pericardial effusion . No lymphadenopathy. The esophagus is grossly unremarkable. [employer] Other CT chest wo con Lungs:Mild lung scarring with interstitial changes involving the lung bases and bronchiectasis [employer] Other CT chest wo con tion, pneumothorax o r pleural effusion. Calcified granuloma left upper lobe. Scattered tree-in-bud [employer] Other CT chest wo con nodularity. No sinister-appearing nodule seen on today's study. [employer] Other CT chest wo con Abd:No acute findings. [employer] Other CT chest wo con Soft tissues/Bones: Visualized soft tissues demonstrate no acute findings. Osseous structures [employer] Other CT chest wo con demonstrate degenerative change. [employer] Other CT chest wo con CT/CT chest wo con [employer] Other CT chest wo con IMPRESSION: [employer] [facility] [employer] Other CT chest wo con lingula. No honeycombing is identified. No sinister-appearing nodule is seen on today's study. [employer] Other CT chest wo con Impression dictated by: Jose Rafael Kelsey Jr., D.ORaleigh12/28/2022 12:[address] [facility] [address] chest wo con Dictation Location: [place] [id number] [address] chest wo con Transcribed By: PWS 12/28/22 [facility] [employer] Other CT chest wo con Dictated By: Jose Rafael Kelsey Jr, DO 12/28/22 [facility] [employer] Other CT chest wo con Signed By: [employer] [facility] [employer] Other CT chest wo con 12/28/22 [facility] [employer] Other XR CHEST 2 Von 12-05-2022 XR [...] HOWIE CHAVEZ Date: 2022-12-05 13:05 Normal [facility] Tobacco Screening.on 023 Adult depression screening assessment No -[facility] [address] DO Work Phone: Fall risk assessment a) No falls within the last year [facility] [employer] DO Work Phone: Tobacco use status CPHS b) No M -[facility] [employer] [address] DO Work Phone: XR CHEST 2 [...] by: JYOTSNA VARGAS Date: 2022-11-16 11:[address] [facility] Albumin [Mass/volume] in Ser um or PlasmaOrdered By: Jyotsna Abarca on 11-07-2022 Albumin [Mass/Vol] 4.1 g/dL 3.2-5.5 [facility] Basophils Auto (Bld) [#/Vol] Ordered By: Jyotsna Abarca on 11-07-2022 Basophils (Bld) [#/Vol] 0.1 10*3/uL 0.0-0.2 [facility] Basophils/100 WBC Auto (Bld) Ordered By: Jyotsna Abarca on 11-07-2022 Basophils/100 WBC (Bld) 1.2 % . [facility] Cholesterol [Mass/volume] in Serum or PlasmaOrdered By: Jyotsna Abarca on 11-07-2022 Cholesterol [Mass/Vol] 154 mg/dL 140-200 [facility] Comment on above: Chol less than 200 m g/dl low riskChol 201-239 mg/dl borderline riskChol 240 mg/dl and greater high risk Cholesterol in LDL Calc [Mas s/Vol]Ordered By: Jyotsna Abarca on 11-07-2022 Cholesterol in LDL [Mass/Vol] 82 mg/dL 0-100 [facility] Comment on above: LDL ATP III CLASSIFI CATIONLDL less than 100 mg/dL OptimalLDL 100-129 mg/dL Near or above optimalLDL 130-159 mg/dL Borderline highLDL 160-189 mg/dL HighLDL greater than 189 mg/dL Very high Cholesterol in VLDL Calc [Ma ss/Vol]Ordered By: Jyotsna Abarca on 11-07-2022 Cholesterol in VLDL [Mass/Vol] 11 mg/dL [facility] Creatinine and Glomerular fi ltration rate.predicted panel (S/P/Bld)Ordered By: Jyotsna Abarca on 11-07-2022 Creatinine [Mass/Vol] 0.85 mg/dL 0.44-1.03 [facility] Eosinophils Auto (Bld) [#/Vo l]Ordered By: Jyotsna Abarca on 11-07-2022 Eosinophils (Bld) [#/Vol] 0.3 10*3/uL 0.0-0.45 [facility] Eosinophils/100 WBC Auto (Bl d)Ordered By: Jyotsna Abraca on 11-07-2022 Eosinophils/100 WBC (Bld) 3.6 % . [facility] Erythrocyte distribution wid th Auto (RBC) [Ratio]Ordered By: Jyotsna Abarca on 11-07-2022 Erythrocyte distribution width (RBC) [Ratio] 12.9 % 11.9-15.3 [facility] Estimated glomerular filtrat ion rate (GFR) non- AmericanOrdered By: Jyotsna Abarca on 11-07-2022 GFR/1.73 sq M.predicted among non-blacks MDRD (S/P/Bld) [Vol rate/Area] > 60 mL/Min [facility] Folate [Mass/volume] in Seru m or PlasmaOrdered By: Jyotsna Abarca on 11-07-2022 Folate [Mass/Vol] 18.8 ng/mL >5.9 [facility] Comment on above: Folate reference ran ge: >5.9 ng/mlThe WHO technical consultation on folate and vitamin [id number] has determined that folate concentrations lessthan 4 ng/ml are considered deficient. Globulin Calc (S) [Mass/Vol] Ordered By: Jyotsna Abarca on 11-07-2022 Globulin (S) [Mass/Vol] 3.2 g/dL [facility] Glucose mean value [Mass/vol ume] in Blood Estimated from glycated hemoglobinOrdered By: Jyotsna Abarca on 11-07-2022 Average glucose Estimated from glycated hemoglobin (Bld) [Mass/Vol] 128 mg/dL [facility] Hematocrit Auto (Bld) [Volum e fraction]Ordered By: Jyotsna bAarca on 11-07-2022 Hematocrit (Bld) [Volume fraction] 40.2 % 34.0-46.4 [facility] Hemoglobin A1c percentageOrd ered By: Jyotsna Abarca on 11-07-2022 HbA1c (Bld) [Mass fraction] 6.1 % 4.3-5.6 [facility] Comment on above: Increased risk for d iabetes: 5.7 - 6.4diabetes: >6.4glycemic control for adults with diabetes: <7.0 Hemoglobin [Mass/volume] in BloodOrdered By: Jyotsna Abarca on 11-07-2022 Hemoglobin (Bld) [Mass/Vol] 13.5 g/dL 11.8-15.4 [facility] Laboratory - Chemistry and C hemistry - challengeOrdered By: Jyotsna Abarca on 11-07-2022 Cobalamin (Vitamin B12) [Mass/Vol] 865 pg/mL 180-914 [facility] Leukocytes [#/volume] correc michael for nucleated erythrocytes in Blood by Automated counOrdered By: Jyotsna Abarca on 11-07-2022 WBC corrected for nucl RBC Auto (Bld) [#/Vol] 7.6 10*3/uL 3.8-11.6 [facility] Lymphocytes Auto (Bld) [#/Vo l]Ordered By: Jyotsna Abarca on 11-07-2022 Lymphocytes (Bld) [#/Vol] 2.1 10*3/uL 1.00-4.8 [facility] Lymphocytes/100 WBC Auto (Bl d)Ordered By: Jyotsna Abarca on 11-07-2022 Lymphocytes/100 WBC (Bld) 28.2 % . [facility] MCH Auto (RBC) [Entitic mass ]Ordered By: Jyotsna Abarca on 11-07-2022 MCH (RBC) [Entitic mass] 29.3 pg 24.7-34.3 [facility] MCHC Auto (RBC) [Mass/Vol]Or dered By: Jyotsna Abarca on 11-07-2022 MCHC (RBC) [Mass/Vol] 33.5 g/dL 32.0-35.[address] [facility] MCV Auto (RBC) [Entitic vol] Ordered By: Jyotsna Abarca on 11-07-2022 MCV (RBC) [Entitic vol] 87.6 fL 80-100 [facility] Monocytes Auto (Bld) [#/Vol] Ordered By: Jyotsna Abarca on 11-07-2022 Monocytes (Bld) [#/Vol] 0.7 10*3/uL 0.0-0.8 [facility] Monocytes/100 WBC Auto (Bld) Ordered By: Jyotsna Abarca on 11-07-2022 Monocytes/100 WBC (Bld) 8.8 % . [facility] Neutrophils Auto (Bld) [#/Vo l]Ordered By: Jyotsna Abarca on 11-07-2022 Neutrophils (Bld) [#/Vol] 4.4 10*3/uL 1.8-7.7 [facility] Neutrophils/100 WBC Auto (Bl d)Ordered By: Jyotsna Abarca on 11-07-2022 Neutrophils/100 WBC (Bld) 58.2 % . [facility] No Panel InformationOrdered By: Jyotsna Abarca on 11-07-2022 25-Hydroxy Vitamin D Total 72.0 ng/mL 30-100 [facility] Comment on above: VITAMIN D STATUS 25( OH)VITAMIN D RANGE (ng/mL) Deficient <20 Insufficient 20 to <30Sufficient 30 to 100Reference: Delfino MF,Blaze NC, Ragini ALEXIS, et al. Evaluation,treatment, and prevention of vitamin D deficiency; an Endocrine Society clinical practice guideline. JCEM. 2010; 96(7):1911-30. Estimated GFR () > 60 mL/Min [facility] Comment on above: GFR estimated refere nce range: According to KDOQI guidelines, <60 ml/min/1.73m2 is sufficient to diagnose a patient with chronic kidney disease. Pharmacy Creatinine Clearance (Chem N/A [facility] Nucleated erythrocytes [Pres ence] in Blood by Automated countOrdered By: Jyotsna Abarca on 11-07-2022 Nucleated RBC Auto Ql (Bld) 0.2 /100{WBC} 0-0.5 [facility] Platelet mean volume Auto (B ld) [Entitic vol]Ordered By: Jyotsna Abarca on 11-07-2022 Platelet mean volume (Bld) [Entitic vol] 8.0 fL 6.3-10.7 [facility] Platelets Auto (Bld) [#/Vol] Ordered By: Jyotsna Abarca on 11-07-2022 Platelets (Bld) [#/Vol] 243 10*3/uL 150-450 [facility] Protein [Mass/volume] in Ser um or PlasmaOrdered By: Jyotsna Abarca on 11-07-2022 Protein [Mass/Vol] 7.3 g/dL 6.1-7.9 [facility] RBC Auto (Bld) [#/Vol]Ordere d By: Jyotsna Abarca on 11-07-2022 RBC (Bld) [#/Vol] 4.60 10*6/uL 3.60-5.00 [facility] Serum or plasma alanine shay otransferase measurement without P-5'-P (enzymatic activiOrdered By: Jyotsna Abarca on 11-07-2022 ALT No additional P-5'-P [Catalytic activity/Vol] 14 U/L 1060 [facility] Serum or plasma albumin/glob ulin mass ratioOrdered By: Jyotsna Abarca on 11-07-2022 Albumin/Globulin [Mass ratio] 1.3 {ratio} [facility] Serum or plasma alkaline fawad sphatase measurement (enzymatic activity/volume)Ordered By: Jyotsna Abraca on 11-07-2022 ALP [Catalytic activity/Vol] 74 U/L 32-92 [facility] Serum or plasma anion gap de terminationOrdered By: Jyotsna Abarca on 11-07-2022 Anion gap [Moles/Vol] 10.5 mmol/L 6.0-15.0 [facility] Serum or plasma aspartate am inotransferase measurement (enzymatic activity/volume)Ordered By: Jyotsna Abarca on 11-07-2022 AST [Catalytic activity/Vol] 26 U/L 10-42 [facility] Serum or plasma calcium ela urement (mass/volume)Ordered By: Jyotsna Abarca on 11-07-2022 Calcium [Mass/Vol] 9.7 mg/dL 8.2-10.2 [facility] Serum or plasma chloride heidi surement (moles/volume)Ordered By: Jyotsna Abarca on 11-07-2022 Chloride [Moles/Vol] 105 mmol/L 95-114 [facility] Serum or plasma glucose ela urement (mass/volume)Ordered By: Jyotsna Abarca on 11-07-2022 Glucose [Mass/Vol] 98 mg/dL 70-100 [facility] Comment on above: ADA recommended refe rence rangeRandom Glucose Reference Range is dependent on time and content of last meal. Glucose of more than 200 mg/dL in a nonstressed, ambulatory subject supports the diagnosis of Diabetes Mellitus. Serum or plasma high density lipoprotein (HDL) cholesterol measurementOrdered By: Jyotsna Abarca on 11-07-2022 Cholesterol in HDL [Mass/Vol] 61 mg/dL 35-85 [facility] Comment on above: HDL CHOL ATP-III CLA SSIFICATION Cardiovascular RiskHDL > or equal to 60 mg/dL LOWHDL < 40 mg/dL HIGH Serum or plasma potassium me asurement (moles/volume)Ordered By: Jyotsna Abarca on 11-07-2022 Potassium [Moles/Vol] 3.6 mmol/L 3.5-5.1 [facility] Serum or plasma sodium measu rement (moles/volume)Ordered By: Jyotsna Abarca on 11-07-2022 Sodium [Moles/Vol] 140 mmol/L 136-146 [facility] Serum or plasma total biliru bin measurement (mass/volume)Ordered By: Jyotsna Abarca on 11-07-2022 Bilirubin [Mass/Vol] 0.5 mg/dL 0.3-1.2 [facility] Serum or plasma total carbon dioxide measurement (moles/volume)Ordered By: Jyotsna Abarca on 11-07-2022 CO2 [Moles/Vol] 28.1 mmol/L 22.0-30.0 [facility] Serum or plasma total choles terol/high density lipoprotein (HDL) cholesterol mass ratOrdered By: Jyotsna Abarca on 11-07-2022 Cholesterol.total/Jessica sterol in HDL [Mass ratio] 2.5 {ratio} <5.0 [facility] Serum or plasma urea nitroge n measurement (mass/volume)Ordered By: Jyotsna Abarca on 11-07-2022 Urea nitrogen [Mass/Vol] 12 mg/dL 9-23 [facility] TSH DL <= 0.005 mIU/L QnOrde red By: Jyotsna Abarca on 11-07-2022 TSH Qn 2.70 m[IU]/L 0.45-5.33 [facility] Triglyceride [Mass/volume] i n Serum or PlasmaOrdered By: Jyotsna Abarca on 11-07-2022 Triglyceride [Mass/Vol] 55 mg/dL 35-149 [facility] Comment on above: TRIG ATP III CLASSIF ICATIONTRIG less than 150 mg/dL NormalTRIG 150-199 mg/dL Borderline highTRIG 200-500 mg/dL High TRIG greater than 500 mg/dL Very highStandard traceable to the Center for Disease Conrtrol and Prevention (CDC) test method. WBC Auto (Bld) [#/Vol]Ordere d By: Jyotsna Abarca on 11-07-2022 WBC (Bld) [#/Vol] 7.6 10*3/uL 3.8-11.6 [facility] MG MAMM SCREEN 3D CELINE CADon 09-25-2022 MG MAMM SCREEN 3D CELINE CAD Patient: MESERET ACOSTA Exam Date: 09/25/2022 : 1950 Gender:F Ordering : DR JYOTSNA ABARCA Admission #: [id number] Family : Order #: [id number] CLICK HERE TO VIEW EXAM RADIOLOGY REPORT [...] bone cancer at age 89. LOCATION: [facility] BREAST COMPOSITION: Heterogeneously dense,which may obscure small [...] Vargas MD on 09/25/2022 at 15:[address] 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 Normal [employer] Tobacco Screening.on 022 Adult depression screening assessment No [facility] [employer] DO Work Phone: Fall risk assessment a) No falls within the last year [facility] [employer] DO Work Phone: Tobacco use status CP b) No M [facility] [employer] DO Work Phone: Vital Signs Date Time Vital Sign Value Performing Clinician Facility 07-23-2024 13:25-0400 Blood Pressure Location Shiv LEAL [facility] 07-23-2024 13:25-0400 Diastolic blood pressure 76 mm[Hg] Shiv LEAL [facility] 07-23-2024 13:25-0400 Heart rate 72 /min Shiv LEAL [facility] 07-23-2024 13:25-0400 Respiratory rate 16 /min Shiv LEAL [facility] 07-23-2024 13:25-0400 Systolic blood pressure 138 mm[Hg] Shiv LEAL [facility] 06-11-2024 14:28-0400 Body height 148.59 cm DO Jyotsna Abarca Work Phone: [facility] 06-11-2024 14:28-0400 Body mass index (BMI) [Ratio] 20.9 kg/m2 DO Jyotsna Abarca Work Phone: [facility] 06-11-2024 14:28-0400 Body temperature 97.1 [degF] DO Jyotsna Abarca Work Phone: [facility] 06-11-2024 14:28-0400 Body weight 46.26 kg DO Jyotsna Abarca Work Phone: [facility] 06-11-2024 14:28-0400 Diastolic blood pressure 86 mm[Hg] DO Jyotsna Abarca Work Phone: [facility] 06-11-2024 14:28-0400 Heart rate 66 /min DO Jyotsna Abarca Work Phone: [facility] 06-11-2024 14:28-0400 Respiratory rate 16 /min DO Jyotsna Abarca Work Phone: [facility] 06-11-2024 14:28-0400 SaO2% (BldA) [Mass fraction] 94 % DO Jyotsna Abarca Work Phone: [facility] 06-11-2024 14:28-0400 Systolic blood pressure 138 mm[Hg] DO Jyotsna Tevin Work Phone: [facility] 11-27-2023 09:10-0500 Body height 148.59 cm Jyotsna Abarca Other [employer] Other 11-27-2023 09:10-0500 Body mass index (BMI) [Ratio] 21.88 kg/m2 Jyotsna Abarca Other [employer] Other 11-27-2023 09:10-0500 Body temperature 97.6 [degF] Jyotsna Abarca Other [employer] Other 11-27-2023 09:10-0500 Body weight 48.31 kg Jyotsna Abarca Other [employer] Other 11-27-2023 09:10-0500 Diastolic blood pressure 88 mm[Hg] Jyotsna Abarca Other [employer] Other 11-27-2023 09:10-0500 Respiratory rate 18 /min Jyotsna Abarca Other [employer] Other 11-27-2023 09:10-0500 SaO2% (BldA) [Mass fraction] 97 % Jyotsna Abarca Other [employer] Other 11-27-2023 09:10-0500 Systolic blood pressure 134 mm[Hg] Jyotsna Abarca Other [employer] Other 08-14-2023 14:19-0400 Body height 144.8 cm Mita Luciano MD Work Phone: [facility] 08-14-2023 14:19-0400 Body mass index (BMI) [Ratio] 22.42 kg/m2 Mita Luciano MD Work Phone: [facility] 08-14-2023 14:19-0400 Body weight 46.99 kg Mita Luciano MD Work Phone: [facility] 08-14-2023 14:19-0400 Diastolic blood pressure 82 mm[Hg] Mita Luciano MD Work Phone: [facility] 08-14-2023 14:19-0400 Heart rate 57 /min Mita Luciano MD Work Phone: [facility] 08-14-2023 14:19-0400 Systolic blood pressure 136 mm[Hg] Mita Luciano MD Work Phone: [facility] 05-17-2023 09:10-0400 Body height 148.59 cm Jyotsna Abarca Other [employer] Other 05-17-2023 09:10-0400 Body mass index (BMI) [Ratio] 21.16 kg/m2 Jyotsna Abarca Other [employer] Other 05-17-2023 09:10-0400 Body temperature 97.9 [degF] Jyotsna Abarca Other [employer] Other 05-17-2023 09:10-0400 Body weight 46.72 kg Jyotsna Abarca Other [employer] Other 05-17-2023 09:10-0400 Diastolic blood pressure 70 mm[Hg] Jyotsna Abarca Other [employer] Other 05-17-2023 09:10-0400 Respiratory rate 16 /min Jyotsna Abarca Other [employer] Other 05-17-2023 09:10-0400 SaO2% (BldA) [Mass fraction] 97 % Jyotsna Abarca Other [employer] Other 05-17-2023 09:10-0400 Systolic blood pressure 122 mm[Hg] Jyotsna Abarca Other [employer] Other 11-16-2022 16:01-0500 Body height 144.78 cm Jyotsna Abarca Work Phone: [facility] [employer] DO Work Phone: 11-16-2022 16:01-0500 Body mass index (BMI) [Ratio] 22.07 kg/m2 Jyotsna Abarca Work Phone: [facility] [address] DO Work Phone: 11-16-2022 16:01-0500 Body surface area Derived from formula 1.35 m2 Jyotsna Abarca Work Phone: [facility] [facility] DO Work Phone: 11-16-2022 16:01-0500 Body weight 46.27 kg Jyotsna Abarca Work Phone: [facility] [facility] DO Work Phone: 11-16-2022 16:01-0500 Diastolic blood pressure 66 mm[Hg] Jyotsna Abarca Work Phone: [facility] [facility] DO Work Phone: 11-16-2022 16:01-0500 Heart rate 60 /min Jyotsna Abarca Work Phone: [facility] [address] DO Work Phone: 11-16-2022 16:01-0500 Systolic blood pressure 136 mm[Hg] Jyotsna Abarca Work Phone: [facility] [facility] DO Work Phone: 11-16-2022 10:10-0500 Body height 148.59 cm Jyotsna Abarca Other [facility] [employer] Other 11-16-2022 10:10-0500 Body mass index (BMI) [Ratio] 20.95 kg/m2 Jyotsna Abarca Other [employer] Other 11-16-2022 10:10-0500 Body temperature 97.5 [degF] Jyotsna Abarca Other [employer] Other 11-16-2022 10:10-0500 Body weight 46.27 kg Jyotsna Abarca Other [employer] Other 11-16-2022 10:10-0500 Diastolic blood pressure 80 mm[Hg] Jyotsna Abarca Other [employer] Other 11-16-2022 10:10-0500 Respiratory rate 16 /min Jyotsna Abarca Other [employer] Other 11-16-2022 10:10-0500 SaO2% (BldA) [Mass fraction] 96 % Jyotsna Abarca Other [employer] Other 11-16-2022 10:10-0500 Systolic blood pressure 138 mm[Hg] Jyotsna Abarca Other [employer] Other 05-02-2022 10:10-0400 Body height 148.59 cm Jyotsna Abarca Other [employer] Other 05-02-2022 10:10-0400 Body mass index (BMI) [Ratio] 21.9 kg/m2 Jyotsna Abarca Other [employer] Other 05-02-2022 10:10-0400 Body temperature 97.7 [degF] Jyotsna Abarca Other [employer] Other 05-02-2022 10:10-0400 Body weight 48.35 kg Jyotsna Abarca Other [employer] Other 05-02-2022 10:10-0400 Diastolic blood pressure 70 mm[Hg] Jyotsna Abarca Other [employer] Other 05-02-2022 10:10-0400 Respiratory rate 16 /min Jyotsna Abarca Other [employer] Other 05-02-2022 10:10-0400 SaO2% (BldA) [Mass fraction] 98 % Jyotsna Abarca Other [employer] Other 05-02-2022 10:10-0400 Systolic blood pressure 110 mm[Hg] Jyotsna Abarca Other [employer] Other 03-02-2022 15:33-0400 Diastolic blood pressure 77 mm[Hg] Jyotsna Abarca -[facility] DO Work Phone: 03-02-2022 15:33-0400 Systolic blood pressure 122 mm[Hg] Jyotsna Abarca -[facility] DO Work Phone: 03-02-2022 15:25-0400 Diastolic blood pressure 80 mm[Hg] Jyotsna Abarca -[facility] DO Work Phone: 03-02-2022 15:25-0400 Systolic blood pressure 142 mm[Hg] Jyotsna Abarca -[facility] DO Work Phone: 03-02-2022 15:20-0400 Body height 144.78 cm Jyotsna Abarca [facility] DO Work Phone: 03-02-2022 15:20-0400 Body mass index (BMI) [Ratio] 22.72 kg/m2 Jyotsna Abarca -[facility] DO Work Phone: 03-02-2022 15:20-0400 Body surface area Derived from formula 1.37 m2 Jyotsna Abarca -[facility] DO Work Phone: 03-02-2022 15:20-0400 Body weight 47.63 kg Jyotsna Nacho Nelyjusten -[facility] DO Work Phone: 03-02-2022 15:20-0400 Diastolic blood pressure 79 mm[Hg] Jyotsna Nacho Tevin -[facility] DO Work Phone: 03-02-2022 15:20-0400 Heart rate 58 /min Jyotsna Nacho Tevin -[facility] DO Work Phone: 03-02-2022 15:20-0400 Systolic blood pressure 149 mm[Hg] Jyotsna Nacho Tevin -[facility] DO Work Phone: 10-25-2021 10:10-0500 Body height 148.59 cm Joytsna Abarca Other [employer] Other 10-25-2021 10:10-0500 Body mass index (BMI) [Ratio] 21.98 kg/m2 Jyotsna Abarca Other [employer] Other 10-25-2021 10:10-0500 Body temperature 97.1 [degF] Jyotsna Abacra Other [employer] Other 10-25-2021 10:10-0500 Body weight 48.54 kg Jyotsna Abarca Other [employer] Other 10-25-2021 10:10-0500 Diastolic blood pressure 78 mm[Hg] Jyotsna Abarca Other [employer] Other 10-25-2021 10:10-0500 Respiratory rate 16 /min Jyotsna Abarca Other [employer] Other 10-25-2021 10:10-0500 SaO2% (BldA) [Mass fraction] 99 % Jyotsna Abarca Other [employer] Other 10-25-2021 [id number] Systolic blood pressure 120 mm[Hg] Jyotsna Abarca Other [employer] Other Encounters Encounter Date Encounter Type Care Provider Facility Start: 08-06-2024 End: 08-06-2024 ambulatory Shiv R NILL Facility::[id number] Start: 07-23-2024 End: 07-23-2024 ambulatory Shiv R NILL Facility:[facility] Start: 07-23-2024 End: 07-23-2024 Patient encounter procedure Shiv R NILL [facility] [place] Start: 06-27-2024 ambulatory Shiv NILL Facility:[facility] Start: 06-24-2024 ambulatory Shiv NILL Facility:[facility] Start: 06-12-2024 End: 06-12-2024 Patient encounter procedure DO Jyotsna Abarca Work Phone: [facility] Start: 06-12-2024 End: 06-12-2024 ambulatory DO Jyotsna Abarca Work Phone: [facility] Work Phone: Start: 06-11-2024 End: 06-11-2024 ambulatory DO Jyotsna Abarca Work Phone: [facility] Work Phone: Start: 06-11-2024 End: 06-11-2024 Patient encounter procedure DO Jyotsna Abarca Work Phone: [facility] [place] Work Phone: Start: 05-23-2024 End: 05-23-2024 Patient encounter procedure DO Jyotsna Abarca Work Phone: [facility] Start: 05-23-2024 End: 05-23-2024 ambulatory DO Jyotsna Abarca Work Phone: [facility] Work Phone: Start: 05-21-2024 End: 05-21-2024 ambulatory [facility] Start: 05-19-2024 Non-patient / Non-visit DO Dhruv Abarca Work Phone: [facility] [place] Work Phone: Start: 02-04-2024 End: 02-04-2024 ambulatory DIANA BOTELLO Not Available Start: 12-03-2023 Telephone encounter Jyotsna Abarca [facility] [place] Start: 12-03-2023 End: 12-03-2023 Patient encounter procedure DO Jyotsna Abarca Work Phone: [facility] Start: 12-03-2023 End: 12-03-2023 ambulatory DO Jyotsna Abarca Work Phone: [facility] Work Phone: Start: 11-27-2023 End: 11-27-2023 ambulatory Jyotsna Abarca Other [employer] Other Start: 11-27-2023 Office outpatient vi sit 25 minutes Jyotsna Abarca [facility] [place] Start: 11-27-2023 End: 11-27-2023 Patient encounter procedure DO Jyotsna Abarca Work Phone: [facility] [place] Work Phone: Start: 11-15-2023 End: 11-15-2023 Patient encounter procedure DO Jyotsna Abarca Work Phone: [facility] Start: 11-15-2023 End: 11-15-2023 ambulatory DO Jyotsna Abarca Work Phone: [facility] Work Phone: Start: 08-14-2023 End: 08-14-2023 Office outpatient visit 15 minutes Mita Luciano MD Work Phone: [facility] Comment on above: Coronary artery dise ase involving menominee coronary artery of menominee heart without angina pectoris (Primary Dx); Primary hypertension; Hyperlipidemia, unspecified hyperlipidemia type; Other secondary pulmonary hypertension (CMS/HCC); BMI 22.0-22.9, adult; TIA (transient ischemic attack); Shortness of breath; Never smoked any substance Start: 08-14-2023 End: 08-14-2023 ambulatory [facility] Start: 07-26-2023 End: 07-26-2023 ambulatory Jyotsna Abarca Other [employer] Other Start: 07-26-2023 Telephone encounter Jyotsna Abarca [facility] Start: 06-28-2023 End: 06-28-2023 ambulatory Jyotsna Abarca Other [employer] Other Start: 06-28-2023 Telephone encounter Jyotsna Abarca [facility] Start: 06-25-2023 End: 06-25-2023 Patient encounter procedure DO Jyotsna Abarca Work Phone: [facility] Start: 06-25-2023 End: 06-25-2023 ambulatory DO Jyotsna Abarca Work Phone: [facility] [employer] Work Phone: Start: 05-17-2023 End: 05-17-2023 ambulatory Jyotsna Abarca Other [employer] Other Start: 05-17-2023 Office outpatient vi sit 25 minutes Jyotsna Abarca [facility] Start: 05-09-2023 End: 05-09-2023 ambulatory DO Jyotsna Abarca Work Phone: [facility] [employer] Work Phone: Start: 05-09-2023 End: 05-09-2023 Patient encounter procedure DO Jyotsna Abarca Work Phone: [facility] Start: 05-07-2023 End: 05-07-2023 ambulatory Jyotsna Abarca Other [employer] Other Start: 05-07-2023 Telephone encounter Jyotsna Abarca [facility] Start: 04-04-2023 End: 04-05-2023 ambulatory JAMES SCHULER . Facility:[facility]1 Start: 02-25-2023 Encounter for preprocedural laboratory examination JAMES SCHULER . [facility] Start: 02-22-2023 End: 02-22-2023 ambulatory Jyotsna Abarca Other [employer] Other Start: 02-22-2023 Telephone encounter Jyotsna Abarca [facility] Start: 02-21-2023 End: 02-21-2023 ambulatory Jyotsna Abarca Other [employer] Other Start: 02-21-2023 Telephone encounter Jyotsna Abarca [facility] Start: 02-20-2023 End: 02-20-[address] JYOTSNA ABARCA Facility:[facility] Start: 02-17-2023 End: 02-18-[address] JYOTSNA ABARCA Facility:[facility] Start: 02-17-2023 End: 02-18-2023 Encounter for preprocedural laboratory examination DR JYOTSNA ABARCA Facility:[facility] Start: 02-16-2023 Encounter for preprocedural cardiovascular examination JAMES SCHULER . [facility] Start: 02-16-2023 Encounter for preprocedural laboratory examination JAMES SCHULER . [facility] Start: 02-08-2023 End: 02-09-[address] JYOTSNA ABARCA Facility:[facility] Start: 02-08-2023 End: 02-09-2023 Encounter for preprocedural cardiovascular examination DR JYOTSNA ABARCA Facility:[facility] Start: 12-29-2022 End: 12-29-2022 ambulatory Jyotsna Abarca Other [employer] Other Start: 12-29-2022 Telephone encounter Jyotsna Abarca [facility] Start: 12-05-2022 End: 12-06-[address] JYOTSNA ABARCA [employer] Other Start: 12-05-2022 Telephone encounter Jyotsna Abarca [facility] Start: 11-16-2022 Office outpatient vi sit 25 minutes Jyotsna Abarca [facility] Start: 11-16-2022 Telephone encounter Jyotsna Abarca [facility] Start: 11-16-2022 End: 11-17-[address] JYOTSNA ABARCA [employer] Other Start: 11-07-2022 End: 11-07-2022 ambulatory DO Jyotsna Abarca Work Phone: [facility] Work Phone: Start: 11-07-2022 End: 11-07-2022 Patient encounter procedure DO Jyotsna Abarca Work Phone: [facility] Start: 09-25-2022 End: 09-26-[address] JYOTSNA ABARCA Facility: Start: 08-31-2022 End: 08-31-2022 ambulatory Jyotsna Abarca Other [employer] Other Start: 08-31-2022 Telephone encounter Jyotsna Abarca [facility] Start: 08-22-2022 End: 08-22-2022 ambulatory Jyotsna Abarca Other [employer] Other Start: 08-22-2022 Telephone encounter Jyotsna Abarca [facility] Start: 08-15-2022 End: 08-15-2022 ambulatory Jyotsna Abarca Other [employer] Other Start: 08-15-2022 Telephone encounter Jyotsna Abarca [facility] Start: 05-02-2022 End: 05-02-2022 ambulatory Jyotsna Abarca Other [employer] Other Start: 05-02-2022 Office outpatient vi sit 25 minutes Jyotsna Abarca [facility] [place] Start: 03-02-2022 Office outpatient vi sit 25 minutes Jyotsna Abarca [place] [address] DO Work Phone: Start: 10-25-2021 End: 10-25-2021 ambulatory Jyotsna Abarca Other [facility] [employer] Other Start: 10-25-2021 Office outpatient vi sit 25 minutes Jyotsna Abarca [facility] [place] Procedures Date Procedure Procedure Detail Performing Clinician Start: 05-23-2024 Urine culture DO Jyotsna Abarca Work Phone: Start: 11-15-2023 Urine culture DO Jyotsna Abarca Work Phone: Start: 08-14-2023 ECG 12-LEAD MITA VELASQUEZ Start: 08-14-2023 Ecg routine ecg w/le ast [...] 05-23-2024 Bacteria identified in Urine by Culture [facility] Start: 05-21-2024 End: 05-21-2024 Patient encounter procedure 05/21/2024 1:30 PM EDT Office Visit [place] [id number] [facility] [address] [place] [address] Mita Luciano MD [address] [facility] [address] [place] [address] [facility] Start: 12-03-2023 Bacteria identified in Urine by Culture [facility] Start: 11-15-2023 Bacteria identified in Urine by Culture Urine Culture [facility] Start: 11-15-2023 [facility] Start: 08-14-2023 FUV, Provider: Mita Luciano, Status: Pen, Time: 1:50 PM FUV, Provider: Mita Luciano, Status: Pen, Time: 1:[address] [facility] 250 DO Work Phone: Start: 07-13-2023 Influenza vaccination Influenza Vaccine (#1) [facility] Start: 06-25-2023 Bacteria identified in Urine by Culture [facility] Start: 05-09-2023 Bacteria identified in Urine by Culture [facility] Start: 11-16-2022 FUV, Provider: Mita Luciano, Status: Pen, Time: 3:30 PM FUV, Provider: Mita Luciano, Status: Pen, Time: 3:[address] [facility] 250 DO Work Phone: Start: 10-30-2022 COVID-19 Vaccine (5 - Moderna series) COVID-19 Vaccine (5 - Moderna series) [facility] Start: 10-11-2017 Zoster Vaccines (2 of 3) Zoster Vaccines (2 of 3) [facility] Start: 1989 Screening for malignant neoplasm of breast Mammogram [facility] Start: 1971 DTaP/Tdap/Td Vaccines (1 - Tdap) DTaP/Tdap/Td Vaccines (1 - Tdap) [facility] Start: 1967 Diabetes mellitus screening Diabetes Screening [facility] Start: 1967 Hepatitis C screening Hepatitis C Screening [facility] Start: 1955 Pneumococcal Vaccine: 65+ Years (1 - PCV) Pneumococcal Vaccine: 65+ Years (1 - PCV) [facility] Start: 1949 Lipid panel Lipid Panel [facility] Start: 1949 Medicare Annual Wellness Visit Medicare Annual Wellness Visit (AWV) [facility] Start: 1949 Screening for malignant neoplasm of colon [facility] Start: 1949 Screening for osteoporosis Bone Density Scan [facility] Bacteria identified in Urine by Culture [facility] Comprehensive metabo lic 2000 panel - Serum or Plasma [facility] Immunizations Immunization Date Immunization Notes Care Provider Fa [facility] 09-04-2022 Pfizer COVID-19 Vac Bivalent 30 MCG/0.3ML Intramuscular Suspension Jyotsna Abarca Work Phone: [facility] 250 DO Work Phone: 02-20-2022 Moderna COVID-19 Vaccine 100 MCG/0.5ML Intramuscular Suspension Jyotsna Abarca [facility] Comment on above: Series: 09-27-2021 COVID-19 Vaccine Moderna - Documentation Purposes Only Jyotsna Abarca Other [facility] 02-01-2021 COVID-19 Vaccine Moderna - Documentation Purposes Only Jyotsna Abarca Other [facility] 01-03-2021 COVID-19 Vaccine Moderna - Documentation Purposes Only Jyotsna Abarca Other [facility] 08-16-2017 zoster vaccine, live Jyotsna crowell Other [facility] [employer] Other Payers Date Payer Category Payer Medicare HUMANA MEDICARE HUMANA GOLD CHOICE [id number] 2022-Present [address] [address] [place] [address] [id number] 1960 Medicare [id number] 1949 Unknown [id number] 1949 Unknown [id number] 1949 Unknown [id number] 1949 Unknown [id number] 1949 Unknown [id number] 1949 Unknown [id number] [id number] 1949 Unknown [id number] [id number] 1949 Unknown [id number] [id number] 9 1949 Unknown [id number] [id number] 4 1949 Unknown [id number] [id number] 4 1949 Unknown [id number] [id number] 1949 Unknown [id number] Medicare Medicare [id number] Self-pay Self Pay [id number] Unknown Social History Date Type Detail Facility Start: 08-14-2023 No alcohol use No alcohol use [employer] Other Comment on above: 1.5 cups coffee rosalind y, tea-occasionally; Start: 08-14-2023 Sex Assigned At N [facility] [employer] Other Start: 1950 Sex Assigned At Female F [facility] Start: 08-14-2023 End: 07-23-2024 Tobacco smoking status NHIS Never smoked tobacco [facility] Work Phone: Start: 08-14-2023 Tobacco use and exposure Smokeless tobacco non-user [facility] Work Phone: Start: 08-14-2023 Alcohol intake Lifetime non-d barrera (finding) [facility] Work Phone: Start: 1950 [facility] Start: 08-04-2023 End: 08-14-2023 Exposure to SARS-CoV-2 (event) Not sure [facility] Tobacco smoking status Never [facility] [place] Functional Status Date Assessment Result Facility 07-23-2024 Functional Status N/A [facility] [place] Clinical Notes 10-25-2021 to 07-23-2024 Note Date [...] mg= 1 tab(s), Oral, BID calcitonin Nasal Peshtigo, 1 spray(s), Nasal, Daily Citracal + D, [...] Social History Alc (more content not included)... [facility] Comment on above: Result Comment: Elec tronically Signed By: ELVIS HERNÁNDEZ, Shiv Sharif\Date and Time Signed: 07/23/24 13:50 EDT 06-11-2024 Evaluation note Authored June 11, 2024 4:00 pm The above note written by __ _Valdemar Fraser____ acting as human recorder, note dictated by Dr. Carmen .I performed the above HPI, ROS, and Examination. I formulated and dictated the treatment plan and was present for entire encounter. Jyotsna Abarca D.O. [facility] Work Phone: 1(107) 828-211501-16-2024 Evaluation note* Encounter Date Diagnosis Assessment Notes [...] with above medication as directed Nov, Other halfway (current) drug therapy (ICD-10 - Z79.899) Nov, [...] If she has not heard from the manager clinical research office by the time we see her [...] faucet touches her head. She saw a filing writer in the past and would like to see one again. I will provide her with a phone number and she can call and set this up herself. [employer] Other 10-03-2023 History of Present illness Narrative* [...] in office 1. Coronary artery disease involving menominee coronary artery of menominee heart without angina pectoris 2. Primary hypertension 3. Hyperlipidemia, unspecified hyperlipidemia type 4. Other secondary pulmonary hypertension (CMS/HCC) 5. BMI 22.0-22.9, adult 6. TIA (transient ischemic attack) 7. Shortness of breath 8. Never smoked any substance 1. Coronary artery disease involving menominee coronary artery of menominee heart without angina pectoris 2. Primary hypertension 3. Hyperlipidemia, unspecified hyperlipidemia type 4. Other secondary pulmonary hypertension (CMS/HCC) 5. BMI 22.0-22.9, adult 6. TIA (transient ischemic attack) 7. Shortness of breath 8. Never smoked any substance [facility] Work Phone: 1(416) 990-364510-03-2023 Instructions* Patient Instructions* Jose Antonio uH MA - 08/14/2023 1:50 PM EDT Please bring all medicines, vitamins, and herbal supplements with you when you come to the office. Prescriptions will not be filled unless you are compliant with your follow up appointments or have a follow up appointment scheduled as per instruction of your physician. Refills should be requested at the time of your visit. [facility] Work Phone: [phone]) 274-538607-06-2023 Evaluation note* Encounter Date Diagnosis Assessment Notes Treatment Notes Treatment Clinical Notes May, Hypertension (ICD-10 - I10) Blood pressure is controlled. Continue with above medications daily as directed. May, Hyperglycemia (ICD-10 - R73.9) Discussed blood sugar results with patient today. Glucose is 86. HgA1C is 6.0. She voices that she spent one month on and off in [place] and her diet was different then it [...] with Dr. Schuler for evaluation. May, Other halfway (current) drug therapy (ICD-10 - Z79.899) May, [...] and a work up would be considered. [employer] Other 04-12-2023 Evaluation note* Encounter Date Diagnosis [...] she wants. I did recommend that her civil rights attorney have a copy of this order and her local hospital/ER. She has discussed this with her children, I did recommend that she designate someone as a health care power of civil rights attorney and provide copies of this order to them. After this discussion I did sign the order for her. Feb, Other 11:26 AM - 11:3 3 AM [employer] Other 02-16-2023 Noteinvolving the lingula which has progressed since 2018. No honeycombing is identified. No consolidaNort [employer] Other 02-16-2023 NoteInterval progression of the patient's basilar interstitial changes with bronchiectasis involving [facility] [employer] Other 01-24-2023 Evaluation note* Encounter Date Diagnosis Assessment Notes Treatment Notes Treatment Clinical Notes Nov, Abnormal chest xray (ICD-10 - R93.89) Nov, Lung nodule (ICD-10 - R91.1) Nov, Cough (ICD-10 - R05.9) [employer] Other 01-05-2023 Evaluation note* Encounter Date Diagnosis Assessment Notes Treatment Notes Treatment Clinical Notes Nov, Pneumonia (ICD-10 - J18.9) [employer] Other 01-05-2023 Evaluation note* Encounter Date Diagnosis [...] She admits she was not good for and ate cookies. Nov, Hyperlipidemia (ICD-10 - [...] Nov, Nocturia (ICD-10 - R35.1) Nov, Other halfway (current) drug therapy (ICD-10 - Z79.899) Nov, [...] (2023). We can discuss this next year. [employer] Other 10-20-2022 Evaluation note* Encounter Date Diagnosis Assessment Notes Treatment Notes Treatment Clinical Notes Aug, Hyperlipidemia (ICD-10 - E78.5) [employer] Other 10-11-2022 Evaluation note* Encounter Date Diagnosis Assessment Notes Treatment Notes Treatment Clinical Notes Aug, Encounter for screening mammogram for breast cancer (ICD-10 - Z12.31) [employer] Other 06-21-2022 Evaluation note* Encounter Date Diagnosis [...] panty liner in the past (when Dr. Hernandez was alive) she voices that she also [...] Apr, Nocturia (ICD-10 - R35.1) Apr, Other halfway (current) drug therapy (ICD-10 - Z79.899) Apr, Weight loss (ICD-10 - R63.4) Apr, Other If she has chitra rgy symptoms or visits her children who have pets then she will use Benadryl. [employer] Other 12-14-2021 Evaluation note* Encounter Date Diagnosis [...] She does not want to see an delivery truck driver for evaluation to discuss other medications. I [...] that. She feels better at this time. [employer] Other Evaluation + Plan note No data available for this section [facility] [place] Evaluation noteNo InformationNort [employer] Other Evaluation noteNo assessment information available [facility] Work Phone: Evaluation note* Diagnosis Coronary artery disease involving menominee coronary artery of menominee heart without angina pectoris- Primary Primary hypertension Unspecified essential hypertension Hyperlipidemia, unspecified hyperlipidemia type Other secondary pulmonary hypertension (CMS/HCC) BMI 22.0-22.9, adult TIA (transient ischemic attack) Unspecified transient cerebral ischemia Shortness of breath Never smoked any substance documented in this encounter [facility] Work Phone: Evaluation note* Diagnosis Onset Date Resolution Status Abnormal lung sounds acute CAD (coronary artery disease) acute Hyperglycemia acute Hyperlipidemia acute Hypertension acute Hypokalemia acute Lung nodule acute Osteoporosis acute Vitamin B12 deficiency acute Vitamin D deficiency acute [facility] Work Phone: Hisxrvb general Narrative - Reported* Type Description Date Medical History hyperlipidemia Medical History Hypertension Medical History Hypertension [401.9] Medical History Hyperlipidemia [272.4 V58.69 = A TL lab] Medical History Palpitations, paroxysmal [785.1] Medical History Seasonal allergies [477.9] Medical History Family medical history of AR [V1 7.3] Medical History Family medical history of CVA [V 17.1] Medical History Family medical history of uterin e cancer [V16.49] Medical History Family medical history of Diabet es [V18] Medical History Family medical history of Thyroi d [V18.1] Medical History Echocardiogram [facility] 2009 Medical History 2012 Colonoscopy, po lyp [...] 015 Surgical History mammogram 08/2017 Surgical History Jj, Dr. Beltran needs repeat in fall Surgical History Jj, Dr. Beltran 9 Hospitalization History estimates she wa s hospitalized 4 times for chest pain [employer] Other Hisayke general Narrative - Reported* Type Description Date Medical History hyperlipidemia Medical History Hypertension Medical History Hypertension [401.9] Medical History Hyperlipidemia [272.4 V58.69 = A TL lab] Medical History Palpitations, paroxysmal [785.1] Medical History Seasonal allergies [477.9] Medical History Family medical history of AR [V1 7.3] Medical History Family medical history of CVA [V 17.1] Medical History Family medical history of uterin e cancer [V16.49] Medical History Family medical history of Diabet es [V18] Medical History Family medical history of Thyroi d [V18.1] Medical History Echocardiogram [facility] 2009 Medical History 2012 Colonoscopy, po lyp [...] s hospitalized 4 times for chest pain [employer] Other History general Narrative - Reported* Type Description Date Medical History hyperlipidemia Medical History Hypertension Medical History Hypertension [401.9] Medical History Hyperlipidemia [272.4 V58.69 = A TL lab] Medical History Palpitations, paroxysmal [785.1] Medical History Seasonal allergies [477.9] Medical History Family medical history of AR [V1 7.3] Medical History Family medical history of CVA [V 17.1] Medical History Family medical history of uterin e cancer [V16.49] Medical History Family medical history of Diabet es [V18] Medical History Family medical history of Thyroi d [V18.1] Medical History Echocardiogram [facility] 2009 Medical History 2012 Colonoscopy, po lyp removed, needs repeat in 2018 Medical History TIA / Dr. Baltazar 2013 [...] repeat in fall Surgical History Jj, Dr. Loni garcía / consider repeat in 5 years [id number] Hospitalization History estimates she wa s hospitalized 4 times for chest pain [employer] Other History of Present illness Narrative* Patient [...] will see her back in 9 months [facility] [employer] Work Phone: History of Present illness Narrative* [...] EKG * 4. We renewed her medication [employer] DO Work Phone: Hospital Discharge instructions No data available for this section [facility] Progress note No data available for this section [facility] [place] Chief Complaint MESERET ACOSTA is being seen [...] Referral Specialty Diagnoses / Procedures Referred By Contac t Referred To Contact Diagnoses Coronary artery disease involving menominee coronary artery of menominee heart without angina pectoris Primary hypertension Procedures ECG 12 Lead Mita Luciano MD [address] [place] [address], [place] [address] Referral ID Status Reason Start Date Expiration Date V isits Requested Visits Authorized [id number] Pending Review 08/14/2023 02/10/2024 1 1 Specialty Diagnoses / Procedures Referred By Contac t Referred To Contact Cardiology Diagnoses Coronary artery disease involving menominee coronary artery of menominee heart without angina pectoris Primary hypertension Hyperlipidemia, unspecified hyperlipidemia type Procedures Follow Up In Cardiology Mita Luciano MD [address] [facility] [address], [place] [address] Referral ID Status Reason Start Date Expiration Date V isits Requested Visits Authorized [id number] Authorized 08/14/2023 02/10/2024 1 1 Additional Source Comments INFORMATION SOURCE (unrecogn ized section and content) DATE CREATED AUTHOR 03/04/2022 [place] DATE CREATED AUTHOR AUTHOR'S ORGANIZ ATION 04/20/[address] [facility] pital DATE CREATED AUTHOR AUTHOR'S ORGANIZ ATION 02/04/2024 [facility] EPIC DATE CREATED AUTHOR AUTHOR'S ORGANIZ ATION 05/27/2024 [facility] DATE CREATED AUTHOR AUTHOR'S ORGANIZ ATION 06/15/2024 [facility] DATE CREATED AUTHOR AUTHOR'S ORGANIZ ATION 08/14/2024 Luis Payne [facility] REASON FOR VISIT (unrecogniz ed section and content) Reason Comments Follow-up 9m w/ekg Specialty Diagnoses / Procedures Referred By Contac t Referred To Contact Diagnoses Coronary artery disease involving menominee coronary artery of menominee heart without angina pectoris Primary hypertension Procedures ECG 12 Lead Mita Luciano MD [address] [place] [address] Referral ID Status Reason Start Date Expiration Date V isits Requested Visits Authorized [id number] Pending Review 08/14/2023 02/10/2024 1 1 Care Teams (unrecognized sec tion and content) Team Status: Active Member Role Status Dates Jyotsna Abarca DO Primary Care Provider Active Team Status: Active Member Role Status Dates Jyotsna Abarca DO Primary Care Provider Active S tart: May 19, 2024 Valdemar Fraser LPN Attending Provider Active St art: May 19, 2024 Team Status: Inactive Member Role Status Dates Jyotsna Abarca DO Primary Care Provide r, Attending Provider Active Start: May 23, 2024 End: May 23, 2024 Team Status: Inactive Member Role Status Dates Jyotsna Abarca DO Primary Care Provider, Attending Pro vider Active 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 Start Date End Date Jyotsna Abarca DO [address] [place] [id number] PCP - General 11/12/19 Team Status: Inactive Member Role Status Dates Jyotsna Abarca DO Primary Care Provide r, Attending Provider Active Start: November 15, 2023 End: November 15, 2023 Team Status: Inactive Member Role Status Dates Jyotsna Abarca DO Attending Provider Active Star t: November 27, 2023 End: November 27, 2023 Team Status: Inactive Member Role Status Dates Jyotsna Abarca DO Primary Care Provide r, Attending Provider Active Start: December 03, 2023 End: December 03, 2023 Team Status: Inactive Member Role Status Dates Jyotsna Abarca , Primary Care Provide r, Attending Provider Active Start: June 11, 2024 End: June 11, 2024 Team Status: Inactive Member Role Status Dates Jyotsna Abarca DO Primary Care Provide r, [...] BE BASED ON THE PRIMARY CLINICAL RECORDS. [facility] [employer] [facility]. provides no warranty or guarantee of the accuracy or completeness of information in this document.
== END 2024-09-29 09:54 | disposition home or self-care (01) ==
LOC: MAMMO 09:53
PROVIDERS: PCP Family Medicine; Visit Provider Specialist
DX: Z12.31 Encounter for screening mammogram for malignant neoplasm of breast (principal); Z80.8 Family history of malignant neoplasm of other organs or systems
CPT/HCPCS: 77063; 77067

== ENCOUNTER 2025-04-28 09:16 | Outpatient (OUT) | payer MEDICARE, SELFPAY ==
--- OUTSIDE RECORDS SUMMARY | 2024-01-03 07:45 | XMS_ITS | Continuity of Care Document ---
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 [address] [place], [place], [id number], [place]. tel:[phone] Family History Family Member Type Diagnosis Age At Onset No Information Payers Payer name Insurance type Covered republican ID Authoriza tion(s) [employer] Medicare [facility] [id number] Social History Type Description Quantity Date Captured [...]
--- OUTSIDE RECORDS SUMMARY | 2025-04-28 09:19 | XMS_ITS | Encounter Summary ---
Author Organization [facility] Address [address] [place] [address] Phone Care Team Providers Care Management Lead Name Role Phone Lauri El DO Primary Care Provider [phone] Lauri El DO Primary Care Provider [phone] Encounter Details Date Type Department Care Team (Late st Contact Info) Description 11/15/2023 Scanned Document [facility] [address] [place] [id number] Scanning, Generic Provider Social History Tobacco Use Types Packs/Day Years Used Date Smoking Tobacco: Never Smokeless Tobacco: Never Alcohol Use Standard Drinks/Week Comments Never 0 (1 standard drink = 0.6 oz pur e alcohol) PHQ-2 Answer Date Recorded Patient Health Questionnaire-2 Score 0 08/14/2023 Comments Unknown Sex and Gender Information Value Date Recorded Sex Assigned at Not on file Legal Sex Female 11:02 AM EST Gender Identity Not on file Sexual Orientation Not on file documented as of this encounter Plan of Treatment Upcoming Encounters Date Type Department Care Team (Late st Contact Info) Description 11/25/2025 2:40 PM EST Office Visit [facility] [address] [facility] [address] [place] [address] Kashmir Luciano MD [address] [facility] [address] [place], [place] [id number] documented as of this encounter Visit Diagnoses Not on filedocumented in this encounter Additional Health Concerns Assessment Noted Time A fall risk assessment has been complete d for the patient 08/14/2023 2:19 PM EDT documented as of this encounter Care Teams Management Lead Relationship Specialty Start Date End Date Lauri El DO PCP - General 11/12/19 02/18/25 Lauri El DO [address] [place] [address] PCP - General Family Medicine 02/19/25 documented as of this encounter
--- OUTSIDE RECORDS SUMMARY | 2025-04-28 09:19 | XMS_ITS | Encounter Summary ---
Author Organization [facility] Address [address] [place] [address] Care Team Providers Care Certified Vehicle Fire Investigator Name Role Phone Jyotsna Abarca MD Primary Care Provider [phone] Encounter Details Date Type Department Care Team (Late Contact Info) Description 09/29/2024 Clinisync Result Encounter [facility] External Department Unsolicited Ángel Botello MD [address] [facility] [address] [place] [address] Social History Tobacco Use Types Packs/Day Years Used Date Smoking Tobacco: Never Smokeless Tobacco: Never Alcohol Use Standard Drinks/Week Comments Never 0 (1 standard drink = 0.6 oz pur e alcohol) AUDIT-C Answer Date Recorded Q1: How often do you have a drink containing alcohol? Never 02/04/2024 Q2: How many drinks containi ng alcohol do you have on a typical day when you are drinking? Patient does not drink Q3: How often do you have si x or more drinks on one occasion? Never 02/04/2024 PHQ-2 Answer Date Recorded Patient Health Questionnaire-2 Score 0 02/04/2024 Comments No Sex and Gender Information Value Date Recorded Sex Assigned at Not on file Legal Sex Female 6:35 PM EDT Gender Identity Not on file Sexual Orientation Not on file documented as of this encounter Plan of Treatment Upcoming Encounters Date Type Department Care Team (Late Contact Info) Description 02/15/2026 9:45 AM EDT Office Visit [facility] [address] [facility] [address] [place] [phone] Ángel Botello MD [address] [place] [address] documented as of this encounter Procedures Procedure Name Priority Date/Time Associated Diagnosis Comments MM TOMOSYNTHESIS SCREENING BI 09/29/2024 2:17 PM EST documented in this encounter Results * MM TOMOSYNTHESIS SCREENING BI (09/29/2024 2:17 PM EST) Anatomical Region Laterality Modality Other 09/29/2024 2:17 PM EST Narrative 09/29/2024 2:18 [place] [address] Mammography Report Signed Patient: JEFERSON ACOSTA MR#: [id number] : 1950 Acct:[id number] Age/Sex: 74 / F ADM Date: 09/29/24 Loc: MAMMO Attending Dr: ÁNGEL BOTELLO Ordering Physician: ÁNGEL BOTELLO Results: Date of Service: 09/29/24 Follow Up: Procedure(s): MM tomosynthesis screening BI Accession Number(s): [id number] cc: JYOTSNA ABARCA; ÁNGEL BOTELLO Patient Name: JEFERSON ACOSTA MR#: [id number] : 1950 Exam Date: 09/29/2024 Ordering Doctor: DR ÁNGEL BOTELLO RADIOLOGY REPORT PROCEDURE: MM TOMOSYNTHESIS SCREENING BI COMPARISON: MM TOMOSYNTHESIS SCREENING BI, 09/26/2023. MG MAMM SCREEN 3D CELINE CAD, 09/25/2022. MG MAMM SCREEN 3D CELINE CAD, 09/14/2021. MG MAMM CELINE SCRN W CAD DIG, 08/21/2013. INDICATIONS: Screening Calculator Name NCI Breast Cancer Risk Assessment Tool 5 Year Breast Cancer Risk 1.30% Lifetime Breast Cancer Risk 2.90% Personal Breast Cancer No Personal Ovarian Cancer No Treatments None Family Cancers Mother with uterine/thyroid cancer at age 45; Grandfather-paternal with bone cancer at age 90. LOCATION: [facility] BREAST COMPOSITION: The breasts are heterogeneously dense,which may obscure small masses. FINDINGS: DIAGNOSTIC CATEGORY 2--BENIGN FINDING: RIGHT BREAST: No significant suspicious finding. Stable biopsy marker clips. No significant change has occurred. LEFT BREAST: No significant suspicious finding. No significant change has occurred. RECOMMENDATIONS: ROUTINE MAMMOGRAM AND CLINICAL EVALUATION IN 12 MONTHS. PLEASE NOTE: A NORMAL MAMMOGRAM DOES NOT EXCLUDE THE POSSIBILITY OF BREAST CANCER. A CLINICALLY SUSPICIOUS PALPABLE LUMP SHOULD BE BIOPSIED. Dictated by: Ronald Ardon M.D. on 09/29/2024 at 14:15 Approved by: Ronald Ardon M.D. on 09/29/2024 at 14:17 Dictated By: Ronald Ardon M.D. Signed By: 09/29/24 1418 DD/ 1417 TD/TT: Corporate Giving Manager: Procedure Note Radiology, Radiologist, MD - 09/29/2024 [place] [address] Mammography Report Signed Patient: JEFERSON ACOSTAMR#: [id number] : 1950cct:[id number] Age/Sex: 74 / FADM Date: 09/29/24 Loc: MAMMO Attending Dr: ÁNGEL BOTELLO Ordering Physician: Bandar BOTELLOults: Date of Service: 09/29/24Follow Up: Procedure(s): MM tomosynthesis screening BI Accession Number(s): [id number] cc: JYOTSNA ABARCA; ÁNGEL BOTELLO Patient Name: JEFERSON ACOSTA MR#: [id number] : 1950 Exam Date: 09/29/2024 Ordering Doctor: DR ÁNGEL BOTELLO RADIOLOGY REPORT PROCEDURE: MM TOMOSYNTHESIS SCREENING BI COMPARISON: MM TOMOSYNTHESIS SCREENING BI, 09/26/2023. MG MAMM [id number] CELINE CAD, 09/25/2022. MG MAMM SCREEN 3D CELINE CAD, 09/14/2021. MG MAMM BILSCRN W CAD DIG, 08/21/2013. INDICATIONS: Screening Calculator Name NCI Breast Cancer Risk Assessment Tool 5 Year Breast Cancer Risk 1.30% Lifetime Breast Cancer Risk 2.90% Personal Breast Cancer No Personal Ovarian Cancer No Treatments None Family Cancers Mother with uterine/thyroid cancer at age 45; Grandfather-paternal with bone cancer at age 90. LOCATION: [facility] BREAST COMPOSITION: The breasts are heterogeneously dense,which may obscure small masses. FINDINGS: DIAGNOSTIC CATEGORY 2--BENIGN FINDING: RIGHT BREAST: No significant suspicious finding. Stable biopsy markerclips. No significant change has occurred. LEFT BREAST: No significant suspicious finding. No significant changehas occurred. RECOMMENDATIONS: ROUTINE MAMMOGRAM AND CLINICAL EVALUATION IN 12 MONTHS. PLEASE NOTE: A NORMAL MAMMOGRAM DOES NOT EXCLUDE THE POSSIBILITY OFBREAST CANCER. A CLINICALLY SUSPICIOUS PALPABLE LUMP SHOULD BE BIOPSIED. Dictated by: Ronald Ardon M.D. on 09/29/2024 at 14:15 Approved by: Ronald Ardon M.D. on 09/29/2024 at 14:17 Dictated By: Ronald Ardon M.D. Signed By:09/29/24 1418 DD/ 1417 TD/TT: Corporate Giving Manager: us Ángel Botello MD [facility] Final Result documented in this encounter Visit Diagnoses Not on filedocumented in this encounter Care Teams Certified Vehicle Fire Investigator Relationship Specialty Start Date End Date Jyotsna Abarca MD [address] [place] [address] [address] [place] [id number] PCP - General Family Medicine 02/04/24 documented as of this encounter
--- OUTSIDE RECORDS SUMMARY | 2025-04-28 09:19 | XMS_ITS | Clinical Summary ---
Author Organization [facility] Address [address] [place] [address] Care Team Providers Care Campaign Assistant Name Role Phone Jyotsna Abarca MD Primary Care Provider [phone] Allergies Active Allergy Reactions Criticality Noted Date Comments Alendronate Rash Low 07/05/2023 Other Reaction(s): Unknown Atenolol Shortness of breath High 07/05/2023 Other Reaction(s): Other No longer a allergen Atorvastatin 02/04/2024 Other Reaction(s): Unknown Other Reaction(s): Myalgia Cephalexin Rash,Palpitations Medium 07/05/2023 Other Reaction(s): Unknown Irregular HR Clarithromycin 02/04/2024 Other Reaction(s): Unknown Clopidogrel Rash High 07/05/2023 Other Reaction(s): Unknown Fatigue, tachycardia Denosumab Rash Low 03/19/2025 Desloratadine GI bleeding High 07/05/2023 Other Reaction(s): Unknown Nose bleed Erythromycin 02/04/2024 Other Reaction(s): Unknown Fexofenadine Palpitations Low 02/04/2024 Other Reaction(s): Unknown Hydrocodone-Acetaminoph en High 07/05/2023 Other Reaction(s): Other Chest pain Iron Carbonyl-Vitamin C-Fos Medium 07/05/2023 Other Reaction(s): Drowsiness, Unknown Drowsiness, exercise intolerance, could not wake up Loratadine 02/04/2024 Other Reaction(s): Unknown Naproxen Nausea Only,Shortness of breath High 07/05/2023 Other Reaction(s): Other, Unknown fatigue Penicillins Shortness of breath High 07/05/2023 Other Reaction(s): SOB, Unknown Pseudoephedrine 02/04/2024 Other Reaction(s): Unknown Rofecoxib Shortness of breath High 07/05/2023 Chest pain Sulfa Antibiotics Rash Low 07/05/2023 Other Reaction(s): Unknown Medications isosorbide mononitrate ER (Imdur) 30 MG 24 hr tablet Take 30 mg by mouth in the morning. 4 Active nitroglycerin (Nitrostat) 0.[address] 0.4 mg under the tongue Active rosuvastatin (Crestor) 20 MG tablet Take 20 mg by mouth Daily Active atenolol (Tenormin) 25 MG tablet Take 25 mg by mouth in the morning and 25 mg before bedtime. Active Black Cohosh 40 MG capsule as directed Orally Active cholecalciferol (Vitamin D-3) 25 MCG (1000 UT) capsule Take by mouth Active Calcium Carb-Cholecalcif indio (CALCIUM 500+D3 PO) Calcium + D3 Active aspirin 81 MG EC tablet 1 (one) time each day at the same time Active omega-3 (Fish Oil) 1000 MG capsule 1 capsule 1 (one) time each day at the same time Active calcitonin, salmon, (Miacalcin) 200 UNIT/ACT nasal spray USE 1 SPRAY IN ALTERNATING NOSTRILS ONCE A DAY Active Rhubarb (Estroven Menopause Relief) 4 MG tabletIndication s:Hot flashes Take 1 tablet by mouth Daily 30 tablet 3 4 Active triamcinolone (Kenalog) 0.1 % creamIndications :Subacute vulvitis Apply topically 2 (two) times a day 30 g 2 5 Active Encounters Date Type Department Care Team Description 02/09/2025 9:30 AM EDT Office Visit [facility] [address] [place] [address] Diana Botello MD Mastalgia (Primary Dx); Encounter for gynecological examination without abnormal finding; Screening for malignant neoplasm of cervix; Encounter for screening mammogram for malignant neoplasm of breast; Postmenopausal; Osteoporosis, post-menopausal ; Subacute vulvitis 02/09/2025 Travel from Last 3 Months Family History Medical History Relation Name Comments Cancer Maternal Grandmother Cancer Mother Uterine cancer Mother Cancer Paternal Grandfather Breast cancer Sister 1 Cancer Sister 1 Cancer Sister 2 Cancer on leg Sister 2 Relation Name Status Comments Brother 1 Alive Brother 2 Alive Brother 3 Alive Daughter Alive Father Maternal Grandmother Mother Paternal Grandfather Sister 1 Sister 2 Sister 3 Alive Sister 4 Alive Son Alive Social History Tobacco Use Types Packs/Day Years Used Date Smoking Tobacco: Never Smokeless Tobacco: Never Tobacco Cessation:Counseling Given: Not Answered Alcohol Use Standard Drinks/Week Comments Never 0 [...] on file Sexual Orientation Not on file Last Filed Vital Signs Vital Sign Reading Time Taken Comments Blood Pressure 124/80 02/09/2025 9:28 AM EDT Pulse 56 04/30/2019 9:14 AM EDT Temperature - - Respiratory Rate 18 04/30/2019 9:14 AM EDT Oxygen Saturation 96% 04/30/2019 9:14 AM EDT Inhaled Oxygen Concentration - - Weight 44.5 kg (98 lb) 02/09/2025 9:28 AM EDT Height 143.5 cm (4' 8.5 ) 01/24/2023 12:00 PM ED T Body Mass Index 21.58 01/24/2023 12:00 PM EDT Plan of Treatment Upcoming Encounters Date Type Department Care Team (Late st Contact Info) Description 02/15/2026 9:45 AM EDT Office Visit [facility] [address] [place] [address] Diana Botello MD [address] [place] [address] Health Maintenance Due Date Last Done Comments Influenza Vaccine (Season Ended) 2025 Colonoscopy Discontinued 04/23/2019 Colorectal Cancer Screening Discontinued Pneumococcal Vaccine: 65+ Years Completed 4 Mammogram Discontinued 09/29/2024, 1112/2019, 09/11/2019, Additional history exists CT Colonography Discontinued FIT-DNA Discontinued FIT Discontinued FOBT Discontinued Sigmoidoscopy Discontinued Procedures Procedure Name Priority Date/Time Associated Diagnosis Comments MM TOMOSYNTHESIS SCREENING BI 09/29/2024 2:17 PM EST from Last 3 Months or Most Recently Relevant to Health Maintenance Results * MM TOMOSYNTHESIS SCREENING BI (09/29/2024 2:17 PM EST) Anatomical Region Laterality Modality Other 09/29/2024 2:17 PM EST Narrative 09/29/2024 2:18 [place] [address] Mammography Report Signed Patient: JEFERSON ACOSTA MR#: [id number] : 1950 Acct:[id number] Age/Sex: 74 / F ADM Date: 09/29/24 Loc: MAMMO Attending Dr: DIANA BOTELLO Ordering Physician: DIANA BOTELLO Results: Date of Service: 09/29/24 Follow Up: Procedure(s): MM tomosynthesis screening BI Accession Number(s): [id number] cc: JYOTSNA ABARCA; DIANA BOTELLO Patient Name: JEFERSON ACOSTA MR#: [id number] : 1950 Exam Date: 09/29/2024 Ordering Doctor: DR DIANA BOTELLO RADIOLOGY REPORT PROCEDURE: MM TOMOSYNTHESIS SCREENING [...] bone cancer at age 89. LOCATION: The [facility] BREAST COMPOSITION: The breasts are heterogeneously [...] Signed By: 09/29/24 1418 DD/ 1417 TD/TT: Mrb Engineer: Procedure Note Radiology, Radiologist, MD - 09/29/2024 [place] [address] Mammography Report Signed Patient: JEFERSON ACOSTAMR#: [id number] : 1950cct:[id number] Age/Sex: 74 / FADM Date: 09/29/24 Loc: MAMMO Attending Dr: DIANA BOTELLO Ordering Physician: Bandar BOTELLOults: Date of Service: 09/29/24Follow Up: Procedure(s): MM tomosynthesis screening BI Accession Number(s): [id number] cc: JYOTSNA ABARCA; DIANA BOTELLO Patient Name: JEFERSON ACOSTA MR#: [id number] : 1950 Exam Date: 09/29/2024 Ordering Doctor: DR DIANA BOTELLO RADIOLOGY REPORT PROCEDURE: MM TOMOSYNTHESIS SCREENING BI COMPARISON: MM TOMOSYNTHESIS SCREENING BI, 09/26/2023. MG MAMM [id number] CELINE CAD, 09/25/2022. MG MAMM SCREEN 3D [...] bone cancer at age 89. LOCATION: The [facility] BREAST COMPOSITION: The breasts are heterogeneously [...] M.D. Signed By:09/29/24 1418 DD/ 1417 TD/TT: Mrb Engineer: us Diana Botello MD [facility] Final Result from Last 3 Months or Most Recently Relevant to Health Maintenance Insurance [employer]AGE Care Teams Campaign Assistant Relationship Specialty Start Date End Date Jyotsna Abarca MD [address] [place] [address] [place] [address] PCP - General Family Medicine 02/04/24
--- OUTSIDE RECORDS SUMMARY | 2025-04-28 09:19 | XMS_ITS | Encounter Summary ---
Author Organization [facility] Address [address] [place] [id number] Phone Care Team Providers Care Revit Drafter Name Role Phone Lauri El DO Primary Care Provider [phone] Lauri El DO Primary Care Provider Encounter Details Date Type Department Care Team (Late st Contact Info) Description 10/25/[address] [facility] [address] [place] [address] Conversion, Onbase Social History Tobacco Use Types Packs/Day Years Used Date Smoking Tobacco: Never Assessed Comments Unknown Sex and Gender Information Value Date Recorded Sex Assigned at Not on file Legal Sex Female 11:02 AM EST Gender Identity Not on file Sexual Orientation Not on file documented as of this encounter Plan of Treatment Upcoming Encounters Date Type Department Care Team (Late st Contact Info) Description 11/25/2025 2:40 PM EST Office Visit [facility] [address] [place] [address] [address] Kashmir Luciano MD 703 [facility] [address] [place] [address] Scheduled Orders Name Type Priority Associated Diagnoses Orde r Schedule OUTSIDE LAB SCAN Lab Ordered: 10/25/2021 documented as of this encounter Visit Diagnoses Not on filedocumented in this encounter Care Teams Revit Drafter Relationship Specialty Start Date End Date Lauri El DO PCP - General 11/12/19 02/18/25 Lauri El DO [address] [place] [address] PCP - General Family Medicine 02/19/25 documented as of this encounter
--- OUTSIDE RECORDS SUMMARY | 2025-04-28 09:19 | XMS_ITS | Encounter Summary ---
Author Organization [facility] Address [address] [place] [address] Phone Care Team Providers Care Supply Coordinator Name Role Phone Lauri El DO Primary Care Provider [phone] Lauri El DO Primary Care Provider [phone] Encounter Details Date Type Department Care Team (Late st Contact Info) Description 12/26/2024 Scanned Document [facility] [address] [place] [phone] Scanning, Generic Provider Social History Tobacco Use [...] Description 11/25/2025 2:40 PM EST Office Visit [facility] 703 [facility] [address] [place] [address] Kashmir Luciano MD 703 [facility] 2[address] [place], [place] [phone] documented as of this encounter Visit Diagnoses Not on filedocumented in this encounter Additional Health Concerns Assessment Noted Time A fall risk assessment has been complete d for the patient 08/14/2023 2:19 PM EDT documented as of this encounter Care Teams Supply Coordinator Relationship Specialty Start Date End Date Lauri El DO PCP - General 11/12/19 02/18/25 Lauri El DO [address] [place] [address] PCP - General Family Medicine 02/19/25 documented as of this encounter
--- OUTSIDE RECORDS SUMMARY | 2025-04-28 09:19 | XMS_ITS | Encounter Summary ---
Author Organization [facility] Address [address] [place] [address] Phone Care Team Providers Care Special Makeup Fx Artist Instructor Name Role Phone Lauri El DO Primary Care Provider [phone] Lauri El DO Primary Care Provider [phone] Encounter Details Date Type Department Care Team (Late st Contact Info) Description 04/29/2024 Scanned Document [facility] [address] [place] [phone] Scanning, Generic Provider Social History Tobacco Use [...] Description 11/25/2025 2:40 PM EST Office Visit [facility] 703 [facility] [address] [place] [address] Kashmir Luciano MD [address] [facility] 2[address] [place], [place] [phone] documented as of this encounter Visit Diagnoses Not on filedocumented in this encounter Additional Health Concerns Assessment Noted Time A fall risk assessment has been complete d for the patient 08/14/2023 2:19 PM EDT documented as of this encounter Care Teams Special Makeup Fx Artist Instructor Relationship Specialty Start Date End Date Lauri El DO PCP - General 11/12/19 02/18/25 Lauri El DO [address] [place] [address] PCP - General Family Medicine 02/19/25 documented as of this encounter
--- OUTSIDE RECORDS SUMMARY | 2025-04-28 09:19 | XMS_ITS | Encounter Summary ---
Author Organization [facility] Address [address] [place] [id number] Phone Care Team Providers Care Freelance Art Director Name Role Phone Lauri El DO Primary Care Provider [phone] Lauri El DO Primary Care Provider [phone] Encounter Details Date Type Department Care Team (Late st Contact Info) Description 06/25/2023 Orders Only [facility] [address] [place] [address] Conversion, Onbase Social History Tobacco Use Types [...] Description 11/25/2025 2:40 PM EST Office Visit [facility] [address] [address] Kashmir Luciano MD 703 [facility] 2[address] [place] [address] Scheduled Orders Name Type Priority Associated Diagnoses Orde r Schedule OUTSIDE LAB SCAN Lab Ordered: 06/25/2023 documented as of this encounter Visit Diagnoses Not on filedocumented in this encounter Care Teams Freelance Art Director Relationship Specialty Start Date End Date Lauri El DO PCP - General 11/12/19 02/18/25 Lauri El DO [address] [place] [address] PCP - General Family Medicine 02/19/25 documented as of this encounter
--- OUTSIDE RECORDS SUMMARY | 2025-04-28 09:19 | XMS_ITS | Encounter Summary ---
Author Organization [facility] Address [address] [place] [phone] Phone Care Team Providers Care Tilting Saw Operator Name Role Phone Lauri El DO Primary Care Provider [phone] Lauri El DO Primary Care Provider [phone] Encounter Details Date Type Department Care Team (Late st Contact Info) Description 11/07/2022 Orders Only [facility] [address] [place] [address] Conversion, Onbase Social History Tobacco Use Types [...] Description 11/25/2025 2:40 PM EST Office Visit [facility] [address] [address] Kashmir Luciano MD 703 [facility] 2[address] [place] [address] Scheduled Orders Name Type Priority Associated Diagnoses Orde r Schedule OUTSIDE LAB SCAN Lab Ordered: 11/07/2022 documented as of this encounter Visit Diagnoses Not on filedocumented in this encounter Care Teams Tilting Saw Operator Relationship Specialty Start Date End Date Lauri El DO PCP - General 11/12/19 02/18/25 Lauri El DO [address] [place] [address] PCP - General Family Medicine 02/19/25 documented as of this encounter
--- NOTE | 2025-04-28 09:21 | XR_ITS ---
The [address] [address] Patient Name: JEFERSON ACOSTA MRN: [id number] date: 1950 Sex: F Assigned Patient Location: [facility] Current Patient Location: [facility] Accession/Order Number: [id number] Exam Date: 04/28/2025 09:55 Report Date: 04/28/2025 10:01 At the request of: JAMES SCHULER DO Procedure: XR chest 2V PA AND LATERAL CHEST: CLINICAL HISTORY: Cough and wheezing. Crackles on exam. Uncomplicated bronchiectasis, J47.9 COMPARISON: CT 04/04/2023 and chest x-ray 12/05/2022 There are chronic parenchymal changes correlating with the comparison CT, greatest at the lateral left mid and lower lung where bronchiectasis was noted. There is no developing consolidation, effusion or pneumothorax. The cardiac, hilar and mediastinal silhouettes are similar including a right-sided aortic arch. Granulomatous changes are present.. There is no vascular congestion. The visualized bony structures are osteopenic. There is minor endplate spurring at the spine. XR/XR chest 2V IMPRESSION: STABLE CHRONIC CHANGES INCLUDING BRONCHIECTASIS, GREATEST AT THE LOWER LATERAL LEFT LUNG. NO ACUTE FINDINGS. Impression dictated by: Mary Grace Augustin M.D. 04/28/2025 10:01 AM Dictation Location: [place] [address] Electronically authenticated by: [id number] Y Date: 04/28/2025 10:01
== END 2025-04-28 09:17 | disposition home or self-care (01) ==
LOC: RAD 09:17
PROVIDERS: PCP Family Medicine; Visit Provider Internal Medicine
DX: J47.9 Bronchiectasis, uncomplicated (principal); R91.8 Other nonspecific abnormal finding of lung field
CPT/HCPCS: 71046

== ENCOUNTER 2025-04-29 08:49 | Outpatient (OUT) | payer MEDICARE, SELFPAY ==
--- OUTSIDE RECORDS SUMMARY | 2024-01-03 07:45 | XMS_ITS | Continuity of Care Document ---
Author Organization 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, [address] [place], [place], [id number], [place] tel:[phone] [facility] Encounter For Screening For Covid-19 [facility] Ivory. [address] [place], [place], [id number], [place]. tel:[phone] Family History Family Member Type Diagnosis Age At Onset No Information Payers Payer name Insurance type Covered republican ID Authoriza tion(s) [employer] Medicare [facility] [id number] Social History Type Description Quantity Date Captured Comments Alcohol Use Details Unknown Caffeine Use Details Unknown Tobacco Use Status No Information Smoking Status No Information Sex Female Sexual Orientation Straight or heterosexual Gender Identity Female Chief Complaint And Reason For Visit No Information Reason For Referral Reason For Referral No Information Plan Of Treatment Date Type Action Status Goal CT-Colonography. Due on due Goal Mammogram. Due on due Goal FIT. Due on due Goal Hepatitis C screening. Due o n due Goal FIT-DNA. Due on due Goal Hep A. Due on du e Goal Tdap Vaccine. Due on 2023 due Goal FOBT. Due on due Goal Lipid panel. Due on due Goal Depression screening. Due on due Goal Colonoscopy. Due on due Goal Unhealthy drug use screening . Due on due Goal Influenza vaccine. Due on due Goal PRAPARE ASSESSMENT. Due on due Goal Zoster vaccine (1st). Due on due Goal Tdap. Due on due History Of Present Illness Encounter Date Complaint History Of Prese nt Illness No Information Functional Status Date Functional Assessmen t No Information Instructions Date Instruction Additional Infor mation No Information Assessments Type Assessment Date assessment Encounter For Screening For Covi d- Patient Care Teams Name Effective Dates (start - stop) Status Members No Information
--- OUTSIDE RECORDS SUMMARY | 2024-04-29 05:00 | XMS_ITS ---
Author Organization [facility] [place] Address [address] [place] [address] Care Team Providers Care Marine Biologist Name Role Phone Lauri El DO Primary Care Provider Unavail Narciso Clay Unavailable [phone] Allergies Allergen (clinical drug ingredient) Drug/Non Drug Allergy documented on EMR Reaction Allergy Type Onset Date Status Radha Unknown Drug Allergy Active amoxicillin Amoxicillin Unknown Drug Allergy Act robb Biaxin Unknown Drug Allergy Active loratadine Claritin Unknown Drug Allergy Active alendronate Fosamax Unknown Drug Allergy Activ e Keflex Unknown Drug Allergy Active atorvastatin Lipitor Unknown Drug Allergy Acti ve naproxen Naprosyn Unknown Drug Allergy Active PCE Unknown Drug Allergy Active clopidogrel Plavix Unknown Drug Allergy Activ e Sudafed Unknown Drug Allergy Active Vicodin Unknown Drug Allergy Active Substance with sulfonamide structure and antibacterial mechanism of action (substance) Sulfa Antibiotics Unknown Drug Allergy Active erythromycin Erythromycin Unknown Drug Allergy A ctive Penicillin Unknown Drug Allergy Active Estroven Complete rash Drug Allergy Active REASON FOR VISIT 1y Bronchiectasis Medications Medication SIG (Take, Route, Frequency, Duration) Notes Start Date End Date Status Black Cohosh 40 MG as directed Orally Active Isosorbide Mononitrate ER 30 MG 1 tablet in the morning Orally Once a day Active Nitroglycerin 0.4 MG as directed Sublingual Active Calcitonin (Spring) 200 UNIT/ACT 1 spray in 1 nostril, alternating nostrils daily Nasally Once a day Active Fish Oil 1200 MG 1 capsule Orally Onc e a day Active Vitamin B12 100 MCG as directed Orally Active Vitamin D3 250 MCG (44790 UT) as directed Orally Active Atenolol 25 MG 1 tablet Orally Once a day Active Citracal +D3 250-107-500 MG-MG-UNIT as directed Orally Active Aspirin 81 81 MG 1 tablet Orally Once a day Active Rosuvastatin Calcium 20 MG 1 tablet Oral ly Once a day Active Social History Tobacco Use: Social History Observation Description Date Details (start date - stop date) Never Smoker NA - NA Tobacco Use/Smoking Question Answer Notes Patient is a nonsmoker Tobacco Control (Standard) Question Answer Notes Tobacco use: Nonsmoker Vital Signs Temperature 96.4 degrees Fahrenheit 04/29/20 24 Blood pressure systolic 139 mm Hg 04/29/20 24 Blood pressure diastolic 71 mm Hg 024 Heart Rate 68 /min 04/29/2024 Respiratory Rate 18 /min 04/29/2024 Height 58 in 04/29/2024 Weight 104.8 lbs 04/29/2024 BMI 21.9 kg/m2 04/29/2024 Oximetry 95 % 04/29/2024 Encounters Encounter Location Date Provider Diagnosis Pulmonary Medicine [address] [address] 04/29/2024 Narciso Powell Bronchiectasis, uncomplicated J47.9 Assessments Encounter Date Diagnosis (ICD Code) Assessment Notes Treatment Notes Treatment Clinical Notes Section Notes 04/29/2024 Bronchiectasis, uncomplicated (ICD-10 - J47.9) Lingular/LLL bronchiectasis. Prior history of Pseudomonas pneumonia, diagnosed via BAL 02/20/2023. No chronic issues affecting her significantly at this time. COVID-19 from November 2023 does not appear to have caused any long-term effects. Has mild cough, non-productive. Patient voiced she does not feel that she needs to start anything at this time. Will continue to monitor her symptoms on an annual basis. 04/29/2024 Other Plan Of Treatment Treatment Notes Assessment Notes Bronchiectasis, uncomplicated Lingular/L LL bronchiectasis. Prior history of Pseudomonas pneumonia, diagnosed via BAL 02/20/2023. No chronic issues affecting her significantly at this time. COVID-19 from November 2023 does not appear to have caused any long-term effects. Has mild cough, non-productive. Patient voiced she does not feel that she needs to start anything at this time. Will continue to monitor her symptoms on an annual basis. Next Appt Details Follow Up: 1 Year, Reason: B ronchiectasis Procedure Notes * Category Sub-Category Detail Notes PFT Data: 03/17/2020-FEV1/FV C: 88%-FEV1: 92%-FVC: 83%-No bronchodilator administered-RV: 142%-T%-DLCO:118%-Flow-volume loop: Normal*03/07/2018-FEV1/FVC: 91%-FEV1: 93%-FVC: 77%-No bronchodilator response-RV: 85%-T%-DLCO:118%-Flow-volume loop: Mild restriction Progress Notes * Meseret ACOSTADOB: [birth year] (74 yo F)Acc No.[id number]:04/29/2024 Follow Up Patient: Meseret RAMÍREZ Provider: Evans Powell DO :1950 A ge:74 Y S ex:Female Date:04/29/2024 Address:[address] [place], [place] [id number] Pcp:Lauri El, DO Check In:08:43 AM ESTCheck O ut:09:17 AM EST Subjective: * Chief Complaints: * 1 y Bronchiectasis * HPI: G eneral: 1 YEAR F/U Patient states she has been doing fairly well since last visit. She was ill in November when she contracted COVID-19 - states the 2nd week was particularly bothersome. She feels that her strength has returned and breathing is okay. Has occasional coughing, mainly due to dryness. Rare wheezing. She does not feel that she needs to start anything on a regular basis. She is getting by with deep breathing exercises. MA Intake Comments: Patient presents for a 1-year follow up for Bronchiectasis. Patient denies any complaints or concerns today. Patient reports having Covid-19 in November 2023. Patient is under the care of [facility]. * ROS: G eneral/Constitutional: Fever or sweats d enies. C hange of appetite d enies. C hills d enies. W eight Change d enies. H EENT: Blurry Vision d enies. D ry mouth d enies. S ore throat d enies. N osebleed d enies. O ral Ulcers d enies. P ost Nasal Drip?Denies. H oarseness D enies. C ardiovascular: Tachycardia d enies. C hest pain d enies. P alpitations d enies. R espiratory: Chest tightness d enies. P leurisy D enies. D yspnea d enies. C ough m ild, mainly dry. H emoptysis d enies. W heezing d enies. G astrointestinal: Acid Reflux/GERD/Heartburn d enies. M usculoskeletal: Arthralgias/joint pain D enies. S kin: Itching d enies. R princess d enies. N eurologic: Seizures d enies. T remor d enies. H ematology: Abnormal Bleeding d enies. P sychiatric: Anxiety d enies. * Active Problem List J47.9 Bronchiectasis, unco mplicated Modified On:04/25/2023W/U Status:confirmed * Medical History: * Surgical History: t ubal ligation cataract removal Bronchoscopy 03/12/2020 & 02/20/2023 Cardiac Catheterization * Hospitalization/Major Diagno stic Procedure: D enies Past Hospitalization * Family History: F ather: emphysema. M other: Uterine Cancer, stroke, diagnosed with Diabetes, Cancer. B rother(s): Uterine Cancer, stroke, emphysema. S ister(s): breast cancer, diagnosed with Diabetes, Heart Disease, Cancer. * Social History: T obacco Use: T obacco Control (Standard) T obacco use: N onsmoker Electronic Cigarette use C urrent user N o Tobacco Use/Smoking P atient is a n onsmoker M iscellaneous: P ets: none. D rugs/Alcohol: D rugs H ave you used drugs other than those for medical reasons in the past 12 months? N o D oes the Patient have a History of Drug Abuse in the Past? N o Do you drink alcohol?: No. Do you smoke marijuana?: Denies. * Medications: T akingAspirin 81(Aspirin) 81 MG Tablet Delayed Release 1 tablet Orally Once a day Atenolol 25 MG Tablet 1 tablet Orally Once a day Black Cohosh 40 MG Capsule as directed Orally Calcitonin (Spring) 200 UNIT/ACT Solution 1 spray in 1 nostril, alternating nostrils daily Nasally Once a day Citracal +D3(Iwqxega-Rcnexnpvdr-Hdecakt D) 250-107-500 MG-MG-UNIT Tablet Chewable as directed Orally Fish Oil 1200 MG Capsule Delayed Release 1 capsule Orally Once a day Isosorbide Mononitrate ER 30 MG Tablet Extended Release 24 Hour 1 tablet in the morning Orally Once a day Nitroglycerin 0.4 MG Tablet Sublingual as directed Sublingual Rosuvastatin Calcium 20 MG Tablet 1 tablet Orally Once a day Vitamin B12 100 MCG Tablet as directed Orally Vitamin D3 250 MCG (34470 UT) Capsule as directed Orally Medication List reviewed and reconciled with the patientTaking Aspirin 81(Aspirin) 81 MG Tablet Delayed Release 1 tablet Orally Once a day Taking Atenolol 25 MG Tablet 1 tablet Orally Once a day Taking Black Cohosh 40 MG Capsule as directed Orally Taking Calcitonin (Spring) 200 UNIT/ACT Solution 1 spray in 1 nostril, alternating nostrils daily Nasally Once a day Taking Citracal +D3(Qcdzwxp-Mjnhotmtva-Fjdrrtv D) 250-107-500 MG-MG-UNIT Tablet Chewable as directed Orally Taking Fish Oil 1200 MG Capsule Delayed Release 1 capsule Orally Once a day Taking Isosorbide Mononitrate ER 30 MG Tablet Extended Release 24 Hour 1 tablet in the morning Orally Once a day Taking Nitroglycerin 0.4 MG Tablet Sublingual as directed Sublingual Taking Rosuvastatin Calcium 20 MG Tablet 1 tablet Orally Once a day Taking Vitamin B12 100 MCG Tablet as directed Orally Taking Vitamin D3 250 MCG (77557 UT) Capsule as directed Orally Medication List reviewed and reconciled with the patient * Allergies: P enicillin: AllergySulfa Antibiotics: AllergyVicodin: AllergyNaprosyn: AllergyKeflex: AllergyBiaxin: AllergyAllegra: AllergySudafed: AllergyErythromycin: AllergyFosamax: AllergyClaritin: AllergyAmoxicillin: AllergyLipitor: AllergyPCE: AllergyPlavix: AllergyEstroven Complete: rash - Allergyno[Allergies Verified] Objective: * Vitals: W t:104.8lbs, Ht: 58 in, BP:sittin/71mm Hg, Temp:Forehead:96.4F, HR:68/min, RR:18/min, BMI:21.9Index, Oxygen sat %:Room Air:95%, Ht-cm: 147.32 cm, Wt-k.54 kg. * Examination: E xam: GENERAL APPEARANCE: A ppears stated age. Skin N ormal. Mouth P ink and moist , no candidiasis. Oropharynx/Tongue M allampati Class II. Trachea M idline. Chest N ormal. Respiratory Normal M ovements, E ffort N ormal. Auscultation A few crackles in left base - essentialy unchanged from last visit. No wheezes. Cardiac R egular rate and rhythm. Gastrointestinal N ormal. Vascular N o edema. Musculoskeletal N ormal posture. Neurological F ocal, intact. Psychiatric A lert and oriented x3. Happy. Mentation/Cognition N ormal. Assessment: * Assessment: 1. B ronchiectasis, uncomplicated - J47.9 (Primary) Plan: * Treatment: * Procedures: P FT: Data: 03/17/2020 -FEV1/FVC: 88% -FEV1: 92% -FVC: 83% -No bronchodilator administered -RV: 142% -T% -DLCO:118% -Flow-volume loop: Normal * 03/07/2018 -FEV1/FVC: 91% -FEV1: 93% -FVC: 77% -No bronchodilator response -RV: 85% -T% -DLCO:118% -Flow-volume loop: Mild restriction . * Procedure Codes: * Preventive Medicine: COVID Vaccination: H as patient had COVID Vaccination? COVID Vaccination Y es 04/28/2024 Immunization Status: P neumovacc P t Refused. I nfluenza P t Refused. Screenings/Counseling: F ALL RISK SCREENING Fall Risk Assessment: N o falls in the past year Are you afraid of falling? N o T OBACCO ACTION PLAN Exclusion: M edical Reason Non Smoker Type of Medical Reason: N ot indicated F RANDAL EXCLUSION Reason: P atient Reason refused/declined Type of Patient Reason: D rug declined by patient * Follow Up: 1 Year (Reason: Bronchiectasis) * * Sign off status: Completed Visit Status: C HK (Check Out) true * Provider: Evans Powell DO Date: 0 04/29/2024 Generated for Radha morelos/Faxing/eTransmitting on: 0 04/29/2025 08:55 AM EDT History and Physical Notes * Examination Category Sub-Category Detail Notes Category Not es Exam GENERAL APPEARANCE: Appears stated age Skin Normal Mouth [place] and moist , no candidiasis Neck Trachea Midline Chest Normal Respiratory Normal Movements, Ef fort Normal Auscultation A few crackles in le ft base - essentialy unchanged from last visit. No wheezes Percussion Egophony Bronchophony Fremitus Whispered pectoriloquy Cardiac Regular rate and rhy thm Gastrointestinal Normal Vascular No edema Musculoskeletal Normal posture Neurological Focal, intact Psychiatric Alert and oriented x 3. Happy Mentation/Cognition Normal Oropharynx/Tongue Mallampati Class II
--- OUTSIDE RECORDS SUMMARY | 2025-04-28 05:00 | XMS_ITS ---
Author Organization [facility] in [place] Address [address] [place] [address] Care Team Providers Care Painter Foreman Name Role Phone Lauri El DO Primary Care Provider Unavail Narciso Clay Unavailable [phone] Allergies Allergen (clinical drug ingredient) Drug/Non Drug [...] Active Estroven Complete rash Drug Allergy Active Results Component Value Reference Range Notes XR Chest PA and Lateral (Rou gerardo CXR) * Reviewed date:04/28/2025 10:10:21 AM Interpretation: Performing Lab: Notes/Report: REASON FOR VISIT 1y Bronchiectasis Medications Medication SIG (Take, Route, Frequency, Duration) Notes Start Date End Date Status Rosuvastatin Calcium 20 MG 1 tablet Oral ly Once a day Active Vitamin B12 100 MCG as directed Orally Active Vitamin D3 250 MCG (45108 UT) as directed Orally Active Albuterol Sulfate HFA 108 (90 Base) MCG/ACT 2 puffs as needed for SOB Inhalation every 4 hrs for 30 days 04/28/2025 Active Black Cohosh 40 MG as directed Orally Active Citracal +D3 250-107-500 MG-MG-UNIT as directed Orally Active Fish Oil 1200 MG 1 capsule Orally Onc e a day Active Isosorbide Mononitrate ER 30 MG 1 tablet in the morning Orally Once a day Active Nitroglycerin 0.4 MG as directed Sublingual Active Aspirin 81 81 MG 1 tablet Orally Once a day Active Atenolol 25 MG 1 tablet Orally Once a day Active Social History Tobacco Use: Social History Observation Description Date Details (start date - stop date) Never Smoker NA - NA Tobacco Control (Standard) Question Answer Notes Tobacco use: Nonsmoker Vital Signs Temperature 96.9 degrees Fahrenheit 04/28/20 25 Blood pressure systolic 126 mm Hg 04/28/20 25 Blood pressure diastolic 76 mm Hg 025 Heart Rate 60 /min 04/28/2025 Respiratory Rate 16 /min 04/28/2025 Height 58 in 04/28/2025 Weight 97.4 lbs 04/28/2025 BMI 20.35 kg/m2 04/28/2025 Oximetry 96 % 04/28/2025 Encounters Encounter Location Date Provider Diagnosis Pulmonary Medicine [address] [address] 04/28/2025 Narciso Powell Bronchiectasis, uncomplicated J47.9 Assessments Encounter Date Diagnosis (ICD Code) Assessment Notes Treatment Notes Treatment Clinical Notes Section Notes 04/28/2025 Bronchiectasis, uncomplicated (ICD-10 - J47.9) Lingular/LLL bronchiectasis. Prior history of Pseudomonas pneumonia, diagnosed via BAL 02/20/2023. Patient had some sort of respiratory illness ~1 month ago and states she is getting better. However, there are markedly worse breath sounds compared to last visit (new wheezes, squeaks, and now bilateral crackles). She is denying any symptoms - concerned she is downplaying symptoms and there may be some lingering infiltrate or other abnormality. Ordering STAT CXR to evaluate. Plan of care dependent on results. Also recommended she have a rescue inhaler available PRN for symptoms in the future. Rx albuterol sent. Plan Of Treatment Medication Medication Name Sig Start Date Stop Date Notes Albuterol Sulfate HFA 108 (9 0 Base) MCG/ACT 2 puffs as needed for SOB Inhalation every 4 hrs for 30 days 04/28/2025 Treatment Notes Assessment Notes Bronchiectasis, uncomplicated Lingular/LLL bronchiectasis. Prior history of Pseudomonas pneumonia, diagnosed via BAL 02/20/2023. Patient had some sort of respiratory illness ~1 month ago and states she is getting better. However, there are markedly worse breath sounds compared to last visit (new wheezes, squeaks, and now bilateral crackles). She is denying any symptoms - concerned she is downplaying symptoms and there may be some lingering infiltrate or other abnormality. Ordering STAT CXR to evaluate. Plan of care dependent on results. Also recommended she have a rescue inhaler available PRN for symptoms in the future. Rx albuterol sent. Next Appt Details Follow Up: 1 Year, Reason: B ronchiectasis Procedure Notes * Category Sub-Category Detail Notes PFT Data: 03/17/2020-FEV1/FV C: 88%-FEV1: 92%-FVC: 83%-No bronchodilator administered-RV: 142%-T%-DLCO:118%-Flow-volume loop: Normal03/07/2018-FEV1/FVC: 91%-FEV1: 93%-FVC: 77%-No bronchodilator response-RV: 85%-T%-DLCO:118%-Flow-volume loop: Mild restriction Progress Notes * Meseret ACOSTADOB: [birth year] (75 yo F)Acc No.[id number]:04/28/2025 UNLOCKED PROGRESS NOTE Follow Up Patient: Meseret RAMÍREZ Provider: Evans Powell DO :1950 A ge:75 Y S ex:Female Date:04/28/2025 Address:[address] [place] [address], [id number] Pcp:Lauri El, DO Check In:08:48 AM ESTCheck O ut:09:16 AM EST Subjective: * Chief Complaints: * 1 . 1y Bronchiectasis. * HPI: G eneral: Patient was doing okay over the past year, but states her gave me a bug a month ago and is getting over some respiratory illness. She is denying any fevers, chills, or sweats. Has a cough, but not significantly productive. Though she states she is okay, she admits that when she saw Dr. El this past November, he also heard some abnormal breath sounds. MA Intake Comments:. Patient presents for a follow-up for Bronchiectasis. Patient reports having a cold recently and reports a mild cough. Patient denies any additional complaints or concerns today. Patient reports stopping the nasal spray due to the manufacture discontinuing the brand she was using. Patient attempted to switch to another brand but was unable to tolerate the medication. Patient denies ER visits or hospitalizations since her last visit with our office. * ROS: G eneral/Constitutional: Fever or sweats [...] enies. D yspnea d enies. C ough c hronic. H emoptysis d enies. W heezing d enies. G astrointestinal: Acid Reflux/GERD/Heartburn d enies. M usculoskeletal: Arthralgias/joint pain D enies. S kin: Rash d enies. N eurologic: Seizures d enies. T remor d enies. H ematology: Abnormal Bleeding d enies. P sychiatric: Anxiety d enies. * Medical History: B ronchiectasis, uncomplicated, Seasonal allergies, Hyperlipidemia, Essential hypertension, Multiple pulmonary nodules, Coronary artery disease, History of TIA (transient ischemic attack). * Surgical History: t ubal ligation , cataract removal , Bronchoscopy 03/12/2020 & 02/20/2023 , Cardiac Catheterization . * Hospitalization/Major Diagno stic Procedure: D enies Past Hospitalization. * Family History: F ather: emphysema. M other: Uterine Cancer, stroke, diagnosed with Other malignant neoplasm of unspecified site, Diabetes mellitus without mention of complication, type II or unspecified type, not stated as uncontrolled. B rother(s): Uterine Cancer, stroke, emphysema. S ister(s): breast cancer, diagnosed with Other malignant neoplasm of unspecified site, Diabetes mellitus without mention of complication, type II or unspecified type, not stated as uncontrolled, Unspecified heart disease. * Social History: T obacco Use: T obacco Control (Standard) T obacco use: N onsmoker Electronic Cigarette use C urrent user N o M iscellaneous: P ets: none. D rugs/Alcohol: D rugs H ave you used drugs other than those for medical reasons in the past 12 months? N o D oes the Patient have a History of Drug Abuse in the Past? N o Do you drink alcohol?: No. Do you smoke marijuana?: Denies. * Medications: T aking Aspirin 81(Aspirin) 81 MG Tablet Delayed Release 1 tablet Orally Once a day , Taking Atenolol 25 MG Tablet 1 tablet Orally Once a day , Taking Black Cohosh 40 MG Capsule as directed Orally , Taking Citracal +D3 250-107-500 MG-MG-UNIT Tablet Chewable as directed Orally , Taking Fish Oil 1200 MG Capsule Delayed Release 1 capsule Orally Once a day , Taking Isosorbide Mononitrate ER 30 MG Tablet Extended Release 24 Hour 1 tablet in the morning Orally Once a day , Taking Nitroglycerin 0.4 MG Tablet Sublingual as directed Sublingual , Taking Rosuvastatin Calcium 20 MG Tablet 1 tablet Orally Once a day , Taking Vitamin B12 100 MCG Tablet as directed Orally , Taking Vitamin D3 250 MCG (12187 UT) Capsule as directed Orally , Discontinued Calcitonin ([place]) 200 UNIT/ACT Solution 1 spray in 1 nostril, alternating nostrils daily Nasally Once a day , Medication List reviewed and reconciled with the patient * Allergies: P enicillin: Allergy, Sulfa Antibiotics: Allergy, Vicodin: Allergy, Naprosyn: Allergy, Keflex: Allergy, Biaxin: Allergy, Radha: Allergy, Sudafed: Allergy, Erythromycin: Allergy, Fosamax: Allergy, Claritin: Allergy, Amoxicillin: Allergy, Lipitor: Allergy, PCE: Allergy, Plavix: Allergy, Estroven Complete: rash - Allergy. Objective: * Vitals: W t:97.4lbs, Ht: 58 in, BP:sittin/76mm Hg, Temp:Forehead:96.9F, HR:60/min, RR:16/min, BMI:20.35Index, Oxygen sat %:Room Air:96%, Ht-cm: 147.32 cm, Wt-k.18 kg. * Examination: E xam: GENERAL APPEARANCE: D oes not appear ill. Skin N ormal. Mouth P ink and moist. No candidiasis. Oropharynx/Tongue M allampati Class II. Trachea M idline. Chest N ormal. Respiratory Normal M ovements, E ffort N ormal. Auscultation M arkedly worse breath sounds - increased bilateral lower lobe crackles with squeak and wheezes. Cardiac R egular rate and rhythm. Gastrointestinal N ormal. Vascular N o edema. Musculoskeletal N ormal posture. Neurological F ocal, intact. Psychiatric A lert and oriented x3. Mentation/Cognition N ormal. Assessment: * Assessment: 1. B ronchiectasis, uncomplicated - J47.9 (Primary) Plan: * Treatment: Notes: Lingular/LLL bronchiectasis. Prior history of Pseudomonas pneumonia, diagnosed via BAL 02/20/2023. Patient had some sort of respiratory illness ~1 month ago and states she is getting better. However, there are markedly worse breath sounds compared to last visit (new wheezes, squeaks, and now bilateral crackles). She is denying any symptoms - concerned she is downplaying symptoms and there may besome lingering infiltrate or other abnormality. Ordering STAT CXR to evaluate. Plan of care dependent on results. Also recommended she have a rescue inhaler available PRN for symptoms in the future. Rx albuterol sent. ?? * Procedures: P FT: Data: 03/17/2020 -FEV1/FVC: 88% -FEV1: 92% -FVC: 83% -No bronchodilator administered -RV: 142% -T% -DLCO:118% -Flow-volume loop: Normal 03/07/2018 -FEV1/FVC: 91% -FEV1: 93% -FVC: 77% -No bronchodilator response -RV: 85% -T% -DLCO:118% -Flow-volume loop: Mild restriction. ? * Preventive Medicine: COVID Vaccination: H as [...] Up: 1 Year (Reason: Bronchiectasis) * * Electronic signature of Lucero Powell , DO on 04/29/2025 at 08:54 AM EDT Sign off status: Pending Visit Status: C HK (Check Out) * Provider: Evans Powell, Date: 04/28/2025 Generated for Radha morelos/Marquise/Daleitting on: 0 04/29/2025 08:54 AM EDT History and Physical Notes * HPI (History of Present Illness) Category Sub-Category Detail Notes Category Not es General Patient present s for a follow-up for Bronchiectasis. Patient reports having a cold recently and reports a mild cough. Patient denies any additional complaints or concerns today. Patient reports stopping the nasal spray due to the manufacture discontinuing the brand she was using. Patient attempted to switch to another brand but was unable to tolerate the medication. Patient denies ER visits or hospitalizations since her last visit with our office. Examination Category Sub-Category Detail Notes Category Not es Exam GENERAL APPEARANCE: Does not appear ill Skin Normal Mouth [place] and moist. No c andidiasis Neck Trachea Midline Chest Normal Respiratory Normal Movements, Ef fort Normal Auscultation Markedly worse breat h sounds - increased bilateral lower lobe crackles with squeak and wheezes Percussion Egophony Bronchophony Fremitus Whispered pectoriloquy Cardiac Regular rate and rhy thm Gastrointestinal Normal Vascular No edema Musculoskeletal Normal posture Neurological Focal, intact Psychiatric Alert and oriented x 3 Mentation/Cognition Normal Oropharynx/Tongue Mallampati Class II
--- OUTSIDE RECORDS SUMMARY | 2025-04-28 07:31 | XMS_ITS ---
Author Organization [facility] in [place] Address [address] [place] [address] Care Team Providers Care Medical Case Worker Name Role Phone Lauri El DO Primary Care Provider Unavailab Narciso Clay Unavailable [phone] REASON FOR VISIT CXR Result Encounters Encounter Location Date Provider Diagnosis Pulmonary Medicine [place] [address] [place] [address] 04/28/2025 Narciso Powell Plan Of Treatment No Information Progress Notes * Meseret ACOSTADOB: [birth year] (75 yo F)Acc No.[id number]:04/28/2025 Patient: Meseret RAMÍREZ :1950 A ge:75 Y S ex:Female Address:[address], [place] [address] * true * Date: Generated for Radha morelos/Marquise/eTransmitting on: 0 04/29/2025 08:55 AM EDT
--- OUTSIDE RECORDS SUMMARY | 2025-04-29 08:54 | XMS_ITS | Encounter Summary ---
Author Organization [facility] Address [address] [place] [address] Phone Care Team Providers Care Recreational Therapy Aide Name Role Phone Lauri El DO Primary Care Provider [phone] Lauri El DO Primary Care Provider [phone] Encounter Details Date Type Department Care Team (Late st Contact Info) Description 12/26/2024 Scanned Document [facility] [address] [place] [phone] Scanning, Generic Provider Social History Tobacco Use [...] Description 11/25/2025 2:40 PM EST Office Visit [facility] 703 [facility] [address] [place] [address] Kashmir Luciano MD 703 [facility] 2[address] [place], [place] [phone] documented as of this encounter Visit Diagnoses Not on filedocumented in this encounter Additional Health Concerns Assessment Noted Time A fall risk assessment has been complete d for the patient 08/14/2023 2:19 PM EDT documented as of this encounter Care Teams Recreational Therapy Aide Relationship Specialty Start Date End Date Lauri El DO PCP - General 11/12/19 02/18/25 Lauri El DO [address] [place] [address] PCP - General Family Medicine 02/19/25 documented as of this encounter
--- OUTSIDE RECORDS SUMMARY | 2025-04-29 08:54 | XMS_ITS | Clinical Summary ---
Author Organization [facility] Address [address] [place] [address] Phone Care Team Providers Care Bariatric Nurse Name Role Phone Lauri El DO Primary Care Provider [phone] Allergies Active Allergy Reactions Criticality Noted Date Comments Alendronate Rash Low 07/05/2023 Atenolol Shortness of breath,Other High 07/05/2023 No longer a allergen Cephalexin Rash Medium 07/05/2023 Irregular HR Clopidogrel Rash High 07/05/2023 Fatigue, tachycardia Desloratadine GI bleeding High 07/05/2023 Nose bleed Soy Isofla-Blk Cohosh-Mag Bark Other Medium 05/21/2024 Skin peeling Hydrocodone-Acetaminophen Other High 07/05/2023 Chest pain Iron,Carbonyl-Vitamin C Unknown,Drowsiness Medium 06/13 Drowsiness, exercise intolerance, could not wake up Naproxen Shortness of breath,Nausea Only,Other High 07/05/2023 fatigue Penicillins Shortness of breath High 07/05/2023 Sulfamethoxazole Rash Low 07/05/2023 Rofecoxib Shortness of breath High 07/05/2023 Chest pain Medications aspirin 81 mg EC tablet Take 1 tablet (81 mg) by mouth once daily. As directed 1 Active atenolol (Tenormin) 25 mg tablet Take 1 tablet (25 mg) by mouth 2 times a day. 1 Active calcitonin, salmon, (Miacalcin) 200 unit/actuation nasal spray Administer 1 spray into affected nostril(s) once daily. ALTERNATING NOSTRILS 1 Active nitroglycerin (Nitrostat) 0.[address] 1 tablet (0.4 mg) under the tongue every 5 minutes if needed for chest pain. For up to 3 doses; CALL 911 IF PAIN PERSISTS. Active rosuvastatin (Crestor) 20 mg tablet Take 1 tablet (20 mg) by mouth once daily. 1 Active BLACK COHOSH ORAL Take 1 capsule by mouth once daily. 40mg Active calcium phosphate trib/vit D3 (CITRACAL-D3 GUMMIES ORAL) Take 2 tablets by mouth once daily. Active omega 4-pog-fwt-fish oil (Fish OiL) 1,000 mg (120 mg-180 mg) capsule Take 1 capsule (1,000 mg) by mouth 2 times a day. Active cyanocobalamin, vitamin B-12, (VITAMIN B-12 ORAL) Take 1 tablet by mouth once daily. Active cholecalciferol (Vitamin D3) 25 MCG (1000 UT) capsule Take by mouth. Take as directed Active salmon oil/omega-3 fatty acids (SALMON OIL-1000 ORAL) Take 1 capsule by mouth early in the morning.. Active isosorbide mononitrate ER (Imdur) 30 mg 24 hr tabletIndication s:Coronary artery disease involving coushatta coronary artery of coushatta heart without angina pectoris Take 1 tablet (30 mg) by mouth once daily. 90 tablet 3 4 05/21/20 25 Active Active Problems Problem Noted Date Diagnosed Date Other secondary pulmonary hypertension 3 Coronary artery disease without angina pectoris 07/05/2023 HTN (hypertension) 07/05/2023 Hyperlipidemia 07/05/2023 Shortness of breath 07/05/2023 TIA (transient ischemic attack) 07/05/2023 Never smoked any substance 07/05/2023 BMI 22.0-22.9, adult 07/05/2023 Encounters Date Type Department Care Team Description 02/19/2025 2:20 PM EDT Office Visit [address] [address] Kashmir Luciano MD Other secondary pulmonary hypertension (Primary Dx); Coronary artery disease involving coushatta coronary artery of coushatta heart without angina pectoris; Hyperlipidemia, unspecified hyperlipidemia type; Primary hypertension; BMI 22.0-22.9, adult; TIA (transient ischemic attack); Shortness of breath; Never smoked any substance 02/19/2025 Travel from Last 3 Months Immunizations Immunization Administration Dates Next Due Moderna SARS-CoV-2 Vaccination 02/20/2022,2020,01/03/2021 Pfizer COVID-19 vaccine, biv alent, age 12 years and older (30 mcg/0.3 mL) 09/04/2022 Zoster, live 08/16/2017 Family History Medical History Relation Name Comments Cancer Brother Heart attack Brother arteriosclerotic cardiovascular disease Brother Cancer Father Cirrhosis Father hepatic arteriosclerotic cardiovascular disease Father Heart attack Mother arteriosclerotic cardiovascular disease Mother cirrhosis liver Sister past away Relation Name Status Comments Brother Father Mother Sister Social History Tobacco Use Types Packs/Day Years [...] Sign Reading Time Taken Comments Blood Pressure 122/70 02/19/2025 2:31 PM EDT Pulse 70 02/19/2025 2:31 PM EDT Temperature - - Respiratory Rate - - Oxygen Saturation - - Inhaled Oxygen Concentration - - Weight 44.9 kg (99 lb) 02/19/2025 2:31 PM EDT Height 144.8 cm (4' 9 ) 02/19/2025 2:31 PM EDT Body Mass Index 21.42 02/19/2025 2:31 PM EDT Plan of Treatment Upcoming Encounters Date Type Department Care Team (Late st Contact Info) Description 11/25/2025 2:40 PM EST Office Visit [facility] [address] [address] Kashmir Luciano MD 703 [facility] 2[address] [place] [address] Health Maintenance Due Date Last Done Comments Lipid Panel 1950 Medicare Annual Wellness Visit (AWV) 1950 Diabetes Screening 1967 Hepatitis C Screening 1967 DTaP/Tdap/Td Vaccines (1 - Tdap) 1971 Zoster Vaccines (2 of 3) 10/11/2017 08/16/2017 Bone Density Scan 01/21/2023 01/21/2021, 01/21/2021 RSV High Risk: (Elderly (60+) or Population) (1 - 1-dose 75+ series) 02/15/2024 COVID-19 Vaccine ( season) 2024 04/28/2024, 09/13/2023, 09/04/2022, Additional history exists Influenza Vaccine (Season Ended) 2025 Colonoscopy Discontinued 04/23/2019 Colorectal Cancer Screening Discontinued Mammogram Discontinued 09/13/2020, 09/13/2020 Pneumococcal Vaccine Completed 08/27/2024 CT Colonography Discontinued FIT-DNA (Cologuard) Discontinued FIT Discontinued HIB Vaccines Aged Out No longer eligi ble based on patient's age to complete this topic HPV Vaccines Aged Out No longer eligi ble based on patient's age to complete this topic Hepatitis A Vaccines Aged Out No long er eligible based on patient's age to complete this topic Hepatitis B Vaccines Aged Out No long er eligible based on patient's age to complete this topic IPV Vaccines Aged Out No longer eligi ble based on patient's age to complete this topic Meningococcal Vaccine Aged Out No enmanuel rebecca eligible based on patient's age to complete this topic Rotavirus Vaccines Aged Out No longer eligible based on patient's age to complete this topic Sigmoidoscopy Discontinued Procedures Procedure Name Priority Date/Time Associated Diagnosis Comments ECG 12-LEAD Routine 02/19/2025 2:20 PM EDT Coronary artery disease involving coushatta coronary artery of coushatta heart without angina pectoris from Last 3 Months Results * ECG 12 Lead (02/19/2025 2:20 PM EDT) Narrative CPACS - 02/19/2025 3:14 PM EDT Normal sinus rhythm with nonspecific ST-T changes us Kashmir Luciano MD ECG ORDERABLES Final Resu lt CPACS from Last 3 Months Insurance [employer] G[employer] Care Teams Bariatric Nurse Relationship Specialty Start Date End Date Lauri El DO [address] [place] [address] PCP - General Family Medicine 02/19/25
--- OUTSIDE RECORDS SUMMARY | 2025-04-29 08:54 | XMS_ITS | Encounter Summary ---
Author Organization [facility] Address [address] [place] [address] Phone Care Team Providers Care Plane Captain Name Role Phone Lauri El DO Primary Care Provider [phone] Lauri El DO Primary Care Provider Encounter Details Date Type Department Care Team (Late st Contact Info) Description 11/15/2023 Scanned Document [facility] [address] [place] [phone] Scanning, Generic Provider Social History Tobacco Use [...] Office Visit [facility] [address] [facility] [address] [place] [address] Kashmir Luciano MD [address] [facility] [address] [place], [place] [id number] documented as of this encounter Visit Diagnoses Not on filedocumented in this encounter Additional Health Concerns Assessment Noted Time A fall risk assessment has been complete d for the patient 08/14/2023 2:19 PM EDT documented as of this encounter Care Teams Plane Captain Relationship Specialty Start Date End Date Lauri El DO PCP - General 11/12/19 02/18/25 Lauri El DO [address] [place] [address] PCP - General Family Medicine 02/19/25 documented as of this encounter
--- OUTSIDE RECORDS SUMMARY | 2025-04-29 08:54 | XMS_ITS | Encounter Summary ---
Author Organization [facility] Address [address] [place] [address] Phone Care Team Providers Care Track Repair Supervisor Name Role Phone Lauri El DO Primary Care Provider Lauri El DO Primary Care Provider [phone] Encounter Details Date Type Department Care Team (Late st Contact Info) Description 04/29/2024 Scanned Document [facility] [address] [place] [phone] Scanning, Generic Provider Social History Tobacco Use [...] Description 11/25/2025 2:40 PM EST Office Visit [facility] [address] [facility] [address] [place] [address] Kashmir Luciano MD 703 [facility] 2, [address] [place], [place] [phone] documented as of this encounter Visit Diagnoses Not on filedocumented in this encounter Additional Health Concerns Assessment Noted Time A fall risk assessment has been complete d for the patient 08/14/2023 2:19 PM EDT documented as of this encounter Care Teams Track Repair Supervisor Relationship Specialty Start Date End Date Lauri El DO PCP - General 11/12/19 02/18/25 Lauri El DO [address] [place] [address] PCP - General Family Medicine 02/19/25 documented as of this encounter
--- OUTSIDE RECORDS SUMMARY | 2025-04-29 08:55 | XMS_ITS | Encounter Summary ---
Author Organization [facility] Address [address] [place] [phone] Phone Care Team Providers Care Radio Engineer Name Role Phone Lauri El DO Primary Care Provider [phone] Lauri El DO Primary Care Provider [phone] Encounter Details Date Type Department Care Team (Late st Contact Info) Description 06/25/2023 Orders Only [facility] [address] [place] [address] Conversion, Onbase Social History Tobacco Use Types [...] Description 11/25/2025 2:40 PM EST Office Visit [facility] [address] [address] Kashmir Luciano MD 703 [facility] [address] [place] [address] Scheduled Orders Name Type Priority Associated Diagnoses Orde r Schedule OUTSIDE LAB SCAN Lab Ordered: 06/25/2023 documented as of this encounter Visit Diagnoses Not on filedocumented in this encounter Care Teams Radio Engineer Relationship Specialty Start Date End Date Lauri El DO PCP - General 11/12/19 02/18/25 Lauri El DO [address] [place] [address] PCP - General Family Medicine 02/19/25 documented as of this encounter
--- OUTSIDE RECORDS SUMMARY | 2025-04-29 08:55 | XMS_ITS | Encounter Summary ---
Author Organization [facility] Address [address] [place] [phone] Phone Care Team Providers Care Cutting Table Operator Name Role Phone Lauri El DO Primary Care Provider [phone] Lauri El DO Primary Care Provider [phone] Encounter Details Date Type Department Care Team (Late st Contact Info) Description 11/07/2022 Orders Only [facility] [address] [place] [address] Conversion, Onbase Social History Tobacco Use Types [...] Description 11/25/2025 2:40 PM EST Office Visit [facility] [address] [address] Kashmir Luciano MD 703 [facility] 2[address] [place] [address] Scheduled Orders Name Type Priority Associated Diagnoses Orde r Schedule OUTSIDE LAB SCAN Lab Ordered: 11/07/2022 documented as of this encounter Visit Diagnoses Not on filedocumented in this encounter Care Teams Cutting Table Operator Relationship Specialty Start Date End Date Lauri El DO PCP - General 11/12/19 02/18/25 Lauri El DO [address] [place] [address] PCP - General Family Medicine 02/19/25 documented as of this encounter
--- OUTSIDE RECORDS SUMMARY | 2025-04-29 08:55 | XMS_ITS | Clinical Summary ---
Author Organization [facility] Address [address] [place] [address] Care Team Providers Care Information Systems Operator Name Role Phone Jyotsna Abarca MD Primary Care Provider [phone] Allergies Active Allergy Reactions Criticality Noted Date [...] OB [address] [place] [address] Diana Botello MD Mastalgia (Primary [...] OB [address] [place] [address] Diana Botello MD [address] [place] [address] Health Maintenance Due Date Last [...] EST Narrative 09/29/2024 2:18 [place] [address] Mammography Report Signed Patient: JEFERSON ACOSTA MR#: [id number] : 1950 Acct:[id number] Age/Sex: 74 / F ADM Date: 09/29/24 Loc: MAMMO Attending Dr: DIANA BOTELLO Ordering Physician: DIANA BOTELLO Results: Date of Service: 09/29/24 Follow Up: Procedure(s): MM tomosynthesis screening BI Accession Number(s): [id number] cc: JYOTSNA ABARCA; DIANA BOTELLO Patient Name: JEFERSON AOCSTA MR#: [id number] : 1950 Exam Date: 09/29/2024 Ordering Doctor: [...] bone cancer at age 89. LOCATION: The [facility] BREAST COMPOSITION: The breasts are heterogeneously dense,which [...] Signed By: 09/29/24 1418 DD/ 1417 TD/TT: Bark Skinner: Procedure Note Radiology, Radiologist, MD - 09/29/2024 [place] [address] Mammography Report Signed Patient: JEFERSON ACOSTAMR#: [id number] : 1950cct:[id number] Age/Sex: 74 / FADM Date: 09/29/24 Loc: MAMMO Attending Dr: DIANA BOTELLO Ordering Physician: Bandar BOTELLOults: Date of Service: 09/29/24Follow Up: Procedure(s): MM tomosynthesis screening BI Accession Number(s): [id number] cc: JYOTSNA ABARCA; DIANA BOTELLO Patient Name: JEFERSON ACOSTA MR#: [id number] : 1950 Exam Date: 09/29/2024 Ordering Doctor: DR DIANA BOTELLO RADIOLOGY REPORT PROCEDURE: MM TOMOSYNTHESIS SCREENING BI COMPARISON: MM TOMOSYNTHESIS SCREENING BI, 09/26/2023. MG MAMM [id number] CELINE CAD, 09/25/2022. MG MAMM SCREEN 3D [...] bone cancer at age 89. LOCATION: The [facility] BREAST COMPOSITION: The breasts are heterogeneously dense,which [...] M.D. Signed By:09/29/24 1418 DD/ 1417 TD/TT: Bark Skinner: us Diana Botello MD [facility] Final Result from Last 3 Months or Most Recently Relevant to Health Maintenance Insurance [employer] MED[employer]AGE Care Teams Information Systems Operator Relationship Specialty Start Date End Date Jyotsna Abarca MD [address] [place] [address] [place] [address] PCP - General Family Medicine 02/04/24
--- OUTSIDE RECORDS SUMMARY | 2025-04-29 08:55 | XMS_ITS | Encounter Summary ---
Author Organization [facility] Address [address] [place] [address] Care Team Providers Care Supervisor Mold Construction Name Role Phone Jyotsna Abarca MD Primary Care Provider [phone] Encounter Details Date Type Department Care Team (Late Contact Info) Description 09/29/2024 Clinisync Result Encounter [facility] External Department Unsolicited Ángel Botello MD [address] [facility] [address] [place] [address] Social History Tobacco Use Types Packs/Day Years [...] Office Visit [facility] [address] [facility] [address] [place] [phone] Ángel Botello MD [address] [place] [address] documented as of this encounter Procedures Procedure Name Priority Date/Time Associated Diagnosis Comments MM TOMOSYNTHESIS SCREENING BI 09/29/2024 2:17 PM EST documented in this encounter Results * MM TOMOSYNTHESIS SCREENING BI (09/29/2024 2:17 PM EST) Anatomical Region Laterality Modality Other 09/29/2024 2:17 PM EST Narrative 09/29/2024 2:18 [place] [address] Mammography Report Signed Patient: JEFERSON ACOSTA MR#: [id number] : 1950 Acct:[id number] Age/Sex: 74 / F ADM Date: 09/29/24 Loc: MAMMO Attending Dr: ÁNGEL BOTELLO Ordering Physician: ÁNGEL BOTELLO Results: Date of Service: 09/29/24 Follow Up: Procedure(s): MM tomosynthesis screening BI Accession Number(s): [id number] cc: JYOTSNA ABARCA; ÁNGEL BOTELLO Patient Name: JEFERSON ACOSTA MR#: [id number] : 1950 Exam Date: 09/29/2024 Ordering Doctor: [...] bone cancer at age 89. LOCATION: The [facility] BREAST COMPOSITION: The breasts are heterogeneously dense,which [...] Signed By: 09/29/24 1418 DD/ 1417 TD/TT: Oil And Gas Exploration Technician: Procedure Note Radiology, Radiologist, MD - 09/29/2024 [place] [address] Mammography Report Signed Patient: JEFERSON ACOSTAMR#: [id number] : 1950cct:[id number] Age/Sex: 74 / FADM Date: 09/29/24 Loc: MAMMO Attending Dr: ÁNGEL BOTELLO Ordering Physician: Bandar BOTELLOults: Date of Service: 09/29/24Follow Up: Procedure(s): MM tomosynthesis screening BI Accession Number(s): [id number] cc: JYOTSNA ABARCA; ÁNGEL BOTELLO Patient Name: JEFERSON ACOSTA MR#: [id number] : 1950 Exam Date: 09/29/2024 Ordering Doctor: DR ÁNGEL BOTELLO RADIOLOGY REPORT PROCEDURE: MM TOMOSYNTHESIS SCREENING BI COMPARISON: MM TOMOSYNTHESIS SCREENING BI, 09/26/2023. MG MAMM [id number] CELINE CAD, 09/25/2022. MG MAMM SCREEN 3D [...] bone cancer at age 89. LOCATION: The [facility] BREAST COMPOSITION: The breasts are heterogeneously dense,which [...] M.D. Signed By:09/29/24 1418 DD/ 1417 TD/TT: Oil And Gas Exploration Technician: us Ángel Botello MD [facility] Final Result documented in this encounter Visit Diagnoses Not on filedocumented in this encounter Care Teams Supervisor Mold Construction Relationship Specialty Start Date End Date Jyotsna Abarca MD [address] [place] [address] Suite [place] [id number] PCP - General Family Medicine 02/04/24 documented as of this encounter
--- OUTSIDE RECORDS SUMMARY | 2025-04-29 08:55 | XMS_ITS | Encounter Summary ---
Author Organization [facility] Address [address] [place] [phone] Phone Care Team Providers Care Supervisor Telephone Information Name Role Phone Lauri El DO Primary Care Provider [phone] Lauri El DO Primary Care Provider [phone] Encounter Details Date Type Department Care Team (Late st Contact Info) Description 10/25/2021 Orders Only [facility] [address] [place] [address] Conversion, Onbase Social History Tobacco Use Types [...] Description 11/25/2025 2:40 PM EST Office Visit [facility] [address] [address] Kashmir Luciano MD 703 [facility] [address] [place] [address] Scheduled Orders Name Type Priority Associated Diagnoses Orde r Schedule OUTSIDE LAB SCAN Lab Ordered: 10/25/2021 documented as of this encounter Visit Diagnoses Not on filedocumented in this encounter Care Teams Supervisor Telephone Information Relationship Specialty Start Date End Date Lauri El DO PCP - General 11/12/19 02/18/25 Lauri lE DO [address] [place] [address] PCP - General Family Medicine 02/19/25 documented as of this encounter
--- OUTSIDE RECORDS SUMMARY | 2025-04-29 08:55 | XMS_ITS | Patient Health Record ---
Author Organization [facility] [place] Address [address] [place] [address] Care Team Providers Care Passenger Service Supervisor Name Role Phone Jyotsna Abarca DO Primary Care Provider Jose howard Narciso Schuler Unavailable [phone] Allergies Allergen (clinical drug ingredient) Drug/Non Drug [...] date:04/28/2025 10:10:21 AM Interpretation: Performing Lab: Notes/Report: XR chest 2V Reviewed date:04/28/2025 11:35:15 AM Interpretation: Performing Lab: Notes/Report: Source Facility: [place] [address] [place] [address] XRay Report Signed Patient: JEFERSON ACOSTA MR#: [id number] : 1950 Acct:[id number] Age/Sex: 75 / F ADM Date: 04/28/25 Loc: RAD Attending Dr: Narciso Schuler D.O. Ordering Physician: Narciso Schuler D.O. Date of Service: 04/28/25 Procedure(s): XR chest 2V Accession Number(s): [id number] cc: JYOTSNA ABARCA; Narciso Schuler D.O. The [place] [id number] Patient Name: JEFERSON ACOSTA MRN: [facility]:[id number] date: 1950 Sex: F Assigned Patient Location: [facility] Current Patient Location: [facility] Accession/Order Number: [id number] Exam Date: 04/28/2025 09:55 Report Date: 04/28/2025 10:01 At the request of: NARCISO SCHULER DO Procedure: XR chest 2V PA AND LATERAL CHEST: CLINICAL HISTORY: Cough and wheezing. Crackles on exam. Uncomplicated bronchiectasis, J47.9 COMPARISON: CT 04/04/2023 and chest x-ray 12/05/2022 There are chronic parenchymal changes correlating with the comparison CT, greatest at the lateral left mid and lower lung where bronchiectasis was noted. There is no developing consolidation, effusion or pneumothorax. The cardiac, hilar and mediastinal silhouettes are similar including a right-sided aortic arch. Granulomatous changes are present.. There is no vascular congestion. The visualized bony structures are osteopenic. There is minor endplate spurring at the spine. XR/XR chest 2V IMPRESSION: STABLE CHRONIC CHANGES INCLUDING BRONCHIECTASIS, GREATEST AT THE LOWER LATERAL LEFT LUNG. NO ACUTE FINDINGS. Impression dictated by: Mary Grace Augustin M.D. 04/28/2025 10:01 AM Dictation Location: [place] [address] Electronically authenticated by: [id number] Y Date: 04/28/2025 10:01 Dictated By: Mary Grace Augustin M.D. 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 Ordering Physician: Narciso Schuler D.O. Date of Service: 04/28/25 Procedure(s): XR chest 2V Accession Number(s): [id number] cc: JYOTSNA ABARCA; Narciso Short msa, D.O. [place] [id number] Patient Name: JEFERSON ACOSTA MRN: [facility]:[id number] date: 1950 Sex: F Assigned Patient Location: [facility] Current Patient Location: [facility] Accession/Order Numb er: [id number] Exam Date: 04/28/2025 09:55 Report Date: 04/28/2025 10:01 At the request of: NARCISO SCHULER DO Procedure: XR chest 2V PA AND LATERAL CHEST: CLINICAL HISTORY: Co ugh and wheezing. Crackles on exam. Uncomplicated bronchiectasis, J47.9 COMPARISON: CT 2022 and chest x-ray 12/05/2022 There are chronic pa renchymal changes correlating with the comparison CT, greatest at the late ral left mid and lower lung where bronchiectasis was noted. There is no d eveloping consolidation, effusion or pneumothorax. The cardiac, hilar and m ediastinal silhouettes are similar including a right-sided aortic arch. Granulo matous changes are present.. There is no vascular congestion. The visu alized bony structures are osteopenic. There is minor endplate spurring at the spine. X R/XR chest 2V IMPRESSION: STABLE CHRONIC TINSLEY ES INCLUDING BRONCHIECTASIS, GREATEST AT THE LOWER LATERAL LEFT LUNG. NO ACUTE FINDINGS. Impression dictated by: Mary Grace Augustin M.D. 04/28/2025 10:01 AM Dictation Location: [place] [address] Electronically auth nticated by: [id number] Y Date: 04/28/2025 10:01 Dictated By: Mary Grace Augustin M.D. 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5 mL Unknown 04/28/2024 Administered Zoster (Zostavax) Unknown 08/16/2017 Administered Social History Tobacco Use: Social History Observation Description Date Details (start date - stop date) Never Smoker NA - NA Tobacco Control (Standard) Question Answer Notes Tobacco use: Nonsmoker Problems Problem Type SNOMED Code ICD Code Onset Dates Problem Status W/U Status Risk Notes Problem Bronchiectasis, uncomplicated (J47.9) Active confirmed Vital Signs Heart Rate 60 /min 04/28/2025 Temperature 96.9 degrees Fahrenheit 04/28/2025 Respiratory Rate 16 /min 04/28/2025 Blood pressure diastolic 76 mm Hg 04/28/2025 Oximetry 96 % 04/28/2025 Height 58 in 04/28/2025 Blood pressure systolic 126 mm Hg 04/28/2025 Weight 97.4 lbs 04/28/2025 BMI 20.35 kg/m2 04/28/2025 Encounters Encounter Location Date Provider Diagnosis Pulmonary [facility] [place] [address] [place] [address] 04/28/[address] [facility] [place] [address] [place] [address] 04/28/2025 Narciso Schuler Bronchiectasis, uncomplicated J47.9 Pulmonary [facility] [place] [address] [place] [address] 04/29/2024 Narciso Schuler Bronchiectasis, uncomplicated J47.9 Assessments Encounter Date Diagnosis [...] monitor her symptoms on an annual basis. 04/28/2025 Bronchiectasis, uncomplicated (ICD-10 - J47.9) Lingular/LLL [...] symptoms in the future. Rx albuterol sent. 04/29/2024 Other Plan Of Treatment No Information Insurance Providers Payer Name Payer Address Payer Phone Subscriber Number Group Number Insured Name Patient Relationship to Insured Coverage Start Date Coverage End Date [facility] MEDICARE ADV PLAN [address] [address] [place] [phone] [id number] Latisha Acostaanita Self - patient is the insured 3 Medical (General) History Medical History History ICD Code Bronchiectasis, uncomplicated J47.9 Seasonal allergies J30.2 Hyperlipidemia E78.5 Essential hypertension I10 Multiple pulmonary nodules R91.8 Coronary artery disease I25.10 History of TIA (transient ischemic attac k) Z86.73 Surgical History Surgery Date(Month/Year) Cardiac Catheterization Bronchoscopy 03/12/2020 & 02/20/2023 tubal ligation cataract removal
== END 2025-04-29 08:50 | disposition home or self-care (01) ==
LOC: RAD 08:49
PROVIDERS: PCP Family Medicine; Visit Provider Family Medicine
DX: M81.0 Age-related osteoporosis without current pathological fracture (principal); Z78.0 Asymptomatic menopausal state; M85.80 Other specified disorders of bone density and structure, unspecified site
CPT/HCPCS: 77080

== ENCOUNTER 2025-09-30 09:26 | Outpatient (OUT) | payer MEDICARE, SELFPAY ==
--- NOTE | 2025-09-30 09:30 | MM_ITS ---
Patient Name: JEFERSON ACOSTA MR#: [id number] : 1950 Exam Date: 09/30/2025 Ordering Doctor: DIANA BOTELLO RADIOLOGY REPORT PROCEDURE: MM TOMOSYNTHESIS SCREENING BI COMPARISON: MM TOMOSYNTHESIS SCREENING BI, 09/29/2024. MM TOMOSYNTHESIS SCREENING BI, 09/26/2023. MG MAMM SCREEN 3D CELINE CAD, 09/25/2022. MG MAMM CELINE SCRN W CAD DIG, 08/21/2013. INDICATIONS: Screening Calculator Name NCI Breast Cancer Risk Assessment Tool 5 Year Breast Cancer Risk 1.30% Lifetime Breast Cancer Risk 2.70% Personal Breast Cancer No Personal Ovarian Cancer No Treatments None Family Cancers Mother with uterine/thyroid cancer at age 45; Grandfather-paternal with bone cancer at age ~90. LOCATION: The [facility] BREAST COMPOSITION: The breasts are heterogeneously dense, which may obscure small masses. FINDINGS: RIGHT BREAST: No significant suspicious finding. Similar biopsy clips are present . LEFT BREAST: No significant suspicious finding. Benign-appearing calcifications are present. DIAGNOSTIC CATEGORY 2--BENIGN FINDING. NO CHANGE FROM COMPARISON. RECOMMENDATIONS: ROUTINE MAMMOGRAM AND CLINICAL EVALUATION IN 12 MONTHS. Dictated by: Alex Jewell MD on 09/30/2025 at 15:43 Approved by: Alex Jewell MD on 09/30/2025 at 15:51
--- OUTSIDE RECORDS SUMMARY | 2025-09-30 09:31 | XMS_ITS | CCD ---
Author Organization [facility] CliniSyor Care Team Providers Care Manufacturing Associate Name Role Phone Jyotsna Abarca Unavailable Unavailable Unavailable Unavailable Jyotsna Abarca Unavailable DO Jyotsna Abarca Primary Care Provider [phone] DO Jyotsna Abarca Attending Provider [phone] Jyotsna Abarca Unavailable TEVIN, DR GOYAL Primary [...] Attending Unavailable GIRVIN, DR GOYAL Consulting Unavailable GIRVIN, DR GOYAL Primary Care Unavailable SAM, DR JYOTSNA Vidal Consulting Unavailable GIRJUSTEN, DR GOYAL Admitting Unavailable GIRJUSTEN, DR GOYAL Attending Unavailable GIRJUSTEN, DR GOYAL Consulting Unavailable GIRVIN, DR GOYAL Primary Care Unavailable WEST, DR [...] Care Provider DO Jyotsna Abarca Attending Provider [phone] Jyotsna Abarca DO Primary Care Provider DO Jyotsna Abarca Primary Care Provider DO Jyotsna Abarca Attending Provider [phone] DO Jyotsna Abarca Primary Care Provider DO Jyotsna Abarca Attending Provider Jyotsna Abarca Primary Care Physician Shiv LEAL Attending Unavailable Jyotsna Abarca Referring Unavailable Shiv LEAL Attending Unavailable Jyotsna Abarca DO Primary Care Provider Jyotsna Abarca DO Attending Provider [phone] Jyotsna Abarca MD Primary Care Provider ÁNGEL BOTELLO Attending Unavailable Jyotsna Abarca DO Primary Care Provider MITA KARIMI Attending Unavailable MITA KARIMI Referring Unavailable JYOTSNA ABARCA Primary Care Unavailable MITA KARIMI Attending Unavailable MITA KARIMI Referring Unavailable JYOTSNA ABARCA Primary Care Unavailable Jyotsna Abarca MD Primary Care Provider Jyotsna Abarca DO Primary Care Provider Jyotsna Abarca DO Attending Provider [phone] Jyotsna Abarca Attending Unavailable Jyotsna Abarca Primary Care Unavailable Jyotsna Abarca Admitting Unavailable Jyotsna Abarca Attending Unavailable Jyotsna Abarca Primary Care Unavailable Jyotsna Abarca Admitting Unavailable Jyotsna Abarca Attending Unavailable Jyotsna Abarca Primary Care Unavailable Jyotsna Abarca Admitting Unavailable Jyotsna Abarca Attending Unavailable Jyotsna Abarca Primary Care Unavailable Jyotsna Abarca Admitting Unavailable Jyotsna Abarca MD Primary Care Provider [phone] Allergies Allergy ClassificationReported Allergen(s)Allergy TypeDate of OnsetReaction(s) Facility (6 sources)Acetaminophen / HYDROcodone; Translations: [Vicodin TABS]Drug Allergy 08-45-3733UvehcZSPhillips Eye Institute 250 DO Work Phone: (20 sources)Alendronate; Translations: [Fosamax]Drug Eewzpop26-35-8418xjog, Eruption of skin (disorder)[facility] (2 sources)Ascorbic Acid / Ferrous fumarate; Translations: [Vitron-C]Drug AllergyDrowsiness, Exercise Intolerance, Unknown, OtherMP-[facility] 250 DO Work Phone: (6 sources)Atenolol; Translations: [atenolol]Drug Episfyo26-51-2525Cjzxapnhm of breath, [facility] (11 sources)Cephalexin; Translations: [Keflex CAPS]Drug Gqvlqhe16-56-0242Wact, Palpitations (finding), [facility]ationsMult[facility] Other (20 sources)clopidogrel; Translations: [Plavix]Drug Qeejunl65-16-2414yzynpohsr of breath, Rash, Palpitations (finding)[facility] Other (20 sources)desloratadine; Translations: [Clarinex]Drug Dbctvdd99-68-6417RF bleedingNoPhysicians Care Surgical Hospital [facility] Other (20 sources)Naproxen; Translations: [naproxen]Drug Kyaquqj49-64-0903Qbssmguls of breath, Nausea Only, [facility] (16 sources)Penicillins; Translations: [Penicillins]Allergy to drug (finding) 16-23-5969Rklepceef of breath, Difficulty [facility]athingThe [facility] (3 sources)rofecoxib; Translations: [Vioxx]Drug AllergyShortness of breath, Chest PainPro[facility] (5 sources)Sulfamethoxazole; Translations: [sulfa]Drug Lfvsvej02-06-5532ErdzDQ- [facility] 250 DO Work Phone: (19 sources)Acetaminophen / HYDROcodone; Translations: [Vicodin]Drug Allergy 63-67-6356YrfvrfoMixSelect Medical [facility] (20 sources)AmoxicillinDrug Zmcgquq92-26-6947tbgyqqvay of breathThe Jewish Hospital (20 sources)atorvastatin; Translations: [atorvastatin]Drug Zjgbvuw72-48-7092 Muscle pain (finding)[facility] (18 sources)Cephalexin; Translations: [Keflex]Drug Ncyjtid32-63-1983PmkswigZaqSelect Medical [facility] (20 sources)Clarithromycin; Translations: [clarithromycin]Drug Fspwbzg56-65-4967 Unknown, Difficulty Breathing, SOBThe Jewish Hospital (20 sources)denosumab; Translations: [denosumab]Drug Cufxfkq59-49-4168dced, Eruption of skin (disorder)[facility] (20 sources)ErythromycinDrug Bfpzljk45-33-4563JcomhizWmndh Coast [facility] Other (20 sources)fexofenadine; Translations: [fexofenadine]Drug AllergyPalpitations (finding)[facility] (17 sources)LoratadineDrug Rskdzta55-85-3294Bpqhnpg, Unknown ReactionThe Jewish Hospital (20 sources)Penicillin GDrug Iqjzlrr43-75-0689Ftiowxq, Unknown ReactionThe Jewish Hospital (17 sources)PseudoephedrineDrug AllergySouth County Hospital [facility] Other (20 sources)PCEDrug htnziuj52-89-7835Blwkgyt, Unknown ReactionThe Jewish Hospital (17 sources)Sulf-10Drug allergySouth County Hospital [place] Other (9 sources)Loratadine; Translations: [Claritin]Drug Krjalgo71-08-7083BldblfzHopSelect Medical [facility] Repository (13 sources)AcetaminophenDrug Uruwmjc38-04-8444Aylqhllubw BreathingThe Jewish Hospital (13 sources)AlendronateDrug Bqzxrls92-08-5196EokbNfvvandacThe Jewish Hospital (14 sources)Cephalexin; Translations: [CEPHALEXIN]Drug Fcqaazp46-68-7714 PalpitationsThe [facility] Hospital (14 sources)clopidogrel; Translations: [CLOPIDOGREL]Drug Tfhkxrt86-79-5906 Palpitations, Palpitations, shortness of breathThe Jewish Hospital (18 sources)desloratadine; Translations: [DESLORATADINE]Drug Wworzpd06-62-0267HR bleedingThe Jewish HospitalComment on above:bloody nose (17 sources)fexofenadineDrug Egflyii23-69-3468OxtxtbzykhhsCcodleuic Regional Medical Center (13 sources)HYDROcodoneDrug Nrkufnx37-39-7734Zlckhmlele BreathingThe Jewish Hospital (17 sources)PseudoephedrineDrug Sjlftgi58-50-6835LcxkxvjqohviKhznsqkgh Regional [facility] (20 sources)rofecoxib; Translations: [rofecoxib]Drug Xybnjsm68-39-6960Yjcmfprlt of breath, Dyspnea (finding)[facility] (13 sources)Sulfonamides (Antibiotic)Propensity to adverse fgrdtaawg75-32-4094 RashThe Jewish Hospital (13 sources)vitrumAllergy to uwujzkvch56-84-5391NzfzdislubzdRpkellibr Regional Medical Center (1 source)AlendronateDrug Sfxkuuo49-29-4581Bxa [facility] (1 source)AtenololDrug AllergyThe [facility] (2 sources)Clarithromycin; Translations: [Biaxin]Drug Vbysmrf60-46-3523Hfr [facility] (1 source)clopidogrelDrug AllergyThe [facility] (1 source)desloratadineDrug Hozyeiq14-09-4197Pus [facility] (1 source)LatexDrug allergy (disorder)04-46-9972Row [facility] (1 source)NaproxenDrug Oalxwgq13-70-6784Npy [facility] (1 source)PenicillinsDrug allergy (disorder)88-50-5520Ebf [facility] (1 source)rofecoxibDrug Xjceofo19-24-8513Sva [facility] (1 source)Sulfonamides (Antibiotic)Drug allergy (disorder)53-25-8827Mmh [facility] (4 sources)Alendronate; Translations: [ALENDRONATE]Drug Hmmvpje08-59-5740YbqmAdams County Hospital (4 sources)Ascorbic Acid / Iron Carbonyl; Translations: [IRON,CARBONYL-VITAMIN C]Drug Gyvozyw91-05-6386Qzvydpa, DrowsinessUnCincinnati VA Medical Center Work Phone: (2 sources)PenicillinsDrug Scdxrdjeaqx04-75-4402Kemqagqef of breathGreen Cross Hospital Work Phone: (8 sources)erythromycin baseAllergy to ekxsbsock67-18-2358Tqenwei Reaction [facility] (7 sources)Black Cohosh ExtractDrug Hjglqyj89-17-2769JsdvCjktuwnqtThe Jewish Hospital (7 sources)Soybean preparationDrug Wxuxggi35-94-4807YmixDrczrhupkSelect Medical [facility] [place] (7 sources)magnolia barkAllergy to vrjtzdtar00-16-4985JufkEjdwatapmSelect [facility] [place] (2 sources)Penicillin; Translations: [penicillin]Drug AllergySOBFAdena Regional Medical Center (2 sources)Sulfonamides (Antibiotic); Translations: [sulfa drugs]Drug allergy Eruption of skin (disorder)[facility] (1 source)denosumab; Translations: [Prolia]Drug AllergyProtestant Hospital Repository (3 sources)Soy Isofla-Blk Cohosh-Mag Bark; Translations: [SOY ISOFLA-BLK COHOSH- MAG BARK]Propensity to adverse tlfcemsbz96-29-0156PrymiUtfkgvsscwBarney Children's Medical Center (5 sources)Acetaminophen / HYDROcodone; Translations: [HYDROCODONE-ACETAMINOPHEN]Drug Lbiefkd34-59-0077GR[facility] (4 sources)AtenololAllergy to bfktcfxlu60-43-8198Ifltunozb of breathGUNNISON VALLEY HOSPITAL Healthcare (4 sources)atorvastatinDrug Iwqlqjn22-57-9078IM[facility] (4 sources)ClarithromycinAllergy to hvkowexay22-02-7662GHMU [facility] (4 sources)LoratadineAllergy to gtyzpbhey32-06-1316MOKL [facility] (4 sources)PenicillinsDrug Pvdhhowidgo08-59-8046Nvpfpcqxy of breathSaint [facility] Hospital [facility] (4 sources)Sulfonamides (Antibiotic)Drug Gqdqfaa62-91-8259BjeyKJXH Healthcare (4 sources)Iron Carbonyl-Vitamin C-FosDrug Lbwqttg55-72-1913HQDI Healthcare (1 source)PenicillinsDrug Yloedwyaxfj65-39-4243Xkcwqmvyd of breathGreen Cross Hospital Work Phone: (1 source)Sulfamethoxazole; Translations: [SULFAMETHOXAZOLE]Drug Allergy 76-63-1770[facility] (2 sources)denosumabDrug Ruycgrt31-96-0421RduuUMYI Healthcare Medications Current Medications MedicationDrug Class(es)DatesSig (Normalized)Sig (Original)aspirin 81 mg chewable tablet (20 sources)Platelet Aggregation Inhibitor, Nonsteroidal Anti-inflammatory Drug Start: 48-23-1438tscf 1 tablet by mouth once dailyAspirin 81 mg tablet,chewable Active 81 MG PO Daily June 11, 2024 12:00am Complies with drug therapyStart: 37-00-4196ekhb 1 tablet by mouth once dailyaspirin 81 mg EC tablet Take 1 tablet (81 mg) by mouth once daily. As directed 03/03/2021 ActiveStart: 53-31-7944oclc 1 tablet by mouth once dailyaspirin 81 mg oral tablet 81 mg = 1 tab(s), Oral, Daily, Refills(s) 0, Blood Thinner Start Date: 03/16/20 Status: Orderedtake 1 tablet by mouth every twenty-four hoursAspirin 81 MG 1 tablet Orally Once a day Not-Taking/PRNbiotin 5 mg chewable tablet (13 sources)Start: 47-80-7009fnbr 1 tablet by mouth once dailyBiotin 5,000 mcg tablet,chewable Active 5000 MCG PO Daily December 10, 2024 3:02pmStart: 06-11-2024 End: 56-23-9137qvur 1 tablet by mouth once dailyBiotin 5,000 mcg tablet,chewable Active 5000 MCG PO Daily December 10, 2024 4:02pm Complies with drug therapy Start: 06-11-2024 End: 55-93-5479bscr 1 ug by mouth once dailyBiotin 5,000 mcg tablet,chewable Discontinued MCG PO Daily June 10, 2024 11:00pm December 10, 2024 3:03pm Start: 31-22-5770hcnt 1 ug by mouth once dailyBiotin 5,000 mcg tablet,chewable Active MCG PO Daily June 10, 2024 11:00pmStart: 79-81-5319rtal 1 ug by mouth once dailyBiotin Active MCG PO Daily June 11, 2024 12:00amBiotin ActiveBlack Cohosh Root Extract (20 sources)Start: 72-94-3213mawe 1 capsule by mouth once dailyBlack Cohosh Root Extract 40 mg capsule Active 40 MG PO Daily June 11, 2024 12:00am Complies withdrug therapyStart: 57-57-1515bkni 1 capsule by mouth once dailyStart: 80-49-7729iypg 1 capsule by mouth once dailyBlack Cohosh Root Extract 40 mg capsule Active 40 MG PO Daily June 10, 2024 11:00pmStart: 47-72-6690jxqm 40 mg by mouth once dailyBlack Cohosh Root Extract Active 40 MG PO Daily June 11, 2024 12:00amBlack Cohosh 40 MG capsule as directed Orally Activetake 1 capsule by mouth once dailyBLACK COHOSH ORAL Take 1 capsule by mouth once daily. 40mg ActiveBlack Cohosh 40 MG as directed Orally Not-Taking/PRNtake 1 capsule by mouth once dailyBLACK COHOSH ORAL Take 1 capsule by mouth once daily. 40mg 0 ActiveBlack Cohosh 40 MG as directed Orally Activetake 1 capsule by mouth once dailyBlack Cohosh 40 MG Oral Capsule TAKE 1 CAPSULE Daily Quantity: 0 Refills: 0 Ordered: 16-Nov-2022 DO Activecalcitonin Nasal [place] (1 source)Start: 96-95-5388yhoordjtdu Nasal [place] = 1 spray(s), Nasal, Daily, Other (see comment) Start Date: 03/19/20 Status: OrderedCalcium Carb- Cholecalciferol (CALCIUM 500+D3 PO) (4 sources)Calcium Carb-Cholecalciferol (CALCIUM 500+D3 PO) Calcium + D3 Active Calcium Citrate (19 sources)Start: 44-42-5853gedh 1 capsule by mouth twice dailyCitracal + D 1 cap, Oral, BID, Prophylaxis Start Date: 03/19/20 Status: Orderedtake 1 tablet by mouth three times daily as neededCitracal + D 400 mg tab orally TID Not-Taking/PRNCitracal + D TABS TAKE 2 TABLET Daily Quantity: 0 Refills: 0 Ordered: 16-Nov-2022 DO Activecalcium citrate 1500 mg / cholecalciferol 250 unt oral tablet (7 sources)Vitamin DStart: 69-56-2976dfny 1 tablet by mouth twice dailyCalcium Citrate-Vitamin D3 (Citracal + D Maximum) 315 mg-6.25 mcg (250 unit) tablet Active 1 TAB POTwice daily June 11, 2024 12:00am Complies with drug therapy calcium phosphate trib/vit D3 (CITRACAL-D3 GUMMIES ORAL) (3 sources)take 2 tablets by mouth once dailycalcium phosphate trib/vit D3 (CITRACAL-D3 GUMMIES ORAL) Take 2 tablets by mouth once daily. Activetake 2 tablets by mouth once dailycalcium phosphate trib/vit D3 (CITRACAL-D3 GUMMIES ORAL) Take 2 tablets by mouth once daily. 0 Activecholecalciferol 0.025 mg oral capsule (8 sources)Vitamin Dcholecalciferol (Vitamin D-3) 25 MCG (1000 UT) capsule Take by mouth Activecyanocobalamin, vitamin B-12, (VITAMIN B-12 ORAL) (3 sources)take 1 tablet by mouth once dailycyanocobalamin, vitamin B-12, (VITAMIN B-12 ORAL) Take 1 tablet by mouth once daily. Activetake 1 tablet by mouth once dailycyanocobalamin, vitamin B-12, (VITAMIN B-12 ORAL) Take 1 tablet by mouth once daily. 0 Activedocosahexaenoic acid 120 mg / eicosapentaenoic acid 180 mg oral capsule (4 sources)omega-3 (Fish Oil) 1000 MG capsule 1 capsule 1 (one) time each day at the same time Activedoxycycline hyclate 100 mg oral capsule (8 sources)Tetracycline-class DrugStart: 51-97-2567stbn 1 capsule by mouth every twelve hoursDoxycycline Hyclate 100 MG 1 capsule Orally Twice a day for 10 day(s) Nov, ActiveStart: 43-23-2328zoao 1 capsule by mouth every twelve hoursDoxycycline Hyclate 100 MG 1 capsule Orally Twice a day for 7 days Apr, ActiveFish Oils (18 sources)Start: 82-58-7882mgbg 1 capsule by mouth once dailyFish Oil 1000 mg oral capsule 1,000 mg = 1 cap(s), Oral, Daily, Prophylaxis Start Date: 03/19/20 Status: Orderedtake 1 capsule by mouth twice daily as neededFish Oil 600 MG 1 capsule Orally Twice a day Not-Taking/PRNtake 1 capsule by mouth twice dailyFish Oil 600 MG 1 capsule Orally Twice a day ActiveHair Skin and Nails (1 source)Start: 75-49-9033uahf 1 tablet by mouth once dailyHair Skin and Nails 1 tab(s), Oral, Daily, Refill(s) 0 Start Date: 07/23/24 Status: Ypfvspl05 hr isosorbide mononitrate 30 mg extended release oral tablet (20 sources)Nitrate VasodilatorStart: 03-10-2014 End: 59-18-5216tmcq 1 tablet by mouth in the morning, then take 1 tablet by mouth every twenty-four hoursisosorbide mononitrate ER (Imdur) 30 MG 24 hr tablet Take 30 mg by mouth in the morning. 11/26/2023ctiveMiacalcin 200 UNIT/ACT (1 source)take 1 spray(s) nasal route once dailyMiacalcin 200 UNIT/ACT INSTILL 1 SPRAY INTO ALTERNATING NOSTRILS ONCE A DAY Activenitroglycerin 0.4 mg sublingual tablet (20 sources)Nitrate VasodilatorStart: 00-84-6879Fwbzmjszcifok 0.4 mg tablet, sublingual Active 0.4 MG SUBLINGUAL Q5M as needed December 10, 2024 1:00am do not exceed 3 doses per episode Complies with drug therapyStart: 12-22-2013 Nitrostat 0.4 MG 1 tablet under the tongue and allow to dissolve as needed Sublingual at onset of chest pain and q5 min x3 10 Dec, 2013 Activeomega 6-dmc-bff-fish oil (Fish OiL) 1,000 mg (120 mg-180 mg) capsule (3 sources)take 1 capsule by mouth twice dailyomega 5-rnl-tmy-fish oil (Fish OiL) 1,000 mg (120 mg-180 mg) capsule Take 1 capsule (1,000 mg) by mouth 2 times a day. Activetake 1 capsule by mouth twice dailyomega 7-ify-rxk-fish oil (Fish OiL) 1,000 mg (120 mg-180 mg) capsule Take 1 capsule (1,000 mg) by mouth 2 times a day. 0 ActiveOmega 6-Yij-Zga-Fish Oil (Fish Oil) 360-1,200 mg capsule,delayed release(DR/EC) (7 sources)Start: 14-83-1367ajca 360-1200 mg by mouth once dailyOmega 7-Pzy-Xki-Fish Oil (Fish Oil) 360-1,200 mg capsule,delayed release(DR/EC) Active 1 CAP PO Daily June 11, 2024 12:00am Complies with drug therapyStart: 13-70-0545rvqa 360-1200 mg by mouth once dailyStart: 92-98-4869seov 360-1200 mg by mouth once dailyOmega 2-Nrs-Cut-Fish Oil (Fish Oil) 360-1,200 mg capsule,delayed release(DR/EC) Active 1 CAP PO Daily June 10, 2024 11:00pm Start: 84-83-5292hzjo 360-1200 mg by mouth once dailyOmega 4-Ciz-Jim-Fish Oil (Fish Oil) 360-1,200 mg capsule,delayed release(DR/EC) Active 1 CAP PO Daily June 11, 2024 12:00amRhubarb preparation (4 sources)Non-Standardized Food Allergenic Extract, Non-Standardized Plant Allergenic ExtractStart: 04-51-1607nqcd 1 tablet by mouth once dailyRhubarb (Estroven Menopause Relief) 4 MG tablet Indications: Hot flashes Take 1 tablet by mouth Daily 30 tablet 3 02/04/2024 ActiveSalmon Oil-Basom-3 Fatty Acids (2 sources)Start: 50-93-8381spbh 1 capsule by mouth once dailySalmon Oil-Basom-3 Fatty Acids Active CAP PO Daily June 11, 2024 12:00amSalmon Oil-Basom-3 Fatty Acids 1,000-200 mg capsule (5 sources)Start: 19-77-2959rhcl 1 capsule by mouth once dailySalmon Oil-Basom-3 Fatty Acids 1,000-200 mg capsule Active CAP PO Daily June 11, 2024 12:00am Complies with drug therapyStart: 74-33-1251rtgu 1 capsule by mouth once daily Start: 74-63-5663sjzk 1 capsule by mouth once dailySalmon Oil-Basom-3 Fatty Acids 1,000-200 mg capsule Active CAP PO Daily June 10, 2024 11:00pmsalmon oil/omega-3 fatty acids (SALMON OIL-1000 ORAL) (2 sources)take 1 capsule by mouth in the morningsalmon oil/omega-3 fatty acids (SALMON OIL-1000 ORAL) Take 1 capsule by mouth early in the morning.. Active triamcinolone acetonide 1 mg/ml topical cream (3 sources)CorticosteroidStart: 52-34-4165hhcznszgedcnd (Kenalog) 0.1 % cream Indications: Subacute vulvitis Apply topically 2 (two) times a day 30 g 2 02/09/2025 ActiveVitamin B 12 250 MCG (15 sources)Start: 97-35-3737Gjetwxq B 12 250 MCG 1 tablet Orally 5 days a week Apr, ActiveStart: 17-11-9418tivy 1 tablet by mouth every weekVitamin B 12 250 MCG 1 tablet Orally 4 days per week Apr, Activevitamin b12 0.25 mg oral lozenge (16 sources)Vitamin P55Qcdow: 06-11-2024 End: 21-38-1022Rotabntdobuzjc (Vitamin B-12) 250 mcg lozenge Active 500 MCG PO .COMPLEX June 11, 2024 3:18pm 500mcg orally Sun, Sun and Sunday; Complies with drug therapyStart: 06-11-2024 End: 70-33-4599Dbdcjimulsrlpb (Vitamin B-12) Active 500 MCG PO .COMPLEX June 11, 2024 3:18pm 500 mcg orally Sun,Sun and Sunday;Start: 06-83-3000Fafhtpb B 12 250 MCG 1 tablet Orally 5 days a week Apr, Not-Taking/PRNVitamin D-3 1000 UNIT (17 sources)Start: 44-09-4954gzgk 2 capsules by mouth once dailyVitamin D-3 1000 UNIT 2 capsules (2000 units) Orally qd Apr, ActiveVitamin D3 2000 intl units (1 source)Start: 24-24-4884Mziolwf D3 2000 intl units 2,000 International_Unit, Oral, Daily, Refills(s) 0, Prophylaxis Start Date: 03/16/20 Status: Ordered Completed/Discontinued Medications MedicationDrug Class(es)DatesSig (Normalized)Sig (Original)ascorbic acid 1000 mg extended release oral tablet (7 sources)Vitamin CStart: 06-11-2024 End: 36-76-1521qznv 1 tablet by mouth every twelve hoursAscorbic Acid (Vitamin C) 1,000 mg tablet extended release Discontinued 1000 MG PO Every 12 hours June 11, 2024 12:00am December 10, 2024 3:48pmatenolol 25 mg oral tablet (20 sources)beta-Adrenergic BlockerStart: 03-16-2020 End: 26-34-6265emcx 1 tablet by mouth twice dailyAtenolol 25 mg tablet Discontinued 25 MG PO Twice daily June 11, 2024 12:00am August 12, 2024 1: 09pmFish Oil 1000 MG Oral Capsule Delayed Release (1 source)take 1 capsule by mouth twice dailyFish Oil 1000 MG Oral Capsule Delayed Release Take 1 capsule twice daily Quantity: 180 Refills: 0 Ordered: 16-Nov-2022 DO Activefluticasone propionate 0.05 mg/actuat metered dose nasal spray (9 sources)CorticosteroidStart: 14-32-9257xwgd 2 spray(s) nasal route once daily Fluticasone Propionate 50 MCG/ACT 2 sprays each nostril Nasally Once a day Apr, Not-Takingtake 2 spray(s) nasal route once dailyFlonase 50 MCG/ACT 2 sprays each nostril Nasally Once a day Not-Takingrosuvastatin calcium 20 mg oral tablet (20 sources)HMG-CoA Reductase InhibitorStart: 03-19-2020 End: 93-67-6942voct 1 tablet by mouth once dailyRosuvastatin 20 mg tablet Discontinued 20 MG PO Daily June 11, 2024 12:00am October 13, 2024 6:02pm salmon calcitonin 200 unt/actuat nasal spray (20 sources)CalcitoninStart: 05-19-2024 End: 83-46-1844tzqp 1 spray(s) nasal route once dailyCalcitonin (Cataumet) 200 unit/actuation spray,non-aerosol Discontinued 1 SPRAY intranasal (ALT) Daily 3.7 30 May 19, 2024 9:10am June 09, 2025 2:43pm USE 1 SPRAY IN ALTERNATING NOSTRILS ONCE A DAYStart: 76-96-7806rndq 1 spray(s) nasal route once daily calcitonin, salmon, (Miacalcin) 200 unit/actuation nasal spray Administer 1 spray into affected nostril(s) once daily. ALTERNATING NOSTRILS 09/08/2021 Activesalmon oil (17 sources)take 1 capsule by mouth twice daily as neededSalmon Oil 200 MG 1 capsule Orally bid Not-Taking/PRNtake 1 capsule by mouth twice dailySalmon Oil 200 MG 1 capsule Orally bid ActiveVitamin B-12 TABS (1 source)Vitamin B-12 TABS TAKE 1 TABLET DAILY. Quantity: 0 Refills: 0 Ordered: 16-Nov-2022 DO ActiveVitamin B12 500 mcg oral tablet (1 source)Start: 31-20-8391xfkg 1 tablet by mouth once dailyVitamin B12 500 mcg oral tablet 500 microgram = 1 tab(s), Oral, Daily, Refills(s) 0, Prophylaxis Sta rt Date: 03/16/20 Status: Ordered Problems Active Problems Problem ClassificationProblemDateDocumented DateEpisodic/Chronic Administrative/social admission (1 source)Other specified counselingEpisodicCardiac dysrhythmias (1 source)Atrial qbnitxwaapkl21-92-3116RmyxxliZelveei obstructive pulmonary disease and bronchiectasis (5 sources)Bronchiectasis, uncomplicated; Translations: [BRONCHIECTASIS UNCOMPLICATED]Onset: 81-24-2121JtfifwfAmlwktyt atherosclerosis and other heart disease (20 sources)Disorder of coronary artery; Translations: [Coronary atherosclerosis of unspecified type of vessel,[place] or graft]Onset: 10-25-2021 Resolved: 95-29-9528HixpzcyUjqyjcxrqh and other anemia (2 sources)Anemia, unspecified; Translations: [ANEMIA UNSPECIFIED]Onset: 67-29-6726JujylmncVbrxzmkr mellitus without complication (18 sources)Hyperglycemia, unspecified; Translations: [Hyperglycemia]Onset: 10-25-2021 Resolved: 45-18-5375ZzyftlycIvpjzfjte of lipid metabolism (20 sources)Hyperlipidemia; Translations: [Other and unspecified hyperlipidemia] Onset: 10-25-2021 Resolved: 28-55-3029ZeyvqazMnlhblxdq hypertension (20 sources)Hypertensive disorder; Translations: [Unspecified essential hypertension]Onset: 10-25-2021 Resolved: 95-02-0631TdvnpdpOcvos and electrolyte disorders (12 sources)Hypokalemia; Translations: [Hypokalemia]Onset: EpisodicGenitourinary symptoms and ill-defined conditions (17 sources)Hematuria, unspecified; Translations: [Unspecified abnormal findings in urine]Onset: 10-25-2021 Resolved: 53-36-3991XfxwhgqbUbehawxpsyjdi and screening for infectious disease (9 sources)Patient encounter status; Translations: [Other specified vaccination] Resolved: 955631-83-3403ZplhfhukNuzhfmvgqfuc diseases of female pelvic organs (2 sources)Subacute vulvitis; Translations: [Subacute and chronic vulvitis] 00-55-2751WfqbdbryQnjcuvs (6 sources)Dermatophytosis; Translations: [Dermatophytosis, unspecified] 05-23-8397NrckqcoxRozjzyy on above:on bilateral kneesNonmalignant breast conditions (2 sources)Pain of breast; Translations: [Mastodynia]64-27-4442Wgkduzbp Nutritional deficiencies (20 sources)Vitamin D deficiency; Translations: [Vitamin D deficiency, unspecified]Onset: 10-25-2021 Resolved: 07-75-5137SxredyuGwsrfgrxxbl deficiencies (19 sources)Deficiency of other specified B group vitamins; Translations: [Cobalamin deficiency]Onset: 10-25-2021 Resolved: 00-93-8637CdwjoyogLujglihxrrzp (20 sources)Osteoporosis; Translations: [Age-related osteoporosis without current pathological fracture]Onset: 10-25-2021 Resolved: 51-08-9872GtqomuiNcmyb aftercare (1 source)prison (current) use of aspirin; 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]Onset: 36-42-4616DryyphztOwfuf and unspecified benign neoplasm (3 sources)History of polyp of colon; Translations: [Personal history of colonic polyps]Onset: 16-47-4469JsavdhzoWhkvz circulatory disease (3 sources)Other specified symptoms and signs involving the circulatory and respiratory systems; Translations:[Abnormal chest sounds]EpisodicOther circulatory disease (1 source)Personal history of transient ischemic attack (TIA), and cerebral infarction without residual deficits; Translations: [PERS HX TIA AND CI NO RESID DEFICIT]Onset: 78-57-9349XypriynpWwajm circulatory disease (8 sources)Abnormal chest sounds; Translations: [Other specified symptoms and signs involving the circulatory and respiratory systems]24-65-8310TodudnvfPutdt circulatory disease (1 source)H/O: atrial dconwsgiunrn53-45-3318ClzocmhvQwbkx lower respiratory disease (18 sources)Solitary nodule of lung; Translations: [Solitary pulmonary nodule] 95-57-6177WartsarnXsety lower respiratory disease (9 sources)Solitary pulmonary nodule; Translations: [Solitary pulmonary nodule] Onset: 05-02-2022 Resolved: 98-37-5537FnvhlqorBhtxk lower respiratory disease (1 source)Other nonspecific abnormal finding of lung field; Translations: [OTH NONSPECIFIC ABN FIND LNG FIELD]Onset: 65-58-1117TpzcijzlFgmbm lower respiratory disease (1 source)Personal history of pneumonia (recurrent); Translations: [PERSONAL HX OF PNEUMONIA RECURRENT]Onset: 01-00-4208MxybyyxxFadwi lower respiratory disease (9 sources)Nodule of lung; Translations: [Solitary pulmonary nodule]Onset: 05-02-2022 Resolved: 483211-33-7878SmhagttwMxdqi lower respiratory disease (1 source)Lung isqj87-07-9598HmirsdopKfpjx nutritional; endocrine; and metabolic disorders (4 sources)Abnormal weight loss; Translations: [Abnormal weight loss]Onset: 10-25-2021 Resolved: 62-36-2011DpddisufUlsin nutritional; endocrine; and metabolic disorders (2 sources)Abnormal weight gainEpisodicOther nutritional; endocrine; and metabolic disorders (1 source)History of iwasacywstzwmlbmfjst68-21-2394WocgqusuNgykn screening for suspected conditions (not mental disorders or infectious disease) (13 sources)Standard chest X-ray abnormal; Translations: [Abnormal findings on diagnostic imaging of other specified body structures]ChronicOther screening for suspected conditions (not mental disorders or infectious disease) (7 sources)Encounter for screening mammogram for malignant neoplasm of breast; Translations: [Cancer cervix screening status]Onset: 04-65-8348GkfsutywOqllo upper respiratory disease (20 sources)Allergic rhinitis; Translations: [Allergic rhinitis, unspecified] 97-47-4364RkfbqiiPvotk upper respiratory disease (1 source)Allergic rhinitis, unspecifiedOnset: 10-25-2021 Resolved: 28-35-0995UjqkctwIemrn upper respiratory disease (4 sources)Rhinitis; Translations: [Chronic rhinitis]93-08-6849WotupmwChojs upper respiratory disease (2 sources)Chronic rhinitis; Translations: [Chronic rhinitis]65-31-4202Rpprbir Pneumonia (except that caused by tuberculosis or sexually transmitted disease) (10 sources)Pneumonia, unspecified organism; Translations: [Pneumonia due to Pseudomonas]Onset: 19-13-2556CljpectyVszjodolp heart disease (14 sources)Secondary pulmonary hypertension; Translations: [Other chronic pulmonary heart diseases]Onset: 324501-28-3383YigqajvTfbbffqr codes; unclassified (8 sources)Body mass index 20-24 - normal; Translations: [Body Mass Index between 19-24, adult]Onset: 169635-39-5081BrjqmadoUunnnwct codes; unclassified (6 sources)Never smoked any substance; Translations: [Other specified health status]Onset: 718508-13-9654EllfbijdEenrivnt codes; unclassified (2 sources)Postmenopausal state; Translations: [Asymptomatic menopausal state] 00-80-1934NxgitzcyFceonsxo codes; unclassified (2 sources)Menopause present; Translations: [Asymptomatic menopausal state] 92-57-8418JunggqabLtainpenf cerebral ischemia (20 sources)Transient cerebral ischemia; Translations: [Unspecified transient cerebral ischemia]Onset: 032536-07-2772AzbvewgFsumzrtifkud (1 source)CONTACT W/AND (SUSP) EXPOS COVID-19; Translations: [CONTACT W/AND (SUSP) EXPOS COVID-19]Onset: 00-29-1887Mkbwaqoavuho (3 sources)COUGH, UNSPECIFIED; Translations: [COUGH, UNSPECIFIED]Onset: 39-08-0195Rdbmuibeovyb (1 source)M81.0 - Age-related osteoporosis without current pathological fracture Past or Other Problems Problem ClassificationProblemDateDocumented DateEpisodic/ChronicOther aftercare (6 sources)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; Translations: [OTH USP CURRENT DRUG THERAPY]Onset: 05-02-2022 Resolved: 06-22-9761AbkmzpcyVtfcy lower respiratory disease (8 sources)Dyspnea; Translations: [Shortness of breath]Onset: 07-05-2023 39-33-8856QffiiyerDryuk lower respiratory disease (1 source)Shortness of breath; Translations: [Shortness of breath]Onset: 41-41-5862BwbrlkxtZxbisg media and related conditions (1 source)Other specified disorders of Eustachian tube, left earOnset: 05-02-2022 Resolved: 95-09-2679FvgbuyeeOldxkfbu codes; unclassified (1 source)Family history of malignant neoplasm of other genital organs; Translations: [FAM HX MALIG NEOPLSM OTH GENIT ORGN]Onset: 02-51-6058Ciquskuj Residual codes; unclassified (1 source)Family history of malignant neoplasm of other organs or systems; Translations: [FAM HX MALIG NEOPLASM OTH ORGN/SYS]Onset: 19-55-1391Zrdgnnvw Residual codes; unclassified (2 sources)Body mass index (BMI) 22.0-22.9, adult; Translations: [Body mass index (BMI) 22.0-22.9, adult]Onset: 01-42-0825DwgszkmbUhjmxmnh codes; unclassified (2 sources)Other specified health status; Translations: [Other specified health status]Onset: 44-32-2596MypxeeimXqjfhalfyqdw (2 sources)Never smoked tobacco; Translations: [Never a smoker]Unclassified (3 sources)Cough R05.9Onset: 10-25-2021 Resolved: 47-77-7909Orgsddedbkmq (1 source)COUGH, UNSPECIFIED; Translations: [COUGH, UNSPECIFIED]Onset: 61-37-1324Blgssqqiuwjq (3 sources)Onset: Results Test NameValueInterpretationReference UlufeKvmaoqfeQ6U with Estimated Average Gluon 37-27-5086Whojgzz [Mass/Vol]123 mg/dLNormHoly Cross Hospital [facility] Comment on above:Result Comment: PERFORMED BY: [place] [address] PATHOLOGIST HEAD WAITRESS MARIE BRAGA M.D.Performed By: #### [id number], CUU, A1C WTH eA, ADDONUAPLUS, [id number], CBC, LIPID, CMP #### [facility] [address] [place] [address] USAA1C with Estimated Average GluOrdered By: Jyotsna Abarca on 84-23-4764ToF0p (Bld) [Mass fraction]5.9 %High4.3-5.6FCleveland Clinic Euclid HospitalComment on above:Result Comment: Increased risk for diabetes: 5.7 - 6.4 diabetes: >6.4 glycemic control for adults with diabetes: <7.0Performed By: #### [id number], CUU, A1C WTH eA, ADDONUAPLUS, [id number], CBC, LIPID, CMP #### [place] [address] USAIncreased risk for diabetes: 5.7 - 6.4diabetes: >6.4glycemic control for adults with diabetes: <7.0Alanine aminotransferase [Enzymatic activity/volume] in Serum or PlasmaOrdered By: Jyotsna Abarca on 79-05-7509VKS [Catalytic activity/Vol]16 U/L7-52The Jewish HospitalComment on above:Performed By: #### [id number], CUU, A1C WTH eA, ADDONUAPLUS, [id number], CBC, LIPID, CMP #### [facility] [address] [place] [id number] USAAlbumin [Mass/volume] in Serum or Plasma by Bromocresol green (BCG) dye binding methoOrdered By: Jyotsna Abarca on 42-12-5917Dyrgjnm BCG dye [Mass/Vol]4.2 g/dL3.5-5.7FCleveland Clinic Euclid HospitalAlkaline phosphatase [Enzymatic activity/volume] in Serum or PlasmaOrdered By: Jyotsna Abarca on 58-19-2873PWK [Catalytic activity/Vol]69 U/N37-841IjafmzqgqThe Jewish HospitalComment on above:Performed By: #### [id number], CUU, A1C WTH eA, ADDONUAPLUS, [id number], CBC, LIPID, CMP #### [facility] [address] [place] [address] USAAspartate aminotransferase [Enzymatic activity/volume] in Serum or PlasmaOrdered By: Jyotsna Abarca on 29-50-1168GRF [Catalytic activity/Vol]28 U/T67-15XpkgllnxlThe Jewish HospitalComment on above: Performed By: #### [id number], CUU, A1C WT eA, ADDONUAPLUS, [id number], CBC, LIPID, CMP #### [facility] [address] [place], [place] [id number] USABasophils [#/volume] in Blood by Automated countOrdered By: Jyotsna Abarca on 05-48-9454Majixgxwg (Bld) [#/Vol]0.1 10*3/uL0.0-0.2FCleveland Clinic Euclid HospitalComment on above:Result Comment: PERFORMED BY: [place] [address] PATHOLOGIST HEAD WAITRESS MARIE BRAGA M.D.Performed By: #### [id number], LIPID, CMP, A1C WTH eA, TSH3, CBC, [id number] #### [facility] [address] [place] [address] USABasophils/100 leukocytes in Blood by Automated count Ordered By: Jyotsna Abarca on 51-17-2626Eepuosrzu/100 WBC (Bld)0.8 %.The Jewish HospitalComment on above:Performed By: #### [id number], LIPID, CMP, A1C WTH eA, TSH3, CBC, [id number] #### [facility] [address] [place] [address] USABilirubin.total [Mass/volume] in Serum or PlasmaOrdered By: Jyotsna Abarca on 63-77-1869Kbczrpvrc [Mass/Vol]0.6 mg/dL0.3-1.0The Jewish HospitalComment on above:Performed By: #### [id number], CUU, A1C WTH eA, ADDONUAPLUS, [id number], CBC, LIPID, CMP #### [facility] [address] [place] [address] USABlood estimated average glucose determination by estimation from glycated hemoglobinOrdered By: Jyotsna Abarca on 89-99-7933Pedepki glucose Estimated from glycated hemoglobin (Bld) [Mass/Vol]123 mg/dLThe Jewish HospitalCalcium [Mass/volume] in Serum or PlasmaOrdered By: Jyotsna Abarca on 64-11-6733Ajcdbjc [Mass/Vol]9.3 mg/dL8.6-10.3FCleveland Clinic Euclid HospitalComment on above:Performed By: #### [id number], CUU, A1C WTH eA, ADDONUAPLUS, [id number], CBC, LIPID, CMP #### [facility] [address] [place] [address] USACarbon dioxide, total [Moles/volume] in Serum or Plasma Ordered By: Jyotsna Abarca on 17-21-5112IQ5 [Moles/Vol]31.7 mmol/LHigh21.0-31.0 The Jewish HospitalComment on above:Performed By: #### [id number], CUU, A1C WTH eA, ADDONUAPLUS, [id number], CBC, LIPID, CMP #### [facility] [address] [place] [address] USAChloride [Moles/volume] in Serum or PlasmaOrdered By: Jyotsna Abarca on 21-81-4751Bvwplfva [Moles/Vol]105 mmol/A16-956OpalajmdeThe Jewish HospitalComment on above:Performed By: #### [id number], CUU, A1C WTH eA, ADDONUAPLUS, [id number], CBC, LIPID, CMP #### [facility] [address] [place] [address] USACholesterol [Mass/volume] in Serum or PlasmaOrdered By: Jyotsna Abarca on 93-68-8680Prfqyhdwxba [Mass/Vol]149 mg/eX516-834JqwakxqtoThe Jewish HospitalComment on above:Chol less than 200 mg/dl low riskChol 201-239 mg/dl borderline riskChol 240 mg/dl and greater high riskResult Comment: Chol less than 200 mg/dl low risk Chol 201-239 mg/dl borderline risk Chol 240 mg/dl and greater high riskPerformed By: #### [id number], CUU, A1C WTH eA, ADDONUAPLUS, [id number], CBC, LIPID, CMP #### [facility] [address] [place] [address] USACholesterol in HDL [Mass/volume] in Serum or PlasmaOrdered By: Jyotsna Abarca on 66-18-9896Kxonvxxfhlg in HDL [Mass/Vol]54 mg/dL23-92 The Jewish HospitalComment on above:HDL CHOL ATP-III CLASSIFICATION Cardiovascular RiskHDL > or equal to 60 mg/dL LOWHDL < 40 mg/dL HIGHResult Comment: HDL CHOL ATP-III CLASSIFICATION Cardiovascular Risk HDL > or equal to 60 mg/dL LOW HDL < 40 mg/dL HIGHPerformed By: #### [id number], CUU, A1C WTH eA, ADDONUAPLUS, [id number], CBC, LIPID, CMP #### [facility] [address] [place] [address] USACholesterol in LDL Calc [Mass/Vol]Ordered By: Jyotsna Abarca on 47-59-3922Tnhrviorazi in LDL [Mass/Vol]81 mg/dL0-100The Jewish HospitalComment on above:LDL ATP III CLASSIFICATIONLDL less than 100 mg/dL OptimalLDL 100-129 mg/dL Near or above flcmavxXXA112-450 mg/dL Borderline highLDL 160-189 mg/dL HighLDL greater than 189 mg/dL Very highCholesterol in VLDL Calc [Mass/Vol]Ordered By: Jyotsna Abarca on 32-13-4947Ndqicxkelno in VLDL [Mass/Vol]14 mg/dLThe Jewish HospitalComplete Blood Count Auto Diffon 21-67-7312Jfhm Corpuscular HGB Conc33.5 g/lQKhvlpb18.0-35.0The [facility] Hospital Physician GroupComment on above:Performed By: #### [id number], LIPID, CMP, A1C WTH eA, TSH3, CBC, [id number] #### [facility] [address] [place] [address] USANRBC%0.1 /100{WBC}Normal0-0.5[facility] Comment on above:Performed By: #### [id number], LIPID, CMP, A1C WTH eA, TSH3, CBC, [id number] #### [facility] [address] [place] [address] USAWhite Blood Count8.4 [CFU]/mLNormal3.8-11.6[facility] Physician [facility] HospitalComment on above:Performed By: #### [id number], LIPID, CMP, A1C WTH eA, TSH3, CBC, [id number] #### [facility] [address] [place] [address] USAComprehensive Metabolic Panelon 10-78-2870Qvyjjbl [Mass/Vol]4.2 g/dLNormal3.5-5.7The [facility] Hospital Physician GroupComment on above: Performed By: #### [id number], CUU, A1C WTH eA, ADDONUAPLUS, [id number], CBC, LIPID, CMP #### [facility] [address] [place] [id number] USAGFR/1.73 sq M.predicted MDRD (S/P/Bld) [Vol rate/Area] mL/min/{1.73_m2}NormalThe Critical Access Hospital Physician GroupComment on above:Performed By: #### [id number], CUU, A1C WTH eA, ADDONUAPLUS, [id number], CBC, LIPID, CMP #### [facility] [address] [place], [place] [address] USACreatinine [Mass/volume] in Serum or PlasmaOrdered By: Jyotsna Abarca on 68-19-7490Aiwkokcedg [Mass/Vol]0.79 mg/dL0.60-1.20The Jewish HospitalComment on above:Performed By: #### [id number], CUU, A1C WTH eA, ADDONUAPLUS, [id number], CBC, LIPID, CMP #### [place] [id number] USAEosinophils [#/volume] in Blood by Automated countOrdered By: Jyotsna Abarca on 78-67-7829Hkydfqsrmxy (Bld) [#/Vol]0.3 10*3/uL0.0-0.45 The Jewish HospitalComment on above:Performed By: #### [id number], LIPID, CMP, A1C WTH eA, TSH3, CBC, [id number] #### [place] [id number] USAEosinophils/100 leukocytes in Blood by Automated count Ordered By: Jyotsna Abarca on 12-00-1344Fnkxitwftsu/100 WBC (Bld)3.3 %.The Jewish HospitalComment on above:Performed By: #### [id number], LIPID, CMP, A1C WTH eA, TSH3, CBC, [id number] #### [place] [id number] USAErythrocyte distribution width [Ratio] by Automated count Ordered By: Jyotsna Abarca on 02-08-2886Ibubfmjbihi distribution width (RBC) [Ratio]12.9 %11.9-15.3FCleveland Clinic Euclid HospitalComment on above: Performed By: #### [id number], LIPID, CMP, A1C WTH eA, TSH3, CBC, [id number] #### [facility] [address] [place] [address] USAErythrocytes [#/volume] in Blood by Automated countOrdered By: Jyotnsa Abarca on 86-61-9116CWT (Bld) [#/Vol]4.32 10*6/uL3.60-5.00The Jewish HospitalComment on above:Performed By: #### [id number], LIPID, CMP, A1C WTH eA, TSH3, CBC, [id number] #### [facility] [address] [place] [address] USAFolate [Mass/volume] in Serum or PlasmaOrdered By: Jyotsna Abarca on 60-01-1131Mfrqjq [Mass/Vol]37.0 ng/mL>5.9The Jewish HospitalComment on above:Folate reference range: >5.9 ng/mlThe WHO technical consultation on folate and vitamin l13uyfxbofauphd has determined that folate concentrations lessthan 4 ng/ml are considered deficient.Glucose [Mass/volume] in Serum or PlasmaOrdered By: Jyotsna Abarca on 39-52-9842Fdlghvx [Mass/Vol]93 mg/fF45-734EtsxfogquThe Jewish HospitalComment on above:ADA recommended reference rangeRandom Glucose Reference Range is dependent on time and content of last meal. Glucose of more than 200 mg/dL in a nonstressed, ambulatory subject supports the diagnosisof Diabetes Mellitus.Result Comment: Random Glucose Reference Range is dependent on time and content of last meal. Glucose of more than 200 mg/dL in a nonstressed, ambulatory subject supports the diagnosis of Diabetes Mellitus. ADA recommended reference rangePerformed By: #### [id number], CUU, A1C WTH eA, ADDONUAPLUS, [id number], CBC, LIPID, CMP #### [facility] [address] [place] [address] USAHematocrit [Volume Fraction] of Blood by Automated count Ordered By: Jyotsna Abarca on 87-48-2655Vbjqfcaggy (Bld) [Volume fraction]38.2 % 34.0-46.4FCleveland Clinic Euclid HospitalComment on above:Performed By: #### [id number], LIPID, CMP, A1C WTH eA, TSH3, CBC, [id number] #### [facility] [address] [place] [address] USAHemoglobin [Mass/volume] in BloodOrdered By: Jyotsna Abarca on 44-09-8905Dtmyimwiht (Bld) [Mass/Vol]12.8 g/dL11.8-15.4FCleveland Clinic Euclid HospitalComment on above:Performed By: #### [id number], LIPID, CMP, A1C WTH eA, TSH3, CBC, [id number] #### [facility] [address] [place] [address] USALeukocytes [#/volume] corrected for nucleated erythrocytes in Blood by Automated counOrdered By: Jyotsna Abarca on 66-54-0622XBW corrected for nucl RBC Auto (Bld) [#/Vol]8.4 10*3/uL3.8-11.6FCleveland Clinic Euclid HospitalLeukocytes [#/volume] in Blood by Automated countOrdered By: Jyotsna Abarca on 76-66-3050VNQ (Bld) [#/Vol]8.4 10*3/uL3.8-11.6FCleveland Clinic Euclid HospitalComment on above:Performed By: #### [id number], LIPID, CMP, A1C WTH eA, TSH3, CBC, [id number] #### [facility] [address] [place] [address] USALipid Panelon 51-71-8702THK Cholesterol,Fqbhvdaate35 mg/dL Normal0-100The [facility] Access Hospital Physician GroupComment on above:Result Comment: LDL ATP III CLASSIFICATION LDL less than 100 mg/dL Optimal LDL 100-129 mg/dL Near or above optimal LDL 130-159 mg/dL Borderline high LDL 160-189 mg/dL High LDL greater than 189 mg/dL Very highPerformed By: #### [id number], CUU, A1C WTH eA, ADDONUAPLUS, [id number], CBC, LIPID, CMP #### [facility] [address] [place] [address] USATriglyceride w/Fsceaz79 mg/dLNormal0-149The Critical Access Hospital Physician GroupComment on above:Result Comment: TRIG ATP III CLASSIFICATION TRIG less than 150 mg/dL Normal TRIG 150-199 mg/dL Borderline high TRIG 200-500 mg/dL High TRIG greater than 500 mg/dL Very high Standard traceable to the Center for Disease Conrtrol and Prevention (CDC) test method.Performed By: #### QLZN74NW, CUU, A1C WTH eA, ADDONUAPLUS, [id number], CBC, LIPID, CMP #### [facility] [address] [place] [id number] USAVLDL YLICLWUSKMS68 mg/dLNormHoly Cross Hospital Physician [facility] HospitalComment on above:Performed By: #### [id number], CUU, A1C WTH eA, ADDONUAPLUS, [id number], CBC, LIPID, CMP #### [facility] [address] [place] [id number] USALymphocytes [#/volume] in Blood by Automated countOrdered By: Jyotsna Abarca on 55-59-4954Mbljhvrblwq (Bld) [#/Vol]2.3 10*3/uL1.00-4.8 The Jewish HospitalComment on above:Performed By: #### [id number], LIPID, CMP, A1C WTH eA, TSH3, CBC, [id number] #### [facility] [address] [place] [id number] USALymphocytes/100 leukocytes in Blood by Automated count Ordered By: Jyotsna Abarca on 52-95-7005Iunvydoegcg/100 WBC (Bld)27.7 %.The Jewish HospitalComment on above:Performed By: #### [id number], LIPID, CMP, A1C WTH eA, TSH3, CBC, [id number] #### [facility] [address] [place] [id number] USAH [Entitic mass] by Automated countOrdered By: Jyotsna Abarca on 62-81-7860YSL (RBC) [Entitic mass]29.6 pg24.7-34.3FCleveland Clinic Euclid HospitalComment on above:Performed By: #### [id number], LIPID, CMP, A1C WTH eA, TSH3, CBC, [id number] #### [facility] [address] Auto (RBC) [Mass/Vol]Ordered By: Jyotsna Abarca on 93-83-2390PUCD (RBC) [Mass/Vol]33.5 g/dL32.0-35.0The Jewish HospitalMCV [Entitic volume] by Automated countOrdered By: Jyotsna Abarca on 20-70-1564FKR (RBC) [Entitic vol]88.4 rL97-047ZuiywilhgThe Jewish Hospital Comment on above:Performed By: #### [id number], LIPID, CMP, A1C WTH eA, TSH3, CBC, [id number] #### [facility] [address] [place] [address] USAMonocytes [#/volume] in Blood by Automated countOrdered By: Jyotsna Abarca on 08-84-1121Dyeilbdfd (Bld) [#/Vol]0.7 10*3/uL0.0-0.8The Jewish HospitalComment on above:Performed By: #### OOQX29UK, LIPID, CMP, A1C WTH eA, TSH3, CBC, [id number] #### [facility] [address] [place] [address] USAMonocytes/100 leukocytes in Blood by Automated count Ordered By: Jyotsna Abarca on 82-88-6720Hpjtaqmgc/100 WBC (Bld)8.8 %.The Jewish HospitalComment on above:Performed By: #### [id number], LIPID, CMP, A1C WTH eA, TSH3, CBC, [id number] #### [facility] [address] [place] [id number] USANeutrophils [#/volume] in Blood by Automated countOrdered By: Jyotsna Abarca on 70-42-8219Fqafxgyqzaj (Bld) [#/Vol]5.0 10*3/uL1.8-7.7 The Jewish HospitalComment on above:Performed By: #### [id number], LIPID, CMP, A1C WTH eA, TSH3, CBC, [id number] #### [facility] [address] [place] [id number] USANeutrophils/100 leukocytes in Blood by Automated count Ordered By: Jyotsna Abarca on 64-74-6153Vktrtvuwneg/100 WBC (Bld)59.4 %.The Jewish HospitalComment on above:Performed By: #### [id number], LIPID, CMP, A1C WTH eA, TSH3, CBC, [id number] #### [facility] [address] [place] [address] USANo Panel InformationOrdered By: Jyotsna Abarca on 06-03-2025 Estimated GFR (CKD-EPI)> 60.0 mL/MinThe Jewish HospitalPharmacy Creatinine Clearance (ChemN/[facility]erm[facility] HospitalNucleated erythrocytes [Presence] in Blood by Automated countOrdered By: Jyotsna Abarca on 22-92-2464Zxikplbsu RBC Auto Ql (Bld)0.1 /100{WBC}0-0.5FCleveland Clinic Euclid HospitalPlatelet mean volume [Entitic volume] in Blood by Automated count Ordered By: Jyotsna Abarca on 68-88-6766Gtddungr mean volume (Bld) [Entitic vol] 8.6 fL6.3-10.7FCleveland Clinic Euclid HospitalComment on above:Performed By: #### [id number], LIPID, CMP, A1C WTH eA, TSH3, CBC, [id number] #### [facility] [address] [place] [address] USAPlatelets [#/volume] in Blood by Automated countOrdered By: Jyotsna Abarca on 26-20-6720Octdrjzmq (Bld) [#/Vol]238 10*3/tF757-595BybymtskyThe Jewish HospitalComment on above:Performed By: #### [id number], LIPID, CMP, A1C WTH eA, TSH3, CBC, [id number] #### [facility] [address] [place] [id number] USAPotassium [Moles/volume] in Serum or PlasmaOrdered By: Jyotsna Abarca on 82-86-4198Kgromtimq [Moles/Vol]4.0 mmol/L3.5-5.1FCleveland Clinic Euclid HospitalComment on above:Performed By: #### ALVG35OA, CUU, A1C WTH eA, ADDONUAPLUS, [id number], CBC, LIPID, CMP #### [facility] [address] [place] [address] USAProtein [Mass/volume] in Serum or PlasmaOrdered By: Jyotsna Abarca on 15-82-3215Ioxbusd [Mass/Vol]7.1 g/dL6.4-8.9The Jewish HospitalComment on above:Performed By: #### [id number], CUU, A1C WTH eA, ADDONUAPLUS, [id number], CBC, LIPID, CMP #### [facility] [address] [place] [address] USASerum globulin measurement by calculation (mass/volume) Ordered By: Jyotsna Abarca on 87-36-9130Oqkprxqn (S) [Mass/Vol]2.9 g/dLThe Jewish HospitalComment on above:Performed By: #### [id number], CUU, A1C WTH eA, ADDONUAPLUS, [id number], CBC, LIPID, CMP #### [facility] [address] [place] [address] USASerum or plasma albumin/globulin mass ratioOrdered By: Jyotsna Abarca on [id number]/Globulin [Mass ratio]1.4 {ratio}The Jewish HospitalComment on above:Performed By: #### [id number], CUU, A1C WTH eA, ADDONUAPLUS, [id number], CBC, LIPID, CMP #### [facility] [address] [place] [address] USASerum or plasma anion gap determinationOrdered By: Jyotsna Abarca on [id number] gap [Moles/Vol]8.3 mmol/L6.0-15.0The Jewish HospitalComment on above:Performed By: #### [id number], CUU, A1C WTH eA, ADDONUAPLUS, [id number], CBC, LIPID, CMP #### [facility] [address] [place] [address] USASerum or plasma total cholesterol/high density lipoprotein (HDL) cholesterol mass ratOrdered By: Jyotsna Abarca on 06-03-2025 Cholesterol.total/Cholesterol in HDL [Mass ratio]2.8 {ratio}<5.0The Jewish HospitalComment on above:Performed By: #### [id number], CUU, A1C WTH eA, ADDONUAPLUS, [id number], CBC, LIPID, CMP #### [facility] [address] [place] [address] USASodium [Moles/volume] in Serum or PlasmaOrdered By: Jyotsna Abarca on 30-86-4828Pmjohb [Moles/Vol]141 mmol/D036-617OzamyzdsvThe Jewish HospitalComment on above:Performed By: #### [id number], CUU, A1C WTH eA, ADDONUAPLUS, [id number], CBC, LIPID, CMP #### [facility] [address] [place] [address] USAThyrotropin [Units/volume] in Serum or PlasmaOrdered By: Jyotsna Abarca on 56-35-3156PUO Qn1.71 m[IU]/L0.45-5.33The Jewish HospitalComment on above:Performed By: #### [id number], CUU, A1C WTH eA, ADDONUAPLUS, [id number], CBC, LIPID, CMP #### [facility] [address] [place] [address] USATriglyceride [Mass/volume] in Serum or PlasmaOrdered By: Jyotsna Abarca on 61-43-6541Wsnpjqrhjsjg [Mass/Vol]72 mg/dL0-149The Jewish HospitalComment on above:TRIG ATP III CLASSIFICATIONTRIG less than 150 mg/dL NormalTRIG 150-199 mg/dL Borderline highTRIG 200-500 mg/dL High TRIG greater than 500 mg/dL Very highStandard traceable to the Center for Disease Co nrtrol and Prevention (CDC) test method.Urea nitrogen [Mass/volume] in Serum or PlasmaOrdered By: Jyotsna Abarca on 50-85-5521Ymei nitrogen [Mass/Vol]16 mg/dL7-25 [facility] Medical CenterComment on above:Performed By: #### [id number], CUU, A1C WTH eA, ADDONUAPLUS, [id number], CBC, LIPID, CMP #### [facility] [address] [place] [address] USAVit. B12/Folate Profileon 35-79-4582Bbjiar98.0 ng/mLNormal >5.9The [facility] Access Hospital Physician GroupComment on above:Result Comment: Folate reference range: >5.9 ng/ml The WHO technical consultation on folate and vitamin b12 deficiencies has determined that folate concentrations less than 4 ng/ml are considered deficient.Performed By: #### [id number], CUU, A1C WTH eA, ADDONUAPLUS, [id number], CBC, LIPID, CMP #### [facility] [address] [place] [address] USAVitamin B12 ser/plasOrdered By: Jyotsna Abarca on 06-03-2025 Cobalamin (Vitamin B12) [Mass/Vol]552 pg/uD449-632PhryipesuThe Jewish HospitalComment on above:Performed By: #### [id number], CUU, A1C WTH eA, ADDONUAPLUS, [id number], CBC, LIPID, CMP #### [facility] [address] [place] [address] USAVitamin D 25 Hydroxy Totalon 04-78-2705Qlnpcvd D 25 Hydroxy Total80.2 ng/wLFjpgah40-034Mdn Critical Access Hospital Physician GroupComment on above:Result Comment: VITAMIN D STATUS 25(OH)VITAMIN D RANGE (ng/mL) Deficient <20 Insufficient 20 to <30 Sufficient 30 to 100 Reference: Delfino MF,Blaze NC, Ragini ALEXIS, et al. Evaluation,treatment, and prevention of vitamin D deficiency; an Endocrine Society clinical practice guideline. JCEM. 2010; 96(7):1911-30. PERFORMED BY: [place] [address] PATHOLOGIST HEAD WAITRESS MARIE BRAGA M.D.Performed By: #### [id number], CUU, A1C WTH eA, ADDONUAPLUS, [id number], CBC, LIPID, CMP #### [facility] [address] [place] [address] USAVitamin D+Metabolites [Mass/volume] in Serum or Plasma Ordered By: Jyotsna Abarca on 19-57-8383Lriuqvs D+Metabolites [Mass/Vol]80.2 ng/mL 30-100The Jewish HospitalComment on above:VITAMIN D STATUS 25(OH)VITAMIN D RANGE (ng/mL) Deficient <20 Insufficient 20 to <28Qimqxzgixy85 to 100Reference: Delfino MF,Blaze BENSON, Ragini ALEXIS, et al. Evaluation,treatment, and prevention of vitamin D deficiency; an Endocrine Society clinical practice guideline. JCEM. 2010; 96(7):1911-30.ECG 12 [place] 47-25-6734Uduixo sinus rhythm with nonspecific ST-T changesCPSelect Medical Specialty Hospital - [facility] Work Phone: basic Metabolic Panelon 62-57-7613Rgboo gap [Moles/Vol]8.2 mmol/LNormal6.0-15.0The Critical Access Hospital Physician GroupComment on above:Performed By: #### [id number], CUU, A1C WTH eA, ADDONUAPLUS, [id number], CBC, LIPID, CMP #### [facility] [address] [place] [address] USACalcium [Mass/Vol]9.4 mg/dLNormal8.6-10.3The Critical Access Hospital Physician GroupComment on above:Result Comment: PERFORMED BY: [place] [id number] PATHOLOGIST HEAD WAITRESS NICKI WASHINGTON M.D.Performed By: #### [id number], CUU, A1C WTH eA, ADDONUAPLUS, [id number], CBC, LIPID, CMP #### [facility] [address] [place] [address] USAChloride [Moles/Vol]105 mmol/URwaxxx20-312Hvt Critical Access Hospital Physician GroupComment on above:Performed By: #### [id number], CUU, A1C WTH eA, ADDONUAPLUS, [id number], CBC, LIPID, CMP #### [facility] [address] [place] [address] USACO2 [Moles/Vol]30.7 mmol/GBrvnwi27.0-31.0The Critical Access Hospital Physician GroupComment on above:Performed By: #### [id number], CUU, A1C WTH eA, ADDONUAPLUS, [id number], CBC, LIPID, CMP #### [facility] [address] [place] [address] USACreatinine [Mass/Vol]0.89 mg/dLNormal0.60-1.20The Critical Access Hospital Physician GroupComment on above:Performed By: #### [id number], CUU, A1C WTH eA, ADDONUAPLUS, [id number], CBC, LIPID, CMP #### [place] [address] USAGFR/1.73 sq M.predicted MDRD (S/P/Bld) [Vol rate/Area] mL/min/{1.73_m2}NormalThe Critical Access Hospital Physician GroupComment on above:Performed By: #### [id number], CUU, A1C WTH eA, ADDONUAPLUS, [id number], CBC, LIPID, CMP #### [place] [address] USAGlucose [Mass/Vol]101 mg/bOFtoo68-187Fbf Critical Access Hospital Physician GroupComment on above:Result Comment: Random Glucose Reference Range is dependent on time and content of last meal. Glucose of more than 200 mg/dL in a nonstressed, ambulatory subject supports the diagnosis of Diabetes Mellitus. ADA recommended reference rangePerformed By: #### [id number], CUU, A1C WTH eA, ADDONUAPLUS, [id number], CBC, LIPID, CMP #### [facility] [address] [place] [address] USAPotassium [Moles/Vol]3.9 mmol/LNormal3.5-5.1The Critical Access Hospital Physician GroupComment on above:Performed By: #### [id number], CUU, A1C WTH eA, ADDONUAPLUS, [id number], CBC, LIPID, CMP #### [facility] [address] [place] [id number] USASodium [Moles/Vol]140 mmol/WAvdsci106-521Cxb Critical Access Hospital Physician GroupComment on above:Performed By: #### [id number], CUU, A1C WTH eA, ADDONUAPLUS, [id number], CBC, LIPID, CMP #### [facility] [address] [place] [address] USAUrea nitrogen [Mass/Vol]14 mg/dLNormal7-25The Critical Access Hospital Physician GroupComment on above:Performed By: #### [id number], CUU, A1C WTH eA, ADDONUAPLUS, [id number], CBC, LIPID, CMP #### [facility] [address] [place] [address] USACalcium [Mass/volume] in Serum or PlasmaOrdered By: Jyotsna Abarca on 74-31-4224Waumgtn [Mass/Vol]Calcium [Mass/volume] in Serum or Plasma 8.6-10.3FCleveland Clinic Euclid HospitalCarbon dioxide, total [Moles/volume] in Serum or PlasmaOrdered By: Jyotsna Abarca on 41-58-6266RK0 [Moles/Vol]Carbon dioxide, total [Moles/volume] in Serum or Lkmdzu58.0-31.0The Jewish HospitalChloride [Moles/volume] in Serum or PlasmaOrdered By: Jyotsna Abarca on 11-36-7207Orrtvhdq [Moles/Vol]Chloride [Moles/volume] in Serum or Plasma 98-107The Jewish HospitalCreatinine [Mass/volume] in Serum or PlasmaOrdered By: Jyotsna Abarca on 97-41-9704Coihkbptxg [Mass/Vol]Creatinine [Mass/volume] in Serum or Plasma0.60-1.20[facility] Glucose [Mass/volume] in Serum or PlasmaOrdered By: Jyotsna Abarca on 12-26-2024 Glucose [Mass/Vol]Glucose [Mass/volume] in Serum or CjlleeFixr53-378NfcluwnzyThe Jewish HospitalComment on above:ADA recommended reference rangeRandom Glucose Reference Range is dependent on time and content of last meal. Glucose of more than 200 mg/dL in a nonstressed, ambulatory subject supports the diagnosisof Diabetes Mellitus.No Panel InformationOrdered By: Jyotsna Abarca on 64-71-0866Bfxkvkhfo GFR (CKD-EPI)> 60.0 mL/MinThe Jewish Hospital Pharmacy Creatinine Clearance (ChemN/AFCleveland Clinic Euclid HospitalPotassium [Moles/volume] in Serum or PlasmaOrdered By: Jyotsna Abarca on 12-26-2024 Potassium [Moles/Vol]Potassium [Moles/volume] in Serum or Plasma3.5-5.1FMemorial Hospitalerum or plasma anion gap determinationOrdered By: Jyotsna Abarca on 64-25-9291Xwqcd gap [Moles/Vol]Serum or plasma anion gap determination6.0-15.0McKitrick Hospitalodium [Moles/volume] in Serum or PlasmaOrdered By: Jyotsna Abarca on 87-05-0860Ihvgty [Moles/Vol]Sodium [Moles/volume] in Serum or Sznomq341-747LolemucugThe Jewish HospitalUrea nitrogen [Mass/volume] in Serum or PlasmaOrdered By: Jyotsna Abarca on 12-26-2024 Urea nitrogen [Mass/Vol]Urea nitrogen [Mass/volume] in Serum or Plasma7-25 The Jewish HospitalA1C with Estimated Average Gluon 12-04-2024 Glucose [Mass/Vol]123 mg/dLNormalThPortneuf Medical Center Physician GroupComment on above: Result Comment: PERFORMED BY: [address] [place] [address] PATHOLOGIST HEAD WAITRESS NICKI WASHINGTON M.D.Performed By: #### [id number], CUU, A1C WTH eA, ADDONUAPLUS, [id number], CBC, LIPID, CMP #### [facility] [address] [place] [address] ACUBiI6g (Bld) [Mass fraction]5.9 %High4.3-5.6The Critical Access Hospital Physician GroupComment on above:Result Comment: Increased risk for diabetes: 5.7 - 6.4 diabetes: >6.4 glycemic control for adults with diabetes: <7.0Performed By: #### [id number], CUU, A1C WTH eA, ADDONUAPLUS, [id number], CBC, LIPID, CMP #### [facility] [address]Alanine aminotransferase [Enzymatic activity/volume] in Serum or PlasmaOrdered By: Jyotsna Abarca on 35-50-8551OPY [Catalytic activity/Vol]Alanine aminotransferase [Enzymatic activity/volume] in Serum or Plasma7-52The Jewish HospitalAlbumin [Mass/volume] in Serum or Plasma by Bromocresol green (BCG) dye binding methoOrdered By: Jyotsna Abarca on 85-95-2433Yijuufc BCG dye [Mass/Vol]Albumin [Mass/volume] in Serum or Plasma by Bromocresol green (BCG) dye binding metho3.5-5.7FCleveland Clinic Euclid HospitalAlkaline phosphatase [Enzymatic activity/volume] in Serum or PlasmaOrdered By: Jyotsna Abarca on 73-99-9751BGW [Catalytic activity/Vol]Alkaline phosphatase [Enzymatic activity/volume] in Serum or Ynfxnz93-052UnrrsgyxsThe Jewish HospitalAppearance of UrineOrdered By: Jyotsna Abarca on 34-92-5516Owgsnappvy (U) Urine appearanceCleCleveland ClinicAspartate aminotransferase [Enzymatic activity/volume] in Serum or PlasmaOrdered By: Jyotsna Abarca on 11-37-4281TJF [Catalytic activity/Vol]Aspartate aminotransferase [Enzymatic activity/volume] in Serum or Uagogv97-63QhemlgqfzThe Jewish Hospital Bacteria [Presence] in Urine by AutomatedOrdered By: Jyotsna Abarca on 12-04-2024 Bacteria Auto Ql (U)Bacteria [Presence] in Urine by AutomatedNone SeenThe Jewish HospitalBasophils Auto (Bld) [#/Vol]Ordered By: Jyotsna Abarca on 48-75-5454Lblcmsxjx (Bld) [#/Vol]Automated basophil count0.0-0.2FCleveland Clinic Euclid HospitalBasophils/100 WBC Auto (Bld)Ordered By: Jyotsna Abarca on 76-79-5277Dereqledv/100 WBC (Bld)Automated basophil %.The Jewish HospitalBilirubin Test strip Ql (U)Ordered By: Jyotsna Abarca on 12-04-2024 Bilirubin Ql (U)Bilirubin.total [Presence] in Urine by Test stripNegative The Jewish HospitalBilirubin.total [Mass/volume] in Serum or PlasmaOrdered By: Jyotsna Abarca on 67-33-6753Vuzvlrizq [Mass/Vol]Bilirubin.total [Mass/volume] in Serum or Plasma0.3-1.0The Jewish HospitalBlood estimated average glucose determination by estimation from glycated hemoglobin Ordered By: Jyotsna Abarca on 53-01-3774Mthoryf glucose Estimated from glycated hemoglobin (Bld) [Mass/Vol]Glucose mean value [Mass/volume] in Blood Estimated from glycated hemoglobinThe Jewish HospitalCalcium [Mass/volume] in Serum or PlasmaOrdered By: Jyotsna Abarca on 94-38-9965Xmzaqyn [Mass/Vol] Calcium [Mass/volume] in Serum or Plasma8.6-10.3FCleveland Clinic Euclid HospitalCarbon dioxide, total [Moles/volume] in Serum or PlasmaOrdered By: Jyotsna Abarca on 88-02-0795QY4 [Moles/Vol]Carbon dioxide, total [Moles/volume] in Serum or Svtaej05.0-31.0The Jewish HospitalChloride [Moles/volume] in Serum or PlasmaOrdered By: Jyotsna Abarca on 53-95-9448Urnojrkb [Moles/Vol] Chloride [Moles/volume] in Serum or Jkwkgs42-293IdmgbaciyThe Jewish HospitalCholesterol [Mass/volume] in Serum or PlasmaOrdered By: Jyotsna Abarca on 57-54-8740Skqumeuoexu [Mass/Vol]Cholesterol [Mass/volume] in Serum or Plasma 140-200The Jewish HospitalComment on above:Chol less than 200 mg/dl low riskChol 201-239 mg/dl borderline riskChol 240 mg/dl and greater high riskCholesterol in HDL [Mass/volume] in Serum or PlasmaOrdered By: Jyotsna Abarca on 73-36-9839Cgxifcshtvk in HDL [Mass/Vol]Serum or plasma high density lipoprotein (HDL) cholesterol vyevtrnwwhu67-62HupjtroutThe Jewish Hospital Comment on above:HDL CHOL ATP-III CLASSIFICATION Cardiovascular RiskHDL > or equal to 60 mg/dL LOWHDL < 40 mg/dL HIGHCholesterol in LDL Calc [Mass/Vol] Ordered By: Jyotsna Abarca on 01-85-1087Tjeqsuvthaa in LDL [Mass/Vol]Cholesterol in LDL [Mass/volume] in Serum or Plasma by calculation0-The Jewish HospitalComment on above:LDL ATP III CLASSIFICATIONLDL less than 100 mg/dL OptimalLDL 100-129 mg/dL Near or above nupxwvmYQT503-368 mg/dL Borderline highLDL 160-189 mg/dL HighLDL greater than 189 mg/dL Very highCholesterol in VLDL Calc [Mass/Vol]Ordered By: Jyotsna Abarca on 40-12-8646Ygsqcvjnjyy in VLDL [Mass/Vol]Cholesterol in VLDL [Mass/volume] in Serum or Plasma by calculation The Jewish HospitalColor Auto (U)Ordered By: Jyotsna Abarca on 45-76-9052Lklxm (U)Color of Urine by AutoYellowThe Jewish Hospital Complete Blood Count Auto Diffon 76-29-2506Wuzhioasg (Bld) [#/Vol]0.1 10*3/uL Normal0.0-0.2The Critical Access Hospital Physician GroupComment on above:Result Comment: PERFORMED BY: [place] [address] PATHOLOGIST HEAD WAITRESS NICKI WASHINGTON M.D.Performed By: #### [id number], CUU, A1C WTH eA, ADDONUAPLUS, [id number], CBC, LIPID, CMP #### [facility] [address] [place] [address] USABasophils/100 WBC (Bld)1.9 %Normal.The Critical Access Hospital Physician GroupComment on above:Performed By: #### [id number], CUU, A1C WTH eA, ADDONUAPLUS, [id number], CBC, LIPID, CMP #### [facility] [address] [place] [address] USAEosinophils (Bld) [#/Vol]0.3 10*3/uLNormal0.0-0.45The Critical Access Hospital Physician GroupComment on above:Performed By: #### [id number], CUU, A1C WTH eA, ADDONUAPLUS, [id number], CBC, LIPID, CMP #### [place] [id number] USAEosinophils/100 WBC (Bld)3.6 %Normal.The Critical Access Hospital Physician GroupComment on above:Performed By: #### [id number], CUU, A1C WTH eA, ADDONUAPLUS, [id number], CBC, LIPID, CMP #### [place] [address] USAErythrocyte distribution width (RBC) [Ratio]12.8 %Normal 11.9-15.3The Critical Access Hospital Physician GroupComment on above:Performed By: #### [id number], CUU, A1C WTH eA, ADDONUAPLUS, [id number], CBC, LIPID, CMP #### [place] [address] USAHematocrit (Bld) [Volume fraction]38.6 %Mvduav85.0-46.4The Critical Access Hospital Physician GroupComment on above:Performed By: #### [id number], CUU, A1C WTH eA, ADDONUAPLUS, [id number], CBC, LIPID, CMP #### [place] [address] USAHemoglobin (Bld) [Mass/Vol]13.2 g/uAHmbgcl85.8-15.4The Critical Access Hospital Physician GroupComment on above:Performed By: #### [id number], CUU, A1C WTH eA, ADDONUAPLUS, [id number], CBC, LIPID, CMP #### [place] [address] USALymphocytes (Bld) [#/Vol]2.2 10*3/uLNormal1.00-4.8The Critical Access Hospital Physician GroupComment on above:Performed By: #### [id number], CUU, A1C WTH eA, ADDONUAPLUS, [id number], CBC, LIPID, CMP #### [place] [address] USALymphocytes/100 WBC (Bld)30.4 %Normal.The Critical Access Hospital Physician GroupComment on above:Performed By: #### [id number], CUU, A1C WTH eA, ADDONUAPLUS, [id number], CBC, LIPID, CMP #### [facility] [address]H (RBC) [Entitic mass]30.2 etXcaomw70.7-34.3The Critical Access Hospital Physician GroupComment on above:Performed By: #### [id number], CUU, A1C WTH eA, ADDONUAPLUS, [id number], CBC, LIPID, CMP #### [facility] [address]V (RBC) [Entitic vol]88.4 jDEcabtq75-664Gqa Critical Access Hospital Physician GroupComment on above:Performed By: #### [id number], CUU, A1C WTH eA, ADDONUAPLUS, [id number], CBC, LIPID, CMP #### [place] [address] USAMean Corpuscular HGB Conc34.2 g/rMJryshf34.0-35.0The Critical Access Hospital Physician GroupComment on above:Performed By: #### [id number], CUU, A1C WTH eA, ADDONUAPLUS, [id number], CBC, LIPID, CMP #### [place] [address] USAMonocytes (Bld) [#/Vol]0.5 10*3/uLNormal0.0-0.8The Critical Access Hospital Physician GroupComment on above:Performed By: #### [id number], CUU, A1C WTH eA, ADDONUAPLUS, [id number], CBC, LIPID, CMP #### [place] [address] USAMonocytes/100 WBC (Bld)6.9 %Normal.The Critical Access Hospital Physician GroupComment on above:Performed By: #### [id number], CUU, A1C WTH eA, ADDONUAPLUS, [id number], CBC, LIPID, CMP #### [place] [address] USANeutrophils (Bld) [#/Vol]4.1 10*3/uLNormal1.8-7.7The Critical Access Hospital Physician GroupComment on above:Performed By: #### [id number], CUU, A1C WTH eA, ADDONUAPLUS, [id number], CBC, LIPID, CMP #### [place] [address] USANeutrophils/100 WBC (Bld)57.2 %Normal.The Critical Access Hospital Physician GroupComment on above:Performed By: #### VNES71WQ, CUU, A1C WTH eA, ADDONUAPLUS, [id number], CBC, LIPID, CMP #### [facility] [address] [place] [address] USANRBC%0.1 /100{WBC}Normal0-0.5The [facility] Physician Group Comment on above:Performed By: #### [id number], CUU, A1C WTH eA, ADDONUAPLUS, [id number], CBC, LIPID, CMP #### [place] [address] USAPlatelet mean volume (Bld) [Entitic vol]7.7 fLNormal 6.3-10.7The Critical Access Hospital Physician GroupComment on above:Performed By: #### [id number], CUU, A1C WTH eA, ADDONUAPLUS, [id number], CBC, LIPID, CMP #### [place] [address] USAPlatelets (Bld) [#/Vol]214 10*3/qYSpsako246-015Xjn Critical Access Hospital Physician GroupComment on above:Performed By: #### PPHF68FE, CUU, A1C WTH eA, ADDONUAPLUS, [id number], CBC, LIPID, CMP #### [place] [address] USARBC (Bld) [#/Vol]4.36 10*6/uLNormal3.60-5.00The Critical Access Hospital Physician GroupComment on above:Performed By: #### [id number], CUU, A1C WTH eA, ADDONUAPLUS, [id number], CBC, LIPID, CMP #### [facility] [address] [place] [address] USAWBC (Bld) [#/Vol]7.2 10*3/uLNormal3.8-11.6The Critical Access Hospital Physician GroupComment on above:Performed By: #### [id number], CUU, A1C WTH eA, ADDONUAPLUS, [id number], CBC, LIPID, CMP #### [place] [address] USAComprehensive Metabolic Panelon 88-82-1516Pmgcfuv [Mass/Vol]4.5 g/dLNormal3.5-5.7The Critical Access Hospital Physician GroupComment on above: Order Comment: fasting.jkwPerformed By: #### [id number], CUU, A1C WTH eA, ADDONUAPLUS, [id number], CBC, LIPID, CMP #### [place] [address] USAAlbumin/Globulin [Mass ratio]1.5 {ratio}NormalThe Critical Access Hospital Physician GroupComment on above:Order Comment: fasting.jkwPerformed By: #### [id number], CUU, A1C WTH eA, ADDONUAPLUS, [id number], CBC, LIPID, CMP #### [place] [address] USAALP [Catalytic activity/Vol]63 U/YHzyvgn19-403Rnx [facility] Access Hospital Physician GroupComment on above:Order Comment: fasting.jkwPerformed By: #### [id number], CUU, A1C WTH eA, ADDONUAPLUS, [id number], CBC, LIPID, CMP #### [place] [address] USAALT [Catalytic activity/Vol]15 U/LNormal7-52The Critical Access Hospital Physician GroupComment on above:Order Comment: fasting.jkwPerformed By: #### RUMR77QL, CUU, A1C WTH eA, ADDONUAPLUS, [id number], CBC, LIPID, CMP #### [facility] [address] [place] [address] USAAnion gap [Moles/Vol]10.7 mmol/LNormal6.0-15.0The Critical Access Hospital Physician GroupComment on above:Order Comment: fasting.jkwPerformed By: #### [id number], CUU, A1C WTH eA, ADDONUAPLUS, [id number], CBC, LIPID, CMP #### [facility] [address] [place] [address] USAAST [Catalytic activity/Vol]29 U/TSqcbco11-59Lnr Critical Access Hospital Physician GroupComment on above:Order Comment: fasting.jkwPerformed By: #### [id number], CUU, A1C WTH eA, ADDONUAPLUS, [id number], CBC, LIPID, CMP #### [place] [address] USABilirubin [Mass/Vol]0.6 mg/dLNormal0.3-1.0The Critical Access Hospital Physician GroupComment on above:Order Comment: fasting.jkwPerformed By: #### [id number], CUU, A1C WTH eA, ADDONUAPLUS, [id number], CBC, LIPID, CMP #### [place] [address] USACalcium [Mass/Vol]9.2 mg/dLNormal8.6-10.3The Critical Access Hospital Physician GroupComment on above:Order Comment: fasting.jkwPerformed By: #### [id number], CUU, A1C WTH eA, ADDONUAPLUS, [id number], CBC, LIPID, CMP #### [place] [address] USAChloride [Moles/Vol]105 mmol/GEfxxwd84-934Uop Critical Access Hospital Physician GroupComment on above:Order Comment: fasting.jkwPerformed By: #### [id number], CUU, A1C WTH eA, ADDONUAPLUS, [id number], CBC, LIPID, CMP #### [place] [address] USACO2 [Moles/Vol]28.6 mmol/AZcvhoh06.0-31.0The Critical Access Hospital Physician GroupComment on above:Order Comment: fasting.jkwPerformed By: #### [id number], CUU, A1C WTH eA, ADDONUAPLUS, [id number], CBC, LIPID, CMP #### [facility] [address] [place] [address] USACreatinine [Mass/Vol]0.83 mg/dLNormal0.60-1.20The Critical Access Hospital Physician GroupComment on above:Order Comment: fasting.jkwPerformed By: #### [id number], CUU, A1C WTH eA, ADDONUAPLUS, [id number], CBC, LIPID, CMP #### [facility] [address] [place] [id number] USAGFR/1.73 sq M.predicted MDRD (S/P/Bld) [Vol rate/Area] mL/min/{1.73_m2}NormalThe Critical Access Hospital Physician GroupComment on above:Order Comment: fasting.jkwPerformed By: #### [id number], CUU, A1C WTH eA, ADDONUAPLUS, [id number], CBC, LIPID, CMP #### [facility] [address] [place] [id number] USAGlobulin (S) [Mass/Vol]3.0 g/dLNormalThPortneuf Medical Center Physician GroupComment on above:Order Comment: fasting.jkwPerformed By: #### [id number], CUU, A1C WTH eA, ADDONUAPLUS, [id number], CBC, LIPID, CMP #### [facility] [address] [place] [id number] USAGlucose [Mass/Vol]103 mg/rOEyfb24-824Dxe Critical Access Hospital Physician GroupComment on above:Order Comment: fasting.jkwResult Comment: Random Glucose Reference Range is dependent on time and content of last meal. Glucose of more than 200 mg/dL in a nonstressed, ambulatory subject supports the diagnosis of Diabetes Mellitus. ADA recommended reference rangePerformed By: #### [id number], CUU, A1C WTH eA, ADDONUAPLUS, [id number], CBC, LIPID, CMP #### [facility] [address] [place] [address] USAPotassium [Moles/Vol]3.3 mmol/LLow3.5-5.1The [facility] Hospital Physician GroupComment on above:Order Comment: fasting.jkwPerformed By: #### [id number], CUU, A1C WTH eA, ADDONUAPLUS, [id number], CBC, LIPID, CMP #### [facility] [address] [place] [address] USAProtein [Mass/Vol]7.5 g/dLNormal6.4-8.9The [facility] Hospital Physician GroupComment on above:Order Comment: fasting.jkwPerformed By: #### [id number], CUU, A1C WTH eA, ADDONUAPLUS, [id number], CBC, LIPID, CMP #### [facility] [address] [place] [id number] USASodium [Moles/Vol]141 mmol/IZwaubx735-883Hgv [facility] Hospital Physician GroupComment on above:Order Comment: fasting.jkwPerformed By: #### [id number], CUU, A1C WTH eA, ADDONUAPLUS, [id number], CBC, LIPID, CMP #### [facility] [address] [place] [address] USAUrea nitrogen [Mass/Vol]14 mg/dLNormal7-25The [facility] Hospital Physician GroupComment on above:Order Comment: fasting.jkwPerformed By: #### [id number], CUU, A1C WTH eA, ADDONUAPLUS, [id number], CBC, LIPID, CMP #### [facility] [address] [place] [id number] USACreatinine [Mass/volume] in Serum or PlasmaOrdered By: Jyotsna Abarca on [id number] [Mass/Vol]Creatinine [Mass/volume] in Serum or Plasma0.60-1.20The Jewish HospitalDipstick and Microscopicon 95-72-7747Twdcfbxwtz (U)ClearNormalClearThe Critical Access Hospital Physician GroupComment on above:Order Comment: Name Collection Type:: Clean-Voided MidstreamPerformed By: #### [id number], CUU, A1C WTH eA, ADDONUAPLUS, [id number], CBC, LIPID, CMP #### [place] [address] USABacteria,UrineRareNormalNone SeenOrlando Health Emergency Room - Lake Mary Physician GroupComment on above:Order Comment: Name Collection Type:: Clean-Voided MidstreamPerformed By: #### [id number], CUU, A1C WTH eA, ADDONUAPLUS, [id number], CBC, LIPID, CMP #### [facility] [address] [place] [address] USABilirubin,UrineNegativeNormalNegativeOrlando Health Emergency Room - Lake Mary Physician GroupComment on above:Order Comment: Name Collection Type:: Clean- Voided MidstreamPerformed By: #### [id number], CUU, A1C WTH eA, ADDONUAPLUS, [id number], CBC, LIPID, CMP #### [facility] [address] [place] [address] USAColor (U)YellowNormalYellowOrlando Health Emergency Room - Lake Mary Physician Group Comment on above:Order Comment: Name Collection Type:: Clean-Voided Midstream Performed By: #### [id number], CUU, A1C WTH eA, ADDONUAPLUS, [id number], CBC, LIPID, CMP #### [facility] [address] [place] [address] USAGlucose Ql (U)NormalNormalNormalThPortneuf Medical Center Physician GroupComment on above:Order Comment: Name Collection Type:: Clean-Voided MidstreamPerformed By: #### [id number], CUU, A1C WTH eA, ADDONUAPLUS, [id number], CBC, LIPID, CMP #### [facility] [address] [place], [place] [id number] USAHyaline Casts,UrineNoneNormal0-8The Critical Access Hospital Physician GroupComment on above:Order Comment: Name Collection Type:: Clean-Voided MidstreamPerformed By: #### [id number], CUU, A1C WTH eA, ADDONUAPLUS, [id number], CBC, LIPID, CMP #### [place] [address] USAKetones Ql (U)NegativeNormalNegativeOrlando Health Emergency Room - Lake Mary Physician GroupComment on above:Order Comment: Name Collection Type:: Clean- Voided MidstreamPerformed By: #### [id number], CUU, A1C WTH eA, ADDONUAPLUS, [id number], CBC, LIPID, CMP #### [place] [address] USALeukocyte esterase Test strip Ql (U)2+HighNegativeOrlando Health Emergency Room - Lake Mary Physician GroupComment on above:Order Comment: Name Collection Type:: Clean-Voided MidstreamPerformed By: #### [id number], CUU, A1C WTH eA, ADDONUAPLUS, [id number], CBC, LIPID, CMP #### [place] [address] USAMucus,Urine2+Critically abnormalThe Critical Access Hospital Physician GroupComment on above:Order Comment: Name Collection Type:: Clean-Voided MidstreamResult Comment: PERFORMED BY: [place] [address] PATHOLOGIST HEAD WAITRESS NICKI WASHINGTON M.D.Performed By: #### [id number], CUU, A1C WTH eA, ADDONUAPLUS, [id number], CBC, LIPID, CMP #### [place] [address] USANitrite,UrineNegativeNormalNegativeThe Critical Access Hospital Physician GroupComment on above:Order Comment: Name Collection Type:: Clean-Voided MidstreamPerformed By: #### [id number], CUU, A1C WTH eA, ADDONUAPLUS, [id number], CBC, LIPID, CMP #### [place] [address] USAOccult Blood,UrineNegativeNormalNegativeThe Critical Access Hospital Physician GroupComment on above:Order Comment: Name Collection Type:: Clean- Voided MidstreamPerformed By: #### [id number], CUU, A1C WTH eA, ADDONUAPLUS, [id number], CBC, LIPID, CMP #### [place] [address] USApH (U)5.5 [pH]Normal5.0-9.0The [facility] Comment on above:Order Comment: Name Collection Type:: Clean-Voided Midstream Performed By: #### [id number], CUU, A1C WTH eA, ADDONUAPLUS, [id number], CBC, LIPID, CMP #### [place] [address] USAProtein,UrineNegativeNormalNegativeThe Critical Access Hospital Physician GroupComment on above:Order Comment: Name Collection Type:: Clean-Voided MidstreamPerformed By: #### [id number], CUU, A1C WTH eA, ADDONUAPLUS, [id number], CBC, LIPID, CMP #### [place] [address] USARBC,Urine3 [HPF]Normal0-4The [facility] Comment on above:Order Comment: Name Collection Type:: Clean-Voided Midstream Performed By: #### [id number], CUU, A1C WTH eA, ADDONUAPLUS, [id number], CBC, LIPID, CMP #### [place] [address] USASpecificy [place],Urine1.621Wmeglh3.001-1.030The Critical Access Hospital Physician GroupComment on above:Order Comment: Name Collection Type:: Clean- Voided MidstreamPerformed By: #### [id number], CUU, A1C WTH eA, ADDONUAPLUS, [id number], CBC, LIPID, CMP #### [place] [address] USASquamous Epithelial Cell,Urine3 [HPF]High0-2The [facility] Access Hospital Physician GroupComment on above:Order Comment: Name Collection Type:: Clean- Voided MidstreamPerformed By: #### [id number], CUU, A1C WTH eA, ADDONUAPLUS, [id number], CBC, LIPID, CMP #### [facility] [address] [place] [address] USAUrobilinogen,UrineNormalNormalNormalThe Critical Access Hospital Physician GroupComment on above:Order Comment: Name Collection Type:: Clean- Voided MidstreamPerformed By: #### [id number], CUU, A1C WTH eA, ADDONUAPLUS, [id number], CBC, LIPID, CMP #### [facility] [address] [place] [address] USAWBC,Urine1 [HPF]Normal0-4The [facility] Comment on above:Order Comment: Name Collection Type:: Clean-Voided Midstream Performed By: #### [id number], CUU, A1C WTH eA, ADDONUAPLUS, [id number], CBC, LIPID, CMP #### [facility] [address] [place] [id number] USAEosinophils Auto (Bld) [#/Vol]Ordered By: Jyotsna Abarca on 33-08-1775Hribjloalan (Bld) [#/Vol]Automated eosinophil count0.0-0.45The Jewish HospitalEosinophils/100 WBC Auto (Bld)Ordered By: Jyotsna Abarca on 21-50-3855Kihxnrsclht/100 WBC (Bld)Automated eosinophil %.The Jewish HospitalEpithelial cells.squamous [#/area] in Urine sediment by Automated countOrdered By: Jyotsna Abarca on 97-14-3892Fdaxaykfkc cells.squamous Auto (Urine sed) [#/Area]Epithelial cells.squamous [#/area] in Urine sediment by Automated countHigh0-2FCleveland Clinic Euclid HospitalErythrocyte distribution width Auto (RBC) [Ratio]Ordered By: Jyotsna Abarca on 48-23-5919Adwmtkqaopy distribution width (RBC) [Ratio]Erythrocyte distribution width [Ratio] by Automated count 11.9-15.3FCleveland Clinic Euclid HospitalErythrocytes [#/area] in Urine sediment by Automated countOrdered By: Jyotsna Abarca on 52-62-4501FWZ Auto (Urine sed) [#/Area]Erythrocytes [#/area] in Urine sediment by Automated count0-4 The Jewish HospitalFolate [Mass/volume] in Serum or PlasmaOrdered By: Jyotsna Abarca on 84-66-5488Fqxhzo [Mass/Vol]Folate [Mass/volume] in Serum or Plasma>5.9The Jewish HospitalComment on above:Folate reference range: >5.9 ng/mlThe WHO technical consultation on folate and vitamin a76hxyoqjv ncies has determined that folate concentrations lessthan 4 ng/ml are considered deficient.Globulin Calc (S) [Mass/Vol]Ordered By: Jyotsna Abarca on 12-04-2024 Globulin (S) [Mass/Vol]Serum globulin measurement by calculation (mass/volume) The Jewish HospitalGlucose [Mass/volume] in Serum or PlasmaOrdered By: Jyotsna Abarca on 85-99-7513Hzaarus [Mass/Vol]Glucose [Mass/volume] in Serum or KzpzjhBfgp20-579BfyyaffxoThe Jewish HospitalComment on above:ADA recommended reference rangeRandom Glucose Reference Range is dependent on time and content of last meal. Glucose of more than 200 mg/dL in a nonstressed, ambulatory subject supports the diagnosisof Diabetes Mellitus.Glucose [Mass/volume] in Urine by Test stripOrdered By: Jyotsna Abarca on 12-04-2024 Glucose Test strip (U) [Mass/Vol]Glucose [Mass/volume] in Urine by Test strip NormalThe Jewish HospitalHematocrit Auto (Bld) [Volume fraction] Ordered By: Jyotsna Abarca on 29-70-5987Jewlnewnqz (Bld) [Volume fraction] Hematocrit [Volume Fraction] of Blood by Automated count34.0-46.4FCleveland Clinic Euclid HospitalHemoglobin A1c/Hemoglobin.total in BloodOrdered By: Jyotsna Abarca on 75-34-3166YaG1g (Bld) [Mass fraction]Hemoglobin A1c percentageHigh 4.3-5.6FCleveland Clinic Euclid HospitalComment on above:Increased risk for diabetes: 5.7 - 6.4diabetes: >6.4glycemic control for adults with diabetes: &l t;7.0Hemoglobin Test strip Ql (U)Ordered By: Jyotsna Abarca on 12-04-2024 Hemoglobin Ql (U)Hemoglobin [Presence] in Urine by Test stripNegativeThe Jewish HospitalHemoglobin [Mass/volume] in BloodOrdered By: Jyotsna Abarca on 41-96-1729Tbzsqlpbnn (Bld) [Mass/Vol]Hemoglobin [Mass/volume] in Blood 11.8-15.4FCleveland Clinic Euclid HospitalHyaline casts [#/area] in Urine sediment by Automated countOrdered By: Jyotsna Abarca on 77-38-1829Oxvhdjb casts Auto (Urine sed) [#/Area]Hyaline casts [#/area] in Urine sediment by Automated count0-8The Jewish HospitalKetones Test strip Ql (U)Ordered By: Jyotsna Abarca on 64-51-4251Hldaitr Ql (U)Ketones [Presence] in Urine by Test stripNegativeThe Jewish HospitalLeukocyte esterase [Presence] in Urine by Test stripOrdered By: Jyotsna Abarca on 14-24-8326Eecgykvpv esterase Test strip Ql (U)Leukocyte esterase [Presence] in Urine by Test stripHighNegative The Jewish HospitalLeukocytes [#/area] in Urine sediment by Automated countOrdered By: Jyotsna Abarca on 47-05-5682WIB Auto (Urine sed) [#/Area]Leukocytes [#/area] in Urine sediment by Automated count0-4FCleveland Clinic Euclid HospitalLeukocytes [#/volume] corrected for nucleated erythrocytes in Blood by Automated counOrdered By: Jyotsna Abarca on 88-65-0245ZKX corrected for nucl RBC Auto (Bld) [#/Vol]Leukocytes [#/volume] corrected for nucleated erythrocytes in Blood by Automated coun3.8-11.6FCleveland Clinic Euclid HospitalLipid Panelon 21-16-9058Tweiouuhgul [Mass/Vol]155 mg/dLNormal 140-200The Critical Access Hospital Physician GroupComment on above:Order Comment: fasting.jkw Result Comment: Chol less than 200 mg/dl low risk Chol 201-239 mg/dl borderline risk Chol 240 mg/dl and greater high riskPerformed By: #### [id number], CUU, A1C WTH eA, ADDONUAPLUS, [id number], CBC, LIPID, CMP #### [facility] [address] [place] [address] USACholesterol in HDL [Mass/Vol]65 mg/sIOaqxwd22-28Sds Critical Access Hospital Physician GroupComment on above:Order Comment: fasting.jkwResult Comment: HDL CHOL ATP-III CLASSIFICATION Cardiovascular Risk HDL > or equal to 60 mg/dL LOW HDL < 40 mg/dL HIGHPerformed By: #### [id number], CUU, A1C WTH eA, ADDONUAPLUS, [id number], CBC, LIPID, CMP #### [facility] [address] [place] [id number] USACholesterol.total/Cholesterol in HDL [Mass ratio]2.4 {ratio}Normal<5.0The Critical Access Hospital Physician GroupComment on above:Order Comment: fasting.jkwPerformed By: #### [id number], CUU, A1C WTH eA, ADDONUAPLUS, [id number], CBC, LIPID, CMP #### [facility] [address] [place] [id number] USALDL Cholesterol,Pfadoljywn62 mg/dLNormal0-100The Critical Access Hospital Physician GroupComment on above:Order Comment: fasting.jkwResult Comment: LDL ATP III CLASSIFICATION LDL less than 100 mg/dL Optimal LDL 100-129 mg/dL Near or above optimal LDL 130-159 mg/dL Borderline high LDL 160-189 mg/dL High LDL greater than 189 mg/dL Very highPerformed By: #### [id number], CUU, A1C WTH eA, ADDONUAPLUS, [id number], CBC, LIPID, CMP #### [facility] [address] [place] [id number] USATriglyceride w/Oaxbcg59 mg/dLNormal0-149The Critical Access Hospital Physician GroupComment on above:Order Comment: fasting.jkwResult Comment: TRIG ATP III CLASSIFICATION TRIG less than 150 mg/dL Normal TRIG 150-199 mg/dL Borderline high TRIG 200-500 mg/dL High TRIG greater than 500 mg/dL Very high Standard traceable to the Center for Disease Conrtrol and Prevention (CDC) test method.Performed By: #### [id number], CUU, A1C WTH eA, ADDONUAPLUS, [id number], CBC, LIPID, CMP #### [facility] [address] [place] [id number] USAVLDL ODPVRDRCWHK67 mg/dLNoNovant Health Medical Park Hospital Physician GroupComment on above:Order Comment: fasting.jkwPerformed By: #### [id number], CUU, A1C WTH eA, ADDONUAPLUS, [id number], CBC, LIPID, CMP #### [facility] [address] [place] [id number] USALymphocytes Auto (Bld) [#/Vol]Ordered By: Jyotsna Abarca on 13-42-2422Zngjdvdpwaj (Bld) [#/Vol]Lymphocytes [#/volume] in Blood by Automated count1.00-4.8The Jewish HospitalLymphocytes/100 WBC Auto (Bld) Ordered By: Jyotsna Abarca on 52-82-8104Nujmyeiyhwl/100 WBC (Bld)Lymphocytes/100 leukocytes in Blood by Automated count.[facility]H Auto (RBC) [Entitic mass]Ordered By: Jyotsna Abarca on 26-84-1736TXJ (RBC) [Entitic mass]MCH [Entitic mass] by Automated count24.7-34.3FACMC Healthcare System GlenbeighHC Auto (RBC) [Mass/Vol]Ordered By: Jyotsna Abarca on 31-59-2406TCPN (RBC) [Mass/Vol]MCHC [Mass/volume] by Automated count32.0-35.0The Jewish HospitalMCV Auto (RBC) [Entitic vol]Ordered By: Jyotnsa Abarca on 12-04-2024 MCV (RBC) [Entitic vol]MCV [Entitic volume] by Automated -245KlnpftuimThe Jewish HospitalMonocytes Auto (Bld) [#/Vol]Ordered By: Jyotsna Abarca on 31-57-5029Dtnntytib (Bld) [#/Vol]Automated blood monocyte count0.0-0.8The Jewish HospitalMonocytes/100 WBC Auto (Bld)Ordered By: Jyotsna Abarca on 06-26-7747Jmoxkaqkm/100 WBC (Bld)Automated monocyte %.The Jewish HospitalMucus [Presence] in Urine by AutomatedOrdered By: Jyotsna Abarca on 61-84-9709Wvvbd Auto Ql (U)Mucus [Presence] in Urine by AutomatedAbnormal The Jewish HospitalNeutrophils Auto (Bld) [#/Vol]Ordered By: Jyotsna Abarca on 26-38-8545Gzquxfzyixk (Bld) [#/Vol]Neutrophils [#/volume] in Blood by Automated count1.8-7.7FCleveland Clinic Euclid HospitalNeutrophils/100 WBC Auto (Bld)Ordered By: Jyotsna Abarca on 30-06-8504Niomiympzaz/100 WBC (Bld)Automated neutrophil %.The Jewish HospitalNitrite Test strip Ql (U)Ordered By: Jyotsna Abarca on 26-84-0150Wminwsq Ql (U)Nitrite [Presence] in Urine by Test stripNegPeoples HospitalNo Panel InformationOrdered By: Jyotsna Abarca on 21-24-5535Kvekuoxej GFR (CKD-EPI)> 60.0 mL/MinThe Jewish HospitalPharmacy Creatinine Clearance (ChemN/AFCleveland Clinic Euclid HospitalNucleated erythrocytes [Presence] in Blood by Automated countOrdered By: Jyotsna Abarca on 81-94-9659Znksayqwd RBC Auto Ql (Bld)Nucleated erythrocytes [Presence] in Blood by Automated count0-0.5FCleveland Clinic Euclid Hospital Platelet mean volume Auto (Bld) [Entitic vol]Ordered By: Jyotsna Abarca on 34-39-9373Rpvyzwzy mean volume (Bld) [Entitic vol]Platelet mean volume [Entitic volume] in Blood by Automated count6.3-10.7FCleveland Clinic Euclid Hospital Platelets Auto (Bld) [#/Vol]Ordered By: Jyotsna Abarca on 79-30-0115Yzbyysdtx (Bld) [#/Vol]Platelets [#/volume] in Blood by Automated puuxg080-473AfyjrfgbzThe Jewish HospitalPotassium [Moles/volume] in Serum or PlasmaOrdered By: Jyotsna Abarca on 80-56-1746Kqkyqmfnn [Moles/Vol]Potassium [Moles/volume] in Serum or PlasmaLow3.5-5.1FCleveland Clinic Euclid HospitalProtein Test strip (U) [Mass/Vol]Ordered By: Jyotsna Abarca on 62-35-9438Ljzxxoz (U) [Mass/Vol]Protein [Mass/volume] in Urine by Test stripNegativeThe Jewish Hospital Protein [Mass/volume] in Serum or PlasmaOrdered By: Jyotsna Abarca on 12-04-2024 Protein [Mass/Vol]Protein [Mass/volume] in Serum or Plasma6.4-8.9The Jewish HospitalRBC Auto (Bld) [#/Vol]Ordered By: Jyotsna Abarca on 33-12-3637DZQ (Bld) [#/Vol]Erythrocytes [#/volume] in Blood by Automated count 3.60-5.00McKitrick Hospitalerum or plasma albumin/globulin mass ratioOrdered By: Jyotsna Abarca on 29-53-8623Ibusbdo/Globulin [Mass ratio]Serum or plasma albumin/globulin mass ratioMcKitrick Hospitalerum or plasma anion gap determinationOrdered By: Jyotsna Abarca on 56-60-4667Fvhkh gap [Moles/Vol]Serum or plasma anion gap determination6.0-15.0McKitrick Hospitalerum or plasma total cholesterol/high density lipoprotein (HDL) cholesterol mass ratOrdered By: Jyotsna Abarca on 12-04-2024 Cholesterol.total/Cholesterol in HDL [Mass ratio]Serum or plasma total cholesterol/high density lipoprotein (HDL) cholesterol mass rat<5.0McKitrick Hospitalodium [Moles/volume] in Serum or PlasmaOrdered By: Jyotsna Abarca on 65-37-8463Dskqjr [Moles/Vol]Sodium [Moles/volume] in Serum or Plasma 136-145McKitrick Hospitalpecific gravity Test strip (U) [Rel density]Ordered By: Jyotsna Abarca on 55-27-1233Apnaskht gravity (U) [Rel density] Specific gravity of Urine by Test strip1.001-1.030The Jewish HospitalTriglyceride [Mass/volume] in Serum or PlasmaOrdered By: Jyotsna Abarca on 95-76-2032Llwpzddppikd [Mass/Vol]Triglyceride [Mass/volume] in Serum or Plasma 0-149The Jewish HospitalComment on above:TRIG ATP III CLASSIFICATIONTRIG less than 150 mg/dL NormalTRIG 150-199 mg/dL Borderline highTRIG 200-500 mg/dL High TRIG greater than 500 mg/dL Very highStandard traceable to the Center for Disease Conrtrol and Prevention (CDC) test method. Urea nitrogen [Mass/volume] in Serum or PlasmaOrdered By: Jyotsna Abarca on 98-46-3821Nguz nitrogen [Mass/Vol]Urea nitrogen [Mass/volume] in Serum or Plasma 7-The Jewish HospitalUrine Cultureon 70-85-7261Onqprtwn identified Cx Nom (U)ORGANISM: Strep agalactiae - (group b) (O:STRAGA) [place] Count 75,000 PERFORMED BY: [address] [place] [address] PATHOLOGIST HEAD WAITRESS NICKI WASHINGTON M.D.NormalThe Critical Access Hospital Physician GroupComment on above: Performed By: #### [id number], CUU, A1C WTH eA, ADDONUAPLUS, [id number], CBC, LIPID, CMP #### [facility] [address] [place] [address] USAUrine cultureOrdered By: Jyotsna Abarca on 12-04-2024 Bacteria identified Cx Nom (U)Group B Strep (Streptococcus agalactiae)Abnormal The Jewish HospitalUrobilinogen Test strip (U) [Mass/Vol]Ordered By: Jyotsna Abarca on 05-62-4001Dnsoyyqflhgj (U) [Mass/Vol]Urobilinogen [Mass/volume] in Urine by Test stripNoOhio State East HospitalVit. B12/Folate Profileon 70-99-6782Bpsuwcpen (Vitamin B12) [Mass/Vol]583 pg/mLNormal 180-914The Critical Access Hospital Physician GroupComment on above:Order Comment: fasting.jkw Performed By: #### [id number], CUU, A1C WTH eA, ADDONUAPLUS, [id number], CBC, LIPID, CMP #### [facility] [address] [place] [id number] WCIPeupvz09.0 ng/mLNormal>5.9The [facility] Physician Group Comment on above:Order Comment: fasting.jkwResult Comment: Folate reference range: >5.9 ng/ml The WHO technical consultation on folate and vitamin b12 deficiencies has determined that folate concentrations less than 4 ng/ml are considered deficient.Performed By: #### [id number], CUU, A1C WTH eA, ADDONUAPLUS, [id number], CBC, LIPID, CMP #### [facility] [address] [place] [address] USAVitamin B12 ser/plasOrdered By: Jyotsna Abarca on 12-04-2024 Cobalamin (Vitamin B12) [Mass/Vol]Vitamin B12 ser/bjsm988-241EywxwjvkvThe Jewish HospitalVitamin D 25 Hydroxy Totalon 84-65-5964Amxpqgl D 25 Hydroxy Total 67.8 ng/kYWqtveu22-426Gcu Critical Access Hospital Physician GroupComment on above:Order Comment: fasting.jkwResult Comment: VITAMIN D STATUS 25(OH)VITAMIN D RANGE (ng/mL) Deficient <20 Insufficient 20 to <30 Sufficient 30 to 100 Reference: Blaze Clements, Ragini ALEXIS, et al. Evaluation,treatment, and prevention of vitamin D deficiency; an Endocrine Society clinical practice guideline. JCEM. 2010; 96(7):1911-. PERFORMED BY: [place] [address] PATHOLOGIST HEAD WAITRESS NICKI WASHINGTON M.D.Performed By: #### [id number], CUU, A1C WTH eA, ADDONUAPLUS, [id number], CBC, LIPID, CMP #### [facility] [address] [place] [id number] USAVitamin D+Metabolites [Mass/volume] in Serum or Plasma Ordered By: Jyotsna Abarca on 92-37-6819Qlywplw D+Metabolites [Mass/Vol]Vitamin D+Metabolites [Mass/volume] in Serum or Edfusf96-689IyawbxzbkThe Jewish HospitalComment on above:VITAMIN D STATUS 25(OH)VITAMIN D RANGE (ng/mL) Deficient <20 Insufficient 20 to <63Fzijxadffb78 to 100Reference: Blaze Clements, Ragini ALEXIS, et al. Evaluation,treatment, and prevention of vitamin D deficiency; an Endocrine Society clinical practice guideline. JCEM. 2010; 96 (7):1911-30.WBC Auto (Bld) [#/Vol]Ordered By: Jyotsna Abarca on 05-85-8186TJP (Bld) [#/Vol]Leukocytes [#/volume] in Blood by Automated count3.8-11.6FCleveland Clinic Euclid HospitalpH Test strip (U)Ordered By: Jyotsna Abarca on 48-85-7625gV (U)pH of Urine by Test strip5.0-9.0The Jewish HospitalMM TOMOSYNTHESIS SCREENING BIon 82-13-3500[address] [address] Mammography Report Signed Patient: MESERET DAVIDSON MR#: [id number] : 1950 Acct:[id number] Age/Sex: 74 / F ADM Date: 09/29/24 Loc: MAMMO Attending Dr: ÁNGEL BOTELLO Ordering Physician: ÁNGEL BOTELLO Results: Date of Service: 09/29/24 Follow Up: Procedure(s): MM tomosynthesis screening BI Accession Number(s): [id number] cc: JYOTSNA ABARCA; ÁNGEL BOTELLO Patient Name: MESERET DAVIDSON MR#: [id number] : 1950 Exam Date: 09/29/2024 Ordering Doctor: [...] bone cancer at age 89. LOCATION: [facility] BREAST COMPOSITION: The breasts are heterogeneously [...] PALPABLE LUMP SHOULD BE BIOPSIED. Dictated by: Shae Chavez M.D. on 09/29/2024 at 14:15 Approved by: Shae Chavez M.D. on 09/29/2024 at 14:17 Dictated By: Shae Chavez M.D. Signed By: 09/29/24 1418 DD/ 1417 TD/TT: Platen Drier Operator:TBHRadiology, Radiologist, MD - 09/29/2024 [place] [address] Mammography Report Signed Patient: MESERET DAVIDSON MR#: [id number] : 1950 Acct:[id number] Age/Sex: 74 / F ADM Date: 09/29/24 Loc: MAMMO Attending Dr: ÁNGEL BOTELLO Ordering Physician: ÁNGEL BOTELLO Results: Date of Service: 09/29/24 Follow Up: Procedure(s): MM tomosynthesis screening BI Accession Number(s): [id number] cc: JYOTSNA ABARCA; ÁNGEL BOTELLO Patient Name: MESERET DAVIDSON MR#: [id number] : 1950 Exam Date: 09/29/2024 Ordering Doctor: [...] bone cancer at age 89. LOCATION: [facility] BREAST COMPOSITION: The breasts are heterogeneously [...] PALPABLE LUMP SHOULD BE BIOPSIED. Dictated by: Shae Chavez M.D. on 09/29/2024 at 14:15 Approved by: Shae Chavez M.D. on 09/29/2024 at 14:17 Dictated By: Shae Chavez M.D. Signed By: 09/29/24 1418 DD/ 1417 TD/TT: Platen Drier Operator: [facility]woodRadiology Study observation (narrative)[facility] TOMOSYNTHESIS SCREENING BIOrdered By: Radiologist Radiology on 75-04-4607NB[employer] Work Phone: RemNitroPCRtenet [place] [phone] From: Evie Conte LPN To: N - Clinical; Sent: 08/13/2024 08:06:46 EDT Show up: 07/06/2034 07:00:00 EDT Subject: colonoscopy recall Due Date/Time: 08/06/2034 07:00:00 EDT Reminder/Recall Patient due for screening colonoscopy 08/06/2034.[facility] HospitalAmbulatory Visit Summaryon 60-80-9029Fybrhdnxbg Visit SummaryAmbulatory Visit Summary MESERET DAVIDSON :1950 Visit Date:07/23/2024 Ambulatory Visit Instructions Your Diagnosis Personal history of colonic polyps Your Care Team Attending Physician - Shiv LEAL MD Primary Care Physician - Jyotsna Abarca DO Referring Physician - Jyotsna Abarca DO This Is Your Medications List Contact prescribing physician if questions or concerns aspirin (aspirin 81 mg oral tablet) atenolol (atenolol 25 mg Tab) calcitonin (calcitonin Nasal [place]) calcium-vitamin D (Citracal + D) cholecalciferol (Vitamin [...] questions or concerns Unchanged calcitonin (calcitonin Nasal [place]) 1 Sprays Nasal Inhalation Every day Contact [...] you for choosing us for your care. [facility] HospitalBasic Metabolic Panelon 10-87-0438DPP/1.73 sq M.predicted MDRD (S/P/Bld) [Vol rate/Area]mL/min/{1.73_m2} NormalThe Critical Access Hospital Physician GroupComment on above:Performed By: #### BMP #### [place] [address] USACalcium [Mass/volume] in Serum or PlasmaOrdered By: Jyotsna Abarca on 94-53-2596Tuvhkjg [Mass/Vol]9.5 mg/dLNormal8.6-10.3FCleveland Clinic Euclid HospitalComment on above:Result Comment: PERFORMED BY: [place] [id number] PATHOLOGIST HEAD WAITRESS MARYANN NUNEZ M.D.Performed By: #### BMP #### [facility] [address] [place] [address] USACarbon dioxide, total [Moles/volume] in Serum or Plasma Ordered By: Jyotsna Abarca on 13-43-3350YB3 [Moles/Vol]26.3 mmol/FStyduo97.0-31.0 The Jewish HospitalComment on above:Performed By: #### BMP #### [facility] [address] [id number] USAChloride [Moles/volume] in Serum or PlasmaOrdered By: Jyotsna Abarca on 54-19-8417Hvwoeyvs [Moles/Vol]106 mmol/VGipsds42-768LanibblrzThe Jewish HospitalComment on above:Performed By: #### BMP #### [facility] [address] [place] [address] USACreatinine [Mass/volume] in Serum or PlasmaOrdered By: Jyotsna Abarca on 91-77-6388Zdtdcbztzs [Mass/Vol]0.90 mg/dLNormal0.60-1.20 The Jewish HospitalComment on above:Performed By: #### BMP #### [facility] [address] [place] [address] USAGlucose [Mass/volume] in Serum or PlasmaOrdered By: Jyotsna Abarca on 72-01-9222Jvzzkcv [Mass/Vol]103 mg/kLFpwk65-853PyxhjaemcThe Jewish HospitalComment on above:ADA recommended reference rangeRandom Glucose Reference Range is dependent on time and content of last meal. Glucose of more than 200 mg/dL in a nonstressed, ambulatory subject supports the diagnosisof Diabetes Mellitus.Result Comment: Random Glucose Reference Range is dependent on time and content of last meal. Glucose of more than 200 mg/dL in a nonstressed, ambulatory subject supports the diagnosis of Diabetes Mellitus. ADA recommended reference rangePerformed By: #### BMP #### [facility] [address] [place] [address] USANo Panel InformationOrdered By: Jyotsna Abarca on 06-12-2024 Estimated GFR (CKD-EPI)> 60.0 mL/MinThe Jewish HospitalPharmacy Creatinine Clearance (ChemN/AFCleveland Clinic Euclid HospitalPotassium [Moles/volume] in Serum or PlasmaOrdered By: Jyotsna Abarca on 81-83-7593Oitopwhrt [Moles/Vol]4.1 mmol/LNormal3.5-5.1FCleveland Clinic Euclid HospitalComment on above:Performed By: #### BMP #### [facility] [address] [place] [address] USASerum or plasma anion gap determinationOrdered By: Jyotsna Abarca on 18-32-5884Pykal gap [Moles/Vol]10.8 mmol/LNormal6.0-15.0The Jewish HospitalComment on above:Performed By: #### BMP #### [facility] [address] [place] [address] USASodium [Moles/volume] in Serum or PlasmaOrdered By: Jyotsna Abarca on 68-88-6104Kheixv [Moles/Vol]139 mmol/AJhfmdp733-804TyzbovmmmThe Jewish HospitalComment on above:Performed By: #### BMP #### [facility] [address] [place] [address] USAUrea nitrogen [Mass/volume] in Serum or PlasmaOrdered By: Jyotsna Abarca on 68-04-5302Gawv nitrogen [Mass/Vol]16 mg/dLNormal7-25The Jewish HospitalComment on above:Performed By: #### BMP #### [facility] [address] [place] [address] USAAlanine aminotransferase [Enzymatic activity/volume] in Serum or PlasmaOrdered By: Jyotsna Abarca on 34-73-5077ZBF [Catalytic activity/Vol]14 U/L7-52The Jewish HospitalAlbumin [Mass/volume] in Serum or Plasma by Bromocresol green (BCG) dye binding methoOrdered By: Jyotsna Abarca on 50-70-1054Nbsyihi BCG dye [Mass/Vol]4.3 g/dL3.5-5.7FCleveland Clinic Euclid HospitalAlkaline phosphatase [Enzymatic activity/volume] in Serum or PlasmaOrdered By: Jyotsna Abarca on 78-35-3105XHF [Catalytic activity/Vol]62 U/L 34-104The Jewish HospitalAspartate aminotransferase [Enzymatic activity/volume] in Serum or PlasmaOrdered By: Jyotsna Abarca on 44-02-8855GSC [Catalytic activity/Vol]28 U/A41-13TtotnqsaeThe Jewish HospitalBacteria [Presence] in Urine by AutomatedOrdered By: Jyotsna Abarca on 15-22-9659Batzywdp Auto Ql (U)None seen [HPF]None SeenThe Jewish HospitalBasophils Auto (Bld) [#/Vol]Ordered By: Jyotsna Abarca on 42-07-7443Nydgblikg (Bld) [#/Vol] 0.2 10*3/uL0.0-0.2FCleveland Clinic Euclid HospitalBasophils/100 WBC Auto (Bld) Ordered By: Jyotsna Abarca on 43-59-6906Wwgdauxbr/100 WBC (Bld)2.8 %.The Jewish HospitalBilirubin Test strip Ql (U)Ordered By: Jyotsna Abarca on 48-21-2971Tmhxgrnbk Ql (U)NegativeNegativeThe Jewish Hospital Bilirubin.total [Mass/volume] in Serum or PlasmaOrdered By: Jyotsna Abarca on 95-92-1127Uijsndzsu [Mass/Vol]0.5 mg/dL0.3-1.0[facility] Calcium [Mass/volume] in Serum or PlasmaOrdered By: Jyotsna Abarca on 05-23-2024 Calcium [Mass/Vol]9.2 mg/dL8.6-10.3FCleveland Clinic Euclid HospitalCarbon dioxide, total [Moles/volume] in Serum or PlasmaOrdered By: Jyotsna Abarca on 46-91-1185JD8 [Moles/Vol]28.8 mmol/L21.0-31.0[facility] Chloride [Moles/volume] in Serum or PlasmaOrdered By: Jyotsna Abarca on 05-23-2024 Chloride [Moles/Vol]106 mmol/B19-195QecslsobfThe Jewish HospitalCholesterol [Mass/volume] in Serum or PlasmaOrdered By: Jyotsna Abarca on 05-23-2024 Cholesterol [Mass/Vol]148 mg/sG590-729UiqmztpibThe Jewish HospitalComment on above:Chol less than 200 mg/dl low riskChol 201-239 mg/dl borderline riskChol 240 mg/dl and greater high riskCholesterol in LDL Calc [Mass/Vol]Ordered By: Jyotsna Abarca on 02-54-8634Vewmvigylig in LDL [Mass/Vol]79 mg/dL0-100The Jewish HospitalComment on above:LDL ATP III CLASSIFICATIONLDL less than 100 mg/dL OptimalLDL 100-129 mg/dL Near or above vhxopdiFPI879-806 mg/dL Borderline highLDL 160-189 mg/dL HighLDL greater than 189 mg/dL Very high Cholesterol in VLDL Calc [Mass/Vol]Ordered By: Jyotsna Abarca on 05-23-2024 Cholesterol in VLDL [Mass/Vol]9 mg/dLThe Jewish HospitalColor Auto (U)Ordered By: Jyotsna Abarca on 72-67-9059Iakip (U)YellowYellowThe Jewish HospitalCreatinine [Mass/volume] in Serum or PlasmaOrdered By: Jyotsna Abarca on 89-54-0432Qgjgciqxfv [Mass/Vol]0.80 mg/dL0.60-1.20The Jewish HospitalEosinophils Auto (Bld) [#/Vol]Ordered By: Jyotsna Abarca on 76-32-6787Mwbmnywqcsf (Bld) [#/Vol]0.3 10*3/uL0.0-0.45The Jewish HospitalEosinophils/100 WBC Auto (Bld)Ordered By: Jyotsna Abarca on 82-65-7825Wzlfwceunhp/100 WBC (Bld)4.0 %.[facility] Epithelial cells.squamous [#/area] in Urine sediment by Automated countOrdered By: Jyotsna Abarca on 50-41-5766Tgmggbxnno cells.squamous Auto (Urine sed) [#/Area]1-2 [HPF]0-2FCleveland Clinic Euclid HospitalErythrocyte distribution width Auto (RBC) [Ratio]Ordered By: Jyotsna Abarca on 60-72-3994Wiyhjdbgezg distribution width (RBC) [Ratio]13.2 %11.9-15.3FCleveland Clinic Euclid Hospital Erythrocytes [#/area] in Urine sediment by Automated countOrdered By: Jyotsna Abarca on 71-40-5301XJO Auto (Urine sed) [#/Area]1-2 [HPF]0-4FCleveland Clinic Euclid HospitalFolate [Mass/volume] in Serum or PlasmaOrdered By: Jyotsna Abarca on 01-47-5446Xsjluy [Mass/Vol]32.0 ng/mL>5.9[facility] Comment on above:Folate reference range: >5.9 ng/mlThe WHO technical consultation on folate and vitamin f47aymxzzfszjzk has determined that folate concentrations lessthan 4 ng/ml are considered deficient.Globulin Calc (S) [Mass/Vol]Ordered By: Jyotsna Abarca on 86-90-1944Sqboxxxi (S) [Mass/Vol]2.6 g/dL The Jewish HospitalGlucose [Mass/volume] in Serum or PlasmaOrdered By: Jyotsna Abarca on 47-17-1234Zowrghi [Mass/Vol]91 mg/mZ09-340IkbtbxomkThe Jewish HospitalComment on above:ADA recommended reference rangeRandom Glucose Reference Range is dependent on time and content of last meal. Glucose of more than 200 mg/dL in a nonstressed, ambulatory subject supports the diagnosisof Diabetes Mellitus.Glucose [Mass/volume] in Urine by Test strip Ordered By: Jyotsna Abarca on 26-49-4133Nmswctc Test strip (U) [Mass/Vol]Normal mg/dLNormalThe Jewish HospitalGlucose mean value [Mass/volume] in Blood Estimated from glycated hemoglobinOrdered By: Jyotsna Abarca on 05-23-2024 Average glucose Estimated from glycated hemoglobin (Bld) [Mass/Vol]128 mg/dL The Jewish HospitalHematocrit Auto (Bld) [Volume fraction]Ordered By: Jyotsna Abarca on 51-19-3242Ditianakrs (Bld) [Volume fraction]37.0 %34.0-46.4 The Jewish HospitalHemoglobin A1c percentageOrdered By: Jyotsna Abarca on 77-07-9951XlF7a (Bld) [Mass fraction]6.1 %High4.3-5.6FCleveland Clinic Euclid HospitalComment on above:Increased risk for diabetes: 5.7 - 6.4diabetes: >6.4glycemic control for adults with diabetes: <7.0Hemoglobin Test strip Ql (U)Ordered By: Jyotsna Abarca on 03-91-2032Hcnwvudcvz Ql (U)Negative NegativeThe Jewish HospitalHemoglobin [Mass/volume] in Blood Ordered By: Jyotsna Abarca on 07-80-4826Oetcdgywng (Bld) [Mass/Vol]12.4 g/dL 11.8-15.4FCleveland Clinic Euclid HospitalHyaline casts [#/area] in Urine sediment by Automated countOrdered By: Jyotsna Abarca on 96-77-3158Fdxgoel casts Auto (Urine sed) [#/Area]0-8 [LPF]0-8The Jewish HospitalKetones Test strip Ql (U)Ordered By: Jyotsna Abarca on 06-73-6101Kctsmld Ql (U)Negative NegativeThe Jewish HospitalLeukocyte esterase [Presence] in Urine by Test stripOrdered By: Jyotsna Abarca on 20-06-1371Jhzqciawx esterase Test strip Ql (U)2+HighNegativeThe Jewish HospitalLeukocytes [#/area] in Urine sediment by Automated countOrdered By: Jyotsna Abarca on 85-49-8726MPN Auto (Urine sed) [#/Area]1-2 [HPF]0-4FCleveland Clinic Euclid HospitalLeukocytes [#/volume] corrected for nucleated erythrocytes in Blood by Automated coun Ordered By: Jyotsna Abarca on 39-43-1966MWU corrected for nucl RBC Auto (Bld) [#/Vol]6.6 10*3/uL3.8-11.6FCleveland Clinic Euclid HospitalLymphocytes Auto (Bld) [#/Vol]Ordered By: Jyotsna Abarca on 87-84-7972Pxxcptyldiz (Bld) [#/Vol]2.1 10*3/uL1.00-4.8The Jewish HospitalLymphocytes/100 WBC Auto (Bld) Ordered By: Jyotsna Abarca on 08-05-8730Gxstidnstfr/100 WBC (Bld)31.8 %.[facility] Auto (RBC) [Entitic mass]Ordered By: Jyotsna Abarca on 51-07-7044ZCZ (RBC) [Entitic mass]29.4 pg24.7-34.3FCleveland Clinic Euclid HospitalMCHC Auto (RBC) [Mass/Vol]Ordered By: Jyotsna Abarca on 46-36-7473RIPQ (RBC) [Mass/Vol]33.6 g/dL32.0-35.0The Jewish HospitalMCV Auto (RBC) [Entitic vol]Ordered By: Jyotsna Abarca on 89-81-0092KIQ (RBC) [Entitic vol]87.5 eT25-331LoiqsopszThe Jewish HospitalMonocytes Auto (Bld) [#/Vol]Ordered By: Jyotsna Abarca on 72-79-2610Docfndjnl (Bld) [#/Vol]0.6 10*3/uL0.0-0.8The Jewish HospitalMonocytes/100 WBC Auto (Bld)Ordered By: Jyotsna Abarca on 60-71-7086Syhbkyfyt/100 WBC (Bld)9.3 %.The Jewish HospitalMucus [Presence] in Urine by AutomatedOrdered By: Jyotsna Abarca on 59-23-0261Gskfi Auto Ql (U)1+ [LPF]AbnormalThe Jewish HospitalNeutrophils Auto (Bld) [#/Vol]Ordered By: Jyotsna Abarca on 28-79-2882Zllbzephbju (Bld) [#/Vol]3.4 10*3/uL1.8-7.7FCleveland Clinic Euclid HospitalNeutrophils/100 WBC Auto (Bld) Ordered By: Jyotsna Abarca on 21-45-1115Qttyriqrihf/100 WBC (Bld)52.1 %.The Jewish HospitalNitrite Test strip Ql (U)Ordered By: Jyotsna Abarca on 45-51-9600Cfkmtlx Ql (U)NegativeNegativeThe Jewish HospitalNo Panel InformationOrdered By: Jyotsna Abarca on 70-82-9694Xtdpqiscd GFR (CKD-EPI)> 60.0 mL/MinThe Jewish HospitalPharmacy Creatinine Clearance (Chem N/AFCleveland Clinic Euclid HospitalNucleated erythrocytes [Presence] in Blood by Automated countOrdered By: Jyotsna Abarca on 51-69-0515Buawbvozh RBC Auto Ql (Bld)0.1 /100{WBC}0-0.5FCleveland Clinic Euclid HospitalPlatelet mean volume Auto (Bld) [Entitic vol]Ordered By: Jyotsna Abarca on 51-77-2208Jlbezfxk mean volume (Bld) [Entitic vol]8.2 fL6.3-10.7FCleveland Clinic Euclid Hospital Platelets Auto (Bld) [#/Vol]Ordered By: Jyotsna Abarca on 34-41-8787Oormioswp (Bld) [#/Vol]208 10*3/uL638-988NxfntbpgtThe Jewish HospitalPotassium [Moles/volume] in Serum or PlasmaOrdered By: Jyotsna Abarca on 72-33-4112Bjkilrsnn [Moles/Vol]3.4 mmol/LLow3.5-5.1FCleveland Clinic Euclid HospitalProtein Test strip (U) [Mass/Vol]Ordered By: Jyotsna Abarca on 86-28-1852Taelsdn (U) [Mass/Vol] NegativeNegativeThe Jewish HospitalProtein [Mass/volume] in Serum or PlasmaOrdered By: Jyotsna Abarca on 72-75-2172Itqlnjt [Mass/Vol]6.9 g/dL6.4-8.9 The Jewish HospitalRBC Auto (Bld) [#/Vol]Ordered By: Jyotsna Abarca on 32-69-3535DYB (Bld) [#/Vol]4.23 10*6/uL3.60-5.00McKitrick Hospitalerum or plasma albumin/globulin mass ratioOrdered By: Jyotsna Abarca on 70-09-7903Vnrlwfy/Globulin [Mass ratio]1.7 {ratio}McKitrick Hospitalerum or plasma anion gap determinationOrdered By: Jyotsna Abarca on 14-94-1239Imrwi gap [Moles/Vol]9.6 mmol/L6.0-15.0McKitrick Hospitalerum or plasma high density lipoprotein (HDL) cholesterol measurement Ordered By: Jyotsna Abarca on 07-33-9646Lnputkspnxm in HDL [Mass/Vol]59 mg/dL23-92 The Jewish HospitalComment on above:HDL CHOL ATP-III CLASSIFICATION Cardiovascular RiskHDL > or equal to 60 mg/dL LOWHDL < 40 mg/dL HIGHSerum or plasma total cholesterol/high density lipoprotein (HDL) cholesterol mass ratOrdered By: Jyotsna Abarca on 27-97-3355Mktilyxouoy.total/Cholesterol in HDL [Mass ratio]2.5 {ratio}<5.0McKitrick Hospitalodium [Moles/volume] in Serum or PlasmaOrdered By: Jyotsna Abarca on 82-94-7954Hfxvqz [Moles/Vol]141 mmol/G983-045JqgrqsnceMcKitrick Hospitalpecific gravity Test strip (U) [Rel density]Ordered By: Jyotsna Abarca on 87-49-7976Asxunczu gravity (U) [Rel density]1.0241.001-1.030[facility] Triglyceride [Mass/volume] in Serum or PlasmaOrdered By: Jyotsna Abarca on 36-30-2238Tzyyaqqwqqcx [Mass/Vol]49 mg/dL0-149[facility] Comment on above:TRIG ATP III CLASSIFICATIONTRIG less than 150 mg/dL NormalTRIG 150-199 mg/dL Borderline highTRIG 200-500 mg/dL High TRIG greater than 500 mg/dL Very highStandard traceable to the Center for Disease Conrtrol and Prevention (CDC) test method.Urea nitrogen [Mass/volume] in Serum or PlasmaOrdered By: Jyotsna Abarca on 92-85-3242Odgn nitrogen [Mass/Vol]16 mg/dL7-25The Jewish HospitalUrine appearanceOrdered By: Jyotsna Abarca on 50-41-1815Vziunrfokw (U)ClearClearFCleveland Clinic Euclid HospitalUrine culture routineOrdered By: Jyotsna Abarca on 20-93-0557Ulcaqmqn identified Cx Nom (U)The Jewish HospitalUrobilinogen Test strip (U) [Mass/Vol]Ordered By: Jyotsna Abarca on 21-03-2019Qpvqavrhqagh (U) [Mass/Vol]Normal mg/dLNormalThe Jewish HospitalVitamin B12 ser/plasOrdered By: Jyotsna Abarca on 05-23-2024 Cobalamin (Vitamin B12) [Mass/Vol]1229 pg/lPFxym233-173CktwybkqvThe Jewish HospitalVitamin D+Metabolites [Mass/volume] in Serum or PlasmaOrdered By: Jyotsna Abarca on 68-31-0106Mldodif D+Metabolites [Mass/Vol]66.7 ng/nT23-002 The Jewish HospitalComment on above:VITAMIN D STATUS 25(OH)VITAMIN D RANGE (ng/mL) Deficient <20 Insufficient 20 to <18Snkomcudxw02 to 100Reference: Delfino MF,Blaze NC, Ragini ALEXIS, et al. Evaluation,treatment, and prevention of vitamin D deficiency; an Endocrine Society clinical practice guideline. JCEM. 2010; 96(7):1911-30.WBC Auto (Bld) [#/Vol]Ordered By: Jyotsna Abarca on 67-62-7922IXV (Bld) [#/Vol]6.6 10*3/uL 3.8-11.6FCleveland Clinic Euclid HospitalpH Test strip (U)Ordered By: Jyotsna Abarca on 78-32-3429eF (U)5.5 [pH]5.0-9.0[facility] Automated erythrocytes count in urine sediment (number/area)Ordered By: Jyotsna Abarca on 67-75-1183ZJI Auto (Urine sed) [#/Area]3-4 [HPF]0-4FCleveland Clinic Euclid HospitalAutomated leukocytes count in urine sediment (number/area)Ordered By: Jyotsna Abarca on 95-63-8036PNJ Auto (Urine sed) [#/Area]None seen [HPF]0-4 The Jewish HospitalBilirubin Test strip Ql (U)Ordered By: Jyotsna Abarca on 80-45-2802Rcovmvnqz Ql (U)NegativeNegativeThe Jewish HospitalColor Auto (U)Ordered By: Jyotsna Abarca on 19-19-9813Yxpju (U)YellowYellow The Jewish HospitalKetones Auto test strip (U) [Mass/Vol]Ordered By: Jyotsna Abarca on 20-22-4008Uaonhql (U) [Mass/Vol]NegativeNegPeoples HospitalLaboratory - UrinalysisOrdered By: Jyotsna Abarca on 69-14-4190Xnibobr casts LM Ql (Urine sed)0-8 [LPF]0-8The Jewish HospitalNitrite Test strip Ql (U)Ordered By: Jyotsna Abarca on 59-13-3537Dhjttdi Ql (U)NegativeNegativeThe Jewish HospitalProtein Auto test strip (U) [Mass/Vol]Ordered By: Jyotsna Abarca on 33-30-3710Wcvgvxi (U) [Mass/Vol]Negative NegativeMcKitrick Hospitalpecific gravity Auto test strip (U) [Rel density]Ordered By: Jyotsna Abarca on 47-85-7081Sdtrdltw gravity (U) [Rel density]1.0201.001-1.030McKitrick Hospitalquamous epithelial cells detection in urine sediment by light microscopyOrdered By: Jyotsna Abarca on 25-22-0839Llytaiageu cells.squamous LM Ql (Urine sed)0-1 [HPF]0-2FCleveland Clinic Euclid HospitalUrine bacteria detection by automated methodOrdered By: Jyotsna Abarca on 05-28-5678Ovlbvsqy Auto Ql (U)None seenNone SeenThe Jewish HospitalUrine clarity by refractometry automatedOrdered By: Jyotsna Abarca on 68-87-7645Srahvdo Refractometry automated (U)ClearClearFCleveland Clinic Euclid HospitalUrine glucose measurement by automated test strip (mass/volume)Ordered By: Jyotsna Abarca on 75-89-0645Nihgdcw Auto test strip (U) [Mass/Vol]Normal mg/dLNormalThe Jewish HospitalUrine hemoglobin detection by automated test stripOrdered By: Jyotsna Abarca on 12-03-2023 Hemoglobin Auto test strip Ql (U)NegativeNegativeThe Jewish HospitalUrine leukocyte esterase detection by automated test stripOrdered By: Jyotsna Abarca on 13-45-8848Yfivsrwvp esterase Auto test strip Ql (U)1+Negative The Jewish HospitalUrobilinogen Auto test strip (U) [Mass/Vol] Ordered By: Jyotsna Abarca on 23-55-1319Ilqzmvxijcgz (U) [Mass/Vol]Normal mg/dL NormalThe Jewish HospitalpH Auto test strip (U)Ordered By: Jyotsna Abarca on 85-59-4417yX (U)6.0 [pH]5.0-9.0[facility] Alanine aminotransferase [Enzymatic activity/volume] in Serum or PlasmaOrdered By: Jyotsna Abarca on 77-55-2352BEK [Catalytic activity/Vol]14 U/L7-52The [facility] HospitalAlbumin [Mass/volume] in Serum or Plasma by Bromocresol green (BCG) dye binding methoOrdered By: Jyotsna Abarca on 98-07-5693Ifsuxqk BCG dye [Mass/Vol]4.4 g/dL3.5-5.7FCleveland Clinic Euclid HospitalAlkaline phosphatase [Enzymatic activity/volume] in Serum or PlasmaOrdered By: Jyotsna Abarca on 37-54-7915RIG [Catalytic activity/Vol]60 U/P87-483YnbsmbwnqThe Jewish HospitalAspartate aminotransferase [Enzymatic activity/volume] in Serum or PlasmaOrdered By: Jyotsna Abarca on 50-96-1292KCU [Catalytic activity/Vol]26 U/L 13-39The [facility] HospitalAutomated erythrocytes count in urine sediment (number/area)Ordered By: Jyotsna Abarca on 42-10-8903BQB Auto (Urine sed) [#/Area]5-9 [HPF]0-4FCleveland Clinic Euclid HospitalAutomated leukocytes count in urine sediment (number/area)Ordered By: Jyotsna Abarca on 84-28-2671PHX Auto (Urine sed) [#/Area]0-1 [HPF]0-4FCleveland Clinic Euclid HospitalBasophils Auto (Bld) [#/Vol]Ordered By: Jyotsna Abarca on 70-77-9240Jslflvvki (Bld) [#/Vol]0.1 10*3/uL0.0-0.2FCleveland Clinic Euclid HospitalBasophils/100 WBC Auto (Bld) Ordered By: Jyotsna Abarca on 84-24-9017Okiddufqa/100 WBC (Bld)1.3 %.The Jewish HospitalBilirubin Test strip Ql (U)Ordered By: Jyotsna Abarca on 70-90-1895Pkmdpyzdj Ql (U)NegativeNegativeThe Jewish Hospital Bilirubin.total [Mass/volume] in Serum or PlasmaOrdered By: Jyotsna Abarca on 51-77-0491Hpwydufdf [Mass/Vol]0.5 mg/dL0.3-1.0[facility] Calcium [Mass/volume] in Serum or PlasmaOrdered By: Jyotnsa Abarca on 11-15-2023 Calcium [Mass/Vol]9.5 mg/dL8.6-10.3FCleveland Clinic Euclid HospitalCarbon dioxide, total [Moles/volume] in Serum or PlasmaOrdered By: Jyotsna Abarca on 99-50-1767CK0 [Moles/Vol]27.5 mmol/L21.0-31.0[facility] Chloride [Moles/volume] in Serum or PlasmaOrdered By: Jyotsna Abarca on 11-15-2023 Chloride [Moles/Vol]106 mmol/K15-978DmddexdgxThe Jewish HospitalCholesterol [Mass/volume] in Serum or PlasmaOrdered By: Jyotsna Abarca on 11-15-2023 Cholesterol [Mass/Vol]148 mg/jK036-852RrzbyaazrThe Jewish HospitalComment on above:Chol less than 200 mg/dl low riskChol 201-239 mg/dl borderline riskChol 240 mg/dl and greater high riskCholesterol in LDL Calc [Mass/Vol]Ordered By: Jyotsna Abarca on 97-99-9858Jqiefkphjbf in LDL [Mass/Vol]73 mg/dL0-100The [facility] HospitalComment on above:LDL ATP III CLASSIFICATIONLDL less than 100 mg/dL OptimalLDL 100-129 mg/dL Near or above agxsqowSBK762-476 mg/dL Borderline highLDL 160-189 mg/dL HighLDL greater than 189 mg/dL Very high Cholesterol in VLDL Calc [Mass/Vol]Ordered By: Jyotsna Abarca on 11-15-2023 Cholesterol in VLDL [Mass/Vol]12 mg/dLThe Jewish HospitalColor Auto (U)Ordered By: Jyotsna Abarca on 20-92-0426Bjusp (U)YellowYellowThe Jewish HospitalCreatinine [Mass/volume] in Serum or PlasmaOrdered By: Jyotsna Abarca on 73-88-6700Homtjnpurg [Mass/Vol]0.82 mg/dL0.60-1.20The [facility] HospitalEosinophils Auto (Bld) [#/Vol]Ordered By: Jyotsna Abarca on 06-38-5320Jgqqbtxrzlg (Bld) [#/Vol]0.2 10*3/uL0.0-0.45The Jewish HospitalEosinophils/100 WBC Auto (Bld)Ordered By: Jyotsna Abarca on 97-70-9448Fxffgzcqujx/100 WBC (Bld)3.5 %.[facility] Erythrocyte distribution width Auto (RBC) [Ratio]Ordered By: Jyotsna Abarca on 06-32-8403Ixveyrtwlld distribution width (RBC) [Ratio]12.8 %11.9-15.3FCleveland Clinic Euclid HospitalFolate [Mass/volume] in Serum or PlasmaOrdered By: Jyotsna Abarca on 26-66-7778Ctmgdi [Mass/Vol]30.0 ng/mL>5.9The [facility] HospitalComment on above:Folate reference range: >5.9 ng/mlThe WHO technical consultation on folate and vitamin j68euyyuymraida has determined that folate concentrations lessthan 4 ng/ml are considered deficient.Globulin Calc (S) [Mass/Vol]Ordered By: Jyotsna Abarca on 78-39-6070Fyfwysuz (S) [Mass/Vol]2.5 g/dL The [facility] HospitalGlucose [Mass/volume] in Serum or PlasmaOrdered By: Jyotnsa Abarca on 92-19-3470Mlefqnx [Mass/Vol]95 mg/yV19-511NxfhmmqkpThe Jewish HospitalComment on above:ADA recommended reference rangeRandom Glucose Reference Range is dependent on time and content of last meal. Glucose of more than 200 mg/dL in a nonstressed, ambulatory subject supports the diagnosisof Diabetes Mellitus.Glucose mean value [Mass/volume] in Blood Estimated from glycated hemoglobinOrdered By: Jyotsna Abarca on 28-77-0728Tdsjzar glucose Estimated from glycated hemoglobin (Bld) [Mass/Vol]123 mg/dLThe Jewish HospitalHematocrit Auto (Bld) [Volume fraction]Ordered By: Jyotsna Abarca on 21-00-5780Nvvkbqqzju (Bld) [Volume fraction]38.3 %34.0-46.4FCleveland Clinic Euclid HospitalHemoglobin A1c percentageOrdered By: Jyotsna Abarca on 21-20-8460UaS9k (Bld) [Mass fraction]5.9 %4.3-5.6FCleveland Clinic Euclid HospitalComment on above:Increased risk for diabetes: 5.7 - 6.4diabetes: >6.4glycemic control for adults with diabetes: <7.0Hemoglobin [Mass/volume] in BloodOrdered By: Jyotsna Abarca on 68-21-7974Yufjunigrb (Bld) [Mass/Vol]12.9 g/dL11.8-15.4FCleveland Clinic Euclid HospitalKetones Auto test strip (U) [Mass/Vol]Ordered By: Jyotsna Abarca on 83-62-2534Mhbrgml (U) [Mass/Vol]Trace NegativeThe Jewish HospitalLaboratory - UrinalysisOrdered By: Jyotsna Abarca on 97-65-6552Mipquoe casts LM Ql (Urine sed)0-8 [LPF]0-8The [facility] HospitalLeukocytes [#/volume] corrected for nucleated erythrocytes in Blood by Automated counOrdered By: Jyotsna Abarca on 14-67-8727TFS corrected for nucl RBC Auto (Bld) [#/Vol]7.0 10*3/uL3.8-11.6FCleveland Clinic Euclid HospitalLymphocytes Auto (Bld) [#/Vol]Ordered By: Jyotsna Abarca on 71-83-2928Gfrfnctciin (Bld) [#/Vol]2.3 10*3/uL1.00-4.8The [facility] HospitalLymphocytes/100 WBC Auto (Bld)Ordered By: Jyotsna Abarca on 11-15-2023 Lymphocytes/100 WBC (Bld)32.4 %.[facility] NorthH Auto (RBC) [Entitic mass]Ordered By: Jyotsna Abarca on 81-77-0659XJK (RBC) [Entitic mass]29.7 pg24.7-34.3FC[facility] Euclid HospitalMCHC Auto (RBC) [Mass/Vol]Ordered By: Jyotsna Abarca on 84-31-0485MVTT (RBC) [Mass/Vol]33.8 g/dL32.0-35.0[facility] HospitalMCV Auto (RBC) [Entitic vol]Ordered By: Jyotsna Abarca on 58-84-3487OND (RBC) [Entitic vol]87.9 jN13-653KtthacvzzThe [facility] Hospital Monocytes Auto (Bld) [#/Vol]Ordered By: Jyotsna Abarca on 48-24-0702Tivtiwvft (Bld) [#/Vol]0.6 10*3/uL0.0-0.8[facility] HospitalMonocytes/100 WBC Auto (Bld)Ordered By: Jyotsna Abarca on 75-73-3679Emeiukjou/100 WBC (Bld)8.6 % .[facility] HospitalNeutrophils Auto (Bld) [#/Vol]Ordered By: Jyotsna Abarca on 79-06-4776Oulguzyxknc (Bld) [#/Vol]3.8 10*3/uL1.8-7.7FCleveland Clinic Euclid HospitalNeutrophils/100 WBC Auto (Bld)Ordered By: Jyotsna Abarca on 08-26-9325Wgueaeafnvp/100 WBC (Bld)54.2 %.[facility] Nitrite Test strip Ql (U)Ordered By: Jyotsna Abarca on 42-86-8217Qefrenm Ql (U) NegativeNegativeThe Jewish HospitalNo Panel InformationOrdered By: Jyotsna Abarca on 31-79-7152Qpsglypen GFR (CKD-EPI)> 60.0 mL/MinThe Jewish HospitalPharmacy Creatinine Clearance (ChemN/[facility] HospitalNucleated erythrocytes [Presence] in Blood by Automated count Ordered By: Jyotsna Abarca on 39-20-8973Jwucmwtau RBC Auto Ql (Bld)0.1 /100{WBC} 0-0.5FCleveland Clinic Euclid HospitalPlatelet mean volume Auto (Bld) [Entitic vol]Ordered By: Jyotsna Abarca on 76-73-8028Xfuovmgo mean volume (Bld) [Entitic vol]8.8 fL6.3-10.7FCleveland Clinic Euclid HospitalPlatelets Auto (Bld) [#/Vol] Ordered By: Jyotsna Abarca on 95-84-0207Xgdgaduek (Bld) [#/Vol]205 10*3/mA741-986 [facility] HospitalPotassium [Moles/volume] in Serum or Plasma Ordered By: Jyotsna Abarca on 89-13-8758Ajrjjtupz [Moles/Vol]3.9 mmol/L3.5-5.1 [facility] HospitalProtein Auto test strip (U) [Mass/Vol]Ordered By: Jyotsna Abarca on 71-33-6986Xldblnt (U) [Mass/Vol]NegativeNegativeThe Jewish HospitalProtein [Mass/volume] in Serum or PlasmaOrdered By: Jyotsna Abarca on 57-74-3307Kgsevfq [Mass/Vol]6.9 g/dL6.4-8.9[facility] HospitalRBC Auto (Bld) [#/Vol]Ordered By: Jyotsna Abarca on 03-45-4113TDQ (Bld) [#/Vol]4.35 10*6/uL3.60-5.00McKitrick Hospitalerum or plasma albumin/globulin mass ratioOrdered By: Jyotsna Abarca on 11-15-2023 Albumin/Globulin [Mass ratio]1.8 {ratio}[facility] Hospitalerum or plasma anion gap determinationOrdered By: Jyotsna Abarca on 89-18-8415Euckl gap [Moles/Vol]11.4 mmol/L6.0-15.0Mc[facility]rick Hospitalerum or plasma high density lipoprotein (HDL) cholesterol measurementOrdered By: Jyotsna Abarca on 22-71-8461Ptwjhrpmewh in HDL [Mass/Vol]63 mg/vS43-22JbkttffhxThe Jewish HospitalComment on above:HDL CHOL ATP-III CLASSIFICATION Cardiovascular RiskHDL > or equal to 60 mg/dL LOWHDL < 40 mg/dL HIGHSerum or plasma total cholesterol/high density lipoprotein (HDL) cholesterol mass ratOrdered By: Jyotsna Abarca on 15-16-5964Kuxhwszxuas.total/Cholesterol in HDL [Mass ratio]2.3 {ratio}<5.0Mc[facility]rick Hospitalodium [Moles/volume] in Serum or PlasmaOrdered By: Jyotsna Abarca on 18-34-6692Hgbcvv [Moles/Vol]141 mmol/R570-235 [facility] Hospitalpecific gravity Auto test strip (U) [Rel density]Ordered By: Jyotsna Abarca on 26-06-6230Mqcriqdq gravity (U) [Rel density] 1.0221.001-1.030Mc[facility]rick Hospitalquamous epithelial cells detection in urine sediment by light microscopyOrdered By: Jyotsna Abarca on 92-70-6047Baltwytxcz cells.squamous LM Ql (Urine sed)None seen [HPF]0-2FCleveland Clinic Euclid HospitalThyrotropin [Units/volume] in Serum or PlasmaOrdered By: Jyotsna Abarca on 07-42-4822ZLQ Qn1.91 m[IU]/L0.45-5.33[facility] HospitalTriglyceride [Mass/volume] in Serum or PlasmaOrdered By: Jyotsna Abarca on 47-89-2346Szuhincyihzb [Mass/Vol]62 mg/dL0-149[facility] Comment on above:TRIG ATP III CLASSIFICATIONTRIG less than 150 mg/dL NormalTRIG 150-199 mg/dL Borderline highTRIG 200-500 mg/dL High TRIG greater than 500 mg/dL Very highStandard traceable to the Center for Disease Conrtrol and Prevention (CDC) test method.Urea nitrogen [Mass/volume] in Serum or PlasmaOrdered By: Jyotsna Abarca on 11-05-1483Gsut nitrogen [Mass/Vol]14 mg/dL7-25The [facility] HospitalUrine bacteria detection by automated methodOrdered By: Jyotsna Abarca on 42-57-0928Ktpflawp Auto Ql (U)None seenNone SeenThe Jewish HospitalUrine clarity by refractometry automatedOrdered By: Jyotsna Abarca on 82-00-1838Odmwmsg Refractometry automated (U)ClearClearFCleveland Clinic Euclid HospitalUrine culture routineOrdered By: Jyotsna Abarca on 11-15-2023 Bacteria identified Cx Nom (U)Strep agalactiae - (group b)The [facility] HospitalUrine glucose measurement by automated test strip (mass/volume) Ordered By: Jyotsna Abarca on 54-74-9956Sbeqhki Auto test strip (U) [Mass/Vol] Normal mg/dLNoOhio State East HospitalUrine hemoglobin detection by automated test stripOrdered By: Jyotsna Abarca on 33-02-3533Jpaqjnzqpu Auto test strip Ql (U)NegativeNegativeThe Jewish HospitalUrine leukocyte esterase detection by automated test stripOrdered By: Jyotsna Abarca on 11-15-2023 Leukocyte esterase Auto test strip Ql (U)1+NegativeThe Jewish HospitalUrobilinogen Auto test strip (U) [Mass/Vol]Ordered By: Jyotsna Abarca on 62-47-1480Ykicebrhxhfw (U) [Mass/Vol]Normal mg/dLNoOhio State East HospitalVitamin B12 ser/plasOrdered By: Jyotsna Abarca on 11-15-2023 Cobalamin (Vitamin B12) [Mass/Vol]884 pg/cI558-717ElexdtgsrThe Jewish HospitalVitamin D+Metabolites [Mass/volume] in Serum or PlasmaOrdered By: Jyotsna Abarca on 77-71-5050Apwluit D+Metabolites [Mass/Vol]70.4 ng/dP58-400XilhihldsThe Jewish HospitalComment on above:VITAMIN D STATUS 25(OH)VITAMIN D RANGE (ng/mL) Deficient <20 Insufficient 20 to <32Yiayxycfsq50 to 100Reference: Delfino MF,Blaze NC, Ragini ALEXIS, et al. Evaluation,treatment, and prevention of vitamin D deficiency; an Endocrine Society clinical practice guideline. JCEM. 2010; 96(7):1911-30.WBC Auto (Bld) [#/Vol]Ordered By: Jyotsna Abarca on 09-30-4089ROG (Bld) [#/Vol]7.0 10*3/uL3.8-11.6FC[facility] pH Auto test strip (U)Ordered By: Jyotsna Abarca on 64-38-9735mL (U)5.5 [pH] 5.0-9.0The [facility] HospitalECG [address] [place] 89-26-6309Cpmo sinus bradycardia with sinus arrhythmiaCPSelect Medical [facility] Work Phone: automated erythrocytes count in urine sediment (number/area)Ordered By: Jyotsna Abarca on 99-07-2102PAQ Auto (Urine sed) [#/Area] 1-2 [HPF]0-4FCleveland Clinic Euclid HospitalAutomated leukocytes count in urine sediment (number/area)Ordered By: Jyotsna bAarca on 32-81-2312SLY Auto (Urine sed) [#/Area]None seen [HPF]0-4FCleveland Clinic Euclid HospitalBasophils Auto (Bld) [#/Vol]Ordered By: Jyotsna Abarca on 57-13-6301Bpmmltqja (Bld) [#/Vol]0.1 10*3/uL0.0-0.2FCleveland Clinic Euclid HospitalBasophils/100 WBC Auto (Bld) Ordered By: Jyotsna Abarca on 31-66-0426Eovksppqq/100 WBC (Bld)1.0 %.[facility] HospitalBilirubin Test strip Ql (U)Ordered By: Jyotsna Aabrca on 04-48-0330Woixrsbiy Ql (U)NegativeNegativeThe Jewish HospitalColor Auto (U)Ordered By: Jyotsna Abarca on 56-83-1854Fdlyl (U)YellowYellowThe Jewish HospitalEosinophils Auto (Bld) [#/Vol]Ordered By: Jyotsna Abarca on 19-48-6531Yaengxfrmbm (Bld) [#/Vol]0.3 10*3/uL0.0-0.45The [facility] HospitalEosinophils/100 WBC Auto (Bld)Ordered By: Jyotsna Abarca on 47-72-5659Fpadonkfcee/100 WBC (Bld)4.0 %.[facility] Erythrocyte distribution width Auto (RBC) [Ratio]Ordered By: Jyotsna Abarca on 42-19-7164Khgdikxzzyd distribution width (RBC) [Ratio]13.6 %11.9-15.3FCleveland Clinic Euclid HospitalHematocrit Auto (Bld) [Volume fraction]Ordered By: Jyotsna Abarca on 59-81-6503Rqetlmsqlp (Bld) [Volume fraction]37.7 %34.0-46.4FCleveland Clinic Euclid HospitalHemoglobin [Mass/volume] in BloodOrdered By: Jyotsna Abarca on 96-32-0231Wducpbydsr (Bld) [Mass/Vol]12.6 g/dL11.8-15.4FCleveland Clinic Euclid HospitalKetones Auto test strip (U) [Mass/Vol]Ordered By: Jyotsna Abarca on 64-91-3865Lscfudo (U) [Mass/Vol]NegativeNegativeThe Jewish HospitalLaboratory - UrinalysisOrdered By: Jyotsna Abarca on 51-52-3908Icrxtix casts LM Ql (Urine sed)0-8 [LPF]0-8The [facility] HospitalLeukocytes [#/volume] corrected for nucleated erythrocytes in Blood by Automated coun Ordered By: Jyotsna Abarca on 87-76-4806WUQ corrected for nucl RBC Auto (Bld) [#/Vol]7.3 10*3/uL3.8-11.6FCleveland Clinic Euclid HospitalLymphocytes Auto (Bld) [#/Vol]Ordered By: Jyotsna Abarca on 99-52-2292Siwolgmepjy (Bld) [#/Vol]2.5 10*3/uL1.00-4.8The [facility] HospitalLymphocytes/100 WBC Auto (Bld) Ordered By: Jyotsna Abarca on 19-74-0061Lrhutdcjzxj/100 WBC (Bld)34.3 %.[facility] Auto (RBC) [Entitic mass]Ordered By: Jyotsna Abarca on 70-07-6528ING (RBC) [Entitic mass]28.9 pg24.7-34.3FACMC Healthcare System GlenbeighHC Auto (RBC) [Mass/Vol]Ordered By: Jyotsna Abarca on 38-91-0173GYZY (RBC) [Mass/Vol]33.5 g/dL32.0-35.0[facility] HospitalMCV Auto (RBC) [Entitic vol]Ordered By: Jyotsna Abarca on 62-08-5609BSB (RBC) [Entitic vol]86.3 dP06-958MspzwemoiThe Jewish HospitalMonocytes Auto (Bld) [#/Vol]Ordered By: Jyotsna Abarca on 23-65-4830Rcqddhvfv (Bld) [#/Vol]0.6 10*3/uL0.0-0.8The [facility] HospitalMonocytes/100 WBC Auto (Bld)Ordered By: Jyotsna Abarca on 89-84-7953Etkgxutxb/100 WBC (Bld)8.5 %.[facility] Neutrophils Auto (Bld) [#/Vol]Ordered By: Jyotsna Abarca on 59-79-2165Sjazqrcbpvi (Bld) [#/Vol]3.8 10*3/uL1.8-7.7FCleveland Clinic Euclid HospitalNeutrophils/100 WBC Auto (Bld)Ordered By: Jyotsna Abarca on 85-20-3861Waomhuihzro/100 WBC (Bld) 52.2 %.[facility] HospitalNitrite Test strip Ql (U)Ordered By: Jyotsna Abarca on 51-15-2733Fhstntq Ql (U)NegativeNegPeoples HospitalNucleated erythrocytes [Presence] in Blood by Automated count Ordered By: Jyotsna Abarca on 14-78-9102Tzgawfcvq RBC Auto Ql (Bld)0.1 /100{WBC} 0-0.5FCleveland Clinic Euclid HospitalPlatelet mean volume Auto (Bld) [Entitic vol]Ordered By: Jyotsna Abarca on 43-45-6748Oztmwkwb mean volume (Bld) [Entitic vol]8.2 fL6.3-10.7FCleveland Clinic Eucl[facility] HospitalPlatelets Auto (Bld) [#/Vol] Ordered By: Jyotsna Abarca on 30-08-1982Vciwjvdav (Bld) [#/Vol]202 10*3/sK347-597 [facility] HospitalProtein Auto test strip (U) [Mass/Vol]Ordered By: Jyotsna Abarca on 99-75-5029Uaunheg (U) [Mass/Vol]NegativeNegativeThe Jewish HospitalRBC Auto (Bld) [#/Vol]Ordered By: Jyotsna Abarca on 60-45-7763IQO (Bld) [#/Vol]4.37 10*6/uL3.60-5.00Mc[facility] Hospitalpecific gravity Auto test strip (U) [Rel density]Ordered By: Jyotsna Abarca on 87-67-1464Xzomyycd gravity (U) [Rel density]1.0191.001-1.030Mc[facility] Hospitalquamous epithelial cells detection in urine sediment by light microscopyOrdered By: Jyotsna Abarca on 81-89-0810Kbjadgkule cells.squamous LM Ql (Urine sed)0-1 [HPF]0-2FCleveland Clinic Euclid HospitalUrine bacteria detection by automated methodOrdered By: Jyotsna Abarca on 83-46-7716Sephlqke Auto Ql (U)None seenNone SeenThe Jewish HospitalUrine clarity by refractometry automatedOrdered By: Jyotsna Abarca on 11-82-7004Jinjnbb Refractometry automated (U)ClearCleCleveland ClinicUrine glucose measurement by automated test strip (mass/volume)Ordered By: Jyotsna Abarca on 63-70-6614Ojysoig Auto test strip (U) [Mass/Vol]Normal mg/dLRiverside Methodist HospitalUrine hemoglobin detection by automated test stripOrdered By: Jyotsna Abarca on 05-99-9020Bqxlhmupgz Auto test strip Ql (U) NegativeNegativeThe Jewish HospitalUrine leukocyte esterase detection by automated test stripOrdered By: Jyotsna Abarca on 85-78-5521Mreruvrkq esterase Auto test strip Ql (U)1+NegativeThe Jewish Hospital Urobilinogen Auto test strip (U) [Mass/Vol]Ordered By: Jyotsna Abarca on 01-49-5249Tqmotikagkkr (U) [Mass/Vol]Normal mg/dLNormGenesis HospitalWBC Auto (Bld) [#/Vol]Ordered By: Jyotsna Abarca on 64-51-8615PJF (Bld) [#/Vol]7.3 10*3/uL3.8-11.6FCleveland Clinic Euclid HospitalpH Auto test strip (U)Ordered By: Jyotsna Abarca on 38-31-9719eX (U)5.5 [pH]5.0-9.0The [facility] HospitalAlanine aminotransferase [Enzymatic activity/volume] in Serum or PlasmaOrdered By: Jyotsna Abarca on 46-89-7669NMH [Catalytic activity/Vol]12 U/L7-52The [facility] HospitalAlbumin [Mass/volume] in Serum or Plasma by Bromocresol green (BCG) dye binding methoOrdered By: Jyotsna Abarca on 25-87-3144Tscchmm BCG dye [Mass/Vol]4.4 g/dL3.5-5.7FCleveland Clinic Euclid HospitalAlkaline phosphatase [Enzymatic activity/volume] in Serum or PlasmaOrdered By: Jyotsna Abarca on 36-66-0577GKB [Catalytic activity/Vol]70 U/L 34-104The [facility] HospitalAspartate aminotransferase [Enzymatic activity/volume] in Serum or PlasmaOrdered By: Jyotsna Abarca on 96-42-6963IHW [Catalytic activity/Vol]25 U/D50-00ZwwdblzkiThe Jewish HospitalAutomated erythrocytes count in urine sediment (number/area)Ordered By: Jyotsna Abarca on 89-15-6453LYW Auto (Urine sed) [#/Area]3-4 [HPF]0-4FCleveland Clinic Euclid HospitalAutomated leukocytes count in urine sediment (number/area)Ordered By: Jyotsna Abarca on 57-12-1924KMY Auto (Urine sed) [#/Area]0-1 [HPF]0-4FCleveland Clinic Euclid HospitalBasophils Auto (Bld) [#/Vol]Ordered By: Jyotsna Abarca on 88-30-6235Tzftqufua (Bld) [#/Vol]0.1 10*3/uL0.0-0.2FC[facility]ucl[facility] HospitalBasophils/100 WBC Auto (Bld)Ordered By: Jyotsna Abarca on 05-09-2023 Basophils/100 WBC (Bld)1.2 %.The [facility] HospitalBilirubin Test strip Ql (U)Ordered By: Jyotsna Abarca on 75-72-9957Tbcawnhep Ql (U)Negative NegativeThe Jewish HospitalBilirubin.total [Mass/volume] in Serum or PlasmaOrdered By: Jyotsna Abarca on 93-72-6836Wimcjhiuz [Mass/Vol]0.5 mg/dL 0.3-1.0The [facility] HospitalCalcium [Mass/volume] in Serum or Plasma Ordered By: Jyotsna Abarca on 50-76-0993Rzjggkc [Mass/Vol]9.2 mg/dL8.6-10.3 [facility] HospitalCarbon dioxide, total [Moles/volume] in Serum or PlasmaOrdered By: Jyotsna Abarca on 69-12-8688LG8 [Moles/Vol]28.5 mmol/L 21.0-31.0The [facility] HospitalChloride [Moles/volume] in Serum or PlasmaOrdered By: Jyotsna Abarca on 67-28-8367Vackfdhx [Moles/Vol]106 mmol/L98-107 [facility] HospitalCholesterol [Mass/volume] in Serum or Plasma Ordered By: Jyotsna Abarca on 05-30-3069Qimdjozuxum [Mass/Vol]138 mg/iX676-160 The [facility] HospitalComment on above:Chol less than 200 mg/dl low riskChol 201-239 mg/dl borderline riskChol 240 mg/dl and greater high risk Cholesterol in LDL Calc [Mass/Vol]Ordered By: Jyotsna Abarca on 05-09-2023 Cholesterol in LDL [Mass/Vol]70 mg/dL0-100[facility] Comment on above:LDL ATP III CLASSIFICATIONLDL less than 100 mg/dL OptimalLDL 100-129 mg/dL Near or above luliaksTKC610-370 mg/dL Borderline highLDL 160-189 mg/dL HighLDL greater than 189 mg/dL Very highCholesterol in VLDL Calc [Mass/Vol]Ordered By: Jyotsna Abarca on 21-04-8927Hybauwjpzve in VLDL [Mass/Vol]14 mg/dLThe Jewish HospitalColor Auto (U)Ordered By: Jyotsna Abarca on 69-58-4018Zelxq (U)YellowYellowThe Jewish HospitalCreatinine [Mass/volume] in Serum or PlasmaOrdered By: Jyotsna Abarca on 93-10-7366Mwojsfrdge [Mass/Vol]0.87 mg/dL0.60-1.20The [facility] HospitalEosinophils Auto (Bld) [#/Vol]Ordered By: Jyotsna Abarca on 86-23-8337Fcdkcvfwkcn (Bld) [#/Vol]0.3 10*3/uL0.0-0.45The [facility] HospitalEosinophils/100 WBC Auto (Bld) Ordered By: Jyotsna Abarca on 68-99-0723Qzyduajqppg/100 WBC (Bld)4.8 %.The [facility] HospitalErythrocyte distribution width Auto (RBC) [Ratio]Ordered By: Jyotsna Abarca on 86-03-9629Rkzmqcknwti distribution width (RBC) [Ratio]13.1 % 11.9-15.3FCleveland Clinic Euclid HospitalFolate [Mass/volume] in Serum or PlasmaOrdered By: Jyotsna Abarca on 39-12-6989Dwafnb [Mass/Vol]27.0 ng/mL>5.9 The [facility] HospitalComment on above:Folate reference range: >5.9 ng/mlThe WHO technical consultation on folate and vitamin z01xctmlcemgzpu has determined that folate concentrations lessthan 4 ng/ml are considered deficient. Globulin Calc (S) [Mass/Vol]Ordered By: Jyotsna Abarca on 04-47-2057Egioizzu (S) [Mass/Vol]2.2 g/dLThe Jewish HospitalGlucose [Mass/volume] in Serum or PlasmaOrdered By: Jyotsna Abarca on 35-05-9166Wozzssh [Mass/Vol]86 mg/dL 70-100The [facility] HospitalComment on above:ADA recommended reference rangeRandom Glucose Reference Range is dependent on time and content of last meal. Glucose of more than 200 mg/dL in a nonstressed, ambulatory subject supports the diagnosisof Diabetes Mellitus.Glucose mean value [Mass/volume] in Blood Estimated from glycated hemoglobinOrdered By: Jyotsna Abarca on 76-65-0030Cwtwfom glucose Estimated from glycated hemoglobin (Bld) [Mass/Vol]126 mg/dLThe Jewish HospitalHematocrit Auto (Bld) [Volume fraction]Ordered By: Jyotsna Abarca on 26-79-7482Tokymgidil (Bld) [Volume fraction]37.2 %34.0-46.4FCleveland Clinic Euclid HospitalHemoglobin A1c percentageOrdered By: Jyotsna Abarca on 68-28-0292MbK2q (Bld) [Mass fraction]6.0 % 4.3-5.6FCleveland Clinic Euclid HospitalComment on above:Increased risk for diabetes: 5.7 - 6.4diabetes: >6.4glycemic control for adults with diabetes: &l t;7.0Hemoglobin [Mass/volume] in BloodOrdered By: Jyotsna Abarca on 05-09-2023 Hemoglobin (Bld) [Mass/Vol]12.6 g/dL11.8-15.4FC[facility] Ketones Auto test strip (U) [Mass/Vol]Ordered By: Jyotsna Abarca on 05-09-2023 Ketones (U) [Mass/Vol]NegativeNegativeThe Jewish Hospital Laboratory - UrinalysisOrdered By: Jyotsna Abarca on 05-81-5037Gamuqai casts LM Ql (Urine sed)0-8 [LPF]0-8The [facility] HospitalLeukocytes [#/volume] corrected for nucleated erythrocytes in Blood by Automated counOrdered By: Jyotsna Abarca on 41-29-0488QCZ corrected for nucl RBC Auto (Bld) [#/Vol]6.3 10*3/uL 3.8-11.6FCleveland Clinic Euclid HospitalLymphocytes Auto (Bld) [#/Vol]Ordered By: Jyotsna Abarca on 10-30-2860Yiszkduakwk (Bld) [#/Vol]2.1 10*3/uL1.00-4.8 [facility] HospitalLymphocytes/100 WBC Auto (Bld)Ordered By: Jyotsna Abarca on 95-86-0698Gnhcrzyfuij/100 WBC (Bld)33.6 %.[facility] Auto (RBC) [Entitic mass]Ordered By: Jyotsna Abarca on 22-47-0866VJF (RBC) [Entitic mass]29.2 pg24.7-34.3FCleveland Clinic Euclid HospitalMCHC Auto (RBC) [Mass/Vol]Ordered By: Jyotsna Abarca on 67-55-1218YENI (RBC) [Mass/Vol]33.9 g/dL32.0-35.0The [facility] HospitalMCV Auto (RBC) [Entitic vol] Ordered By: Jyotsna Abarca on 40-06-3025MQM (RBC) [Entitic vol]86.1 qQ37-742 [facility] HospitalMonocytes Auto (Bld) [#/Vol]Ordered By: Jyotsna Abarca on 94-67-7370Llwdyxeha (Bld) [#/Vol]0.6 10*3/uL0.0-0.8The [facility] HospitalMonocytes/100 WBC Auto (Bld)Ordered By: Jyotsna Abarca on 05-09-2023 Monocytes/100 WBC (Bld)9.4 %.The [facility] HospitalNeutrophils Auto (Bld) [#/Vol]Ordered By: Jyotsna Abarca on 68-93-2774Gpekluvnthl (Bld) [#/Vol]3.2 10*3/uL1.8-7.7FCleveland Clinic Euclid HospitalNeutrophils/100 WBC Auto (Bld) Ordered By: Jyotsna Abarca on 98-07-0332Cuoujdsdsvj/100 WBC (Bld)51.0 %.The [facility] HospitalNitrite Test strip Ql (U)Ordered By: Jyotsna Abarca on 57-63-7278Duqmfpk Ql (U)NegativeNegativeThe Jewish HospitalNo Panel InformationOrdered By: Jyotsna Abarca on 31-72-1969Omespmcmr GFR (CKD-EPI)> 60.0 mL/MinThe Jewish HospitalPharmacy Creatinine Clearance (Chem N/AFCleveland Clinic Euclid HospitalNucleated erythrocytes [Presence] in Blood by Automated countOrdered By: Jyotsna Abarca on 19-88-7865Qmxkxjsew RBC Auto Ql (Bld)0.0 /100{WBC}0-0.5FCleveland Clinic Euclid HospitalPlatelet mean volume Auto (Bld) [Entitic vol]Ordered By: Jyotsna Abarca on 34-22-1879Kuihrqmi mean volume (Bld) [Entitic vol]8.2 fL6.3-10.7FC[facility] Platelets Auto (Bld) [#/Vol]Ordered By: Jyotsna Abarca on 97-41-7741Gydkorhys (Bld) [#/Vol]185 10*3/mR332-584GkyzgvgnxThe Jewish HospitalPotassium [Moles/volume] in Serum or PlasmaOrdered By: Jyotsna Abarca on 83-39-2102Xpocctnqc [Moles/Vol]3.9 mmol/L3.5-5.1FCleveland Clinic Euclid HospitalProtein Auto test strip (U) [Mass/Vol]Ordered By: Jyotsna Abarca on 20-06-4613Sjhaznj (U) [Mass/Vol] NegativeNegativeThe Jewish HospitalProtein [Mass/volume] in Serum or PlasmaOrdered By: Jyotsna Abarca on 84-62-9115Kswsdth [Mass/Vol]6.6 g/dL6.4-8.9 [facility] HospitalRBC Auto (Bld) [#/Vol]Ordered By: Jyotsna Abarca on 70-14-2255MBM (Bld) [#/Vol]4.32 10*6/uL3.60-5.00Mc[facility] Hospitalerum or plasma albumin/globulin mass ratioOrdered By: Jyotsna Abarca on 18-00-6261Wusdxwg/Globulin [Mass ratio]2.0 {ratio}[facility] Hospitalerum or plasma anion gap determinationOrdered By: Jyotsna Abarca on 65-40-8015Kkzbr gap [Moles/Vol]11.4 mmol/L6.0-15.0McKitrick Hospitalerum or plasma high density lipoprotein (HDL) cholesterol measurement Ordered By: Jyotsna Abarca on 41-26-3160Chxucrcqxqj in HDL [Mass/Vol]54 mg/dL23-92 The [facility] HospitalComment on above:HDL CHOL ATP-III CLASSIFICATION Cardiovascular RiskHDL > or equal to 60 mg/dL LOWHDL < 40 mg/dL HIGHSerum or plasma total cholesterol/high density lipoprotein (HDL) cholesterol mass ratOrdered By: Jyotsna Abarca on 52-64-7393Frxauiapmvg.total/Cholesterol in HDL [Mass ratio]2.6 {ratio}<5.0McKitrick Hospitalodium [Moles/volume] in Serum or PlasmaOrdered By: Jyotsna Abarca on 80-71-8595Xodpsu [Moles/Vol]142 mmol/E874-350WsqyqrzjqMcKitrick Hospitalpecific gravity Auto test strip (U) [Rel density]Ordered By: Jyotsna Abarca on 46-83-2706Exghhznn gravity (U) [Rel density]1.0201.001-1.030[facility] Squamous epithelial cells detection in urine sediment by light microscopyOrdered By: Jyotsna Abarca on 65-04-6003Nfaugilzvg cells.squamous LM Ql (Urine sed)3-4 [HPF]0-2FCleveland Clinic Euclid HospitalTriglyceride [Mass/volume] in Serum or PlasmaOrdered By: Jyotsna Abarca on 06-64-2192Vwkirzcrufkr [Mass/Vol]70 mg/dL0-149 [facility] HospitalComment on above:TRIG ATP III CLASSIFICATIONTRIG less than 150 mg/dL NormalTRIG 150-199 mg/dL Borderline highTRIG 200-500 mg/dL High TRIG greater than 500 mg/dL Very highStandard traceable to the Center for Disease Conrtrol and Prevention (CDC) test method. Urea nitrogen [Mass/volume] in Serum or PlasmaOrdered By: Jyotsna Abarca on 15-84-9159Dpiu nitrogen [Mass/Vol]14 mg/dL7-25[facility] Urine bacteria detection by automated methodOrdered By: Jyotsna Abarca on 74-47-7750Cjlqkewn Auto Ql (U)None seenNone SeenThe Jewish HospitalUrine clarity by refractometry automatedOrdered By: Jyotsna Abarca on 87-87-6836Gmrupvb Refractometry automated (U)ClearCleCleveland ClinicUrine culture routineOrdered By: Jyotsna Abarca on 05-09-2023 Bacteria identified Cx Nom (U)Strep. agalactiae Grp [facility] HospitalUrine glucose measurement by automated test strip (mass/volume)Ordered By: Jyotsna Abarca on 63-65-5042Qudgqjt Auto test strip (U) [Mass/Vol]Normal mg/dL NormalThe Jewish HospitalUrine hemoglobin detection by automated test stripOrdered By: Jyotsna Abarca on 89-49-9455Gfsavvipan Auto test strip Ql (U)NegativeNegativeThe Jewish HospitalUrine leukocyte esterase detection by automated test stripOrdered By: Jyotsna Abarca on 00-77-1130Ktrmfkead esterase Auto test strip Ql (U)2+NegativeThe Jewish Hospital Urobilinogen Auto test strip (U) [Mass/Vol]Ordered By: Jyotsna Abarca on 20-66-9241Gcjbrqrvpkxq (U) [Mass/Vol]Normal mg/dLNormalThe Jewish HospitalVitamin B12 ser/plasOrdered By: Jyotsna Abarca on 05-09-2023 Cobalamin (Vitamin B12) [Mass/Vol]543 pg/iO864-322BabnuqylbThe Jewish HospitalVitamin D+Metabolites [Mass/volume] in Serum or PlasmaOrdered By: Jyotsna Abarca on 60-13-5243Krfxrlg D+Metabolites [Mass/Vol]53.9 ng/oH41-125MptfmadzhThe Jewish HospitalComment on above:VITAMIN D STATUS 25(OH)VITAMIN D RANGE (ng/mL) Deficient <20 Insufficient 20 to <41Efskmmipes86 to 100Reference: Delfino MF,Blaze NC, Ragini ALEXIS, et al. Evaluation,treatment, and prevention of vitamin D deficiency; an Endocrine Society clinical practice guideline. JCEM. 2010; 96(7):1911-30.WBC Auto (Bld) [#/Vol]Ordered By: Jyotsna Abarca on 17-02-8975PFR (Bld) [#/Vol]6.3 10*3/uL3.8-11.6FC[facility] pH Auto test strip (U)Ordered By: Jyotsna Abarca on 95-41-3444kP (U)6.5 [pH] 5.0-9.0[facility] Jewish HospitalACID FAST SMEAR AND CXon [id number] Fast CultureNegativeTrumbull Memorial HospitalComment on above:Result Comment: No acid fast bacilli isolated after 6 weeks.Performed By: #### CVDTBH #### [facility] [address] [place] [address] Dr. Kamari BianchiAcid Fast SmearNegativeTrumbull Memorial HospitalComment on above:Performed By: #### CVDTBH #### [facility] [address] [address] [address] Kamari BianchiAFB Specimen ProcessingConcentrationTrumbull Memorial Hospital Comment on above:Performed By: #### CVDTBH #### [facility] [address] [place] [address] Dr. Kamari BianchiCT CHEST WO CONon [id number] CHEST WO CONEXAMINATION: CT CHEST WO CON HISTORY: Pneumonia due to Pseudomonas [...] Electronically authenticated by: SHAE CHAVEZ Date: 2023-04-04 12:22NoSamaritan North Health CenterFUNGAL CULTUREon [id number] (Mycology) CultureFinal reportTrumbull Memorial HospitalComment on above:Performed By: #### CXFUN #### [facility] [address] [place] [address] Dr. Kamari Coates StainFinal reportTrumbull Memorial HospitalComment on above:Performed By: #### CXFUN #### [facility] [address] [place] [address] Dr. Kamari Vargas 1CommentNoSamaritan North Health CenterComment on above:Result Comment: SAHARA/Calcofluor preparation: no fungus observed.Performed By: #### CXFUN #### [facility] [address] [place] [address] Dr. Kamari Vargas Comment: No yeast or mold isolated after 4 weeks.CULTURE OTHERon [id number] OTHERIsolate 1 Pseudomonas aeruginosa Heavy growth of ORGANISM 1 Pseudomonas aeruginosa ANTIBIOTIC M.I.C RX STATUS Piperacillin/Tazobactam <=4 S F Ceftazidime <=1 S F Imipenem <=0.25 S F Amikacin <=2 S F Gentamicin <=1 S F Tobramycin <=1 S F Ciprofloxacin <=0.25 S F Levofloxacin <=0.12 S FNormalAshtabula General HospitalComment on above:Performed By: #### OTHCX #### [facility] [address] [address] [address] Kamari MarquezOLOGYcarly 03-07-8698UOGU TO REF [facility]02/21/23Tr[facility]ull Memorial HospitalComment on above:Performed By: #### CYTO #### [facility] [address] [address] [address] Kamari Callahan STAINon [id number]ional Medical Center on above:Performed By: #### GSTAIN #### [facility] [address] [place] [address] Dr. Kamari NavaTHELIALSTrumbull Memorial HospitalComment on above:Performed By: #### GSTAIN #### [facility] [address] [address] [address] Kamari CastanedaNGAL ELEMENTSTrumbull Memorial HospitalComhelen newberry joy hospital on above: Performed By: #### GSTAIN #### [facility] [address] [address] [address] Kamari Callahan NEG BACILLIMODERATETrumbull Memorial HospitalComhelen newberry joy hospital on above:Performed By: #### GSTAIN #### [facility] [address] [address] [address] Kamari Callahan NEG DIPPLOCOCCITrumbull Memorial HospitalComment on above: Performed By: #### GSTAIN #### [facility] [address] [address] [address] Kamari Callahan POS BACILLITrumbull Memorial HospitalComhelen newberry joy hospital on above: Performed By: #### GSTAIN #### [facility] [address] [place] [address] Dr. Kamari Callahan POSITIVE COCCIFEWTrumbull Memorial HospitalComment on above:Performed By: #### GSTAIN #### [facility] [address] [place] [address] Dr. Kamari BianchiGRAM STAIN SOURCELt Upper Lung LavageTrumbull Memorial Hospital Comment on above:Performed By: #### GSTAIN #### [facility] [address] [place] [address] Dr. Kamari BianchiGS_DIPTHNoSamaritan North Health CenterComment on above:Performed By: #### GSTAIN #### [facility] [address] [place] [address] Dr. Kamari BinachiWBCMANYNormalAshtabula General HospitalComment on above:Performed By: #### GSTAIN #### [facility] [address] [place] [address] Dr. Kamari BianchiCovid-19 PCR ([facility])on 00-26-0875BBAN-CoV-2 (COVID-19) RNA ELIZABETH+probe Ql (Unsp spec)Not detectedNormalNOT DETECTEDAshtabula General Hospital Comment on above:Result Comment: This test is not yet approved or cleared by the [place] FDA. When there are no FDA-approved or cleared tests available, and other criteria are met, FDA can make tests available under an emergency access mechanism called an Emergency Use Authorization (EUA). The EUA for this test is supported by the [place] of Health and Human Service's (HHS's) declaration that circumstances exist to justify the emergency use of in vitro diagnostics for the detection and/or diagnosis of the virus that causes COVID- 19. This EUA will remain in effect (meaning [...] of clinical signs and symptoms consistent with SARS-CoV-2.Performed By: #### CVDTBH #### [facility] [address] [place] [address] Dr. Kamari Johnson AUTO DIFFon 86-13-5544ZTCL #0.1 103/ulNormal0.0-0.1The [facility] HospitalComment on above:Performed By: #### CBC #### [facility] [address] [place] [address] Dr. Kamari BianchiBasophils/100 WBC (Bld)1.2 %Normal0.2-2.0The [facility] Comment on above:Performed By: #### CBC #### [facility] [address] [place] [address] Dr. Kamari Marshall #0.3 103/ulNormal0.0-0.7The [facility] HospitalComment on above: Performed By: #### CBC #### [facility] [address] [place] [address] Dr. Kamari Conroyosinophils/100 WBC (Bld)3.6 %Normal0.9-7.0The [facility] Comment on above:Performed By: #### CBC #### [facility] [address] [place] [address] Dr. Kamari Conroyrythrocyte distribution width (RBC) [Ratio]12.3 %Egzhfz59.0-15.0 The [facility] HospitalComment on above:Performed By: #### CBC #### [facility] [address] [place] [address] Dr. Kamari BianchiHematocrit (Bld) [Volume fraction]37.6 %Qqziti68.0-48.0The [facility] HospitalComment on above:Performed By: #### CBC #### [facility] [address] [place] [address] Dr. Kamari BianchiHemoglobin (Bld) [Mass/Vol]12.7 g/qVWtpria03.0-16.0The [facility] HospitalComment on above:Performed By: #### CBC #### [facility] [address] [place] [address] Dr. Kamari Slater #0.01 10e3/ulNormal0.00-0.03The [facility] HospitalComment on above:Performed By: #### CBC #### [facility] [address] [place] [address] Dr. Kamari Slater %0.1 %Normal0.0-0.5The [facility] HospitalComment on above: Performed By: #### CBC #### [facility] [address] [place] [address] Dr. Kamari Grigsby #2.8 103/ulNormal1.2-3.8The [facility] HospitalComment on above:Performed By: #### CBC #### [facility] [address] [place] [address] Dr. Kamari Joynerhocytes/100 WBC (Bld)32.8 %Sjhqei91.5-60.0The [facility] HospitalComment on above:Performed By: #### CBC #### [facility] [address] [place] [address] Dr. Kamari Smyth DIFF REQNONormalThe [facility] HospitalComment on above: Performed By: #### CBC #### [facility] [address] [place] [address] Dr. Kamari Kohler (RBC) [Entitic mass]28.9 qrQhdfva56.7-34.0The [facility] HospitalComment on above:Performed By: #### CBC #### [facility] [address] [place] [address] Dr. Kamari Saldivar (RBC) [Mass/Vol]33.8 g/oHHtwotx62.9-35.2The [facility] HospitalComment on above:Performed By: #### CBC #### [facility] [address] [place] [address] Dr. Kamari Ochoa (RBC) [Entitic vol]85.5 nQMsfwhg29.0-99.0The [facility] HospitalComment on above:Performed By: #### CBC #### [facility] [address] [place] [address] Dr. Kamari Daily #0.7 103/ulNormal0.3-0.8The [facility] HospitalComment on above:Performed By: #### CBC #### [facility] [address] [place] [address] Dr. Kamari Jolleyocytes/100 WBC (Bld)8.2 %Normal1.7-12.0The [facility] Comment on above:Performed By: #### CBC #### [facility] [address] [place] [address] Dr. Kamari Dillard #4.6 103/ulNormal1.4-6.5The [facility] HospitalComment on above:Performed By: #### CBC #### [facility] [address] [place] [address] Dr. Kamari Guidoutrophils/100 WBC (Bld)54.1 %Vphkrl21.0-75.0The [facility] HospitalComment on above:Performed By: #### CBC #### [facility] [address] [place] [address] Dr. Kamari Kumarilet mean volume (Bld) [Entitic vol]9.6 fLNormal9.5-13.5The [facility] HospitalComment on above:Performed By: #### CBC #### [facility] [address] [place] [address] Dr. Kamari BianchiPLT230 103/szTsjpra859-141Tov [facility] HospitalComment on above: Performed By: #### CBC #### [facility] [address] [place] [address] Dr. Kamari BianchiRBC4.40 106/ulNormal4.20-5.40The [facility] HospitalComment on above:Performed By: #### CBC #### [facility] [address] [place] [address] Dr. Kamari BianchiWBC8.4 103/ulNormal4.0-11.0The [facility] HospitalComment on above: Performed By: #### CBC #### [facility] [address] [place] [address] Dr. Kamari BianchiCT chest wo daishaon 02-62-0458CF chest wo [facility] Send[facility] Other CT chest wo [facility] Sendori Other CT chest wo [id number] [facility] Other CT chest wo JEROD Gibson [id number] Send[facility] Other CT chest wo conCT Scan ReportMulticare Auburn Medical Center Sendori Other CT chest wo conSignedHarrison Calcivis Other CT chest wo conPatient: Meseret Davidson MR#: [id number] [facility] Other CT chest wo [id number] [facility] Other CT chest wo conDOB: 1950 Acct:[id number] Cal[facility] Other CT chest wo conAge/Sex: 72 / F ADM Date: 12/28/22Harrison Calcivis Other CT chest wo conLoc: ICCT Room: Type: [facility] Sendori Other CT chest wo conAttending Dr: Jyotsna Abarca [facility] Calciv[place] Other CT chest wo conCopies to: Jyotsna Abarca,Guavus Calcivis Other CT chest wo conOrdering Provider: Jyotsna Abarca, [employer] Other CT chest wo conDate of Service: 12/28/22Harrison Calcivis Other CT chest wo conAccession #: ([id number] CT/CT chest wo con: R93.89Harrison Calciv[facility] Other CT chest wo conCT CHEST WITHOUT IV CONTRAST:[employer] Other CT chest wo conCLINICAL HISTORY: Follow-up pulmonary noduleHarrison Calcivis Other CT chest wo conCOMPARISON: CT chest 12/04/2018Harrison Calciv[facility] Other ct chest wo conTECHNIQUE: Spiral images were obtained through the chest without IV contrast. This CT exam wasNorth Calcivis Other ct chest wo conperformed using one or more following dose reduction techniques: Automated exposure control,[employer] Other ct chest wo conadjustment of the mA and/or kV according to patient size, or use of iterative reconstructionNoexcelsior springs medical center Calcivis Other ct chest wo contechnique.[employer] Other ct chest wo conFINDINGS:[employer] Other ct chest wo conMediastinum:Right-sided aortic arch is noted. No aneurysm. Summary trunk appears nondilated. [facility] Calciv[facility] Other ct chest wo conpericardial effusion. No lymphadenopathy. The esophagus is grossly unremarkable.[employer] Other ct chest wo conLungs:Mild lung scarring with interstitial changes involving the lung bases and bronchiectasisNoexcelsior springs medical center Calcivis Other ct chest wo contion, pneumothorax or pleural effusion. Calcified granuloma left upper lobe. Scattered golp-sd-brlGhzlg Calcivis Other ct chest wo connodularity. No sinister-appearing nodule seen on today's study.[employer] Other ct chest wo conAbd:No acute findings.[employer] Other ct chest wo conSoft tissues/Bones: Visualized soft tissues demonstrate no acute findings. Osseous structuresNoexcelsior springs medical center Calcivis Other ct chest wo condemonstrate degenerative change.[employer] Other CT chest wo conORDER #: [id number] CT/CT chest wo con [employer] Other CT chest wo conIMPRESSION:[employer] Other ct chest wo conlingula. No honeycombing is identified. No sinister-appearing nodule is seen on today's study.[employer] Other CT chest wo conImpression dictated by: Jose Rafael Kelsey Jr., Josue12/28/2022 12:58 [facility]NNYU [facility] Other CT chest wo conDictation Location: [id number] Send[place] Other CT chest wo conTranscribed By: PWS 12/28/[address] [place] [address] chest wo conDictated By: Jose Rafael Kelsey Jr, DO 12/28/[address] [place] [address] chest wo conSigned By:[facility] Sendori Other CT chest wo con12/28/[address] [place] [address] [facility] Other XR CHEST 2 Von 86-18-7441IL CHEST 2 VEXAM: XR CHEST 2 V HISTORY: Pneumonia . [...] Electronically authenticated by: HOWIE CHAVEZ Date: 2022-12-05 13:05[facility] Screening.on 64-90-7720Oznxf depression screening assessmentNo-[facility] [employer] 250 DO Work Phone: Fall risk assessmenta) No falls within the last year -[facility] [employer] 250 DO Work Phone: Tobacco use status CPHSb) NoMP-[facility] [employer] 250 DO Work Phone: XR CHEST 2 Von 67-09-0266FU CHEST 2 VEXAMINATION: XR CHEST 2 V HISTORY: Cough COMPARISON: 12/17/2020 TECHNIQUE: [...] infiltrates, consider pneumonia Electronically authenticated by: JYOTSNA CHILEL Date: 2022-11-16 11:[address] [place], [place] [address]Albumin [Mass/volume] in Serum or PlasmaOrdered By: Jyotsna Abarca on 86-47-8187Gprocag [Mass/Vol]4.1 g/dL3.2-5.5FCleveland Clinic Euclid HospitalBasophils Auto (Bld) [#/Vol]Ordered By: Jyotsna Abarca on 11-07-2022 Basophils (Bld) [#/Vol]0.1 10*3/uL0.0-0.2FCleveland Clinic Euclid Hospital Basophils/100 WBC Auto (Bld)Ordered By: Jyotsna Abarca on 80-92-3622Utihcvihx/100 WBC (Bld)1.2 %.The Jewish HospitalCholesterol [Mass/volume] in Serum or PlasmaOrdered By: Jyotsna Abarca on 65-60-0792Kyrgyfqajyo [Mass/Vol]154 mg/aB306-296FmxxkwlakThe Jewish HospitalComment on above:Chol less than 200 mg/dl low riskChol 201-239 mg/dl borderline riskChol 240 mg/dl and greater high riskCholesterol in LDL Calc [Mass/Vol]Ordered By: Jyotsna Abarca on 11-07-2022 Cholesterol in LDL [Mass/Vol]82 mg/dL0-100[facility] Comment on above:LDL ATP III CLASSIFICATIONLDL less than 100 mg/dL OptimalLDL 100-129 mg/dL Near or above bcqhlurXEF839-493 mg/dL Borderline highLDL 160-189 mg/dL HighLDL greater than 189 mg/dL Very highCholesterol in VLDL Calc [Mass/Vol]Ordered By: Jyotsna Abarca on 89-24-9602Bthqcolazvf in VLDL [Mass/Vol]11 mg/dLThe Jewish HospitalCreatinine and Glomerular filtration rate.predicted panel (S/P/Bld)Ordered By: Jyotsna Abarca on 63-80-9750Zqlwswqikk [Mass/Vol]0.85 mg/dL0.44-1.03The Jewish HospitalEosinophils Auto (Bld) [#/Vol]Ordered By: Jyotsna Abarca on 80-96-8435Ujozxdopgzq (Bld) [#/Vol]0.3 10*3/uL0.0-0.45The Jewish HospitalEosinophils/100 WBC Auto (Bld) Ordered By: Jyotsna Abarca on 88-40-9346Kkdlwvstouu/100 WBC (Bld)3.6 %.The Jewish HospitalErythrocyte distribution width Auto (RBC) [Ratio]Ordered By: Jyotsna Abarca on 95-20-0871Rogdqtnwtxl distribution width (RBC) [Ratio]12.9 % 11.9-15.3FCleveland Clinic Euclid HospitalEstimated glomerular filtration rate (GFR) non- AmericanOrdered By: Jyotsna Abarca on 05-22-7223LMC/1.73 sq M.predicted among non-blacks MDRD (S/P/Bld) [Vol rate/Area]> 60 mL/MinThe Jewish HospitalFolate [Mass/volume] in Serum or PlasmaOrdered By: Jyotsna Abarca on 38-70-3905Wbfcoo [Mass/Vol]18.8 ng/mL>5.9The Jewish HospitalComment on above:Folate reference range: >5.9 ng/mlThe WHO technical consultation on folate and vitamin h71picokqjduyef has determined that folate concentrations lessthan 4 ng/ml are considered deficient.Globulin Calc (S) [Mass/Vol]Ordered By: Jyotsna Abarca on 63-60-1063Mmzsnljv (S) [Mass/Vol]3.2 g/dL The [facility] HospitalGlucose mean value [Mass/volume] in Blood Estimated from glycated hemoglobinOrdered By: Jyotsna Abarca on 16-39-0334Zyxgtre glucose Estimated from glycated hemoglobin (Bld) [Mass/Vol]128 mg/dLThe Jewish HospitalHematocrit Auto (Bld) [Volume fraction]Ordered By: Jyotsna Abarca on 56-10-9846Qourtsljnt (Bld) [Volume fraction]40.2 %34.0-46.4FCleveland Clinic Euclid HospitalHemoglobin A1c percentageOrdered By: Jyotsna Abarca on 28-62-5686UtT2l (Bld) [Mass fraction]6.1 %4.3-5.6FCleveland Clinic Euclid HospitalComment on above:Increased risk for diabetes: 5.7 - 6.4diabetes: >6.4glycemic control for adults with diabetes: <7.0Hemoglobin [Mass/volume] in BloodOrdered By: Jyotsna Abarca on 19-07-9551Rteuvnoino (Bld) [Mass/Vol]13.5 g/dL11.8-15.4FCleveland Clinic Euclid HospitalLaboratory - Chemistry and Chemistry - challengeOrdered By: Jyotsna Abarca on 89-53-6341Wjdsfweuc (Vitamin B12) [Mass/Vol]865 pg/vB648-078KvgbexfwnThe Jewish HospitalLeukocytes [#/volume] corrected for nucleated erythrocytes in Blood by Automated coun Ordered By: Jyotsna Abarca on 13-13-3073OUC corrected for nucl RBC Auto (Bld) [#/Vol]7.6 10*3/uL3.8-11.6FCleveland Clinic Euclid HospitalLymphocytes Auto (Bld) [#/Vol]Ordered By: Jyotsna Abarca on 77-44-6013Jeeoczbfuts (Bld) [#/Vol]2.1 10*3/uL1.00-4.8The Jewish HospitalLymphocytes/100 WBC Auto (Bld) Ordered By: Jyotsna Abarca on 93-63-2452Elfmftdicgt/100 WBC (Bld)28.2 %.The Jewish HospitalMCH Auto (RBC) [Entitic mass]Ordered By: Jyotsna Abarca on 18-17-2972KWJ (RBC) [Entitic mass]29.3 pg24.7-34.3FCleveland Clinic Euclid HospitalMCHC Auto (RBC) [Mass/Vol]Ordered By: Jyotsna Abarca on 62-36-7826LNFM (RBC) [Mass/Vol]33.5 g/dL32.0-35.0The Jewish HospitalMCV Auto (RBC) [Entitic vol]Ordered By: Jyotsna Abarca on 70-68-8652VJK (RBC) [Entitic vol]87.6 kS31-764EbgrfpwxoThe Jewish HospitalMonocytes Auto (Bld) [#/Vol]Ordered By: Jyotsna Abarca on 32-61-4098Kpaeyceej (Bld) [#/Vol]0.7 10*3/uL0.0-0.8The Jewish HospitalMonocytes/100 WBC Auto (Bld)Ordered By: Jyotsna Abarca on 25-16-8307Ytojctlps/100 WBC (Bld)8.8 %.[facility] Neutrophils Auto (Bld) [#/Vol]Ordered By: Jyotsna Abarca on 13-04-2732Trzyyzqjyhk (Bld) [#/Vol]4.4 10*3/uL1.8-7.7FCleveland Clinic Euclid HospitalNeutrophils/100 WBC Auto (Bld)Ordered By: Jyotsna Abarca on 84-40-8875Kcyvnpotdjf/100 WBC (Bld) 58.2 %.The Jewish HospitalNo Panel InformationOrdered By: Jyotsna Abarca on 727328-Laofacr Vitamin D Total72.0 ng/eQ63-153ZuncoclxzThe Jewish HospitalComment on above:VITAMIN D STATUS 25(OH)VITAMIN D RANGE (ng/mL) Deficient <20 Insufficient 20 to <85Ixvdnfnlbu46 to 100Reference: Delfino MF,Blaze NC, Ragini ALEXIS, et al. Evaluation,treatment, and prevention of vitamin D deficiency; an Endocrine Society clinical practice guideline. JCEM. 2010; 96(7):1911-30.Estimated GFR ()> 60 mL/MinThe Jewish HospitalComment on above:GFR estimated reference range: According to KDOQI guidelines, <60 ml/min/1.73m2 is sufficient todiagnose a patient with chronic kidney disease.Pharmacy Creatinine Clearance (ChemN/AFCleveland Clinic Euclid HospitalNucleated erythrocytes [Presence] in Blood by Automated count Ordered By: Jyotsna Abarca on 16-24-5499Syihzzwng RBC Auto Ql (Bld)0.2 /100{WBC} 0-0.5FCleveland Clinic Euclid HospitalPlatelet mean volume Auto (Bld) [Entitic vol]Ordered By: Jyotsna Abarca on 17-16-3862Hghujpxv mean volume (Bld) [Entitic vol]8.0 fL6.3-10.7FCleveland Clinic Euclid HospitalPlatelets Auto (Bld) [#/Vol] Ordered By: Jyotsna Abarca on 08-28-1929Lbayyzkkr (Bld) [#/Vol]243 10*3/wF601-567 The [facility] HospitalProtein [Mass/volume] in Serum or PlasmaOrdered By: Jyotsna Abarca on 16-96-2000Orqrdml [Mass/Vol]7.3 g/dL6.1-7.9The Jewish HospitalRBC Auto (Bld) [#/Vol]Ordered By: Jyotsna Abarca on 44-68-2067FGQ (Bld) [#/Vol]4.60 10*6/uL3.60-5.00McKitrick Hospitalerum or plasma alanine aminotransferase measurement without P-5'-P (enzymatic activiOrdered By: Jyotsna Abarca on 93-52-8155XME No additional P-5'-P [Catalytic activity/Vol]14 U/C22-57PgphhwfmqMcKitrick Hospitalerum or plasma albumin/globulin mass ratioOrdered By: Jyotsna Abarca on 11-07-2022 Albumin/Globulin [Mass ratio]1.3 {ratio}McKitrick Hospitalerum or plasma alkaline phosphatase measurement (enzymatic activity/volume)Ordered By: Jyotsna Abarca on 62-23-8587OGW [Catalytic activity/Vol]74 U/B59-42MkxolzbrzMcKitrick Hospitalerum or plasma anion gap determinationOrdered By: Jyotsna Abarca on 72-14-2088Swvwe gap [Moles/Vol]10.5 mmol/L6.0-15.0McKitrick Hospitalerum or plasma aspartate aminotransferase measurement (enzymatic activity/volume)Ordered By: Jyotsna Abarca on 18-26-9715SOG [Catalytic activity/Vol]26 U/O54-65LddjuchkhMcKitrick Hospitalerum or plasma calcium measurement (mass/volume)Ordered By: Jyotsna Abarca on 29-72-5390Sotdiwu [Mass/Vol]9.7 mg/dL8.2-10.2FMemorial Hospitalerum or plasma chloride measurement (moles/volume)Ordered By: Jyotsna Abarca on 11-07-2022 Chloride [Moles/Vol]105 mmol/O93-899NigzgssclMcKitrick Hospitalerum or plasma glucose measurement (mass/volume)Ordered By: Jyotsna Abarca on 11-07-2022 Glucose [Mass/Vol]98 mg/lX56-622CzvqgpknhThe Jewish HospitalComment on above:ADA recommended reference rangeRandom Glucose Reference Range is dependent on time and content of last meal. Glucose of more than 200 mg/dL in a nonstressed, ambulatory subject supports the diagnosisof Diabetes Mellitus.Serum or plasma high density lipoprotein (HDL) cholesterol measurementOrdered By: Jyotsna Abarca on 28-30-3015Njjpsirlqem in HDL [Mass/Vol]61 mg/cD25-98GvzvuzgtwThe Jewish HospitalComment on above:HDL CHOL ATP-III CLASSIFICATION Cardiovascular RiskHDL > or equal to 60 mg/dL LOWHDL < 40 mg/dL HIGHSerum or plasma potassium measurement (moles/volume)Ordered By: Jyotsna Abarca on 02-96-0226Pczkqinju [Moles/Vol]3.6 mmol/L3.5-5.1FMemorial Hospitalerum or plasma sodium measurement (moles/volume)Ordered By: Jyotsna Abarca on 25-07-9459Hqltae [Moles/Vol]140 mmol/B235-934FhxvjsxfvMcKitrick Hospitalerum or plasma total bilirubin measurement (mass/volume)Ordered By: Jyotsna Abarca on 72-37-5610Ebkowseaa [Mass/Vol]0.5 mg/dL0.3-1.2FMemorial Hospitalerum or plasma total carbon dioxide measurement (moles/volume) Ordered By: Jyotsna Abarca on 19-21-3241PO6 [Moles/Vol]28.1 mmol/L22.0-30.0 McKitrick Hospitalerum or plasma total cholesterol/high density lipoprotein (HDL) cholesterol mass ratOrdered By: Jyotsna Abarca on 11-07-2022 Cholesterol.total/Cholesterol in HDL [Mass ratio]2.5 {ratio}<5.0McKitrick Hospitalerum or plasma urea nitrogen measurement (mass/volume) Ordered By: Jyotsna Abarca on 12-59-9768Smuo nitrogen [Mass/Vol]12 mg/dL9-23 The Jewish HospitalTSH DL <= 0.005 mIU/L QnOrdered By: Jyotsna Abarca on 20-06-7411ACF Qn2.70 m[IU]/L0.45-5.33[facility] Triglyceride [Mass/volume] in Serum or PlasmaOrdered By: Jyotsna Abarca on 72-44-3032Iwitkqjdvcbo [Mass/Vol]55 mg/lA56-333DmdjlizrqThe Jewish Hospital Comment on above:TRIG ATP III CLASSIFICATIONTRIG less than 150 mg/dL NormalTRIG 150-199 mg/dL Borderline highTRIG 200-500 mg/dL High TRIG greater than 500 mg/dL Very highStandard traceable to the Center for Disease Conrtrol and Prevention (CDC) test method.WBC Auto (Bld) [#/Vol]Ordered By: Jyotsna Abarca on 11-07-2022 WBC (Bld) [#/Vol]7.6 10*3/uL3.8-11.6FCleveland Clinic Euclid HospitalMG MAMM SCREEN 3D CELINE CADon 14-08-9932EF MAMM SCREEN 3D CELINE CADPatient: MESERET DAVIDSON Exam Date: 09/25/2022 : 1950 Gender:F Ordering : DR JYOTSNA ABARCA Admission #: [id number] Family : Order #: [id number] CLICK HERE TO VIEW EXAM RADIOLOGY REPORT [...] bone cancer at age 89. LOCATION: [facility] BREAST COMPOSITION: Heterogeneously dense,which may obscure [...] LUMP SHOULD BE BIOPSIED. Dictated by: Jyotsna Chilel MD on 09/25/2022 at 15:31 Approved by: Jyotsna Chilel MD on 09/25/2022 at 15:33[facility] Office Visit (Cardiology)on 23-78-4649Dbebco-up visitDiagnoses/Problems Assessed Coronary artery disease without angina pectoris [...] signing my name below, I, Asmita Godoy LPN,Joannaibmarylou, attest that this documentation has been prepared under the direction and in the presence of Dr. Mita Karimi MD. Please bring all medicines, vitamins, and herbal supplements with you when you come to the office. Prescriptions will not be filled unless you are compliant with your follow up appointments or have a follow up appointment scheduled as per instruction of your physician. Refills should be requested at the time of your visit. 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 on 15-52-1037Tsbpn depression screening assessmentMiriam Hospital [employer] DO Work Phone: Fall risk assessmenta) No falls within the last year [facility] [employer] DO Work Phone: Tobacco use status CPHSb) [facility] [employer] DO Work Phone: Vital Signs Date TimeVital SignValuePerforming EshuajsbtLldisapi51-37-3494 10:05-0400Body awbcsx431.59 cmDapardeep Abarca DO Work Phone: [facility]07-29-2025 10:05-0400 Body mass index (BMI) [Ratio]19.5 kg/j2Pwjsmpardeep Abarca DO Work Phone: [facility]07-29-2025 10:05-0400 Body qddioujdcac73 [degF]Jyotsna Abarca DO Work Phone: 1(419)483-[address] [place], [place] 1045407-29-2025 10:05-0400 Body fqtqus31.09 kgDapardeep Abarca DO Work Phone: 1(425)996-[address] [place], [place] 1045407-29-2025 10:05-0400 Diastolic blood tzyjvjwb78 mm[Hg]Jyotsna Abarca DO Work Phone: 1(476)136-[address] [place], [place] 1045407-29-2025 10:05-0400 Heart rate64 /Jade Abarca DO Work Phone: 1(487)586-[address] [place], [place] 1045407-29-2025 10:05-0400 Respiratory rate16 /Jade Abarca DO Work Phone: [phone])98[address]07-29-2025 10:05-0400 SaO2% (BldA) [Mass fraction]94 %Jyotsna Abarca DO Work Phone: 1(206)296-[address] [place], [place] 1045407-29-2025 10:05-0400 Systolic blood ldjizokz699 mm[Hg]Jyotsna Abarca DO Work Phone: 1(444)[address]04-10-2025 14:31-0400 Body tjqavt537.8 cmMita Karimi MD Work Phone: 1(417)285-[address] [place], [place] 1531504-10-2025 14:31-0400 Body mass index (BMI) [Ratio]21.42 kg/a2VetbnxuMita Karimi MD Work Phone: 1(768)815-[address] [place], [place] 1531504-10-2025 14:31-0400 Body durddt10.91 kgMita Karimi MD Work Phone: 1(365)[address] [place], [place] 1531504-10-2025 14:31-0400 Diastolic blood whioormi66 mm[Hg]Mita Karimi MD Work Phone: 1(157)[address]04-10-2025 14:31-0400 Heart rate70 /minMita Karimi MD Work Phone: 1(288)087-[address] [place], [place] 1531504-10-2025 14:31-0400 Systolic blood wiwgkesr643 mm[Hg]Mita Karimi MD Work Phone: [facility]03-31-2025 09:28-0400 Body mass index (BMI) [Ratio]21.58 kg/d3SlhqsiÁngel Botello MD Work Phone: [facility]woodMgjxlnnajb25-44-8485 09:-040Body qcletb24.45 kgÁngel Botello MD Work Phone: [facility] KirkwoodUxhbfyenjl02-56-8176 09:28-0400Diastolic blood vwmeecxn35 mm[Hg]Ángel Botello MD Work Phone: [facility] KirkwoodDktpcazsqw21-71-1631 09:-040Systolic blood ljzwpouk195 mm[Hg]Ángel Botello MD Work Phone: [facility] KirkwoodRfvoirtyri72-69-6408 14:19-0500Body ffyivj737.59 cmDapardeep Abarca DO Work Phone: [facility]01-29-2025 14:19-0500 Body mass index (BMI) [Ratio]20.3 kg/z7Zjbqlpardeep Abarca DO Work Phone: [phone]01-29-2025 14:19-0500 Body tehhmdsgsgk90.5 [degF]Jyotsna Abarca DO Work Phone: [phone]01-29-2025 14:19-0500 Body .9 kgDapardeep Abarca DO Work Phone: [phone]01-29-2025 14:19-0500 Diastolic blood pejvfbad69 mm[Hg]Jyotsna Abarca DO Work Phone: [phone]01-29-2025 14:19-0500 Heart rate55 /minDavigama Abarca DO Work Phone: [phone]01-29-2025 14:19-0500 SaO2% (BldA) [Mass fraction]96 %Jyotsna Abarca DO Work Phone: [facility]01-29-2025 14:19-0500 Systolic blood usaseucn181 mm[Hg]Jyotsna Abarca DO Work Phone: [facility]09-11-2024 13:25-0400 Blood Pressure LocationMichael NILL [phone]-[facility]wtxlSum[facility]09-11-2024 13:25-0400Diastolic blood jtqvodcr55 mm[Hg]Shiv NILL 660-3264Yhgwgs-WwcveSumma Health [facility] Campus09-11-2024 13:25-0400Heart rate72 /minMichael NILL 151-7045Boajjh-PxsybSumma Health [facility]09-11-2024 13:25-0400Respiratory rate16 /minMichael NILL 362-4500Rhjijq-SxkxbSumma Health [facility]09-11-2024 13:25-0400Systolic blood zobzblyl969 mm[Hg]Shiv NILL 802-0060Eqnuqd-HmyqmSumma Health [facility]07-31-2024 14:28-0400Body .59 cmDO Jyotsna Abarca Work Phone: [phone]07-31-2024 14:28-0400 Body mass index (BMI) [Ratio]20.9 kg/m2DO Jyotsna Abarca Work Phone: [phone]07-31-2024 14:28-0400 Body coeihuuvute43.1 [degF]DO Jyotsna Abarca Work Phone: [phone]07-31-2024 14:28-0400 Body wosufi87.26 kgDO Jyotsna Abarca Work Phone: [phone]07-31-2024 14:28-0400 Diastolic blood mm[Hg]DO Jyotsna Abarca Work Phone: [phone]07-31-2024 14:28-0400 Heart rate66 /minDO Jyotsna Abarca Work Phone: [phone]07-31-2024 14:28-0400 Respiratory rate16 /minDO Jyotsna Abarca Work Phone: [facility]07-31-2024 14:28-0400 SaO2% (BldA) [Mass fraction]94 %DO Jyotsna Abarca Work Phone: [facility]07-31-2024 14:28-0400 Systolic blood gulogjob291 mm[Hg]DO yJotsna Abarca Work Phone: [facility]07-10-2024 13:31-0400 Body .8 cmMita Karimi MD Work Phone: [address] [place], [place] 5443507-10-2024 13:31-0400 Body mass index (BMI) [Ratio]22.29 kg/l6VvwravuMita Karimi MD Work Phone: 1([phone]07-10-2024 13:31-0400 Body rydnnf36.72 kgMita Karimi MD Work Phone: 1(754)225-[address] [place], [place] 1531507-10-2024 13:31-0400 Diastolic blood dtiianhx18 mm[Hg]Mita Karimi MD Work Phone: 0(628)129-[address] [place], [place] 1531507-10-2024 13:31-0400 Heart rate64 /minMita Karimi MD Work Phone: 0(700)808-[address] [place], [place] 1531507-10-2024 13:31-0400 Systolic blood ywtbrttu440 mm[Hg]Mita Karimi MD Work Phone: 1(747)097-[address] [place], [place] 1531501-16-2024 09:10-0500 Body .59 cmJyotsna Abarca Other [employer] Other 149921-00-3204 09:10-0500Body mass index (BMI) [Ratio] 21.88 kg/x4JhemsJyotsna Abarca Other [employer] Other 01-16-2024 09:10-0500Body efbhkarnhmv79.6 [degF]Jyotsna Abarca Other [employer] Other 01-16-2024 09:10-0500Body .31 kgDapardeep Abarca Other [employer] Other 01-16-2024 09:10-0500Diastolic blood mm[Hg] Jyotsna Abarca Other [employer] Other 01-16-2024 09:10-0500Respiratory rate18 /minDavigama Abarca Other [employer] Other 01-16-2024 09:10-6149FeH0% (BldA) [Mass fraction]97 % Jyotsna Abarca Other [employer] Other 01-16-2024 09:10-0500Systolic blood mm[Hg] Jyotsna Abarca Other [employer] Other 10-03-2023 14:19-0400Body .8 cmMita Karimi MD Work Phone: [facility]10-03-2023 14:19-0400 Body mass index (BMI) [Ratio]22.42 kg/o9BqeikxwMita Karimi MD Work Phone: [facility]10-03-2023 14:19-0400 Body xaxmqi17.99 kgMita Karimi MD Work Phone: [facility]10-03-2023 14:19-0400 Diastolic blood vuquhohe57 mm[Hg]Mita Karimi MD Work Phone: [facility]10-03-2023 14:19-0400 Heart rate57 /minMita Karimi MD Work Phone: [facility]10-03-2023 14:19-0400 Systolic blood atdwofhh254 mm[Hg]Mita Karimi MD Work Phone: [facility]07-06-2023 09:10-0400 Body rqoswl086.59 cmDapardeep Abarca Other [employer] Other 406231-60-7840 09:10-0400Body mass index (BMI) [Ratio] 21.16 kg/i9Lriyxpardeep Abarca Other [employer] Other 549719-40-5452 09:10-0400Body btzezqxmjhe35.9 [degF]Jyotsna Abarca Other [employer] Other 433886-84-2554 09:10-0400Body nopotj01.72 kgDapardeep Abarca Other [employer] Other 201398-78-4237 09:10-0400Diastolic blood mm[Hg] Jyotsna Abarca Other [employer] Other 543293-27-1263 09:10-0400Respiratory rate16 /Jade Abarca Other [employer] Other 203209-87-8475 09:10-3377ThD6% (BldA) [Mass fraction]97 % Jyotsna Abarca Other [employer] Other 815173-12-8318 09:10-0400Systolic blood hxvlyzwn011 mm[Hg] Jyotsna Abarca Other [employer] Other 732867-89-4002 16:01-0500Body vczqoi153.78 cmDapardeep Mckayjusten Work Phone: 1(527) [phone]-Mrmug [facility] DO Work Phone: 1(795) 109-387901-05-2023 16:01-0500Body mass index (BMI) [Ratio] 22.07 kg/y3Hzcjepardeep Mckayjusten Work Phone: 1(855) [phone]-Gpamv [facility] DO Work Phone: 1(487) 950-850101-05-2023 16:01-0500Body surface area Derived from formula1.35 m0Eykyjpardeep Mckayjustne Work Phone: 1(982) [phone]-Fvtqd [facility] [address] DO Work Phone: 1(866) 682-558801-05-2023 16:01-0500Body gttidq94.27 kgDapardeep Mckayjusten Work Phone: 1(391) [phone]-Hxnmi [facility] DO Work Phone: 1(051)[phone]-3501 16:01-0500Diastolic blood yayzewbj98 mm[Hg] Jyotnsa Mckayjusten Work Phone: 1(188) [phone]-Vpgcx [facility] DO Work Phone: 1(712) 880-560001-05-2023 16:01-0500Heart rate60 /minDjeremiah Mckayjusten Work Phone: 1(411) [phone]-Inoat [facility] DO Work Phone: 1(187) 913-431501-05-2023 16:01-0500Systolic blood ctqobnov052 mm[Hg] Jyotsna Abarca Work Phone: 1(979) [phone]-Zgdjk [facility] DO Work Phone: 1(513) 238-477401-05-2023 10:10-0500Body uzcaao449.59 cmDavid Tevin Other [employer] Other 01-05-2023 10:10-0500Body mass index (BMI) [Ratio] 20.95 kg/y3Nnqtfpardeep Abarca Other [employer] Other 003107-06-2687 10:10-0500Body jakrcurvgfg84.5 [degF]Jyotsna Abarca Other [employer] Other 01-05-2023 10:10-0500Body doteda30.27 kgDapardeep Abarca Other [employer] Other 000727-95-5515 10:10-0500Diastolic blood lkrqmnar12 mm[Hg] Jyotsna Abarca Other [employer] Other 581303-53-9573 10:10-0500Respiratory rate16 /minDjeremiah Abarca Other [employer] Other 312373-76-6107 10:10-4408TrI5% (BldA) [Mass fraction]96 % Jyotsna Abarca Other [employer] Other 497994-57-5680 10:10-0500Systolic blood mm[Hg] Jyotsna Abarca Other [employer] Other 06-21-2022 10:10-0400Body aeouai098.59 cmDapardeep Abarca Other [employer] Other 06-21-2022 10:10-0400Body mass index (BMI) [Ratio]21.9 kg/g3LklncJyotsna Abarca Other [employer] Other 06-21-2022 10:10-0400Body qsaoyelowoo61.7 [degF]Jyotsna Abarca Other [employer] Other 06-21-2022 10:10-0400Body pgypvb37.35 kgDapardeep Abarca Other [employer] Other 06-21-2022 10:10-0400Diastolic blood dnshjscu56 mm[Hg] Jyotsna Abarca Other [employer] Other 06-21-2022 10:10-0400Respiratory rate16 /minDjeremiah Abarca Other [employer] Other 06-21-2022 10:10-0217GbY3% (BldA) [Mass fraction]98 % Jyotsna Abarca Other [employer] Other 06-21-2022 10:10-0400Systolic blood mm[Hg] Jyotsna Abarca Other [employer] Other 04-21-2022 15:33-0400Diastolic blood cxamflqm11 mm[Hg] J[facility]otsna Griffith [facility] DO Work Phone: 1(626) 527-846204-21-2022 15:33-0400Systolic blood wiliavzt610 mm[Hg] Jyotsna Griffith PamelaEvergreen[facility] DO Work Phone: 1(560) 977-313704-21-2022 15:25-0400Diastolic blood wtumqyvu95 mm[Hg] J[facility]otsna Griffith [facility] Work Phone: 1(733)[phone]-6201 15:25-0400Systolic blood zhgipudq796 mm[Hg] Jyotsna Griffith Tevin-[facility] DO Work Phone: 1(566) 609-474704-21-2022 15:20-0400Body zjhkxo169.78 cmDapardeep Griffith [facility]evinF[facility] DO Work Phone: 1(395) 410-776804-21-2022 15:20-0400Body mass index (BMI) [Ratio] 22.72 kg/f0Fvzzj Nacho AbarcaFerry County [facility] DO Work Phone: 1(274) 634-234604-21-2022 15:20-0400Body surface area Derived from formula1.37 q2Iszes C TevinFerry [facility] DO Work Phone: 1(665) 312-776204-21-2022 15:20-0400Body qojtbm42.63 kgDapardeep Mckayjusten [facility] [address] DO Work Phone: 1(665) 686-114104-21-2022 15:20-0400Diastolic blood wledpqha50 mm[Hg] Jyotsna Griffith [facility]evinF[facility] DO Work Phone: 1(295) 560-846004-21-2022 15:20-0400Heart rate58 /minDavigama Griffith Tevin [facility] [address] DO Work Phone: 1(791) 859-261704-21-2022 15:20-0400Systolic blood ctoxvums748 mm[Hg] Jyotsna Griffith [facility]evinF[facility] DO Work Phone: 1(857) 698-984712-14-2021 10:10-0500Body eevuzr415.59 cmDapardeep Abarca Other [employer] Other 12-14-2021 10:10-0500Body mass index (BMI) [Ratio] 21.98 kg/a4Ykfdvpardeep Abarca Other [employer] Other 12-14-2021 10:10-0500Body .1 [degF]Jyotsna Abarca Other [employer] Other 12-14-2021 10:10-0500Body anezaw94.54 kgDapardeep Abarca Other [employer] Other 12-14-2021 10:10-0500Diastolic blood geqrqpak84 mm[Hg] Jyotsna Abarca Other [employer] Other 12-14-2021 10:10-0500Respiratory rate16 /Jade Abarca [facility] [employer] Other 12-14-2021 10:10-7130YzV4% (BldA) [Mass fraction]99 % Jyotsna Abarca Other [facility] [employer] Other 12-14-2021 10:10-0500Systolic blood xptagdtw869 mm[Hg] Jyotsna Abarca Other [facility] [employer] Other Encounters Encounter DateEncounter TypeCare ProviderFacilityStart: 06-09-2025 End: 86-21-4032yygwhmdzxnPxvwu Girvin DO Work Phone: [facility] Work Phone: Start: 06-09-2025 End: 85-37-6876Jxqmegx encounter procedureDapardeep Abarca DO-[facility] Work Phone: Start: 06-03-2025 End: 59-15-8290Mikuqrs encounter procedureDapardeep Abarca DO-[facility]: 06-03-2025 End: 50-62-0579aphrhutgejFeoun Girvin DO Work Phone: [facility] Work Phone: Start: 05-22-2025 End: 06-74-1075Pphzky OnlyÁngel Botello MD Work Phone: noms SWS OBComment on above:Osteoporosis, post- menopausal (Primary Dx)Start: 02-19-2025 End: 22-14-3153wcyvsqrexxZDWKBYI [facility] AmbulatoryStart: 02-19-2025 End: 72-45-9654Kexysj outpatient visit 25 minutesMolisa Karimi MD Work Phone: uh FirelandsComment on above:Other secondary pulmonary hypertension (Primary Dx); Coronary artery disease involving [place] coronary artery of [place] heart without angina pectoris; Hyperlipidemia, unspecified hyperlipidemia type; Primary hypertension; BMI 22.0-22.9, adult; TIA (transient ischemic attack); Shortness of breath; Never smoked any substanceStart: 02-09-2025 End: 51-25-3528Xqnyqn outpatient visit 10 minutesÁngel Botello MD Work Phone: [facility] OBComment on above:Mastalgia (Primary Dx); Encounter for gynecological examination without abnormal finding; Screening for malignant neoplasm of cervix; Encounter for screening mammogram for malignant neoplasm of breast; Postmenopausal; Osteoporosis, post-menopausal (CMS/HCC); Subacute vulvitisStart: 02-09-2025 End: 90-06-8552Fltpznq encounter statusÁngel Botello MD Work Phone: noNC HealthcareStart: 02-09-2025 End: 09-32-5829vhhvkosvnwIMMTBA P JONESNot AvailableStart: 12-26-2024 End: 66-49-8085Vrhudng encounter procedureDavigama Abarca DO Work Phone: [facility]-Lab [facility]: 12-26-2024 End: 23-23-7478nvzpzhaholIvwnv Girvin DO Work Phone: [facility] Work Phone: Start: 12-10-2024 End: 74-04-4765ifuvhmghawFeptk Girvin DO Work Phone: [facility] Work Phone: Start: 12-10-2024 End: 54-42-4420Kjztfia encounter procedureDavigama Abarca DO Work Phone: [facility] Work Phone: Start: 12-04-2024 End: 12-71-5414Hlwevbh encounter procedureDavigama Abarca DO Work Phone: [facility]: 12-04-2024 End: 45-94-0951ykzxwevdecQobrw Girvin DO Work Phone: [facility] Work Phone: Start: 09-29-2024 End: 33-22-0282Wifnfrlcd Result EncounterÁngel Botello MD Work Phone: noms External Department UnsolicitedStart: 09-29-2024 End: 97-66-7690Bacprioyf Result EncounterÁngel Boetllo MD Work Phone: noms External Department UnsolicitedStart: 08-06-2024 End: 80-25-2780yesjltckahJhbptga R NILLFacility::[id number]: 07-23-2024 End: 83-68-2681yansimvessQjnzooz R NILLFacility: BellevueStart: 07-23-2024 End: 74-81-4983Lttkjoi encounter procedureMichael R NILL [phone]-ZafalD[facility] [place] Start: 95-14-9491gylzeydzmjYviqqlo NILLFacility: BellevueStart: 48-19-0449jtvuqjxsnaUsddjmc NILLFacility: LorenzokStart: 06-12-2024 End: 71-42-5441Eyuueud encounter procedureDO Jyotsna Abarca Work Phone: [facility]: 06-12-2024 End: 49-51-5769ffzerrvaciTK David Girvin Work Phone: [facility] Work Phone: Start: 06-11-2024 End: 68-19-2222pqxqptshvcGZ David Girvin Work Phone: [facility] Work Phone: Start: 06-11-2024 End: 88-09-5637Rcgwbri encounter procedureDO Jyotsna Abarca Work Phone: [facility] [place] Work Phone: Start: 05-23-2024 End: 08-83-1607urvijhtmwxES David Girvin Work Phone: [facility] Work Phone: Start: 05-23-2024 End: 66-83-3031Dfzfyst encounter procedureDO Jyotsna Abarca Work Phone: [facility]: 05-21-2024 End: 72-49-7085Kpodmi outpatient visit 15 minutesMita Karimi MD Work Phone: [facility] on above:Other secondary pulmonary hypertension (Multi) (Primary Dx); Coronary artery disease involving [place] coronary artery of [place] heart without angina pectoris; Primary hypertension; Hyperlipidemia, unspecified hyperlipidemia type; BMI 22.0-22.9, adult; TIA (transient ischemic attack); Shortness of breath; Never smoked any substanceStart: 05-21-2024 End: 28-31-9791qqhzoxvqnwGSNCEPHPhoebe [facility] AmbulatoryStart: 83-26-2169Slc-patient / Non-visitDO Jyotsna Abarca Work Phone: [facility] [place] Work Phone: Start: 70-82-3944Giwbyploq encounterDapardeep SimmonsMetropolitan State Hospitaltart: 12-03-2023 End: 89-90-2045zqrhtfpdvgTB Jyotsna Abarca Work Phone: [facility] Work Phone: Start: 12-03-2023 End: 01-01-5637Mzwpvhf encounter procedureDO Jyotsna Abarca Work Phone: [facility]: 11-27-2023 End: 81-67-2657jdcbhmhjbgOlwtg Girvin Other [employer] Other Start: 79-82-5639Wacfyz outpatient visit 25 minutes J[facility]na [facility] BellueStart: 11-27-2023 End: 97-94-5644Qujabji encounter procedureDO Jyotsna Abarca Work Phone: [facility] Work Phone: Start: 11-15-2023 End: 71-55-6489npxaafgxqyBF David Girvin Work Phone: [facility] Work Phone: Start: 11-15-2023 End: 93-12-0246Vcrjemu encounter procedureDO Jyotsna Abarca Work Phone: [facility]: 08-14-2023 End: 42-38-2239Ykhndr outpatient visit 15 minutesMita Karimi MD Work Phone: [facility]Com[facility] on above:Coronary artery disease involving [place] coronary artery of [place] heart without angina pectoris (Pr imary Dx); Primary hypertension; Hyperlipidemia, unspecified hyperlipidemia type; Other secondary pulmonary hypertension (CMS/HCC); BMI 22.0-22.9, adult; TIA (transient ischemic attack); Shortness of breath; Never smoked any substanceStart: 07-26-2023 End: 21-15-9551odswbrdflhWfftd Girvin Other [employer] Other Start: 05-84-6160Ehenowwxb encounterDavigama AbarcaG [facility] BrunswickueStart: 06-28-2023 End: 97-82-0177xnsimglqezGlhsg Girvin Other [employer] Other Start: 82-43-4374Mollvnklt encounterDavigama [facility] BrunswickueStart: 06-25-2023 End: 22-69-8341bpevzdqccdWQ David Girvin Work Phone: [facility] Work Phone: Start: 06-25-2023 End: 20-81-1368Awnpqns encounter procedureDO Jyotsna Abarca Work Phone: [facility]: 05-17-2023 End: 43-77-7387bvoxzxqbhjNeves Girvin Other [employer] Other Start: 42-41-0504Fgmlea outpatient visit 25 minutes Jyotsna [place] [facility] Glenbeightart: 05-09-2023 End: 65-63-3525qgqbsixxdaFR Jyotsna Abarca Work Phone: [facility] Work Phone: Start: 05-09-2023 End: 70-59-6830Abmpyfb encounter procedureDO Jyotsna Abarca Work Phone: [facility]: 05-07-2023 End: 53-13-8041osmvmcmidhPnzzy Girvin Other [employer] Other Start: 95-95-4100Yzueiffsf encounterDapardeep [facility]tart: 04-04-2023 End: 93-82-5727hgrpeuiwzkEPEAAZ SAMSA .Facility:V4Prwws: 85-78-5132Peiradueb for preprocedural laboratory examinationHARBOR-[facility] .[facility]ertart: 02-22-2023 End: 82-37-2564vlyjrtqchhSxrzw Girvin Other [employer] Other Start: 03-22-7511Nvellblxh encounterDapardeep [facility] Glenbeightart: 02-21-2023 End: 01-50-7619gyputpkteiOfcoo Girvin Other [employer] Other Start: 28-92-8630Mejqshyst encounterDavigama [facility] BellevueStart: 02-20-2023 End: 08-20-6413ozylgngnecGCJudith Felizcility:X8Nyucl: 02-17-2023 End: 13-14-4833aiknnvmnbyEIJudith Felizcility:E6Quqdo: 02-17-2023 End: 41-66-1640Xwyegfdku for preprocedural laboratory examinationDR JYOTSNA ABARCA Facility:H2Txkol: 21-06-0322Ubvmogosg for preprocedural cardiovascular examinationHARBOR-[facility] .[facility] [place] [facility] HospitalStart: 64-08-4743Crpognehe for preprocedural laboratory examinationHARBOR-[facility] .[facility] HospitalStart: 02-08-2023 End: 32-65-3019myvtdmmbyeCC DAVID GIRVINFacility:U2Zrqxc: 02-08-2023 End: 82-65-5322Rsuricwty for preprocedural cardiovascular examinationDR JYOTSNA Milelrity:J4Wnyod: 12-29-2022 End: 18-25-8312boaadbuhqkHamzj Girvin Other [employer] Other Start: 39-63-0053Zvuupgddc encounterDapardeep [facility]ueStart: 12-05-2022 End: 54-79-8976fwmhoxctkwUMJames ABARCAHarrison [employer] Other Start: 33-31-6245Zlibonyuv encounterDavigama River [facility] BellevueStart: 07-49-0174Mccuqd outpatient visit 25 minutesDavigama River [facility] BellevueStart: 26-15-5615Pqlztbopa encounterDavigama River [facility] LetartevueStart: 11-16-2022 End: 47-11-9018xglycuoxljBY DAVID GIRVINHarrison [employer] Other Start: 11-07-2022 End: 07-12-1168pnqjunbdtrPR David Girvin Work Phone: [facility] Work Phone: Start: 11-07-2022 End: 38-51-0670Zkcmfzv encounter procedureDO Jyotsna Abarca Work Phone: [facility] Hospitaltart: 09-25-2022 End: 52-15-4947zmbehgepteKE DAVID GIRVINFacility:C7Nvdyg: 08-31-2022 End: 12-92-2401lrcphgqllqNtgqp Girvin Other [facility] Other Start: 61-87-5666Xpawkzjbl encounterDavigama River [facility] [place]Start: 08-22-2022 End: 94-82-5207ayxzzhjrpyYfbhg Girvin Other [facility] Other Start: 20-75-0026Jwdlhkspo encounterDavigama River [facility] [place]vueStart: 08-15-2022 End: 13-32-0605bhgjcaqaeqAzpeb Girvin Other [facility] Other Start: 52-79-1711Bhjnqkqpe encounterDapardeep [facility] [place]vueStart: 05-02-2022 End: 22-86-6039qnttezhehiSvokg Girvin Other [facility] Other Start: 72-08-9045Pvpwyx outpatient visit 25 minutes [facility] [place]Start: 11-80-8380Qmdsvh outpatient visit 25 minutesDapardeep [facility] DO Work Phone: Start: 10-25-2021 End: 97-25-2846fxmgcwqhorJgugk Girvin Other [employer] Other Start: 92-15-9411Wckaej outpatient visit 25 minutes [facility] [place] Procedures DateProcedureProcedure DetailPerforming ClinicianStart: 08-84-6833Phs routine ecg w/least 12 lds w/i&rMjuan Karimi MD Work Phone: Start: 38-74-7637Ehlmn Iainafiagama Abarca DO Work Phone: Start: 31-13-9691JB TOMOSYNTHESIS SCREENING Nicol Botello MD Work Phone: start: 04-86-3258Yugch IainTisha Abarca Work Phone: Start: 96-51-2112Gyroa Mahendra Abarca Work Phone: Start: 94-40-0881Ujl routine ecg w/least 12 lds w/i&r Mita Karimi MD Work Phone: Start: 21-49-1673Dtbnx Mahendra Abarca Work Phone: Start: 15-00-7084EcvhpcghtycoWhgqwok NILL Start: 96-01-7588NfmviihfpgqGzrhfy Jones MD Work Phone: start: 29-54-7503YhgxorntprfDbjtdox NILL Bilateral tubal ligationMichael NILL Biopsy of breastMichael NILL Biopsy of lungDavid C GirvinComment on above:left side; Biopsy of lungMichael NILL Comment on above:Outside Source Comment: Comment on above: left side;Cataract surgeryDavid C GirvinCataract surgeryMichael NILL ColonoscopyDavid C GirvinComment on above:11Dpw8807Lq Radu Beltran;ColonoscopyMichael NILL Ligation of fallopian tubeDavid C Tevin Plan of Treatment DateCare ActivityDetailAuthorStart: 81-41-0332Rxbpkolia for malignant neoplasm of colonNONC HealthcareStart: 02-15-2026 End: 79-75-7967Hcfeycq encounter procedureNOPETALUMA VALLEY [facility] OBStart: 11-25-2025 End: 00-29-0635Tjoyvwv encounter xhdhwbfow97/14/2026 2:40 PM EST Office Visit [address] [place] [phone] Mita Karimi MD [address] [facility] [address] [place] [address] [facility]: 09-30-2025 End: 77-45-5397WVZ Breast - bilateral screeningBilateral screening mammogram with tomosynthesis Imaging Routine Encounter for screening mammogram for malignant neoplasm of breast Expected: 09/30/2025, Expires: 04/07/2026[facility] Work Phone: comment on above:Expected: 09/30/2025, Expires: 04/07/2026Start: 38-42-2710ZwrylijwfKing's Daughters Medical Center OhioStart: 91-74-8452Kuunhga referralSt. [facility] Work Phone: Start: 02-19-2025 End: 23-16-9538Vukqbze encounter ipbsidtwg95/10/2025 2:20 PM EDT Office Visit [address] [place] [phone] Mita Karimi MD [address] [facility] [address] [place] [address] [facility]: 02-09-2025 End: 30-38-7374AVZ Skeletal system Views for bone densityDEXA bone density Imaging Routine Osteoporosis, post-menopausal (CMS/HCC) Expected: 02/09/2025, Expires: 02/09/2026NONC HealthcareComment on above:Expected: 02/09/2025, Expires: 02/09/2026Start: 02-09-2025 End: 77-28-3846BL Breast - rightRight breast US complete Imaging Routine Mastalgia Expected: 02/09/2025, Expires: 04/11/2026NOMS HealthcareComment on above:Expected: 02/09/2025, Expires: 04/11/2026Start: 42-50-0887Hdafshdp identified in Urine by CultureUrine [facility] Start: 02-61-2166AWGUH-19 Vaccine ( season)COVID-19 Vaccine ( season)[facility]: 98-97-2094Elhgqutam vaccinationInfluenza Vaccine (#1)[facility]: 12-39-0568Irajmiaz identified in Urine by CultureMcKitrick Hospitaltart: 05-21-2024 End: 87-72-3951Agbgkti encounter cvmkeeose03/10/2024 1:30 PM EDT Office Visit [address] [phone] Mita Karimi MD [address] [facility] [address] [place] [address] [facility]: 51-65-4784RHL High Risk: (Elderly (60+) or Population) (1 - 1-dose 75+ series)RSV High Risk: (Elderly (60+) or Population) (1 - 1-dose 75+ series)[facility] Start: 51-65-4726Znsjshiz identified in Urine by CultureMcKitrick Hospitaltart: 40-09-6169Gheeoqmw identified in Urine by CultureUrine [facility]: 87-67-6056QoymasyjiMcKitrick Hospitaltart: 65-31-4437MLL, Provider: Mita Karimi, Status: Pen, Time: 1:50 PMFUV, Provider: Mita Karimi, Status: Pen, Time: 1:50 [facility]MLifeCare [facility] [address] DO Work Phone: Start: 86-15-8426Ybkkdduoh vaccinationInfluenza Vaccine (#1)[facility]: 35-21-4502Pykcvygo identified in Urine by CultureMcKitrick Hospitaltart: 05-09-2023 Bacteria identified in Urine by CultureMcKitrick Hospitaltart: 66-01-8656Mrwhjktar for osteoporosisBone Density ScanMercy Health Fair[facility] Hospital: 22-25-3334ILT, Provider: Mita Karimi, Status: Pen, Time: 3:30 PMFUV, Provider: Mita Karimi, Status: Pen, Time: 3:30 PMRed Wing [facility] and Clinic 250 DO Work Phone: Start: 09-87-7038XRWMP-19 Vaccine (5 - Moderna series) COVID-19 Vaccine (5 - Moderna series)[facility]: 05-57-7932Itehob Vaccines (2 of 3)Zoster Vaccines (2 of 3)[facility]: 54-79-1508FSY patients and/or patients aged 60+ years (1 - 1-dose 60+ series)RSV patients and/or patients aged 60+ years (1 - 1-dose 60+ series)[facility]: 1989 Screening for malignant neoplasm of breastMammogramUnChildren's Hospital for Rehabilitation: 07-21-0291ICyC/Tdap/Td Vaccines (1 - Tdap)DTaP/Tdap/Td Vaccines (1 - Tdap)[facility]: 37-29-7967Sinkimvd mellitus screeningDiabetes ScreeningMercy Health Fairfield Hospital: 1968 Hepatitis C screeningHepatitis C ScreeningGreen Cross Hospital Start: 52-01-0858Bfnbyzbncjhm Vaccine: 65+ Years (1 - PCV)Pneumococcal Vaccine: 65+ Years (1 - PCV)[facility]: 1956 Pneumococcal Vaccine: 65+ Years (1 of 2 - PCV)Pneumococcal Vaccine: 65+ Years (1 of 2 - PCV)[facility]: 59-06-1005Evicz panelLipid PanelUnChildren's Hospital for Rehabilitation: 1950Medicare Annual Wellness VisitMedicare Annual Wellness Visit (AWV)[facility]: 01-26-0007Fdwxbvmeh for malignant neoplasm of colonUnChildren's Hospital for Rehabilitation: 14-26-9933Uwgctqfbt for osteoporosisBone Density ScanGreen Cross HospitalBacteria identified in Urine by [facility] metabolic 1999 panel - Serum or PlasmaThe Jewish HospitalComgila regional medical center metabolic 1999 panel - Serum or Plasma The [facility] HospitalCompreplains regional medical center metabolic 1999 panel - Serum or PlasmaThe Jewish HospitalGlucose measurement estimated from glycated hemoglobinThe Jewish HospitalHemoglobin A1c/Hemoglobin.total in [facility] Cancer CenterPatient referral [facility] Work Phone: [facility] Immunizations Immunization DateImmunizationNotesCare PcqtumhrOgqjkebi84-76-8371Jyiwuc COVID-19 Vac Bivalent 30 MCG/0.3ML Intramuscular SuspensionDapardeep Abarca Work Phone: [phone]-RijhqRed Wing Hospital and Clinic 250 DO Work Phone: 1([phone]) [phone]tyvc COVID-19 Vaccine 100 MCG/0.5ML Intramuscular SuspensionJyotsna AbarcaUnCincinnati VA Medical CenterComment on above:Series:79-34-3067TILJM-19 Vaccine Moderna - Documentation Purposes Only Jyotsna Abarca Other [facility]03-23-2021COVID-19 Vaccine Moderna - Documentation Purposes OnlyJyotsna Abarca Other [facility]02-22-2021COVID-19 Vaccine Moderna - Documentation Purposes OnlyJyotsna Abarca Other [facility]10-05-2017zoster vaccine, Mary Abarca Other [facility] [employer] Other Payers DatePayer CategoryPayerPolicy [id number] MEDICARE HUMANA GOLD CHOICE [id number] 2022-Present [address] [address] [place] [address] [id number] 2023Medicare (Managed Care) [id number] [id number] [id number] 2.16.840.1.261737.3.579.2.593 [id number] 2.16.840.1.960203.3.57[id number] 2.16.840.1.551446.3.57[id number] 2.16.840.1.587946.3.57[id number] 2.16.840.1.829209.3.57[id number] 2.16.840.1.667614.3.57[id number] 2.16.840.1.220474.3.57[id number] 2.16.840.1.805985.3.57[id number] 2.16.840.1.821002.3.57[id number] 2.16.840.1.315019.3.57[id number] 2..840.1.596300.3.57[id number] 2..840.1.315803.3.57[id number] Pay [id number] Social History DateTypeDetailFacilityStart: 08-14-2023 End: 36-03-3780By alcohol useNo alcohol useNoexcelsior springs medical center [facility] Other Comment on above:1.5 cups coffee daily, tea-occasionally;Start: 08-14-2023 End: 77-20-2727Bdq Assigned At [facility] Other Start: 17-81-5699Jop Assigned At [facility] Hospitalt[facility]: 08-14-2023 End: 70-66-4572Kmvzktm smoking status NHISNever smoked tobaccoUnCincinnati VA Medical Center Work Phone: Start: 08-14-2023 End: 32-45-2679Fhnagib use and exposureSmokeless tobacco non-userUnCincinnati VA Medical Center Work Phone: Start: 08-14-2023 End: 08-32-8654Fvqojia intakeLifetime non-drinker (finding)[facility] Work Phone: Start: 10-71-7625Cpp Assigned At BirthNot on file [facility] Work Phone: Start: 08-04-2023 End: 13-28-7978Osbggzvz to SARS-CoV-2 (event)Not sureUnCincinnati VA Medical CenterStart: 28-51-2905Dmabnpn smoking statusNeverWexner Medical Centertart: 12-05-2024 End: 62-02-6901PqhWxsyeh (finding)[facility] HospitalHow often to you have a drink containing alcohol?NeverSaint [facility] Hospital [facility] Functional Status GfnqRoldtkbdqpAgdzizTinhxywz38-64-7420Hjaiicsvpi StatusN/AFisher-[facility] Clinical Notes 10-25-2021 to 06-09-2025 Note Date & NeflUgoiMmzrqflt61-85-3761 Hospital Discharge instructionsAmbulatory Orders* Referral to Rheumatology Time Frame: 06/09/25, Location: None Selected [facility] Work Phone: 1(663) 484-255707-29-2025 Evaluation note* Diagnosis Onset Date Resolution Status Admit Date Abnormal lung sounds acuteJuly 2024 2:30pmHyperglycemiaacuteJuly 2024 2:30pm HyperlipidemiaacuteJuly 2024 2:30pmLung noduleacuteJuly 2024 2:30pm OsteoporosisacuteJuly 2024 2:30pmVitamin B12 deficiencyacuteJuly 2024 2:30pmVitamin D deficiencyacuteJuly 2024 2:30pm [facility] Work Phone: 1([phone]) 789-108807-11-2025 History of Present illness Narrative* Ángel Botello MD - 05/22/2025 2:42 PM EDT Osteoporosis on Nasal spray S/P Prolia which she has stopped due to side effects Rhematology referral sent documented in this encounterSaint Joseph Hospital of KirkwoodLvvkmaoxub07-04-6012 History of Present illness Narrative* Mita Karimi MD - 02/19/2025 2:20 PM EDT Chief Complaint Patient presents with Follow-up 9m Follow up for Coronary Artery Disease Subjective Meseret Davidson is a 75 y.o. female HPI Patient is here for follow-up to management for coronary artery disease affecting small diagonal branch, hypertension, hyperlipidemia. Since last time I saw her she got minimal shortness of breath and rated chest pain. Her symptoms unchanged from before. Recent lab noted and reviewed with her but no lipid profile is available. ASSESSMENT: 1. Coronary artery disease affecting small diagonal. Medical treatment was recommended based on previous evaluation. She denies any angina functional class I rare episode of shortness of breath and chest pain noted unchanged from before. Patient scruff functional class I 2. Remote history of palpitation and premature ventricular contractions completely resolved. She denies any recurrence 3. Mild secondary pulmonary hypertension. 4. Hypertension, controlled. 5. Hyperlipidemia, no recent lab 6. Remote history of transient ischemic attack with no recurrence. RECOMMENDATION: 1. The patient will remain on current therapy. 2. I reviewed with her her recent lab 3. We will see her back in 9 months Review of Systems Cardiovascular: Positive for chest pain and dyspnea on exertion. All other systems reviewed and are negative. Vitals: 02/19/25 1431 BP: 122/70 BP Location: Left arm Patient Position: Sitting Pulse: 70 Weight: (!) 44.9 kg (99 lb) Height: 1.448 m (4' 9 ) EKG done in office today Objective Physical Exam Constitutional: Appearance: Normal appearance. HENT: Nose: Nose normal. Neck: Vascular: No carotid bruit. Cardiovascular: Rate and Rhythm: Normal rate. Pulses: Normal pulses. Heart sounds: Normal heart sounds. Pulmonary: Effort: Pulmonary effort is normal. Abdominal: General: Bowel sounds are normal. Palpations: Abdomen is soft. Musculoskeletal: General: Normal range of motion. Cervical back: Normal range of motion. Right lower leg: No edema. Left lower leg: No edema. Skin: General: Skin is warm and dry. Neurological: General: No focal deficit present. Mental Status: She is alert. Psychiatric: Mood and Affect: Mood normal. Behavior: Behavior normal. Thought Content: Thought content normal. Judgment: Judgment normal. Allergies Atenolol; Clopidogrel; Desloratadine; Hydrocodone-acetaminophen; Naproxen; Penicillins; Vioxx [rofecoxib]; Cephalexin; Estroven [soy isofla-blk cohosh-mag bark]; Iron,carbonyl-vitamin c; Alendronate;and Sulfamethoxazole Current Medications Current Outpatient Medications: aspirin 81 mg EC tablet, Take 1 tablet (81 mg) by mouth once daily. As directed, Disp: , Rfl: atenolol (Tenormin) 25 mg tablet, Take 1 tablet (25 mg) by mouth 2 times a day., Disp: , Rfl: BLACK COHOSH ORAL, Take 1 capsule by mouth once daily. 40mg, Disp: , Rfl: calcitonin, salmon, (Miacalcin) 200 unit/actuation nasal spray, Administer 1 spray into affected nostril(s) once daily. ALTERNATING NOSTRILS, Disp: , Rfl: calcium phosphate trib/vit D3 (CITRACAL-D3 GUMMIES ORAL), Take 2 tablets by mouth once daily., Disp: , Rfl: cholecalciferol (Vitamin D3) 25 MCG (1000 UT) capsule, Take by mouth. Take as directed, Disp: , Rfl: cyanocobalamin, vitamin B-12, (VITAMIN B-12 ORAL), Take 1 tablet by mouth once daily., Disp: , Rfl: isosorbide mononitrate ER (Imdur) 30 mg 24 hr tablet, Take 1 tablet (30 mg) by mouth once daily., Disp: 90 tablet, Rfl: 3 nitroglycerin (Nitrostat) 0.4 mg SL tablet, Place 1 tablet (0.4 mg) under the tongue every 5 minutes if needed for chest pain. For up to 3 doses; CALL 911 IF PAIN PERSISTS., Disp: , Rfl: omega 5-fhk-hjx-fish oil (Fish OiL) 1,000 mg (120 mg-180 mg) capsule, Take 1 capsule (1,000 mg) by mouth 2 times a day., Disp: , Rfl: rosuvastatin (Crestor) 20 mg tablet, Take 1 tablet (20 mg) by mouth once daily., Disp: , Rfl: salmon oil/omega-3 fatty acids (SALMON OIL-1000 ORAL), Take 1 capsule by mouth early in the morning.., Disp: , Rfl: Assessment/Plan 1. Other secondary pulmonary hypertension 2. Coronary artery disease involving [place] coronary artery of [place] heart without angina pectorisFollow Up In Cardiology 3. Hyperlipidemia, unspecified hyperlipidemia type 4. Primary hypertension 5. BMI 22.0-22.9, adult 6. TIA (transient ischemic attack) 7. Shortness of breath 8. Never smoked any substance Scribe Attestation By signing my name below, La Capps, HERBERT castillo , Scribe attest that this documentation has been prepared under the direction and in the presence of MD Delmy. Provider Attestation - Scribe documentation All medical record entries made by the Scribe were at my direction and personally dictated by me. Ihave reviewed the chart and agree that the record accurately reflects my personal performance of the history, physical exam, discussion and plan. documented in this encounterGreen Cross Hospital Work Phone: 1(447) 816-549704-10-2025 Instructions* Patient Instructions* Eva Bolanos LPN - 02/19/2025 2:20 PM EDT Please bring all medicines, vitamins, and herbal supplements with you when you come to the office. Prescriptions will not be filled unless you are compliant with your follow up appointments or have a follow up appointment scheduled as per instruction of your physician. Refills should be requested at the time of your visit. documented in this encounterGreen Cross Hospital Work Phone: 1(896) 731-617003-31-2025 History of Present illness Narrative* Ángel Botello MD - 02/09/2025 9:30 AM EDT Images from the original note were not included. 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 She suspects it may be related to pad use. The patient discloses a history of osteoporosis. She mentions being unable to take Prolia, a six-month injection, due to a sensitivity reaction. As an alternative, she is currently using a nasal spray for osteoporosis management. The patient's medical history includes osteoporosis. Her current medication includes a nasal spray for osteoporosis. Visit Vitals LMP (LMP Unknown) OB Status Postmenopausal Smoking Status Never History of Present Illness, Associated Treatments and Results - OB History Para Term AB Living 3 0 0 0 0 0 SAB IAB Ectopic Multiple Live Births 0 0 0 0 0 # Outcome Date GA Lbr Zach/2nd Weight Sex Type Anes PTL Lv 3 2 1 Review of Systems - Constitutional: Negative. HENT: Negative. Eyes: Negative. Respiratory: Negative. Cardiovascular: Negative. Gastrointestinal: Negative. Endocrine: Negative. Genitourinary: Negative. Musculoskeletal: Negative. Skin: Negative. Allergic/Immunologic: Negative. Neurological: Negative. Hematological: Negative. Psychiatric/Behavioral: Negative. Allergies Allergen Reactions Atenolol Shortness of breath Other Reaction(s): Other No longer a allergen Clopidogrel Rash Other Reaction(s): Unknown Fatigue, tachycardia Desloratadine GI bleeding Other Reaction(s): Unknown Nose bleed Hydrocodone-Acetaminophen Other Reaction(s): Other Chest pain Naproxen Nausea Only and Shortness of breath Other Reaction(s): Other, Unknown fatigue Penicillins Shortness of breath Other Reaction(s): SOB, Unknown Rofecoxib Shortness of breath Chest pain Cephalexin Rash Other Reaction(s): Unknown Irregular HR Iron Carbonyl-Vitamin C-Fos Other Reaction(s): Drowsiness, Unknown Drowsiness, exercise intolerance, could not wake up Atorvastatin Other Reaction(s): Unknown Clarithromycin Other Reaction(s): Unknown Erythromycin Other Reaction(s): Unknown Fexofenadine Other Reaction(s): Unknown Loratadine Other Reaction(s): Unknown Pseudoephedrine Other Reaction(s): Unknown Alendronate Rash Other Reaction(s): Unknown Sulfa Antibiotics Rash Other Reaction(s): Unknown Current Outpatient Medications: aspirin 81 MG EC tablet, 1 (one) time each day at the same time, Disp: , Rfl: atenolol (Tenormin) 25 MG tablet, Take 25 mg by mouth in the morning and 25 mg before bedtime., Disp: , Rfl: Black Cohosh 40 MG capsule, as directed Orally, Disp: , Rfl: calcitonin, salmon, (Miacalcin) 200 UNIT/ACT nasal spray, USE 1 SPRAY IN ALTERNATING NOSTRILS ONCE A DAY, Disp: , Rfl: Calcium Carb-Cholecalciferol (CALCIUM 500+D3 PO), Calcium + D3, Disp: , Rfl: cholecalciferol (Vitamin D-3) 25 MCG (1000 UT) capsule, Take by mouth, Disp: , Rfl: isosorbide mononitrate ER (Imdur) 30 MG 24 hr tablet, Take 30 mg by mouth in the morning., Disp: , Rfl: nitroglycerin (Nitrostat) 0.4 MG SL tablet, Place 0.4 mg under the tongue, Disp: , Rfl: omega-3 (Fish Oil) 1000 MG capsule, 1 capsule 1 (one) time each day at the same time, Disp: , Rfl: Rhubarb (Estroven Menopause Relief) 4 MG tablet, Take 1 tablet by mouth Daily, Disp: 30 tablet, Rfl: 3 rosuvastatin (Crestor) 20 MG tablet, Take 20 mg by mouth Daily, Disp: , Rfl: No past medical history on file. Past Surgical History: Procedure Laterality Date TUBAL LIGATION Family History Problem Relation Name Age of Onset Uterine cancer Mother Breast cancer Sister second sister had cancer on her leg Cancer Maternal Grandmother Cancer Paternal Grandfather Social History Tobacco Use Smoking Status Never Smokeless Tobacco Never Physical Exam - General appearance, mentation, extraocular movements, facial strength and movement, hearing, upper and lower extremity strength and tone, sensation to gross testing, coordination, and gait are normalor at baseline unless noted below. Physical Exam Constitutional: Appearance: Normal appearance. Genitourinary: Genitourinary Comments: Tenderness Right UOQ Inner left labial minora edema Right Labia: No rash. Left Labia: No rash. Right Adnexa: no mass present. Left Adnexa: no mass present. No cervical lesion. Uterus is anteverted. Breasts: Right: Normal. No mass or nipple discharge. Left: No mass or nipple discharge. HENT: Head: Normocephalic and atraumatic. Cardiovascular: Rate and Rhythm: Normal rate and regular rhythm. Pulmonary: Breath sounds: Normal breath sounds. Chest: Abdominal: General: There is no distension. Palpations: Abdomen is soft. There is no mass. Tenderness: There is no abdominal tenderness. Musculoskeletal: General: Normal range of motion. Cervical back: Neck supple. Lymphadenopathy: Cervical: No cervical adenopathy. Neurological: Mental Status: She is alert and oriented to person, place, and time. Skin: General: Skin is warm and dry. Psychiatric: Mood and Affect: Mood normal. Behavior: Behavior normal. Assessment/Plan ICD-10-CM 1. Encounter for gynecological examination without abnormal finding Z01.419 2. Screening for malignant neoplasm of cervix Z12.4 3. Encounter for screening mammogram for malignant neoplasm of breast Z12.31 4. Postmenopausal Z78.0 Exam performed. Mammogram and Dexa ordered Results can be found in MyChart in 7 days Bone health discussed Return 1 year for annual Assessment & Plan 1. Osteoporosis. She is currently managed by Dr. Che and uses a nasal spray due to sensitivity to Prolia. A DEXA scan will be ordered and sent to [facility] for evaluation. 2. Breast pain. She reports occasional breast pain but no discharge. Her last mammogram in September showed no abnormalities. A breast ultrasound will be ordered to further investigate the cause of the pain. 1. Vulvar irritation: - Patient reports intermittent vulvar rash - Examination shows mild edema, no significant irritation - Symptoms may be related to pad use - Plan: a) Prescribed steroid cream for topical application 2. Osteoporosis: - Currently being treated by PCP - Unable to tolerate Prolia injections due to sensitivity reaction - Currently using nasal spray for treatment - Plan: a) Continue current nasal spray treatment b) Due for DEXA scan c) Schedule DEXA scan at [facility] [place] documented in this encounterSaint Joseph Hospital of KirkwoodRpjyhhnjur71-11-1740 Evaluation note* Author Jyotsna Abarca [facility] HospitalAuthoredHealthsouth Rehabilitation Hospital Of Southern Arizonauary 2024 3:57pmThe above note written by ___Valdemar Fraser____ acting as human recorder, note dictated by Dr. Carmen .I performed the above HPI, ROS, and Examination. I formulated and dictated the treatment plan and was present for entire encounter. Jyotsna Abarca D.O. [facility] Work Phone: 1(989) 453-689909-11-2024 NoteGeneral Surgery Office/Clinic Note Chief Complaint consultation for colonoscopy HPI [...] swallowing difficulties, no hearing loss, no ear infection(s),no nose bleeds. Cardiovascular: normal blood pressure, no [...] mg= 1 tab(s), Oral, BID calcitonin Nasal [place], 1 spray(s), Nasal, Daily Citracal + D, [...] (Rash) Social History Alc (more content not included)...[facility]testant HospitalComment on above: Result Comment: Electronically Signed By: ELVIS HERNÁNDEZ, Shiv Sharif\Date and Time Signed: 07/23/24 13:50 [id number] Evaluation note* Author Jyotsna Abarca The [facility] HospitalAuthoredJuly 2023 4:00pmThe above note written by ___Valdemar Fraser____ acting as human recorder, note dictated by Dr. Carmen .I performed the above HPI, ROS, and Examination. I formulated and dictated the treatment plan and was present for entire encounter. Jyotsna Abarca D.O. [facility] Work Phone: 1(658) 958-230907-10-2024 History of Present illness Narrative* Mita Karimi MD - 05/21/2024 1:30 PM EDT Subjective Meseret Davidson is a 74 y.o. female Chief Complaint Follow-up HPI Patient is here for follow-up and management for disease affecting small diagonal treated medically, hypertension, hyperlipidemia and mild pulmonary hypertension since last time I saw her she feels well but she denies any cardiac complaint of chest pain, palpitation, lightheadedness, dizziness or syncope. Her blood pressure has been well-controlled. Recent laboratory data noted and reviewed with her. Patient denies any palpitation PVCs ASSESSMENT: 1. Coronary artery disease affecting small diagonal. Medical treatment was recommended based on [...] back in 9 months Review of Systems All other systems reviewed and are negative. Vitals: 05/21/24 1331 BP: 138/68 BP Location: Left arm Patient Position: Sitting Pulse: 64 Weight: 46.7 kg (103 lb) Height: 1.448 m (4' 9 ) Objective Physical Exam Constitutional: Appearance: Normal appearance. HENT: Nose: Nose normal. Neck: Vascular: No carotid bruit. Cardiovascular: Rate and Rhythm: Normal rate. Pulses: Normal pulses. Heart sounds: Normal heart sounds. Pulmonary: Effort: Pulmonary effort is normal. Abdominal: General: Bowel sounds are normal. Palpations: Abdomen is soft. Musculoskeletal: General: Normal range of motion. Cervical back: Normal range of motion. Right lower leg: No edema. Left lower leg: No edema. Skin: General: Skin is warm and dry. Neurological: General: No focal deficit present. Mental Status: She is alert. Psychiatric: Mood and Affect: Mood normal. Behavior: Behavior normal. Thought Content: Thought content normal. Judgment: Judgment normal. Allergies Atenolol; Clopidogrel; Desloratadine; Hydrocodone-acetaminophen; Naproxen; Penicillins; Vioxx [rofecoxib]; Cephalexin; Iron,carbonyl-vitamin c; Estroven [soy isofla-blk cohosh-mag bark]; Alendronate;and Sulfamethoxazole Current Medications Current Outpatient Medications: aspirin 81 mg EC tablet, Take 1 tablet (81 mg) by mouth once daily. As directed, Disp: , Rfl: atenolol (Tenormin) 25 mg tablet, Take 1 tablet (25 mg) by mouth 2 times a day., Disp: , Rfl: BLACK COHOSH ORAL, Take 1 capsule by mouth once daily. 40mg, Disp: , Rfl: calcitonin, salmon, (Miacalcin) 200 unit/actuation nasal spray, Administer 1 spray into affected nostril(s) once daily. ALTERNATING NOSTRILS, Disp: , Rfl: calcium phosphate trib/vit D3 (CITRACAL-D3 GUMMIES ORAL), Take 2 tablets by mouth once daily., Disp: , Rfl: cholecalciferol (Vitamin D3) 25 MCG (1000 UT) capsule, Take by mouth. Take as directed, Disp: , Rfl: cyanocobalamin, vitamin B-12, (VITAMIN B-12 ORAL), Take 1 tablet by mouth once daily., Disp: , Rfl: isosorbide mononitrate ER (Imdur) 30 mg 24 hr tablet, TAKE 1 TABLET BY MOUTH EVERY DAY, Disp: 90 tablet, Rfl: 3 omega 1-jqc-lyf-fish oil (Fish OiL) 1,000 mg (120 mg-180 mg) capsule, Take 1 capsule (1,000 mg) by mouth 2 times a day., Disp: , Rfl: rosuvastatin (Crestor) 20 mg tablet, Take 1 tablet (20 mg) by mouth once daily., Disp: , Rfl: salmon oil/omega-3 fatty acids (SALMON OIL-1000 ORAL), Take 1 capsule by mouth early in the morning.., Disp: , Rfl: nitroglycerin (Nitrostat) 0.4 mg SL tablet, Place 1 tablet (0.4 mg) under the tongue every 5 minutes if needed for chest pain. For up to 3 doses; CALL 911 IF PAIN PERSISTS., Disp: , Rfl: Assessment/Plan 1. Other secondary pulmonary hypertension (Multi) 2. Coronary artery disease involving [place] coronary artery of [place] heart without angina pectorisFollow Up In Cardiology 3. Primary hypertension Follow Up In Cardiology 4. Hyperlipidemia, unspecified hyperlipidemia type Follow Up In Cardiology 5. BMI 22.0-22.9, adult 6. TIA (transient ischemic attack) 7. Shortness of breath 8. Never smoked any substance Scribe Attestation By signing my name below, I, Aly Man LPN attest that this documentation has been prepared under the direction and in the presence of MD Delmy. Provider Attestation - Scribe documentation All medical record entries made by the Scribe were at my direction and personally dictated by me. Ihave reviewed the chart and agree that the record accurately reflects my personal performance of the history, physical exam, discussion and plan. documented in this [facility] Work Phone: 1(718) 233-527707-10-2024 Instructions* Patient Instructions* Christy Hughes LPN - 05/21/2024 1:30 PM EDT Please bring all medicines, vitamins, and herbal supplements with you when you come to the office. Prescriptions will not be filled unless you are compliant with your follow up appointments or have a follow up appointment scheduled as per instruction of your physician. Refills should be requested at the time of your visit. BMI was above normal measurement. Current weight: 46.7 kg (103 lb) Weight change since last visit (-) denotes wt loss -0.6 lbs Weight loss needed to achieve BMI 25: -12.3 Lbs Weight loss needed to achieve BMI 30: -35.3 Lbs Provided instructions on dietary changes Provided instructions on exercise. [facility] Work Phone: [phone]) 627-476901-16-2024 Evaluation note* Encounter Date Diagnosis Assessment Notes Treatment Notes Treatment Clinical Notes Nov, Hypertension (ICD-10 - I10) Blood pressure is controlled. Continue with above medications as directed. Nov,Hyperglycemia (ICD-10 - R73.9)Discussed blood sugar results with patient today. Glucose is 95. HgA1C is 5.9. She admits she has continued to watch her intake of carbs and sugars to include cinnamon rolls. She is to continue with what she is doing as it is working well. Nov,Hyperlipidemia (ICD-10 - E78.5)Discussed cholesterol results with patient today. Total is 148. HDL is 63. LDL is 73. Triglyceridesare 62. VLDL is 12. Continue with above medication daily as directed. Nov,Vitamin B 12 deficiency (ICD-10 - E53.8)Her B12 level is 884. Folate is 30.0. Will continue to monitor. Nov,Vitamin D deficiency (ICD-10 - E55.9)Her Vitamin D level is 70.4. Continue with supplementation as directed. 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 [...] something that can just be normal, she hashad this before. She denies any signs or symptoms of a urine infection and is comfortable not beingtreated for this. I will order a urine culture to be done again in 1-2 weeks. Nov,Weight gain (ICD-10 - R63.5)She has gained 3.5 pounds since last seen. Her TSH is normal at 1.91. Nov,Lung nodule (ICD-10 - R91.1)She will return to see Dr. Powell in January (2023). Nov,OtherWe discussed that she will be due for a colonoscopy in April (2023). If she has not heard from the insurance account specialist office by the time we see her in six months (May 2024) then we will refer her. She is comfortable with this plan.She used a battery operated water pick and [...] faucet touches her head. She saw a poly operator in the past and would like to see one again. I will provide her with a phone number and she can call and set this up herself. [employer] Other 10-03-2023 History of Present illness Narrative* Mita Karimi MD - 08/14/2023 1:50 PM EDT Monserrat Davidson is a 73 y.o. female. Chief Complaint: [...] in office 1. Coronary artery disease involving [place] coronary artery of [place] heart without angina pectoris 2. Primary hypertension 3. Hyperlipidemia, unspecified hyperlipidemia type 4. Other secondary pulmonary hypertension (CMS/HCC) 5. BMI 22.0-22.9, adult 6. TIA (transient ischemic attack) 7. Shortness of breath 8. Never smoked any substance 1. Coronary artery disease involving [place] coronary artery of [place] heart without angina pectoris 2. Primary hypertension 3. Hyperlipidemia, unspecified hyperlipidemia type 4. Other secondary pulmonary hypertension (CMS/HCC) 5. BMI 22.0-22.9, adult 6. TIA (transient ischemic attack) 7. Shortness of breath 8. Never smoked any substance [facility] Work Phone: 1([phone]) 550-354910-03-2023 Instructions* Patient Instructions* Jose Antonio Hu MA [...] time of your visit. documented [facility] Work Phone: [phone]) 905-258107-06-2023 Evaluation note* Encounter Date Diagnosis Assessment Notes Treatment Notes Treatment Clinical Notes May, Hypertension (ICD-10 - I10) Blood pressure is controlled. Continue with above medications daily as directed. May,Hyperglycemia (ICD-10 - R73.9)Discussed blood sugar results with patient today. Glucose is 86. HgA1C is 6.0. She voices that she spent one month on and off in [place] and her diet was different then it is when she is home. She did try to watch her diet where she could. She has been back home for awhile now. She is back to watching her diet again. I did recommend she continue to watch her intake of carbs and sugars. Stay active. May,Hyperlipidemia (ICD-10 - E78.5)Discussed cholesterol results with patient today. Total is 138. HDL is 54. LDL is 70. Triglyceridesare 70. VLDL is 14. I would like her to continue with above medications daily as directed. May,Vitamin B 12 deficiency (ICD-10 - E53.8)Her Vitamin B12 is 543. Folate is 27.0. Increase B12 to five days a week. May,Vitamin D deficiency (ICD-10 - E55.9)Her Vitamin D is 53.9. Continue with Vitamin D as directed. May,Weight gain (ICD-10 - R63.5) May,AD (coronary artery disease) (ICD-10 - I25.10)Continue with above medication as needed May,Nocturia (ICD-10 - R35.1) May,Osteoporosis (ICD-10 - M81.0)Continue with above medication as directed. May,bnormal urinalysis (ICD-10 - R82.90)We discussed that her urine showed group B strep agalactiae. Her urine culture does not look infected. She denies burning with urination or symptoms of infection. She is in agreement to not treating this. In one month we will repeat a urinalysis to re-evaluate this. She did see light pink color in her urine two times since last seen. May,Lung nodule (ICD-10 - R91.1)Continue to follow with Dr. Powell for evaluation. 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 In one month I would like to repeat a CBC to be sure her hemoglobin has not gone down any further. She voices that she has noticed twice that there was some light pink color in her urine. She has had that happen in the past and was given acard to ruthie down how often this happened but at the time it only happened once and never again. She does not eat much meat, she will eat cheese, fish, chicken, cottage cheese. May,Hematuria (ICD-10 - R31.9)Because she has seen some light colored pink color in her urine two times we will repeat a urinalysis in one month. She did have group B strep agalactiae in her urine but we both agreed not to treat t his, she did not have symptoms of a urine infection. May,OtherShe voices that her hands are sore but she had been helping her with some yaniv, her hands did not hurt prior to this. If this continues she should let me know and a work up would be considered. [employer] Other 04-12-2023 Evaluation note* Encounter Date Diagnosis Assessment Notes Treatment Notes Treatment Clinical Notes Feb, DNR (do not resuscitate) discuss ion (ICD-10 - Z71.89) We did discuss the DNR order today, she chooses DNR [employer] [employer] which was discussed today, I did review everything that the DNR-CC covers with her today. She verbalizes that this is what she wants. I did recommend that her trial attorney have a copy of this order and her local hospital/ER. She has discussed this with her children, I did recommend that she designate someone as a health care power of trial attorney and provide copies of this order to them. After this discussion I did sign the order for her. Feb,Other11:26 AM - 11:33 AM [employer] Other 02-16-2023 Noteinvolving the lingula which has progressed since 2019. No honeycombing is identified. No consolidaNort [facility] Other 02-16-2023 NoteInterval progression of the patient's basilar interstitial changes with bronchiectasis involving [facility] Other 01-24-2023 Evaluation note* Encounter Date Diagnosis Assessment Notes Treatment Notes Treatment Clinical Notes Nov, Abnormal chest xray (ICD-10 - R9 3.89) Nov,Lung nodule (ICD-10 - R91.1) Nov,ough (ICD-10 - R05.9) [employer] [facility] Other 01-05-2023 Evaluation note* Encounter Date Diagnosis Assessment Notes Treatment Notes Treatment Clinical Notes Nov, Pneumonia (ICD-10 - J18.9) [facility] Other 01-05-2023 Evaluation note* Encounter Date Diagnosis Assessment Notes Treatment Notes Treatment Clinical Notes Nov, Hypertension (ICD-10 - I10) Blood pressure is controlled. Continue with above medications. Nov,ough (ICD-10 - R05.9)She voices that she has a cough at [...] recently had pneumonia. She clears her throat duringthe day but otherwise has not had any problems during the day. During the holiday she hadone day where she felt achy and tired [...] She can call for results. She needs totake four deep breaths while she is watching TV to help keep things open. Nov,Hyperglycemia (ICD-10 - R73.9)Discussed blood sugar results with patient today. Glucose is 98. HgA1C is 6.1. Continue to monitor intake of carbs and sugars. Stay active. She is still in the pre-diabetic zone. She admits she was not good for [place] and ate cookies. Nov,Hyperlipidemia (ICD-10 - E78.5)Discussed cholesterol results with patient today. Total is 154. HDL is 61. LDL is 82. Triglyceridesare 55. VLDL is 11. Readings are at goal. Continue with above medication daily. Watch intake of carbs and sugars. Stay active. Nov,Vitamin B 12 deficiency (ICD-10 - E53.8)Her Vitamin B12 level is 865. Folate is 18.8. Nov,Vitamin D deficiency (ICD-10 - E55.9)Her Vitamin D level is excellent at 72.0. Nov,AD (coronary artery disease) (ICD-10 - I25.10)Continue to have above medication on hand incase needed. 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 She has lost 4.6 pounds since last seen but she voices that she iscomfortable at this weight. She does not have trouble going up the stairs and will not zaragoza and puf f . She does not want to get too skinny but feels this is a good weight for her. She will continue to monitor. Nov,hest congestion (ICD-10 - R09.89) Nov,OtherWe discussed that when her colonoscopy was done in 2018 Dr. Beltran said that it could be considered to be redone in 5 years (2023). We can discuss this next year. [employer] Other 10-20-2022 Evaluation note* Encounter Date Diagnosis Assessment Notes Treatment Notes Treatment Clinical Notes Aug, Hyperlipidemia (ICD-10 - E78.5) [employer] Other 10-11-2022 Evaluation note* Encounter Date Diagnosis Assessment Notes Treatment Notes Treatment Clinical Notes Aug, Encounter for screen ing mammogram for breast cancer (ICD-10 - Z12.31) [employer] Other 06-21-2022 Evaluation note* Encounter Date Diagnosis Assessment Notes Treatment Notes Treatment Clinical Notes Apr, Hypertension (ICD-10 - I10) Blood pressure is controlled. Continue with above medication as directed. Apr,Hyperglycemia (ICD-10 - R73.9)Discussed blood sugar results with patient today. Glucose is 97. HgA1C is 6.1 which is at the higher end of normal. I did recommend that she continue with her walking and watch her intake of carbs and sugars. Apr,Hyperlipidemia (ICD-10 - E78.5)Discussed cholesterol results with patient today. Total is 159. HDL is 67. LDL is 83. Triglyceridesare 47. Readings are at goal. Continue with above medication daily as directed. Apr,Vitamin B 12 deficiency (ICD-10 - E53.8)Her B12 is 627. Folate is 19.8. Continue with B12 as directed. Apr,Vitamin D deficiency (ICD-10 - E55.9)Her Vitamin D level is 59.5. Continue with Vitamin D as directed. Apr,Hematuria (ICD-10 - R31.9)She voices that she does recall being told [...] her for the Strep B that was notedon the urine culture and then have her get a repeat urinalysis done, if blood is still noted then we will discuss referring her to a urologist for evaluation. Apr,Eustachian tube dysfunction, left (ICD-10 - H69.82)Her left ear appears to have fluid behind [...] help decrease inflammation and open the eustachian t ube. I do not want her to irritate her nostrils and not be able to use her Miacalcin nasal spray, but she could cautiously try the Fluticasone to see if she can get this to open up. Guidance is givenon how to use the medication. If the Fluticasone irritates her nose then she should stop using it. Apr,bnormal urinalysis (ICD-10 - R82.90)I did explain to her that her urine culture showed strep agalactiae group B. This is something thatcan just be in the genital tract. She [...] is gone and the blood is gone. Shecan call for results. Apr,AD (coronary artery disease) (ICD-10 - I25.10)Continue with above medication daily as directed. Apr,Lung nodule (ICD-10 - R91.1)She will see Dr. Powell at the beginning of the year (2022) she voices that if everything looks good the next time around then she won't have to see him for at least a year. Apr,steoporosis (ICD-10 - M81.0)She will be due for a repeat DEXA scan in January of 2023. Refer to discussion of 10-25-2021. She voices that she has returned to walking. She is using her Miacalcin nasal spray. Apr,Nocturia (ICD-10 - R35.1) Apr,ther senior living (current) drug therapy (ICD-10 - Z79.899) Apr,Weight loss (ICD-10 - R63.4) Apr,therIf she has allergy symptoms or visits her children who have pets then she will use Benadryl. [employer] Other 12-14-2021 Evaluation note* Encounter Date Diagnosis Assessment Notes Treatment Notes Treatment Clinical Notes Oct, Hyperlipidemia (ICD-10 - E78.5) Discussed cholesterol results with patient today. Total is 152. HDL is 54. LDL is 87. Triglyceridesare 57. Readings are at goal. She is to continue with above medications as directed. Oct,Osteoporosis (ICD-10 - M81.0) She had a DEXA [...] She does not want to see an actuarial internship for evaluation to discuss other medications. I did independently review the DEXA scan results today. She continues to exercise but is not walking due to the cold weather. Oct,Hypertension (ICD-10 - I10) Blood pressure is controlled. Continue with above medications daily as directed. Oct,Hyperglycemia (ICD-10 - R73.9) Discussed blood sugar results with patient today. Glucose is 100. HgA1C is at the higher end of normal at 5.9. She is encouraged to continue watching her intake of carbs and sugars. She voices that she has been eating alot of fresh vegetables and greens. Stay active. Oct,Vitamin B 12 deficiency (ICD-10 - E53.8) Her Vitamin B12 is 691. Folate is 19.3. Continue with B12 supplement as scheduled. Oct,Vitamin D deficiency (ICD-10 - E55.9) Her Vitamin D level is 66.3. Continue with Vitamin D supplement as directed. Oct,AD (coronary artery disease) (ICD-10 - I25.10) Oct,Nocturia (ICD-10 - R35.1) Oct,llergic rhinitis (ICD-10 - J30.9) Oct,Weight loss (ICD-10 - R63.4) Her TSH is normal at 2.12. She has lost 4.5 pounds since last seen. Oct,ough (ICD-10 - R05.9) She voices that she [...] in Dec (2021) and will see Dr. Powell after that. She feels better at this time. [facility] Other Evaluation + Plan note No data available for this section [facility] Evaluation noteNo InformationNortMeadville Medical Center [facility] Other Evaluation noteNo assessment information available [facility] Work Phone: Evaluation note* Diagnosis Coronary artery disease involving [place] coronary artery of [place] heart without angina pectoris- Primary Primary hypertension Unspecified essential hypertension Hyperlipidemia, unspecified hyperlipidemia type Other secondary pulmonary hypertension (CMS/HCC) BMI 22.0-22.9, adult TIA (transient ischemic attack) Unspecified transient cerebral ischemia Shortness of breath Never smoked any substance documented [facility] encounter [facility] Work Phone: Evaluation note* Diagnosis Onset Date Resolution Status Abnormal lung sounds acuteCAD (coronary artery disease)acuteHyperglycemiaacuteHyperlipidemiaacute HypertensionacuteHypokalemiaacuteLung noduleacuteOsteoporosisacuteVitamin B12 deficiencyacuteVitamin D deficiencyacute [facility] Work Phone: Evaluation note* Diagnosis Other secondary pulmonary hypertension (Multi)- Primary Coronary artery disease involving [place] coronary artery of [place] heart without angina pectoris Primary hypertension Unspecified essential hypertension Hyperlipidemia, unspecified hyperlipidemia type BMI 22.0-22.9, adult TIA (transient ischemic attack) Unspecified transient cerebral ischemia Shortness of breath Never smoked any substance documented in this encounter [facility] Work Phone: Evaluation note* Diagnosis Onset Date Resolution Status Admit Date Abnormal finding on urinalysis acuteJanuary 2024 2:35pmHyperglycemiaacuteJanuary 2024 2:35pm HyperlipidemiaacuteJanuary 2024 2:35pmHypertensionacuteJanuary 2024 2:35pmHypokalemiaacuteJanuary 2024 2:35pmLung noduleacuteJanuary 2024 2:35pmOsteoporosisacuteJanuary 2024 2:35pmRhinitisacuteJanuary 29th, 2025 2:35pmTineaacuteJanuary 2024 2:35pmVitamin B12 deficiencyacuteJanuary 2024 2:35pmVitamin D deficiencyacuteJanuary 2024 2:35pm [facility] Work Phone: Evaluation note* Diagnosis Mastalgia- Primary Mastodynia Encounter for gynecological examination without abnormal finding Screening for malignant neoplasm of cervix Screening for malignant neoplasm of the cervix Encounter for screening mammogram for malignant neoplasm of breast Postmenopausal Asymptomatic postmenopausal status (age-related) (natural) Osteoporosis, post-menopausal (CMS/HCC) Senile osteoporosis Subacute vulvitis [facility] Diagnosis Other secondary pulmonary hypertension- Primary Coronary artery disease involving [place] coronary artery of [place] heart without angina pectoris Hyperlipidemia, unspecified hyperlipidemia type Primary hypertension Unspecified essential hypertension BMI 22.0-22.9, adult TIA (transient ischemic attack) Unspecified transient cerebral ischemia Shortness of breath Never smoked any substance documented in this encounter [facility] Work Phone: Evaluation note* Diagnosis Osteoporosis, post-menopausal- Primary Senile osteoporosis documented in this encounter [facility] general Narrative - Reported* Type Description Date Medical History hyperlipidemia Medical HistoryHypertensionMedical HistoryHypertension [401.9]Medical History Hyperlipidemia [272.4 V58.69 = JASWANT lab]Medical HistoryPalpitations, paroxysmal [785.1]Medical HistorySeasonal allergies [477.9]Medical HistoryFamily medical history of [place] [V17.3]Medical HistoryFamily medical history of CVA [V17.1]Medical HistoryFamily medical history of uterine cancer [V16.49]Medical HistoryFamily medical history of Diabetes [V18]Medical HistoryFamily medical history of Thyroid [V18.1]Medical HistoryEchocardiogram [facility] 2009Medical [id number] Colonoscopy, polyp removed, needs repeat in 2017Medical HistoryTIA / Dr. Baltazar 2013Medical [id number] DEXA needs repeat in 02/01Surgical Historytubal ligationSurgical HistoryEGD (Dr. Beltran)20-05-51Jwndvqfm History Perforated TM patch, left - Dr. [id number] HistoryCatherizatoin - prolapsed valve Surgical Historycataract surgery both eyes10/2015Surgical Olfkrkqvtisoalfh80/2017Surgical HistoryColonoscopy, Dr. Beltran needs repeat in [id number] HistoryColonoscopy, Dr. [id number] Historyestimates she was hospitalized 4 times for chest [id number]'s [employer] Other Hisbcxl general Narrative - Reported* Type Description Date Medical History hyperlipidemia Medical HistoryHypertensionMedical HistoryHypertension [401.9]Medical History Hyperlipidemia [272.4 V58.69 = JASWANT lab]Medical HistoryPalpitations, paroxysmal [785.1]Medical HistorySeasonal allergies [477.9]Medical HistoryFamily medical history of [place] [V17.3]Medical HistoryFamily medical history of CVA [V17.1]Medical HistoryFamily medical history of uterine cancer [V16.49]Medical HistoryFamily medical history of Diabetes [V18]Medical HistoryFamily medical history of Thyroid [V18.1]Medical HistoryEchocardiogram [facility] 2009Medical [id number] Colonoscopy, polyp removed, needs repeat in 2017Medical HistoryTIA / Dr. Baltazar 2013Surgical Historytubal ligationSurgical HistoryEGD (Dr. Beltran) 76-81-36Fgfxxmir HistoryPerforated TM patch, left - Dr. KennedyIggsiiuuql4899Utsonedj HistoryCatherizatoin - prolapsed valve Surgical Historycataract surgery both eyes10/2015Surgical Zroglhxjucrfxlfs71/2017Surgical HistoryColonoscopy, Dr. Beltran needs repeat in [id number] HistoryColonoscopy, Dr. Beltran 8-33-00Hjbuckwwjptrdyb Historyestimates she was hospitalized 4 times for chest [id number]'s [employer] Other Hiswjir general Narrative - Reported* Type Description Date Medical History hyperlipidemia Medical HistoryHypertensionMedical HistoryHypertension [401.9]Medical History Hyperlipidemia [272.4 V58.69 = [facility] lab]Medical HistoryPalpitations, paroxysmal [785.1]Medical HistorySeasonal allergies [477.9]Medical HistoryFamily medical history of [place] [V17.3]Medical HistoryFamily medical history of CVA [V17.1]Medical HistoryFamily medical history of uterine cancer [V16.49]Medical HistoryFamily medical history of Diabetes [V18]Medical HistoryFamily medical history of Thyroid [V18.1]Medical HistoryEchocardiogram [facility] 2009Medical [id number] Colonoscopy, polyp removed, needs repeat in 2017Medical HistoryTIA / Dr. Baltazar 2013Medical [id number] DEXA needs repeat in 02/01Surgical Historytubal ligationSurgical HistoryEGD (Dr. Beltran)50-76-38Mlmvwuzn History Perforated TM patch, left - Dr. KennedyQakyysnrvb2640Nxwlaece HistoryCatherizatoin - prolapsed valve Surgical Historycataract surgery both eyes10/2015Surgical Sgnphmndavakeuta56/2017Surgical HistoryColonoscopy, Dr. Beltran needs repeat in fall [id number] HistoryColonoscopy, Dr. Beltran / consider repeat in 5 years 61770-77-09Ycgyidndkbgdlna Historyestimates she was hospitalized 4 times for chest [id number]'s [employer] Other History of Present illness Narrative* Patient [...] will see her back in 9 months [facility] Work Phone: History of Present [...] EKG * 4. [facility] Work Phone: Hospital Discharge instructions No data available for this section [facility] Progress note No data available for this section [facility] Reason for referral (narrative)* Consultation (Routine) - AuthorizedSpecialtyDiagnoses / ProceduresReferred By ContactReferred To ContactCardiology Diagnoses Coronary artery disease involving [place] coronary artery of [place] heart without angina pectoris Procedures Follow Up In Cardiology Mita Karimi MD [address] [facility] [address], [address] [address] Mita Karimi MD [address] [facility] 2, [address] [address] Referral IDStatusReasonStart DateExpiration DateVisits RequestedVisits [id number]/10/20247/ [facility] Work Phone: Reason for referral (narrative)No reason for referral information availableMount Carmel Health System Work Phone: Chief Complaint MESERET DAVIDSON is being seen for an annual follow-up of.MESERET DAVIDSON is being seen for a 9 month follow-up of. Family History Unknown Family Member Name Dates Details Family history of myocardial infarction: Mother, Brother(V17.3, Z82.49) Status:ActiveFamily history of malignant neoplasm: Sister, Brother(V16.9, Z80.9) Status:ActiveFamily history of arteriosclerotic cardiovascular disease: Mother, Sister, Brother(V17.49, Z82.49) Status:Active Unknown Family Member Name Dates Details Family history of myocardial infarction: Mother, Brother(V17.3, Z82.49) Status:ActiveFamily history of malignant neoplasm: Sister, Brother(V16.9, Z80.9) Status:ActiveFamily history of arteriosclerotic cardiovascular disease: Mother, Sister, Brother(V17.49, Z82.49) Status:ActiveFamily history of hepatic cirrhosis: Sister(V18.59, Z83.79) Status:Active Relationship Condition Age at Onset Recorded Date/T david aunt Unknown Myocardial infarctionUnknownbrotherHistory of strokeUnknownfatherDeceasedUnknown Family history of emphysemaUnknowngrandparentAcute cerebrovascular accident (CVA)UnknownDeceasedUnknowngrandparentDeceasedUnknownMalignant neoplasm of bone UnknownmotherDeceasedUnknown Summary Purpose Advance Directives Advance Directive Response Recorded Date/ Time Advance [...] R73.9 E78.5 E53.8 E55.9 Z79.899 R35.1 review labsReason for VisitAbnormal lung sounds CAD (coronary artery disease) Hyperglycemia Hyperlipidemia Hypertension Hypokalemia Lung nodule Osteoporosis Vitamin B12 deficiency Vitamin D deficiency Chief Complaint Amb Documentation R73.9 E78.5 E53.8 E55.9 Z79.899 R35.1 review labs E87.6Reason for VisitAbnormal lung sounds CAD (coronary artery disease) Hyperglycemia Hyperlipidemia Hypertension Hypokalemia Lung nodule Osteoporosis Vitamin B12 deficiency Vitamin D deficiency Chief Complaint Admit Date r35.1 December 04, 2024 8 :25am Chief Complaint Admit Date r35.1 December 04, 2024 8 :25am review labs December 10, 2024 2 :35pm Reason for Visit Admit Date Abnormal finding on urinalysis November 132024 2:35pm Hyperglycemia December 10, 2024 2 :35pm Hyperlipidemia December 10, 2024 2 :35pm Hypertension December 10, 2024 2 :35pm Hypokalemia December 10, 2024 2 :35pm Lung nodule December 10, 2024 2 :35pm Osteoporosis December 10, 2024 2 :35pm Rhinitis December 10, 2024 2 :35pm Tinea December 10, 2024 2 :35pm Vitamin B12 deficiency December 10 2:35pm Vitamin D deficiency December 10, 2024 2:35pm Chief Complaint Admit Date r35.1 December 04, 2024 8 :25am review labs December 10, 2024 2 :35pm E87.6 December 26, 2024 8:42am Chief Complaint Admit Date Z79.899, R73.9, R63.4, E53.8, E55.9 June 03, 2025 8:46am Chief Complaint Admit Date Z79.899, R73.9, R63.4, E53.8, E55.9 June 03, 2025 8:46am review labs June 09, 2025 2:30 pm Reason for Visit Admit Date Abnormal lung sounds June 09, 2025 2:3 0pm Hyperglycemia June 09, 2025 2:30 pm Hyperlipidemia June 09, 2025 2:30 pm Lung nodule June 09, 2025 2:30 pm Osteoporosis June 09, 2025 2:30 pm Vitamin B12 deficiency June 09, 2025 2 :30pm Vitamin D deficiency June 09, 2025 2:3 0pm Reason for Referral SpecialtyDiagnoses / ProceduresReferred By ContactReferred To Contact Diagnoses Coronary artery disease involving [place] coronary artery of [place] heart without angina pectoris Primary hypertension Procedures ECG 12 Lead Mita Karimi MD [address] [facility] 2, [address] [address] Referral IDStatusReasonStart DateExpiration DateVisits RequestedVisits [id number] [id number] / ProceduresReferred By ContactReferred To ContactCardiology Diagnoses Coronary artery disease involving [place] coronary artery of [place] heart without angina pectoris Primary hypertension Hyperlipidemia, unspecified hyperlipidemia type Procedures Follow Up In Cardiology Mita Karimi MD [address] [facility] 2, [address] [address] Referral IDStatusLeslieasonart DateExpiration DateVisits RequestedVisits [id number]/3/20233/31/202411 Additional Source Comments INFORMATION SOURCE (unrecogn ized section and content) DATE CREATED AUTHOR 03/04/2022 [facility] DATE CREATED AUTHOR AUTHOR'S ORGANIZ ATION 04/20/2023 [facility] DATE CREATED AUTHOR AUTHOR'S ORGANIZ ATION 08/14/2024 [facility] DATE CREATED AUTHOR AUTHOR'S ORGANIZ ATION 02/09/2025 [facility] EPIC DATE CREATED AUTHOR AUTHOR'S ORGANIZ ATION 02/21/2025 [facility] DATE CREATED AUTHOR AUTHOR'S ORGANIZ ATION 06/05/2025 [facility] REASON FOR VISIT (unrecogniz ed section and content) ReasonCommentsFollow-up9m w/ekgSpecialtyDiagnoses / ProceduresReferred By ContactReferred To Contact Diagnoses Coronary artery disease involving [place] coronary artery of [place] heart without angina pectoris Primary hypertension Procedures ECG 12 Lead Mita Karimi MD [address] [facility] [address], [address] [place] [address] Referral IDStatusReasonStclymer DateExpiration DateVisits RequestedVisits [id number] [id number]-fr3 month SpecialtyDiagnoses / ProceduresReferred By ContactReferred To ContactCardiology Diagnoses Coronary artery disease involving [place] coronary artery of [place] heart without angina pectoris Primary hypertension Hyperlipidemia, unspecified hyperlipidemia type Procedures Follow Up In Cardiology Mita Karimi MD [address] [facility] [address], [address] [place] [address] Referral IDStatusReasonStclymer DateExpiration DateVisits RequestedVisits [id number]/3/20233/31/346473GxnodsQllbrqufDztzbiejhca ExamLast Mammogram: 09/29/24DEXA: 01/21/21Last Pap: 01/07/20 - NegReasonCommentsFollow-up 9m Follow up for Coronary Artery DiseaseSpecialtyDiagnoses / ProceduresReferred By ContactReferred To ContactCardiology Diagnoses Coronary artery disease involving [place] coronary artery of [place] heart without angina pectoris Procedures Follow Up In Cardiology Mita Karimi MD [address] [facility] 2, [address] [place], [place] [id number] Phone: tel: fax: Mita Karimi MD [address] [facility] 2, [address] [place] [address] Phone: tel: fax: Referral IDStatusReasonStart DateExpiration DateVisits RequestedVisits [id number]/10/20247/10/202511 Care Teams (unrecognized sec tion and content) Team Status: Active Member Role Status Dates Jyotsna Abarca DO Primary Care Provider Active Team Status: Inactive Member Role Status Dates Jyotsna Abarca DO Primary Care Provide r, Attending Provider Active Start: December 04, 2024 End: December 04, 2024 Team Status: Active Member Role Status Dates Jyotsna Abarca DO Primary Care Provider Active S tart: May 19, 2024 Jaun Garza ProviderActiveStart: May 19, 2024 Team Status: Inactive Member Role Status Dianna Abarca DO Primary Care Provide r, Attending Provider Active Start: May 23, 2024 End: May 23, 2024 Team Status: Inactive Member Role Status Dianna Abarca DO Primary Care Provider, Attending Pro vider Active Team MemberRelationshipSpecialtyStart DateEnd Date Jyotsna Abarca DO [address] [place] [phone] [facility] - General11/12/19 Team Status: Inactive Member Role Status Dianna [...] Start: June 12, 2024 End: June 12, 2024Team MemberRelationshipSpecialtyStart DateEnd Date Jyotsna Abarca DO [address] [place] [address] PCP - General11/12/19 Team Status: Inactive Member Role Status Dates Jyotsna Abarca DO Primary Care Provide r, Attending Provider Active Start: December 10, 2024 End: December 10, 2024 Team Status: Inactive Member Role Status Dates Jyotsna Abarca DO Primary Care Provide r, Attending Provider Active Start: December 26, 2024 End: December 26, 2024Team MemberRelationshipSpecialtyStart DateEnd Date Jyotsna Abarca MD [address] [place], [place] [phone] [facility]02/04/24Team MemberRelationshipSpecialtyStart DateEnd Date Jyotsna Abarca DO [address] [place], [place] [id number] [facility]02/19/25Team MemberRelationshipSpecialtyStart DateEnd Date Jyotsna Abarca MD [address] [place], [place] [id number] [facility]02/04/24 Team Status: Inactive Member Role Status Dates Jyotsna Abarca DO Primary Care Provider Active S tart: June 03, 2025 End: June 03, 2025Dapardeep Abarca DOAttending ProviderActiveStart: June 03, 2025 End: June 03, 2025 Team Status: Inactive Member Role Status Dates Jyotsna Abarca DO Primary Care Provider Active S tart: June 09, 2025 End: June 09, 2025Dapardeep Abarca DOAttending ProviderActiveStart: June 09, 2025 End: June 09, 2025Team MemberRelationshipSpecialtyStart DateEnd Date Jyotsna Abarca MD [address] [place] [address] PCP - GeneralFamily Medicine02/04/24 Goals (unrecognized section and content) Goals may [...] BE BASED ON THE PRIMARY CLINICAL RECORDS. [employer] [facility]. provides no warranty or guarantee of the accuracy or completeness of information in this document.
== END 2025-09-30 09:27 | disposition home or self-care (01) ==
LOC: MAMMO 09:26
PROVIDERS: PCP Family Medicine; Visit Provider Specialist
DX: Z12.31 Encounter for screening mammogram for malignant neoplasm of breast (principal)
CPT/HCPCS: 77063; 77067